=== PATIENT | male | born 1955 | race Caucasian/White ===

== ENCOUNTER → 2025-01-28 | Outpatient (REF) | payer MEDICARE, MEDICAID, SELFPAY ==
--- OUTSIDE RECORDS SUMMARY | 2025-01-28 04:17 | XMS RPT_ITS | CCD ---
Author Organization [place] [email or web address] [facility] Care Team Providers Care Rn Clinical Name Role Phone FAYE JORDAN DO Primary Care Physician Sean Rounding Nurse, Jonathan Unavailable Yarely ROBERTS MD, ANS Attending Unavailable ATIYA MACK MD Admitting Unavailable HAYDEN LARSON DO Consulting Unavailable FAYE JORDAN DO Primary Care Unavailable FAYE JORDAN DO Consulting Unavailable Daniella Meeks Attending Unavailable NICKOLAS EWING Primary Care Unavailable NAYANA BETANCOURT Admitting Unavailable NAYANA BETANCOURT Attending Unavailable OSCAR MALONEY Consulting Unavailable Allergies Allergy Classification Reported Allergen(s) Allergy Type Date of Onset Reaction(s) Facility (1 source) Fish - dietary Drug allergy RESP DIFF; THROAT [facility] (1 source) FISH CONTAINING PRODUCTS; Translations: [FISH CONTAINING PRODUCTS] Propensity to adverse reactions to drug (disorder) [address] [place] [address] Repository Medications Current Medications Medication Drug Class(es) Dates Sig (Normalized) Sig (Original) aspirin 81 mg oral tablet (1 source) Platelet Aggregation Inhibitor, Nonsteroidal Anti-inflammatory Drug Start: 09-16-2009 take 1 dose by mouth once daily aspirin Dose : 81 mg =, PO, Daily, 0 Refill(s), current med (Hx) Start Date: 09/16/09 Status: Ordered Medication Dispense Status: Completed Total Allowed Fills: 1 Fills Dispensed: 0 atorvastatin 40 mg oral tablet (1 source) HMG-CoA Reductase Inhibitor Start: 01-05-2025 atorvastatin 40 mg oral tablet Dose : 40 mg = 1 tab(s), Oral, qHS, 0 Refill(s) Start Date: 01/05/25 Status: Ordered Medication Dispense Status: Completed Total Allowed Fills: 1 Fills Dispensed: 0 docusate sodium 50 mg / sennosides, correction 8.6 mg oral tablet (1 source) Start: 01-05-2025 take 1 tablet by mouth once daily at bedtime docusate-senna 50 mg-8.6 mg oral tablet Dose = 2 tab(s), Oral, qHS, 0 Refill(s) Start Date: 01/05/25 Status: Ordered Medication Dispense Status: Completed Total Allowed Fills: 1 Fills Dispensed: 0 insulin glargine 100 unt/ml injectable solution (1 source) Insulin Analog Start: 01-05-2025 inject 1 dose by subcutaneous injection once daily at bedtime Lantus 100 units/mL10 ml vial solution Dose : 15 unit(s) =, Subcutaneous (INT), qHS, 0 Refill(s) Start Date: 01/05/25 Status: Ordered Medication Dispense Status: Completed Total Allowed Fills: 1 Fills Dispensed: 0 insulin lispro 100 unt/ml injectable solution (1 source) Insulin Analog Start: 01-05-2025 HumaLOG 100 units/mL subcutaneous solution Give 0-10 units/dose, Subcutaneous, TIDAC, 0 Refill(s) Start Date: 01/05/25 Status: Ordered Medication Dispense Status: Completed Total Allowed Fills: 1 Fills Dispensed: 0 lisinopril 10 mg oral tablet (1 source) Angiotensin Converting Enzyme Inhibitor Start: 09-06-2009 take 1 dose by mouth once daily lisinopril Dose : 10 mg =, PO, Daily, 0 Refill(s), current med (Hx) Start Date: 09/06/09 Status: Ordered Medication Dispense Status: Completed Total Allowed Fills: 1 Fills Dispensed: 0 metFORMIN hydrochloride 1000 mg oral tablet (1 source) Biguanide Start: 09-06-2009 take 1 dose by mouth twice daily metformin Dose : 1000 mg =, PO, BID, 0 Refill(s), current med (Hx) Start Date: 09/06/09 Status: Ordered Medication Dispense Status: Completed Total Allowed Fills: 1 Fills Dispensed: 0 Miconazole (1 source) Azole Antifungal Start: 01-05-2025 miconazole 2% topical powder Apply 1 liv, Topical, BID, 0 Refill(s), Powder, 82.5 Start Date: 01/05/25 Status: Ordered Medication Dispense Status: Completed Total Allowed Fills: 1 Fills Dispensed: 0 polyethylene glycol 3350 38680 mg powder for oral solution (1 source) Osmotic Laxative Start: 01-05-2025 Miralax Powder Packet Oral, qDay, 0 Refill(s) Start Date: 01/05/25 Status: Ordered Medication Dispense Status: Completed Total Allowed Fills: 1 Fills Dispensed: 0 polymyxin b 80186 unt/ml / trimethoprim 1 mg/ml ophthalmic solution (1 source) Dihydrofolate Reductase Inhibitor Antibacterial, Polymyxin-class Antibacterial Start: 01-05-2025 polymyxin B-trimethoprim 10,000 units-1 mg/mL ophthalmic solution Dose = 1 drop(s), Eye, right, q3h, 0 Refill(s) Start Date: 01/05/25 Status: Ordered Medication Dispense Status: Completed Total Allowed Fills: 1 Fills Dispensed: 0 Silvadene (1 source) Sulfonamide Antibacterial Start: 01-05-2025 Silvadene Apply 1 liv, Topical, BID, 0 Refill(s), Cream, 82.5 Start Date: 01/05/25 Status: Ordered Medication Dispense Status: Completed Total Allowed Fills: 1 Fills Dispensed: 0 terbinafine 250 mg oral tablet (1 source) Allylamine Antifungal Start: 09-16-2009 terbinafine 250 mg oral tablet Dose : 250 mg = 1 tab(s), PO, Daily, 0 Refill(s), current med (Hx) Start Date: 09/16/09 Status: Ordered Medication Dispense Status: Completed Total Allowed Fills: 1 Fills Dispensed: 0 Problems Problem Classification Problem Date Documented Date Episodic/Chronic Chronic ulcer of skin (2 sources) Pressure ulcer of sacral region; Translations: [Pressure ulcer of sacral region, stage 3] Chronic Diabetes mellitus with complications (1 source) Type 2 diabetes mellitus with other specified complication; Translations: [Type 2 diabetes mellitus with other specified complication, with long-term current use of insulin (HCC)] Onset: 01-05-2025 Chronic Fluid and electrolyte disorders (2 sources) Hyperosmolality with hypernatremia; Translations: [Hyperosmolality and hypernatremia] Episodic Mood disorders (1 source) Mood disorders; Translations: [Depression, unspecified depression type] Onset: 01-05-2025 Other aftercare (1 source) assisted (current) use of insulin; Translations: [Type 2 diabetes mellitus with other specified complication, with long-term current use of insulin (HCC)] Onset: 01-05-2025 Episodic Other circulatory disease (1 source) Low blood pressure; Translations: [Hypotension, unspecified] Episodic Other circulatory disease (1 source) Personal history of transient ischemic attack (TIA), and cerebral infarction without residual deficits; Translations: [History of cardioembolic cerebrovascular accident (CVA)] Onset: 01-05-2025 Episodic Other connective tissue disease (1 source) Rhabdomyolysis; Translations: [Rhabdomyolysis] Episodic Other nervous system disorders (1 source) Disorder of brain; Translations: [Encephalopathy, unspecified] Chronic Other nervous system disorders (1 source) Metabolic encephalopathy; Translations: [Metabolic encephalopathy] Onset: 12-27-2024 Chronic Other nervous system disorders (1 source) Toxic encephalopathy; Translations: [Other toxic encephalopathy] Episodic Residual codes; unclassified (1 source) Restlessness and agitation; Translations: [Agitation] Onset: 01-08-2025 Chronic Respiratory failure; insufficiency; arrest (adult) (1 source) Acute respiratory failure; Translations: [Acute respiratory failure with hypoxia] Episodic Septicemia (except in labor) (2 sources) Sepsis; Translations: [Sepsis, unspecified organism] Onset: 12-27-2024 Episodic Substance-related disorders (1 source) Cocaine abuse; Translations: [Cocaine abuse, uncomplicated] Chronic Urinary tract infections (2 sources) Urinary tract infectious disease; Translations: [Urinary tract infection, site not specified] Onset: 12-27-2024 Episodic Results Test Name Value Interpretation Reference Range Facility L509.8005on 01-22-2025 Reagin Ab RPR Ql (S) Non-Reactive Normal Non Reactive [facility] Comment on above: Order Comment: 415.2 Result Comment: Perf ormed at: - [facility] [address] [id number] Heavy Forging Machine Operator: Je Hernandez PhD, Phone: [phone] Performed By: #### L 509.9860, L100.0500, L500.2500 #### [facility] [place], [address] Basic Metabolic Profile (BMP )on 01-21-2025 BUN/CRE 32.0 RATIO High 10-20 [facility] Comment on above: Order Comment: 415.2 Performed By: #### L 509.8005, L100.0500, L500.2500 #### [facility] [address] [place], [address] Calcium [Mass/Vol] 8.7 mg/dL Normal 7.6-11.0 [facility] Comment on above: Order Comment: 415.2 Performed By: #### L 509.8005, L100.0500, L500.2500 #### [facility] [address] [place], [address] Chloride [Moles/Vol] 106 mmol/L Normal 98-108 [facility] Comment on above: Order Comment: 415.2 Performed By: #### L 509.8005, L100.0500, L500.2500 #### [facility] [address] [place], [address] CO2 [Moles/Vol] 24.4 mmol/L Normal 21.0-32.0 [facility] Comment on above: Order Comment: 415.2 Performed By: #### L 509.8005, L100.0500, L500.2500 #### [facility] [address] [place], [address] Creatinine [Mass/Vol] 0.50 mg/dL Low 0.70-1.20 [facility] Comment on above: Order Comment: 415.2 Performed By: #### L 509.8005, L100.0500, L500.2500 #### [facility] [address] [place], [address] GAP 10 Normal 5-15 [facility] Comment on above: Order Comment: 415.2 Performed By: #### L 509.8005, L100.0500, L500.2500 #### [facility] [address] [place], [address] GFR/1.73 sq M.predicted among non-blacks MDRD (S/P/Bld) [Vol rate/Area] 110 mL/min/{1.73_m2} Normal >60 [facility] Comment on above: Order Comment: 415.2 Result Comment: mL/m in/1.73m2 CKD-EPI Creatinine Equation (2020) Performed By: #### L 509.8005, L100.0500, L500.2500 #### [facility] [address] [place], [address] Glucose [Mass/Vol] 107 mg/dL High 70-99 [facility] Comment on above: Order Comment: 415.2 Performed By: #### L 509.8005, L100.0500, L500.2500 #### [facility] [address] [place], [address] Potassium [Moles/Vol] 4.4 mmol/L Normal 3.3-5.1 [facility] Comment on above: Order Comment: 415.2 Performed By: #### L 509.8005, L100.0500, L500.2500 #### [facility] [address] [place], [address] Sodium [Moles/Vol] 140 mmol/L Normal 133-145 [facility] Comment on above: Order Comment: 415.2 Performed By: #### L 509.8005, L100.0500, L500.2500 #### [facility] [address] [place], [address] Urea nitrogen [Mass/Vol] 16 mg/dL Normal 4-19 [facility] Comment on above: Order Comment: 415.2 Performed By: #### L 509.8005, L100.0500, L500.2500 #### [facility] [address] [place], [address] CBC-Complete Blood Cnt No Di ffon 01-21-2025 Erythrocyte distribution width (RBC) [Ratio] 14.3 % Normal 11.6-14.6 [facility] Comment on above: Order Comment: 415.2 Performed By: #### L 509.8005, L100.0500, L500.2500 #### [facility] [address] [place], [address] Hematocrit (Bld) [Volume fraction] 42.2 % Normal 40-54 [facility] Comment on above: Order Comment: 415.2 Performed By: #### L 509.8005, L100.0500, L500.2500 #### [facility] [address] [place], [address] Hemoglobin (Bld) [Mass/Vol] 13.5 g/dL Normal 13.0-16.5 [facility] Comment on above: Order Comment: 415.2 Performed By: #### L 509.8005, L100.0500, L500.2500 #### [facility] [address] [place], [address] MCH (RBC) [Entitic mass] 29.2 pg Normal 27.0-32.0 [facility] Comment on above: Order Comment: 415.2 Performed By: #### L 509.8005, L100.0500, L500.2500 #### [facility] [address] [place], [address] MCHC (RBC) [Mass/Vol] 32.0 g/dL Normal 32-36 [facility] Comment on above: Order Comment: 415.2 Performed By: #### L 509.8005, L100.0500, L500.2500 #### [facility] [address] [place], [address] MCV (RBC) [Entitic vol] 91.1 fL Normal 80-94 [facility] Comment on above: Order Comment: 415.2 Performed By: #### L 509.8005, L100.0500, L500.2500 #### [facility] [address] [place], [address] Platelet mean volume (Bld) [Entitic vol] 10.6 fL Normal 6.2-12.0 [facility] Comment on above: Order Comment: 415.2 Performed By: #### L 509.8005, L100.0500, L500.2500 #### [facility] [address] [place], [address] Platelets (Bld) [#/Vol] 238 10*3/uL Normal 150-450 [facility] Comment on above: Order Comment: 415.2 Performed By: #### L 509.8005, L100.0500, L500.2500 #### [facility] [address] [place], [address] RBC (Bld) [#/Vol] 4.63 10*6/uL Normal 4.6-6.2 [facility] Comment on above: Order Comment: 415.2 Performed By: #### L 509.8005, L100.0500, L500.2500 #### [facility] [address] [place], [address] RDW SD 47.8 fl High 35.1-43.9 [facility] Comment on above: Order Comment: 415.2 Performed By: #### L 509.8005, L100.0500, L500.2500 #### [facility] [address] [place], [address] WBC (Bld) [#/Vol] 7.1 10*3/uL Normal 4.4-11.0 [facility] Comment on above: Order Comment: 415.2 Performed By: #### L 509.8005, L100.0500, L500.2500 #### [facility] [address] [place], [address] CASE MANAGEMon 01-19-2025 CASE MANAGEM HNO ID: [id number] Author: HEENA GUTIÉRREZ LISW Service: Care Management Author Type: Wealth Management Advisor Type: Care Mgt Progress Note Filed: 01/19/2025 09:18 Note Text: CARE MANAGEMENT DISCHARGE NOTE SERVICE DATE: January 19, 2025 SERVICE TIME: 09:15 Admission Date: 01/05/2025 LOS: 14 days Discharge Arrangement Discharge Arrangement: Home with Self Care Services Arranged Medical Services: Other: See Comment ([facility]) Provider Name: Ladan Soto Caregiver Assessment Caregiver is ready, willing and able to meet the patient's needs as recommended by the inter-professional team: Yes Name of Caregiver: staff at facility Transportation Arrangements Transportation Arrangements: Ambulance Transportation Agency and Phone #:: Hawk Jenkins [phone] Date of Trip: 01/19/25 Time of Trip: 1300 Type of Service: BLS Non-emergency Was transportation financial coverage discussed with family?: Family [employer]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 LOC and Passrr completed. All forms completed Transport arranged for pick up truck driver at 1 pm today Son and facility notified Team updated in epic Rn to Rn provided. Discharge Information Row Name Admission (Current) from 01/05/2025 in [facility] Agency ladan calderae Phone# [phone] SIGNATURE: VELMA Persaud PATIENT NAME: Steven Barlow DATE: January 19, 2025 TIME: 9:16 AM Normal [facility] CNDSon 01-19-2025 CNDS HNO ID: [id number] Author: NAYANA BETANCOURT MD Service: General Internal Medicine Author Type: Physician Type: Discharge Summary Filed: 01/19/2025 10:12 Note Text: DISCHARGE SUMMARY PATIENT NAME: Steven Barlow ADMISSION DATE: 01/05/2025 Date or Evaluation: 01/19/2025 DISCHARGE DATE: 01/19/2025 ATTENDING PHYSICIAN: Nayana Betancourt MD Code Status: Full Code Highest Readmission Risk Score: 10 The 30 day readmissions risk score is derived from an internally validated risk model which evaluates patient level characteristics, utilization history, medication orders and lab results up until the day of discharge. Patients with a score of 39 or above are considered highest risk for readmission. Specific patient level drivers will be listed at the bottom of the summary. CONSULTING TEAMS DURING HOSPITALIZATION: Treatment Team: Attending Provider: Nayana Betancourt MD Attending: MR PALAK EVANS Consulting: Robert Patton, PhD REASON FOR HOSPITALIZATION: fall DIAGNOSIS: Rehab Etiologic Diagnosis: - G93.41 - Metabolic encephalopathy Rehab Comorbid Conditions: - N39.0 - Urinary tract infection, site not specified - E87.0 - Hyperosmolality and hypernatremia - M62.82 - Rhabdomyolysis - I67.9 - Cerebrovascular disease, unspecified - E11.40 - Type 2 diabetes mellitus with diabetic neuropathy, unspecified (HCC) - E86.0 - Dehydration - R09.02 - Hypoxemia - M50.30 - Other cervical disc degeneration, unspecified cervical region - M48.02 - Spinal stenosis, cervical region - F14.10 - Cocaine abuse, uncomplicated (HCC) - L89.152 - Pressure ulcer of sacral region, stage 2 (HCC) - L89.153 - Pressure ulcer of sacral region, stage 3 (HCC) Acute metabolic encephalopathy, improving Acute UTI Concern for undiagnosed dementia, needs outpatient neurology follow-up Chronic CVA Open wounds to penis, both knees, feet (POA) Acute delirium with agitative episodes, improving Chronic depression Constipation, improved Intermittent hypotension episodes, on midodrine, stabilized Diabetes mellitus Hypertension Hyponatremia Malnutrition Diagnosis supported by Registered Dietitian: Moderate Protein-Calorie Malnutrition Based on: Insufficient Energy Intake, Subcutaneous Fat Loss, Muscle Loss Assessment: I have reviewed the result of the malnutrition assessment and plan and agree Plan: Diet, Supplements, Vitamin/Mineral Supplements OPERATIONS DURING HOSPITALIZATION: None HOSPITAL COURSE: 69 yo male presents to [facility] after being found down in his apt for unknow amount of time. Found to be in own urine and feces and right facial droop. Neighbors report seeing pt doing cocaine a few days prior. Head CT shows no acute intracranial abnomality, small lacunar infarct in left adamson radiata. CT face and spine negative for acute findings. Urine tox screen positive for cocaine. Labs show rhabdomyolysis and UTI. Admitted for care and stroke workup. MRI brain and MRA head/neck show evidence of volume loss and small vessel ischemic disease. TTE with preserve LVEF, no shunt. EEG showed no seizure. IV fluids given 1/2 NS for hypernatremia. Continue aspirin for stroke prevention. Can start aspirin and statin once CPK is improved, downtrending. Encourage oral hydration. UTI, IV ceftriaxone started. Cultures showing multiple morphotypes, will complete 1 week course. DM, continue glycemic control and sliding scale insulin. 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 Patient has stage 2 to coccyx and stage 3 to sacral region, appreciate wound team recommendations. Continue dressing changes and wound treatments. Encourage incentive spirometry. Wean O2 as able, no home O2 prior to admission. Continue PT/OT, recommending acute rehab on discharge. Patient having generalized weakness and fatigues easily. Date of Onset: 12/27/24 Date of Admission: 12/27/24 Acute rehab course: Initially admitted to hospital for experiencing acute metabolic encephalopathy, with underlying UTI and suspected substance abuse/cocaine. Patient imaging studies with CT and MRI brain, noted small lacunar infarct, likely remote. Patient provided with medications and later discharged to acute rehab. In our acute rehab, patient underwent extensive physical and occupational therapies, speech therapy, nutrition therapy, neuropsychiatric evaluations daily and provided adjusted psychiatric medications and rest of the home medications. Patient deemed stable to be discharged to SNF today with close follow-up suggested to PCP in 1 to 2 weeks. PATIENT CONDITION AT DISCHARGE: Stable DISCHARGE DISPOSITION: Senior Living Facility Physical Exam: General awake and alert oriented x 4 HEENT atraumatic normocephalic Lungs clear to auscultation bilateral no wheeze or rhonchi Cardiovascular normal S1-S2 regular rate rhythm next abdomen soft nontender nondistended positive bowel sounds Extremities n (more content not included)... Normal [facility] CONSULT PROGon 01-19-2025 CONSULT PROG HNO ID: [id number] Author: ROBERT PATTON, PhD Service: Psychology Author Type: Psychologist Type: Consult Progress Note Filed: 01/19/2025 09:09 Note Text: NEUROPSYCHOLOGY SERVICE CONSULT PROGRESS NOTE SERVICE DATE: 01/19/2025 SERVICE TIME: 9:04 AM Subjective INTERVAL HPI: Mr. Barlow reports improved right sided functioning. Scheduled for discharge to [facility] facility later today he states. I have not confirmed with charge nurse. No new complaints. No new questions. Current Facility-Administere d Medications Medication Dose Route Frequency terbinafine HCl 250 mg tab(s) (LamISIL) 250 mg ORAL DAILY aspirin 81 mg chewable tab(s) 81 mg ORAL DAILY atorvastatin 40 mg tab(s) (LIPITOR) 40 mg ORAL AT BEDTIME dextrose 40 % 15 g 15 g ORAL PRN Or glucagon 1 mg injection 1 mg INTRAMUSCULAR PRN Or dextrose 10% iv bolus 12.5 g INTRAVENOUS PRN insulin lispro injection (rapid acting) (ADMElog) SUBCUTANEOUS w MEALS insulin lispro injection (rapid acting) (ADMElog) SUBCUTANEOUS AT BEDTIME insulin glargine 15 Units pen (long acting) 15 Units SUBCUTANEOUS AT BEDTIME metFORMIN ER 1,000 mg tab(s) (GLUCOPHAGE XR) 1,000 mg ORAL BID w MEALS polyethylene glycol 3350 17 g packet 17 g ORAL DAILY miconazole 2 % 1 application topical powder 1 application TOPICAL BID polymyxin B-trimethoprim 1 drop ophthalmic drops (POLYTRIM) 1 drop BOTH EYES 3 times per day aquaphor - stomahesive topical ointment (E.T. MIXTURE) TOPICAL PRN mirtazapine 15 mg (REMERON) 15 mg ORAL AT BEDTIME lidocaine 4 % 1 patch (SALONPAS) 1 patch TRANSDERMAL DAILY And lidocaine patch - REMOVE OTHER AT BEDTIME And lidocaine - VERIFY PATCH OTHER q 8 H OLANZapine 2.5 mg tab(s) (ZYPREXA) 2.5 mg ORAL AT BEDTIME nicotine 21 mg/24 hr 1 patch (NICODERM) 1 patch TRANSDERMAL DAILY And nicotine -- REMOVE patch OTHER DAILY And nicotine - verify patch OTHER q 8 H acetaminophen 650 mg tab(s) (TYLENOL) 650 mg ORAL q 6 H PRN multivitamin-ferrous fumarate-folic acid 1 tablet (CENTRUM) 1 tablet ORAL DAILY midodrine 5 mg tab(s) (PROAMITINE) 5 mg ORAL q 8 H lactulose 20 g oral liquid 20 g ORAL BID senna-docusate 8.6-50 mg 2 tablet (SENNA-S) 2 tablet ORAL BID diclofenac 1 % 2 g topical gel (VOLTAREN) 2 g TOPICAL DAILY PRN Objective COGNITIVE TESTING: Repeated testing on prior areas of concern identified last week. Attention Verbal complex attention measured by digits reversed improved to the normal range on the lower limit, 4 numbers reverse consistently. Upper limit still moderately impaired 4 numbers reversed with mistakes on some tries instead of 6. Visual attention improved to the mild deficit range, 3 visual units recalled in order consistently and 5 with mistakes on some tries. Language Object naming improved. Perfect score on the naming screen today 10 out of 10 correct Vision and Motor Skills Line angle perception improved from the moderate to the normal range 8 out of 10 correct. Memory Verbal memory storage for a list of 5 words remains normal, 3 tries to learn the list. 15 minutes later still unable to recall any severe score. Executive Functions Verbal everyday reasoning based on the judgment test remains moderately impaired 4 out of 8 points. Cognitive estimates improved from the severe to the moderate deficit range 3 out of 5 items correct, another verbal reasoning measure. He remains severely impaired on Matrix Reasoning of visual reasoning measure, failing the easy practice items x 3. DATA: Diagnostic tests reviewed for today's visit: Significant findings were none found CONCLUSIONS/RECOMMEN DATIONS: Repeat cognitive testing shows improvement in several areas including verbal and visual attention, naming, line angle perception. He still has moderate to severe deficits in verbal and visual reasoning, verbal memory recall. Milder deficits still seen on verbal and visual attention. Recommend continued cognitive therapy. Power of deputy county attorney should be enforced still due to his significant residual cognitive deficits. Use visual cues is much as possible because of preserved visual memory. 35 minutes SIGNATURE: Robert Patton, PhD PATIENT NAME: Steven Barlow DATE: January 19, 2025 TIME: 9:04 AM PAGER: Normal [facility] Basic metabolic 2000 panelon 2025 Anion gap [Moles/Vol] 10 mmol/L Normal 5-16 [facility] Comment on above: Order Comment: Speci men Type: BLOOD SPECIMENOrdering Facility: [facility] Address: [address] [place] [address] Performed By: #### 2 4321-2 ####[facility] LABORATORYCLIA [id number] [place] [address] [place] Calcium [Mass/Vol] 8.9 mg/dL Normal 8.5-10.5 [facility] Comment on above: Order Comment: Speci men Type: BLOOD SPECIMENOrdering Facility: [facility] Address: [address] [place] [address] Performed By: #### 2 4321-2 ####[facility] LABORATORYCLIA [id number] [place] [address] [place] Chloride [Moles/Vol] 104 mmol/L Normal 98-107 [facility] Comment on above: Order Comment: Speci men Type: BLOOD SPECIMENOrdering Facility: [facility] Address: [address] [place] [address] Performed By: #### 2 4321-2 ####[facility] LABORATORYCLIA [id number] [place] [address] [place] CO2 [Moles/Vol] 27 mmol/L Normal 21-32 [facility] Comment on above: Order Comment: Speci men Type: BLOOD SPECIMENOrdering Facility: [facility] Address: [address] [place] [address] Performed By: #### 2 4321-2 ####[facility] LABORATORYCLIA [id number] [place] [address] [place] [facility] Creatinine [Mass/Vol] 0.64 mg/dL Normal 0.50-1.40 [facility] Comment on above: Order Comment: Speci men Type: BLOOD SPECIMENOrdering Facility: [facility] Address: [address] [place] [address] Result Comment: Chuyita ents receiving either N-Acetylcysteine (NAC) or Metamizole prior to venipuncture, may have falsely depressed results. Performed By: #### 2 4321-2 ####[facility] LABORATORYCLIA [id number] [place] [address] [place] eGFRcr SerPlBld CKD-EPI 2020 102 mL/min/1.73m??? Normal >=60 [facility] Comment on above: Order Comment: Speci men Type: BLOOD SPECIMENOrdering Facility: [facility] Address: [address] [place] [address] Result Comment: Mariana mated Glomerular Filtration Rate (eGFR) is calculated using the 2020 CKD-EPI creatinine equation. This equation utilizes serum creatinine, sex, and age as parameters. The creatinine assay has traceable calibration to isotope dilution-mass spectrometry. Refer to KDIGO guidelines for clinical interpretation. In patients with unstable renal function, e.g. those with acute kidney injury, the eGFR may not accurately reflect actual GFR. Performed By: #### 2 4321-2 ####[facility] LABORATORYCLIA [id number] [place] [id number] [place] Glucose [Mass/Vol] 69 mg/dL Low 70-100 [facility] Comment on above: Order Comment: Maren newman Type: BLOOD SPECIMENOrdering Facility: [facility] Address: [address] [place] [address] Result Comment: The [place] Diabetes Association (ADA) provides guidance for cutoff values for fasting glucose and random glucose. The ADA defines fasting as no caloric intake for at least 8 hours. Fasting plasma glucose results between 100 to 125 mg/dL indicate increased risk for diabetes (prediabetes). Fasting plasma glucose results greater than or equal to 126 mg/dL meet the criteria for diagnosis of diabetes. In the absence of unequivocal hyperglycemia, results should be confirmed by repeat testing. In a patient with classic symptoms of hyperglycemia or hyperglycemic crisis, random plasma glucose results greater than or equal to 200 mg/dL meet the criteria for diagnosis of diabetes. Reference: Standards of Medical Care in Diabetes 2016, [place] [employer] Association. Diabetes Care. 2016.39(Suppl 1). Results may be falsely elevated after the administration of Sulfapyridine. Results may be falsely depressed after the administration of Sulfasalazine. Performed By: #### 2 4321-2 ####[facility] LABORATORYCLIA [id number] [place] [address] [place] Potassium [Moles/Vol] 3.7 mmol/L Normal 3.5-5.1 [facility] Comment on above: Order Comment: Maren newman Type: BLOOD SPECIMENOrdering Facility: [facility] Address: [address] [place] [id number] Performed By: #### 2 4321-2 ####[facility] LABORATORYCLIA [id number] [place] [id number] [place] Sodium [Moles/Vol] 141 mmol/L Normal 136-145 [facility] Comment on above: Order Comment: Speci men Type: BLOOD SPECIMENOrdering Facility: [facility] Address: [address] [place] [address] Performed By: #### 2 4321-2 ####[facility] LABORATORYCLIA [id number] [place] [id number] [place] Urea nitrogen [Mass/Vol] 17 mg/dL Normal 7-26 [facility] Comment on above: Order Comment: Speci men Type: BLOOD SPECIMENOrdering Facility: [facility] Address: [address] [place] [id number] Performed By: #### 2 4321-2 ####[facility] LABORATORYCLIA [id number] [place] [id number] [facility] CASE MANAGEMon 2025 CASE MANAGEM HNO ID: [id number] Author: HEENA GUTIÉRREZ LISW Service: Care Management Author Type: Wealth Management Advisor Type: Care Mgt Progress Note Filed: 2025 09:25 Note Text: CARE MANAGEMENT PROGRESS NOTE SERVICE DATE: 2025 SERVICE TIME: LOS: 13 days Progress note Patient admitted to [facility] from [facility] metabolic encephalopathy- found on ground by neighbors-who report recent cocaine use. Patient will have 3 hours of therapy 5 days a week with gaol to progress patient to home Patient lives alone in apartment he was independnent with self care He has insurance and can afford RX. He has a PCP has not been in while and can not recall name He may need to be set up with new PCP. He was [employer] does not receive services from them He has one Son Damien Barlow- [phone] He admits to He denies alcohol and drug use. He did test positive at [facility] for Cocaine. Son indicated he did that a long time ago and may have gotten from neighbor as been confused Patient is able to afford medications can struggle with obtaining food and paying bills Commity resources and food assistance provided to patient Plan is [facility] Memory care unit Javi Delorister does not need to be removed. Insurance approved admission. LOC and Pas[place] and updated in care port. 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 Discharge packet on chart and DNR form completed-singed on chart Seen patient provided support and updated on plan and in agreement. Remains confused. Sw following for transitional care needs SIGNATURE: VELMA Persaud PATIENT NAME: Steven Barlow DATE: 2025 TIME: 9:20 AM Normal [facility] CBC W Auto Differential pane l (Bld)on 2025 Basophils (Bld) [#/Vol] 0.07 10*3/uL Normal <0.11 [facility] Comment on above: Order Comment: Speci men Type: BLOOD SPECIMENOrdering Facility: [facility] Address: [address] [place] [address] Performed By: #### 5 7021-8 ####[facility] LABORATORYCLIA [id number] [place] [address] [place] Basophils/100 WBC (Bld) 1.0 % Normal [facility] Comment on above: Order Comment: Speci men Type: BLOOD SPECIMENOrdering Facility: [facility] Address: [address] [place] [address] Performed By: #### 5 7021-8 ####[facility] LABORATORYCLIA [id number] [place] [address] [place] Differential cell count method Nom (Bld) Auto Normal [facility] Comment on above: Order Comment: Speci men Type: BLOOD SPECIMENOrdering Facility: [facility] Address: [address] [place] [address] Performed By: #### 5 7021-8 ####[facility] LABORATORYCLIA [id number] [place] [address] [place] Eosinophils (Bld) [#/Vol] 0.15 10*3/uL Normal <0.46 [facility] Comment on above: Order Comment: Speci men Type: BLOOD SPECIMENOrdering Facility: [facility] Address: [address] [place] [address] Performed By: #### 5 7021-8 ####[facility] LABORATORYCLIA [id number] [place] [address] [place] Eosinophils/100 WBC (Bld) 2.1 % Normal [facility] Comment on above: Order Comment: Speci men Type: BLOOD SPECIMENOrdering Facility: [facility] Address: [address] [place] [address] Performed By: #### 5 7021-8 ####[facility] LABORATORYCLIA [id number] [place] [address] [place] Erythrocyte distribution width (RBC) [Ratio] 14.4 % Normal 11.5-15.0 [facility] Comment on above: Order Comment: Speci men Type: BLOOD SPECIMENOrdering Facility: [facility] Address: [address] [place] [address] Performed By: #### 5 7021-8 ####[facility] LABORATORYCLIA [id number] [place] [address] [place] Hematocrit (Bld) [Volume fraction] 41.4 % Normal 39.0-51.0 [facility] Comment on above: Order Comment: Speci men Type: BLOOD SPECIMENOrdering Facility: [facility] Address: [address] [place] [address] Performed By: #### 5 7021-8 ####[facility] LABORATORYCLIA [id number] [place] [address] [place] Hemoglobin (Bld) [Mass/Vol] 13.2 g/dL Normal 13.0-17.0 [facility] Comment on above: Order Comment: Speci men Type: BLOOD SPECIMENOrdering Facility: [facility] Address: [address] [place] [address] Performed By: #### 5 7021-8 ####[facility] LABORATORYCLIA [id number] [place] [id number] [place] Immature granulocytes (Bld) [#/Vol] 0.06 10*3/uL Normal <0.10 [facility] Comment on above: Order Comment: Speci men Type: BLOOD SPECIMENOrdering Facility: [facility] Address: [address] [place] [address] Performed By: #### 5 7021-8 ####[facility] LABORATORYCLIA [id number] [address] [place] [facility] Immature granulocytes/100 WBC (Bld) 0.8 % Normal [facility] Comment on above: Order Comment: Speci men Type: BLOOD SPECIMENOrdering Facility: [facility] Address: [address] [place] [address] Performed By: #### 5 7021-8 ####[facility] LABORATORYCLIA [id number] [place] [address] [place] Lymphocytes (Bld) [#/Vol] 2.31 10*3/uL Normal 1.00-4.00 [facility] Comment on above: Order Comment: Speci men Type: BLOOD SPECIMENOrdering Facility: [facility] Address: [address] [place] [address] Performed By: #### 5 7021-8 ####[facility] LABORATORYCLIA [id number] [address] [place] Lymphocytes/100 WBC (Bld) 31.6 % Normal [facility] Comment on above: Order Comment: Speci men Type: BLOOD SPECIMENOrdering Facility: [facility] Address: [address] [place] [address] Performed By: #### 5 7021-8 ####[facility] LABORATORYCLIA [id number] [place] [address] [place] MCH (RBC) [Entitic mass] 28.8 pg Normal 26.0-34.0 [facility] Comment on above: Order Comment: Speci men Type: BLOOD SPECIMENOrdering Facility: [facility] Address: [address] [place] [address] Performed By: #### 5 7021-8 ####[facility] LABORATORYCLIA [id number] [place] [address] [place] MCHC (RBC) [Mass/Vol] 31.9 g/dL Normal 30.5-36.0 [facility] Comment on above: Order Comment: Speci men Type: BLOOD SPECIMENOrdering Facility: [facility] Address: [address] [place] [address] Performed By: #### 5 7021-8 ####[facility] LABORATORYCLIA [id number] [place] [address] [place] MCV (RBC) [Entitic vol] 90.4 fL Normal 80.0-100.0 [facility] Comment on above: Order Comment: Speci men Type: BLOOD SPECIMENOrdering Facility: [facility] Address: [address] [place] [address] Performed By: #### 5 7021-8 ####[facility] LABORATORYCLIA [id number] [place] [address] [place] Monocytes (Bld) [#/Vol] 0.83 10*3/uL Normal <0.87 [facility] Comment on above: Order Comment: Speci men Type: BLOOD SPECIMENOrdering Facility: [facility] Address: [address] [place] [address] Performed By: #### 5 7021-8 ####[facility] LABORATORYCLIA [id number] [place] [address] [place] Monocytes/100 WBC (Bld) 11.4 % Normal [facility] Comment on above: Order Comment: Speci men Type: BLOOD SPECIMENOrdering Facility: [facility] Address: [address] [place] [address] Performed By: #### 5 7021-8 ####[facility] LABORATORYCLIA [id number] [place] [address] [place] Neutrophils (Bld) [#/Vol] 3.89 10*3/uL Normal 1.45-7.50 [facility] Comment on above: Order Comment: Speci men Type: BLOOD SPECIMENOrdering Facility: [facility] Address: [address] [place] [address] Performed By: #### 5 7021-8 ####[facility] LABORATORYCLIA [id number] [place] [address] [place] Neutrophils/100 WBC (Bld) 53.1 % Normal [facility] Comment on above: Order Comment: Speci men Type: BLOOD SPECIMENOrdering Facility: [facility] Address: [address] [place] [address] Performed By: #### 5 7021-8 ####[facility] LABORATORYCLIA [id number] [place] [address] [place] Nucleated RBC (Bld) [#/Vol] 10*3/uL Normal <0.01 [facility] Comment on above: Order Comment: Speci men Type: BLOOD SPECIMENOrdering Facility: [facility] Address: [address] [place] [address] Performed By: #### 5 7021-8 ####[facility] LABORATORYCLIA [id number] [place] [address] [place] Nucleated RBC/100 WBC (Bld) [Ratio] 0.0 /100 WBC Normal [facility] Comment on above: Order Comment: Speci men Type: BLOOD SPECIMENOrdering Facility: [facility] Address: [address] [place] [address] Performed By: #### 5 7021-8 ####[facility] LABORATORYCLIA [id number] [place] [address] [place] Platelet mean volume (Bld) [Entitic vol] 10.6 fL Normal 9.0-12.7 [facility] Comment on above: Order Comment: Speci men Type: BLOOD SPECIMENOrdering Facility: [facility] Address: [address] [place] [address] Performed By: #### 5 7021-8 ####[facility] LABORATORYCLIA [id number] [place] [address] [place] Platelets (Bld) [#/Vol] 234 10*3/uL Normal 150-400 [facility] Comment on above: Order Comment: Speci men Type: BLOOD SPECIMENOrdering Facility: [facility] Address: [address] [place], [place] [address] Performed By: #### 5 7021-8 ####[facility] LABORATORYCLIA [id number] [place] [id number] [facility] [place] RBC (Bld) [#/Vol] 4.58 10*6/uL Normal 4.20-6.00 [facility] Comment on above: Order Comment: Speci men Type: BLOOD SPECIMENOrdering Facility: [facility] Address: [address] [place] [address] Performed By: #### 5 7021-8 ####[facility] LABORATORYCLIA [id number] [place] [id number] [facility] WBC (Bld) [#/Vol] 7.31 10*3/uL Normal 3.70-11.00 [facility] Comment on above: Order Comment: Speci men Type: BLOOD SPECIMENOrdering Facility: [facility] Address: [address] [place] [address] Performed By: #### 5 7021-8 ####[facility] LABORATORYCLIA [id number] [place] [id number] [facility] THERAPY NTon 2025 THERAPY NT HNO ID: [id number] Author: FLORINA LA, PT Service: Physical Therapy Author Type: Physical Therapist Type: Therapy (PT/OT/Speech/Resp) Filed: 2025 12:50 Note Text: PHYSICAL THERAPY DISCHARGE NOTE INPATIENT REHABILITATION FACILITY SERVICE DATE: 2025 ROOM: [place] [address] Anticipated Discharge Needs: Undetermined (Pt d/c'd to SNF) Physical Assist at Home for: Finances, Laundry, Cleaning, Meals, Medication Management, Safety, Stairs, Self Care, Shopping, Transportation Supervision at Home due to: Decreased safety awareness, Impaired cognition Recommended Discharge Disposition: Subacute/SNF Recommended Discharge Equipment: No equipment needs anticipated Plan of Care Developed with: Patient Discharge Therapy Services Discharged (date): 01/18/25 Discharged To: Subacute / Senior Living Facility Home Exercise Program Status: Assist Care Scores Functional Area Admission Assessment Care Score Current Status Care Score Discharge Goal Chair/Zme-la-Ynmxs Transfer 3 3 Independent [6] Toilet Transfer 3 4 Supervision or touching assistance [4] Walk 10 Feet 3 3 Independent [6] Walk 50 Feet with Two Turns 3 3 Independent [6] Walk 150 Feet 88 3 Independent [6] 1 Step (Curb) 3 3 Independent [6] 4 Steps 3 3 Independent [6] 12 Steps 3 3 Independent [6] Wheel 50 Feet with Two Turns 9 9 Not applicable [9] Wheel 150 Feet 9 9 Not applicable [9] Care Score Definitions: 1 - Dependent; 2 - Substantial/maximal assistance; 3 - Partial/moderate assistance; 4 - Supervision or touching assistance; 5 - Set-up/clean-up; 6 - Independent;7 - Patient refused; 9 - Not applicable; 10 - Not attempted due to environmental limitations; 88 - Not attempted due to medical/safety concerns Goals for Plan of Care: Transfer Supine to/from Sit with: Modified Independent Transfer Supine to/from Sit Goal Discharge Status: Goal Met Transfer Sit to/from Stand with: Modified Independent Transfer Sit to/from Stand Goal Discharge Status: Goal Not Met Ambulate with: Modified Independent Distance: 80' Device: Wheeled Walker Ambulate Goal Discharge Status: Goal Not Met Ambulate Up and Down Steps with: Modified Independent Number of Steps: 10 Device: Rail Ambulate Up and Down Steps Goal Discharge Status: Goal Not Met SIGNATURE: Florina La PT PATIENT NAME: Steven Barlow DATE: 2025 TIME: 12:50 PM [facility] THERAPY NT HNO ID: [id number] Author: FLORINA LA PT Service: Physical Therapy Author Type: Physical Therapist Type: Therapy (PT/OT/Speech/Resp) Filed: 2025 12:50 Note Text: Physical Therapy Treatment SERVICE DATE: 2025 SERVICE TIME: 1045 ROOM: [place] [address] Recommended Discharge Disposition: Subacute/SNF Anticipated Discharge Needs: Undetermined (Pt d/c'd to SNF) Physical Assist at Home for: Finances, Laundry, Cleaning, Meals, Medication Management, Safety, Stairs, Self Care, Shopping, Transportation Supervision at Home due to: Decreased safety awareness, Impaired cognition Recommended Discharge Equipment: No equipment needs anticipated Precautions/Activity Restrictions: Bed/Chair Alarm, Fall Risk, Sitter Precaution/Activity Restriction Comments: on room air for session, WNL, monitor O2, pt was on room air most of session, needed when laying down, goes by "Evgeny", decreased R side awareness, monitor BP Current Hospital Course: Pt admitted to [facility] rehab for OT/PT/ST services. 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 Found cocaine in urine screen Relevant Past Medical History: DM2 Response to Therapy Interventions: Cognitive Deficits, Good Participation in Activities Assessment Comments: Pt with good tolerance to PT session. Pt requires min A for transfers, gait and steps. Pt will require hands on assistance at d/c. Home Assessment Accessibility Issues: Home entry steps Physical Therapy Problem List: Functional Mobility Impairment, Balance Impaired Planned Interventions: Therapeutic Exercise, Therapeutic Activity, Gait Training Home Environment Patient Lives With: Self/Alone Assistance Available: PRN Comments: son lives close Entry To Home: Stairs, With Rail Number Of Stairs Into Home: 10 Number Of Stairs To Bed/Bath: 0 Tub/Shower Type: tub/shower combo with grabbars and shower chair Laundry: first floor setup, pt was doing Equipment Owned: Walker- Wheeled, Shower Chair, Grab Bars- Shower, Grab Bars- Toilet, Cognitive/Memory Tool, Elevated Toilet Seat Prior Functional Level: Within Functional Limits Prior Functional Level Comments: Per pt I with ADLS/IADLS, used a FWW in community, driving prior. per pt this is the only fall in the last 6 months Subjective: "Are we done yet?" Cognitive Screen: Responsiveness: Alert Orientation Deficits: Confused Follows Commands: 2-step Commands Pulmonary/Cardiac Status: Skin Integrity: Edema: Sensation: Tone/Spasticity: Gross Motor Coordination: Posture: Posture: Forward head, Rounded shoulders CURRENT FUNCTIONAL STATUS: Most recent performance Current Functional Mobility Assist Level Additional Information Rolling Independent Supine to Sit Modified Independent Sit to Supine Modified Independent Scooting Modified Independent . Sit to Stand Contact Guard Assistance Stand to Sit Contact Guard Assistance Cues for hand placement each time. Bed to Chair Minimal Assistance Bed To Chair Transfer Type: Stepping Bed To Chair Transfer Equipment: Wheeled Walker Toilet/Commode Minimal Assistance Gait Minimal Assistance Gait Device: Wheeled Walker Gait Distance (feet): up to 150' Pt ambulates with bilateral knee flexion. Very impulsive.Cues for walker management. Stairs Minimal Assistance Stairs Device: Rail Number of Stairs: 15 Pt with decreased eccentric control when descending steps. Curb Step Minimal Assistance Device: Wheeled Walker Cues for decreased speed. Car Transfer Minimal Assistance Blank doherty indicate activity not attempted General Deviations/Observati ons: Ellen decreased, Difficulty changing direction/turning, Flexed trunk posture, Narrow Base of Support, Shuffling Gait, Step length decreased Ramp: up/down ramp with FWW and min A Balance: Static Sitting, Dynamic Sitting, Static Standing, Dynamic Standing Static Sitting Balance: Good Patient able to maintain balance without handhold support, limited postural sway Dynamic Sitting Balance: Good Patient accepts moderate challenge, able to maintain balance while picking up object off floor Static Standing Balance: Fair Patient able to maintain balance with handhold support, may require occasional minimal assistance Dynamic Standing Balance: Fair Patient accepts minimal challenge, able to maintain balance while turning head/trunk Activity Tolerance: Sitting Activity, Standing Activity Sitting Activity: Pt completed 6 minutes on SCIFIT level 3 for LE strengthening and endurance. Standing Activity: Pt completed dual task forward/backward walking while bouncing/catching ball with min-mod A for LOB. Pt ambulated over grass surface with FWW and min A. Pt completed lateral stepping and walking marches in parallel bars (more content not included)... [facility] THERAPY NT HNO ID: [id number] Author: MANUEL MARTINEZ CCC-SLP Service: ? Author Type: Speech Language Pathologist Type: Therapy (PT/OT/Speech/Resp) Filed: 2025 12:37 Note Text: SPEECH THERAPY DISCHARGE NOTE INPATIENT REHABILITATION FACILITY SERVICE DATE: 2025 ROOM: [id number] Recommended Discharge Disposition: Subacute/SNF Recommended Discharge Disposition Comments: Discharge 01/18 from [facility] Plan of Care Developed with: Patient SIGNATURE: TYRON GonzalezLITHOGRAPHER APPRENTICE PATIENT NAME: Steven Barlow DATE: 2025 TIME: 12:37 PM [facility] THERAPY NT HNO ID: [id number] Author: BONG TAYLOR OT/L Service: Occupational Therapy Author Type: Occupational Therapist Type: Therapy (PT/OT/Speech/Resp) Filed: 2025 12:06 Note Text: OCCUPATIONAL THERAPY DISCHARGE NOTE INPATIENT REHABILITATION FACILITY SERVICE DATE: 2025 ROOM: [place] [address] Anticipated Discharge Needs: Undetermined (D/c to SNF) Physical Assist at Home for: Finances, Laundry, Cleaning, Meals, Medication Management, Safety, Stairs, Self Care, Shopping, Transportation Supervision at Home due to: Decreased safety awareness, Impaired cognition Recommended Discharge Disposition: Subacute/SNF Recommended Discharge Disposition Comments: Pt would benefit from SNF to continue to address deficits, and maximize safety and independence with ADLs and functional mobility. Pt met some goals however due to continued level of assist has not met most of his goals, specifically LB ADLs. Recommended Discharge Equipment: To Be Determined Plan of Care Developed with: Patient Discharge Therapy Services Discharged (date): 01/18/25 Discharged To: Subacute / Senior Living Facility Home Exercise Program Status: Assist Care Scores Functional Area Admission Assessment Care Score Current Status Care Score Discharge Goal Eating 6 6 Oral Hygiene 5 4 Supervision or touching assistance [4] Toileting Hygiene 3 4 Supervision or touching assistance [4] Shower/Bathe Self 2 3 Supervision or touching assistance [4] Upper Body Dressing 2 3 Supervision or touching assistance [4] Lower Body Dressing 1 3 Supervision or touching assistance [4] Putting On/Taking Off Footwear 1 2 Set-up/clean-up [5] Care Score Definitions: 1 - Dependent; 2 - Substantial/maximal assistance; 3 - Partial/moderate assistance; 4 - Supervision or touching assistance; 5 - Set-up/clean-up; 6 - Independent; 7 - Patient refused; 9 - Not applicable; 10 - Not attempted due to environmental limitations; 88 - Not attempted due to medical/safety concerns Goals for Plan of Care: Able to perform HEP with: Supervision HEP Goal Discharge Status: Goal Not Met (continues to require cues and assist, will continue to address at next level of care) Grooming with: Supervision Grooming Goal Discharge Status: Goal Not Met (assist for balance in standing) Upper Body Bathing with: Supervision Upper Body Bathing Goal Discharge Status: Goal Met Upper Body Dressing with: Supervision Upper Body Dressing Goal Discharge Status: Goal Not Met (assist for managing shirt down back) Lower Body Bathing with: Minimal Assistance Lower Body Bathing Goal Discharge Status: Goal Not Met (assist for distal BLE) Lower Body Dressing with: Minimal Assistance Lower Body Dressing Goal Discharge Status: Goal Not Met (mod A for threading BLE) Toilet Hygiene with: Minimal Assistance Toilet Hygiene Goal Discharge Status: Goal Met Toilet Transfer with: Supervision Toilet Transfer Goal Discharge Status: Goal Not Met (CGA for balance) Tub Transfer with: Supervision Tub Transfer Goal Discharge Status: Goal Not Met (CGA-min A for balance) Tolerate (minutes of functional activity): 75 Functional Activity with: Supervision Functional Activity Tolerence Goal Discharge Status: Goal Not Met (intermittent min A, ocntinue to address at next level of care) Home Management Skills with: Supervision Home Management Skills Goal Discharge Status: Goal Not Met (continue to address at next level of care, min A for balance with mod-max cues) Kitchen Mobility Tasks with: Supervision Kitchen Mobility Tasks Goal Discharge Status: Goal Not Met (pt demo poor safety, continue to address at next level of care) Demonstrate Positive Coping Strategies with: Supervision Demonstrate Positive Coping Strategies Goal Discharge Status: Goal Met Additional Goal 1: Pt to particpiate in MVPT To assess predriving skills and goals to follow as needed. Additional Goal 1 Discharge Status: Goal Not Met (not appropriate for predriving skills, continue to address at next level of care) Additional Goal 2: Pt to attend to R side by 50-75% of the time during ADLS/transfers. Additional Goal 2 Discharge Status: Goal Met Additional Goal 3: Pt to be able to button shirt etc with use of R hand with no difficulty. Additional Goal 3 Discharge Status: Goal Met SIGNATURE: ALEAH Lilly PATIENT NAME: Steven Barlow DATE: 2025 TIME: 12:06 PM [facility] THERAPY NT HNO ID: [id number] Author: BONG TAYLOR OT/L Service: Occupational Therapy Author Type: Occupational Therapist Type: Therapy (PT/OT/Speech/Resp) Filed: 2025 12:06 Note Text: Occupational Therapy Treatment SERVICE DATE: 2025 SERVICE TIME: 7606-514 ROOM: [place] [address] Recommended Discharge Disposition: Subacute/SNF Recommended Discharge Disposition Comments: Pt would benefit from SNF to continue to address deficits, and maximize safety and independence with ADLs and functional mobility. Pt met some goals however due to continued level of assist has not met most of his goals, specifically LB ADLs. Anticipated Discharge Needs: Undetermined (D/c to SNF) Physical Assist at Home for: Finances, Laundry, Cleaning, Meals, Medication Management, Safety, Stairs, Self Care, Shopping, Transportation Supervision at Home due to: Decreased safety awareness, Impaired cognition Recommended Discharge Equipment: To Be Determined Precautions/Activity Restrictions: Bed/Chair Alarm, Fall Risk, Sitter Precaution/Activity Restriction Comments: on room air for session, WNL, monitor O2, pt was on room air most of session, needed when laying down, goes by "Evgeny", decreased R side awareness, monitor BP Current Hospital Course: [facility]. 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 Found cocaine in urine screen Relevant Past Medical History: DM2 Response to Therapy Interventions: Cognitive Deficits, Limited Participation, Low Activity Tolerance, Multiple Ongoing Medical Issues, Needs Frequent Redirection or Reinstruction, Requires Additional Time to Complete Activities, Requires Encouragement to Complete Activities Assessment Comments: OT d/c completed this date. Pt continues to be limited by safety awareness, poor activity tolerance, weakness, balance deficits, and decreased ability to complete self care tasks. Occupational Therapy Problem List: Cognitive Deficit, Impaired Self Care Cognition/Communicat ion Deficits Responsiveness: Alert, Awake Follows Commands: 2-step Commands, Cueing Needed Cueing to Follow Commands: Minimum Attention Deficits: Distractible, Redirected with Cues Memory Deficits: Short Term Executive Function Deficits: Sequencing, Judgement, Insight to Deficits, Problem Solving, Motor Planning, Safety Awareness Sequencing Deficit: Minimal impairment Judgement Deficit: Moderate impairment Insight to Deficits: Mild Awareness Problem Solving Deficit: Moderate Impairment Motor Planning Deficit: Minimal impairment Safety Awareness Deficit: Moderate impairment Home Environment Patient Lives With: Self/Alone Occupational Factors Life Roles: Parent, Family Member, Friend Identified Strengths for Life Roles: Access to Healthcare Identified Barriers for Life Roles: Difficulty Coping, Limited Social Support, Difficulty with ADLs/IADLs, Judgment/Awareness, Motivation Subjective: Pt agreeable to shower CURRENT FUNCTIONAL STATUS: Most recent performance Current Activities of Daily Living Assist Level Additional Information Feeding Independent Grooming Contact Guard Assistance, Additional Information pt required verbal cues for initiation of washing face and problem solving for opening toothpaste. Pt completed combing hair in sitting with set up assist. Pt completed face washing in shower with SUP. Pt completing oral hygiene in standing with CGA and verbal cues for safety and problem solving Bathing Upper Body Supervision, Additional Information verbal cues for sequencing Bathing Lower Body Moderate Assistance, Additional Information assist for washing/drying distal BLE in sitting and CGA for balance in standing with verbal cues for safety with washing erlinda area Dressing Upper Body Minimal Assistance, Additional Information Assist for managing down trunk Dressing Lower Body Moderate Assistance, Additional Information assist for threading BLE into underwear and pants, and for donning socks. Pt able to complete clothing mgmt up to hips in standing with CGA for balance Toileting Contact Guard Assistance, Additional Information CGA for balance in standing to void Instrumental Activities of Daily Living Assist Level Additional Information Meal/Beverage Prep Cleaning Laundry Medication Management with Strategies Functional Mobility Assist Level Additional Information Rolling Supine to Sit Minimal Assistance, Additional Information assist for trunk elevation Sit to Supine Supervision Scooting Supervision Sit to Stand Contact Guard Assistance, Additional Information multiple trials completed from wheelchair and EOB. intermittent verbal cues for safe hand placement. Stand to Sit Contact Guard Assistan (more content not included)... [facility] THERAPY NT HNO ID: [id number] Author: MANUEL MARTINEZ, CCC-LITHOGRAPHER APPRENTICE Service: ? Author Type: Speech Language Pathologist Type: Therapy (PT/OT/Speech/Resp) Filed: 2025 12:37 Note Text: Speech Therapy Treatment SERVICE DATE: 2025 SERVICE TIME: 1015 ROOM: [id number] IMPRESSION: Communication deficits identified: Cognitive-Linguistic deficits Nursing Recommendations: Reinforce use of cognitive strategies Recommended Discharge Disposition: Subacute/SNF Recommended Discharge Disposition Comments: Discharge 01/18 from . 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 Found cocaine in urine screen Rehabilitation Precautions: Cognitive Linguistics Deficits Reason for Speech Therapy Consult: Oeejxs-[id number]-Eyai ition evaluation. Relevant Past Medical History: DM2 Response to Therapy Interventions: Good participation in activities Assessment Comments: Services focused on cognitive skills. Speech Therapy Problem List: Cognition Subjective: Patient was pleasant and cooperative. Pt leaning back in bed. Current Status Oral Hygiene: Clear, moist oral cavity Dentition: Retains Natural Dentition Current Feeding Method: Oral Current Diet Textures: Regular Consistency, Thin Liquids IDDSI Level 0 Current Level Of Communication: Verbal Current Management Of Secretions: Able to self-manage Oral Motor Exam: Within Functional Limits Except (generalized weakness) Cognition Cognitive Status: Within Functional Limits For Current Session Except Cognitive Deficits: Memory Deficits, Orientation Deficits Orientation Deficits: Orientation Deficit Comments Orientation Deficit Comments: Pt oriented to place, time, and situuation. Pt unable to stae full address with 100% accuracy. Responsiveness: Alert Memory Deficits: Immediate Immediate Memory Comments: 50% accuracy on word list retention task with repetitions and verbal cues. 80% accuracy on folowing directions task with repetitions and verbal cues. Speech/Voice/Languag e Speech Production: Within Functional Limits Voice Assessment: No Patient /Caregiver Goals: Go Home Goals for Plan of Care: Goals: COGNITION: Patient will demonstrate knowledge of taught compensatory strategies for functional cognitive-linguistic skills, SPEECH / LANGUAGE: Patient will demonstrate knowledge of taught compensatory strategies for functional communication Progress Toward Goals: Progressing as expected Speech Rehab Potential: Good Patient will be discontinued from speech therapy when no further skilled needs are identified in this setting. PLAN: Planned Interventions: Individual Speech Therapy, Cognitive Training Plan of Care Developed with: Patient TREATMENT INTERVENTIONS: Interventions Provided: Cognitive Training Training and Education Provided in: Cognitive Linguistic Strategies The following therapeutic skills were used:: Verbal cuing, Visual cuing, Education on role of discipline / importance of activity Home Environment Patient Lives With: Self/Alone Prior Swallowing Function/Diet Textures: Regular Consistency, Thin Liquids IDDSI Level 0 Please see discipline specific clinical documentation flowsheet for complete details for this therapy evaluation/treatment . SIGNATURE: LYLA Gonzalez PATIENT NAME: Steven Barlow DATE: 2025 TIME: 10:46 AM [facility] THERAPY NTon 01-16-2025 THERAPY NT HNO ID: [id number] Author: MANUEL MARTINEZ CCC-SLP Service: ? 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 Found cocaine in urine screen Rehabilitation Precautions: Cognitive Linguistics Deficits Reason for Speech Therapy Consult: Pczcuk-Tnpabhge-Ojat ition evaluation. Relevant Past Medical History: DM2 Response to Therapy Interventions: Good participation in activities Assessment Comments: Services focused on orientation skills and memory skills. Speech Therapy Problem List: Cognition Subjective: Patient was pleasant and cooperative. Pt leaning back in bed. Current Status Oral Hygiene: Clear, moist oral cavity Dentition: Retains Natural Dentition Current Feeding Method: Oral Current Diet Textures: Regular Consistency, Thin Liquids IDDSI Level 0 Current Level Of Communication: Verbal Current Management Of Secretions: Able to self-manage Oral Motor Exam: Within Functional Limits Except (generalized weakness) Cognition Cognitive Status: Within Functional Limits For Current Session Except Cognitive Deficits: Orientation Deficits, Memory Deficits Orientation Deficits: Place, Time, Situation Orientation Deficit Comments: Pt able to state he was in a hospital but not which hospital until given choice. Pt able to state correct date, month, year, and day of week. Pt correctly stated part of address and stated he fell at home as his reasoning for being in hospital. Responsiveness: Alert Memory Deficits: Immediate Immediate Memory Comments: 27% accuracy with max cues Patient /Caregiver Goals: Go Home Goals for Plan of Care: Goals: COGNITION: Patient will demonstrate knowledge of taught compensatory strategies for functional cognitive-linguistic skills, SPEECH / LANGUAGE: Patient will demonstrate knowledge of taught compensatory strategies for functional communication Progress Toward Goals: Progressing as expected Speech Rehab Potential: Good Patient will be discontinued from speech therapy when no further skilled needs are identified in this setting. PLAN: Planned Interventions: Individual Speech Therapy Plan of Care Developed with: Patient TREATMENT INTERVENTIONS: Interventions Provided: Individual Speech Therapy Training and Education Provided in: Cognitive Linguistic Strategies The following therapeutic skills were used:: Verbal cuing, Visual cuing, Education on role of discipline / importance of activity Home Environment Patient Lives With: Self/Alone Prior Swallowing Function/Diet Textures: Regular Consistency, Thin Liquids IDDSI Level 0 Please see discipline specific clinical documentation flowsheet for complete details for this therapy evaluation/treatment . 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 PATIENT NAME: Steven Barlow DATE: January 16, 2025 TIME: 2:26 PM [facility] THERAPY NT HNO ID: [id number] Author: FLORINA SEXTON PT Service: Physical Therapy Author Type: Physical Therapist Type: Therapy (PT/OT/Speech/Resp) Filed: 01/16/2025 12:38 Note Text: Physical Therapy Treatment SERVICE DATE: 01/16/2025 SERVICE TIME: 1131 to 1201 ROOM: [place] [address] Recommended Discharge Disposition: Subacute/SNF Anticipated Discharge Needs: Undetermined (D/c to SNF) Physical Assist at Home for: Finances, Laundry, Cleaning, Meals, Medication Management, Safety, Stairs, Self Care, Shopping, Transportation Supervision at Home due to: Decreased safety awareness, Impaired cognition Recommended Discharge Equipment: To Be Determined Precautions/Activity Restrictions: Bed/Chair Alarm, Fall Risk, Sitter Precaution/Activity Restriction Comments: on room air for session, WNL, monitor O2, pt was on room air most of session, needed when laying down, goes by "Evgeny", decreased R side awareness, monitor BP Current Hospital Course: Pt admitted to [facility] rehab for OT/PT/ST services. 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 Found cocaine in urine screen Relevant Past Medical History: DM2 Response to Therapy Interventions: Cognitive Deficits, Labile Vital Signs, Low Activity Tolerance Assessment Comments: Pt tolerated session fair. He has low blood pressure and became symptomatic with short distance ambulation using FWW. He has improved core stabilization and dynamic balance with decreased physical assistance required for bed mobility/transfers. He continues to require minAx1 for ambulation and stair navigation due to impulsivity and cognitive deficits. Pt would continue to benefit from skilled therapy services to promote functional independence. Home Assessment Accessibility Issues: Home entry steps Physical Therapy Problem List: Functional Mobility Impairment, Balance Impaired Planned Interventions: Therapeutic Exercise, Therapeutic Activity, Gait Training Home Environment Patient Lives With: Self/Alone Assistance Available: PRN Comments: son lives close Entry To Home: Stairs, With Rail Number Of Stairs Into Home: 10 Number Of Stairs To Bed/Bath: 0 Tub/Shower Type: tub/shower combo with grabbars and shower chair Laundry: first floor setup, pt was doing Equipment Owned: Walker- Wheeled, Shower Chair, Grab Bars- Shower, Grab Bars- Toilet, Cognitive/Memory Tool, Elevated Toilet Seat Prior Functional Level: Within Functional Limits Prior Functional Level Comments: Per pt I with ADLS/IADLS, used a FWW in community, driving prior. per pt this is the only fall in the last 6 months Subjective: Pt is agreeable to PT this date. Cognitive Screen: Responsiveness: Awake Orientation Deficits: Confused Follows Commands: 2-step Commands Pulmonary/Cardiac Status: Skin Integrity: Edema: Sensation: Tone/Spasticity: Gross Motor Coordination: Posture: Posture: Forward head, Rounded shoulders CURRENT FUNCTIONAL STATUS: Most recent performance Current Functional Mobility Assist Level Additional Information Rolling Independent Supine to Sit Modified Independent use of bedrail Sit to Supine Modified Independent impulsivity Scooting Supervision cues for hand placement Sit to Stand Contact Guard Assistance impulsivity Stand to Sit Contact Guard Assistance cues for hand placement Bed to Chair Minimal Assistance Bed To Chair Transfer Type: Stepping Bed To Chair Transfer Equipment: Wheeled Walker Toilet/Commode Minimal Assistance Gait Minimal Assistance Gait Device: Wheeled Walker Gait Distance (feet): up to 25ft this date due to BP dizziness during ambulation Stairs Minimal Assistance Stairs Device: Rail Number of Stairs: 10 Curb Step Minimal Assistance Device: Wheeled Walker Car Transfer Minimal Assistance Blank doherty indicate activity not attempted General Deviations/Observati ons: Ellen decreased, Difficulty changing direction/turning, Flexed trunk posture, Narrow Base of Support, Shuffling Gait, Step length decreased Ramp: up/down ramp with minAx1 and cueing for FWW management. Balance: Static Sitting, Dynamic Sitting, Static Standing, Dynamic Standing Static Sitting Balance: Good Patient able to maintain balance without handhold support, limited postural sway Dynamic Sitting Balance: Good Patient accepts moderate challenge, able to maintain balance while picking up object off floor Static Standing Balance: Fair Patient able to maintain balance with handhold support, may require occasional minimal assistance Dynamic Standing Balance: Fair Patient accepts minimal challenge, able to maintain balance while turning head/trunk Activity Tolerance: Sitting Activity, Standing Activity Sitting Activity: seated B LE exercises Standing Activity: P (more content not included)... [facility] THERAPY NT HNO ID: [id number] Author: KATARINA KERR OTR/L Service: Occupational Therapy Author Type: Occupational Therapist Type: Therapy (PT/OT/Speech/Resp) Filed: 01/16/2025 12:32 Note Text: Occupational Therapy Treatment SERVICE DATE: 01/16/2025 SERVICE TIME: 1000 to 1100 ROOM: [id number] Recommended Discharge Disposition: Subacute/SNF Recommended Discharge Disposition Comments: Pt still needs mod assist with toileting, LB ADLS, mobility. Pt needs to be mod I to return home, pt does not have any assistance. Recommending SNF for further therapies. Anticipated Discharge Needs: Undetermined (D/c to SNF) Physical Assist at Home for: Finances, Laundry, Cleaning, Meals, Medication Management, Safety, Stairs, Self Care, Shopping, Transportation Supervision at Home due to: Decreased safety awareness, Impaired cognition Recommended Discharge Equipment: To Be Determined Precautions/Activity Restrictions: Bed/Chair Alarm, Fall Risk, Sitter Precaution/Activity Restriction Comments: 2 L NC O2 (on room air for session, WNL), monitor O2, pt was on room air most of session, needed when laying down, goes by "Evgeny", decreased R side awareness,monitor BP Current Hospital Course: Pt admitted to [facility] rehab for OT/PT/ST services. 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 Found cocaine in urine screen Relevant Past Medical History: DM2 Response to Therapy Interventions: Cognitive Deficits, Limited Participation, Low Activity Tolerance, Multiple Ongoing Medical Issues, Needs Frequent Redirection or Reinstruction, Requires Additional Time to Complete Activities, Requires Encouragement to Complete Activities Assessment Comments: Pt started out with WFL BP before shower, after shower decreased to 88/50, RN [place] aware, pt given meds to increase BP, pt was asymptomic. Pt is making slow progress towards OT goals. Pt has had brighter affect and engaging in conversation. Pt still needs mod assist for toileting, mobiltiy and LB ADLS. Pt needs to be mod I to return home. Pt has lack of insight into deficits, poor safety awareness and low activity tolerance. Next session to address ADLS for D/c note. Occupational Therapy Problem List: Impaired Self Care, Cognitive Deficit Cognition/Communicat ion Deficits Communication Deficits: Delayed Response Responsiveness: Awake Follows Commands: 2-step Commands Cueing to Follow Commands: Minimum Attention Deficits: Distractible Memory Deficits: Short Term Executive Function Deficits: Sequencing, Judgement, Insight to Deficits, Problem Solving, Motor Planning, Safety Awareness Sequencing Deficit: Moderate impairment Judgement Deficit: Moderate impairment Insight to Deficits: Mild Awareness Problem Solving Deficit: Moderate Impairment Motor Planning Deficit: Moderate impairment Safety Awareness Deficit: Moderate impairment Occupational Factors Life Roles: Parent, Family Member, Friend Identified Strengths for Life Roles: Access to Healthcare Identified Barriers for Life Roles: Difficulty Coping, Limited Social Support, Difficulty with ADLs/IADLs, Judgment/Awareness, Motivation Subjective: Pt agreeable to shower CURRENT FUNCTIONAL STATUS: Most recent performance Current Activities of Daily Living Assist Level Additional Information Feeding Grooming Supervision, Additional Information cues to wash face and rucker and to comb hair Bathing Upper Body Supervision, Additional Information cues to intiate bathing UB Bathing Lower Body Moderate Assistance, Additional Information for B LE and for standing to wash buttocks Dressing Upper Body Moderate Assistance to bring over head and down back Dressing Lower Body Moderate Assistance, Additional Information for donning socks, threading LLE in pants and steadying assist to pull up pants Toileting Minimal Assistance, Additional Information Instrumental Activities of Daily Living Assist Level Additional Information Meal/Beverage Prep Cleaning Laundry Medication Management with Strategies Functional Mobility Assist Level Additional Information Rolling Supine to Sit Minimal Assistance, Additional Information for trunk Sit to Supine Supervision Scooting Supervision Sit to Stand Minimal Assistance, Additional Information vcs for hand placement Stand to Sit Minimal Assistance, Additional Information for controlled descent Bed to Chair Minimal Assistance Stepping Wheeled Walker, Gait Belt steadying assist Toilet/Commode Minimal Assistance, Additional Information Shower Minimal Assistance, Additional Information stand pivot transfer Functional Mobility Moderate Assistance Wheeled Walker Blank doherty indicate activity not attempted Tub Transfer: Additional Information Balance: Dynamic Sit (more content not included)... [facility] CASE MANAGEMon 01-15-2025 CASE MANAGEM HNO ID: [id number] Author: HEENA GUTIÉRREZ LISW Service: Care Management Author Type: Wealth Management Advisor Type: Care Mgt Progress Note Filed: 01/15/2025 09:58 Note Text: CARE MANAGEMENT PROGRESS NOTE SERVICE DATE: 01/15/2025 SERVICE TIME: 09:55 LOS: 10 days Chart Reviewed Patient admitted to [facility] from [facility] metabolic encephalopathy- found on ground by neighbors-who report recent cocaine use. Patient will have 3 hours of therapy 5 days a week with gaol to progress patient to home Patient lives alone in apartment he was independnent with self care He has insurance and can afford RX. He has a PCP has not been in while and can not recall name He may need to be set up with new PCP. He was [employer] does not receive services from them He has one Son Damien Barlow- [phone] He admits to SI He denies alcohol and drug use. He did test positive at [facility] for Cocaine. Son indicated he did that a long time ago and may have gotten from neighbor as been confused Patient is able to afford medications can struggle with obtaining food and paying bills Comm[employer] resources and food assistance provided to patient Plan [facility] has accepted -memory care unit the Javi sitter does not need removed. Pass completed Submitted for LOC. Discharge packet on chart Left message for son who confirmed plan is Ladan massimo- waiting customer care consultant back to discuss transport Requested pre-cert be started Sw following for d/c planning needs SIGNATURE: VELMA Persaud PATIENT NAME: Steven Barlow DATE: January 15, 2025 TIME: 9:55 AM [facility] THERAPY NTon 01-15-2025 THERAPY NT HNO ID: [id number] Author: RALPH MARTINEZ PTA Service: Physical Therapy Author Type: Public Transit Bus Driver Type: Therapy (PT/OT/Speech/Resp) Filed: 01/15/2025 16:47 Note Text: Attestation signed by Florina Sexton PT at 01/16/2025 7:46 AM I reviewed and agree with the assessment as documented above. SIGNATURE: Florina Sexton PT DATE: January 16, 2025 TIME: 7:46 AM Physical Therapy Treatment SERVICE DATE: 01/15/2025 SERVICE TIME: 0830 to 1000 ROOM: [id number] Recommended Discharge Disposition: Subacute/SNF Anticipated Discharge Needs: Undetermined (being D/c to SNF) Physical Assist at Home for: Finances, Laundry, Cleaning, Meals, Medication Management, Safety, Stairs, Self Care, Shopping, Transportation Supervision at Home due to: Decreased safety awareness, Impaired cognition Recommended Discharge Equipment: To Be Determined Precautions/Activity Restrictions: Bed/Chair Alarm, Fall Risk, Sitter Precaution/Activity Restriction Comments: 2 L NC O2 (on room air for session, WNL), monitor O2, pt was on room air most of session, needed when laying down, goes by "Evgeny", decreased R side awareness,monitor BP Current Hospital Course: Pt admitted to [facility] rehab for OT/PT/ST services. 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 Found cocaine in urine screen Relevant Past Medical History: DM2 Assessment Comments:Patient able to participate with BP today. He amb and stands with slightly flexed knees and has a flexed posture. He continues to be impulsive and requires Min A for safety. Home Assessment Accessibility Issues: Home entry steps Physical Therapy Problem List: Functional Mobility Impairment, Balance Impaired Planned Interventions: Therapeutic Exercise, Therapeutic Activity, Gait Training Home Environment Patient Lives With: Self/Alone Assistance Available: PRN Comments: son lives close Entry To Home: Stairs, With Rail Number Of Stairs Into Home: 10 Number Of Stairs To Bed/Bath: 0 Tub/Shower Type: tub/shower combo with grabbars and shower chair Laundry: first floor setup, pt was doing Equipment Owned: Walker- Wheeled, Shower Chair, Grab Bars- Shower, Grab Bars- Toilet, Cognitive/Memory Tool, Elevated Toilet Seat Prior Functional Level: Within Functional Limits Prior Functional Level Comments: Per pt I with ADLS/IADLS, used a FWW in community, driving prior. per pt this is the only fall in the last 6 months Cognitive Screen: Responsiveness: Awake Orientation Deficits: Confused, Other: See Comment (mild, requires redirection) Follows Commands: 2-step Commands Pulmonary/Cardiac Status: Skin Integrity: Edema: Sensation: Tone/Spasticity: Gross Motor Coordination: Posture: Posture: Forward head, Rounded shoulders CURRENT FUNCTIONAL STATUS: Most recent performance Current Functional Mobility Assist Level Additional Information Rolling Stand By Assistance Supine to Sit Stand By Assistance Sit to Supine Stand By Assistance Scooting Stand By Assistance Sit to Stand Minimal Assistance Stand to Sit Minimal Assistance Bed to Chair Minimal Assistance Bed To Chair Transfer Type: Stepping Bed To Chair Transfer Equipment: Wheeled Walker Toilet/Commode Minimal Assistance Gait Minimal Assistance Gait Device: Wheeled Walker Gait Distance (feet): up to 125' Stairs Minimal Assistance Stairs Device: Rail Number of Stairs: 10 Curb Step Minimal Assistance Device: Wheeled Walker Car Transfer Minimal Assistance Blank doherty indicate activity not attempted General Deviations/Observati ons: Ellen decreased, Difficulty changing direction/turning, Flexed trunk posture, Narrow Base of Support, Shuffling Gait, Step length decreased Ramp: up/down ramp with minAx1 and cueing for FWW management. Balance: Static Sitting, Dynamic Sitting, Static Standing, Dynamic Standing Static Sitting Balance: Good Patient able to maintain balance without handhold support, limited postural sway Dynamic Sitting Balance: Good Patient accepts moderate challenge, able to maintain balance while picking up object off floor Static Standing Balance: Fair Patient able to maintain balance with handhold support, may require occasional minimal assistance Dynamic Standing Balance: Fair Patient accepts minimal challenge, able to maintain balance while turning head/trunk Activity Tolerance: Sitting Activity, Standing Activity Sitting Activity: bed mobility, seated hoa leg exercises using 2# ankle wts Standing Activity: toileting, transfers, amb using a ww, amb forward/backward in bars; side-stepping ove (more content not included)... [facility] THERAPY NT HNO ID: [id number] Author: KATARINA KERR OTR/Kip Service: Occupational Therapy Author Type: Occupational Therapist Type: Therapy (PT/OT/Speech/Resp) Filed: 01/15/2025 15:16 Note Text: Occupational Therapy Treatment SERVICE DATE: 01/15/2025 SERVICE TIME: 1330 to 1432 ROOM: [place] [address] Recommended Discharge Disposition: Subacute/SNF Anticipated Discharge Needs: Undetermined (being D/c to SNF) Physical Assist at Home for: Finances, Laundry, Cleaning, Meals, Medication Management, Safety, Stairs, Self Care, Shopping, Transportation Supervision at Home due to: Decreased safety awareness, Impaired cognition Recommended Discharge Equipment: To Be Determined Precautions/Activity Restrictions: Bed/Chair Alarm, Fall Risk, Sitter Precaution/Activity Restriction Comments: 2 L NC O2 (on room air for session, WNL), monitor O2, pt was on room air most of session, needed when laying down, goes by "Evgeny", decreased R side awareness,monitor BP Current Hospital Course: Pt admitted to [facility] rehab for OT/PT/ST services. 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 Found cocaine in urine screen Relevant Past Medical History: DM2 Response to Therapy Interventions: Cognitive Deficits, Limited Participation, Low Activity Tolerance, Multiple Ongoing Medical Issues, Needs Frequent Redirection or Reinstruction, Requires Additional Time to Complete Activities, Requires Encouragement to Complete Activities Assessment Comments: Pt with low BP, notified RN Chilango, RN gave pt mitrindine to increase, BP only raised to 93/49, return pt to supine. Next session to address ADLS. Occupational Therapy Problem List: Impaired Self Care, Cognitive Deficit Cognition/Communicat ion Deficits Communication Deficits: Delayed Response Responsiveness: Awake Follows Commands: 2-step Commands Cueing to Follow Commands: Minimum Attention Deficits: Distractible Memory Deficits: Short Term Executive Function Deficits: Sequencing, Judgement, Insight to Deficits, Problem Solving, Motor Planning, Safety Awareness Sequencing Deficit: Moderate impairment Judgement Deficit: Moderate impairment Insight to Deficits: Mild Awareness Problem Solving Deficit: Moderate Impairment Motor Planning Deficit: Moderate impairment Safety Awareness Deficit: Moderate impairment Home Environment Patient Lives With: Self/Alone Occupational Factors Life Roles: Parent, Family Member, Friend Identified Strengths for Life Roles: Access to Healthcare Identified Barriers for Life Roles: Difficulty Coping, Limited Social Support, Difficulty with ADLs/IADLs, Judgment/Awareness, Motivation Subjective: Pt agreeable to OT CURRENT FUNCTIONAL STATUS: Most recent performance Current Activities of Daily Living Assist Level Additional Information Feeding Grooming Supervision, Additional Information Bathing Upper Body Supervision, Additional Information Bathing Lower Body Moderate Assistance, Additional Information Dressing Upper Body Moderate Assistance, Additional Information Dressing Lower Body Moderate Assistance, Additional Information Toileting Minimal Assistance, Additional Information steadying assist standing at the toilet to urinate Instrumental Activities of Daily Living Assist Level Additional Information Meal/Beverage Prep Cleaning Laundry Medication Management with Strategies Functional Mobility Assist Level Additional Information Rolling Supine to Sit Minimal Assistance, Additional Information needed assistance with trunk Sit to Supine Supervision Scooting Supervision Sit to Stand Minimal Assistance, Additional Information vcs for safety Stand to Sit Minimal Assistance, Additional Information for controlled descent Bed to Chair Minimal Assistance Stepping Gait Belt, Wheeled Walker steadying assist, poor FWW mgmt Toilet/Commode Minimal Assistance, Additional Information to stand to urinate at the toilet Shower Minimal Assistance, Additional Information use of gaitbelt, stand pivot transfer Functional Mobility Moderate Assistance Wheeled Walker use of gaitbelt, poor FWW safety Blank doherty indicate activity not attempted Tub Transfer: Additional Information Balance: Dynamic Sitting, Dynamic Standing Dynamic Sitting Balance: Fair Patient accepts minimal challenge, able to maintain balance while turning head/trunk Dynamic Standing Balance: Fair Patient accepts minimal challenge, able to maintain balance while turning head/trunk Activity Tolerance: Sitting Activity, Standing Activity Sitting Activity: sat for arm bike, sat for B hand grasp strengthening, sat for vital assessment, Sitting Activity Tolerance (in minutes): 45 Standing Activity: stood for transfers, stood for urinating at the toile (more content not included)... [facility] THERAPY NT HNO ID: [id number] Author: BRENDEN JO CCC-LITHOGRAPHER APPRENTICE Service: Speech/Swallow Author Type: Speech Language Pathologist Type: Therapy (PT/OT/Speech/Resp) Filed: 01/15/2025 13:34 Note Text: Speech Therapy Treatment SERVICE DATE: 01/15/2025 SERVICE TIME: 1300 ROOM: [id number] IMPRESSION: Communication deficits identified: Cognitive-Linguistic deficits Nursing Recommendations: Reinforce use of cognitive strategies Recommended Discharge Disposition: Continued Skilled Speech Therapy Current Hospital Course: metabolic encephalopathy Reason for Hospital Admission: Presented to [facility] , found down in apt, CT of brain: 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 Found cocaine in urine screen Rehabilitation Precautions: Cognitive Linguistics Deficits (Telesitter) Reason for Speech Therapy Consult: Benzfh-Avilizfg-Ualg ition evaluation. Relevant Past Medical History: DM2 Response to Therapy Interventions: Good participation in activities Speech Therapy Problem List: Cognition Subjective: Patient was fatigued and cooperative. Pt sitting up in bed. Current Status Oral Hygiene: Clear, moist oral cavity Dentition: Retains Natural Dentition, Miscellaneous Missing Teeth, Poor Repair (missing many teeth) Current Feeding Method: Oral Current Diet Textures: Regular Consistency, Thin Liquids IDDSI Level 0 Current Level Of Communication: Verbal Current Management Of Secretions: Able to self-manage Oral Motor Exam: Within Functional Limits Except (milldy generalized weakness) Cognition Cognitive Status: Within Functional Limits For Current Session Except Cognitive Deficits: Orientation Deficits, Attention Deficit, Memory Deficits, Executive Function Deficit Orientation Deficits: Time, Situation Memory Deficits: Immediate Immediate Memory Comments: 25% accuracy with max cues Executive Function Deficits: Sequencing Sequencing Comments: 75% accuracy SLUMS Level of Education: High school Orientation (week): 1 Orientation (year): 1 Orientation (state): 1 Calculations: 0 Namin Short-Term Memory: 0 Attention/Sequencing : 2 Visual-Spatial Skills (clock): 0 Visual-Spatial Skills: 2 Attention/Memory: 0 SLUMS Total Score ( /30): 7 Patient /Caregiver Goals: Go Home Goals for Plan of Care: Goals: COGNITION: Patient will demonstrate knowledge of taught compensatory strategies for functional cognitive-linguistic skills, SPEECH / LANGUAGE: Patient will demonstrate knowledge of taught compensatory strategies for functional communication Progress Toward Goals: Progressing as expected Speech Rehab Potential: Good Patient will be discontinued from speech therapy when no further skilled needs are identified in this setting. PLAN: Planned Interventions: Individual Speech Therapy Plan of Care Developed with: Patient TREATMENT INTERVENTIONS: Interventions Provided: Individual Speech Therapy Training and Education Provided in: Cognitive Linguistic Strategies The following therapeutic skills were used:: Verbal cuing, Visual cuing, Education on role of discipline / importance of activity Home Environment Patient Lives With: Self/Alone Prior Swallowing Function/Diet Textures: Regular Consistency, Thin Liquids IDDSI Level 0 Please see discipline specific clinical documentation flowsheet for complete details for this therapy evaluation/treatment . SIGNATURE: Brenden Jo [facility]-LITHOGRAPHER APPRENTICE PATIENT NAME: Steven Barlow DATE: January 15, 2025 TIME: 1:34 PM Normal [facility] Basic metabolic 2000 panelon 01-14-2025 Anion gap [Moles/Vol] 9 mmol/L Normal 5-16 [facility] Comment on above: Order Comment: Speci men Type: BLOOD SPECIMENOrdering Facility: [facility] Address: [address] [place] [address] Performed By: #### 2 4321-2 ####[facility] LABORATORYCLIA [id number] [place] [address] [place] Calcium [Mass/Vol] 8.8 mg/dL Normal 8.5-10.5 [facility] Comment on above: Order Comment: Speci men Type: BLOOD SPECIMENOrdering Facility: [facility] Address: [address] [place] [address] Performed By: #### 2 4321-2 ####[facility] LABORATORYCLIA [id number] [place] [address] [place] Chloride [Moles/Vol] 105 mmol/L Normal 98-107 [facility] Comment on above: Order Comment: Speci men Type: BLOOD SPECIMENOrdering Facility: [facility] Address: [address] [place] [address] Performed By: #### 2 4321-2 ####[facility] LABORATORYCLIA [id number] [place] [id number] [place] CO2 [Moles/Vol] 30 mmol/L Normal 21-32 [facility] Comment on above: Order Comment: Speci men Type: BLOOD SPECIMENOrdering Facility: [facility] Address: [address] [place] [address] Performed By: #### 2 4321-2 ####[facility] LABORATORYCLIA [id number] [place] [address] [place] Creatinine [Mass/Vol] 0.61 mg/dL Normal 0.50-1.40 [facility] Comment on above: Order Comment: Loci trent Type: BLOOD SPECIMENOrdering Facility: [facility] Address: [address] [place] [address] Result Comment: Chuyita ents receiving either N-Acetylcysteine (NAC) or Metamizole prior to venipuncture, may have falsely depressed results. Performed By: #### 2 4321-2 ####[facility] LABORATORYCLIA [id number] [address] [place] eGFRcr SerPlBld CKD-EPI 2020 104 mL/min/1.73m??? Normal >=60 [facility] Comment on above: Order Comment: Speci men Type: BLOOD SPECIMENOrdering Facility: [facility] Address: [address] [place] [address] Result Comment: Mariana mated Glomerular Filtration Rate (eGFR) is calculated using the 2020 CKD-EPI creatinine equation. This equation utilizes serum creatinine, sex, and age as parameters. The creatinine assay has traceable calibration to isotope dilution-mass spectrometry. Refer to KDIGO guidelines for clinical interpretation. In patients with unstable renal function, e.g. those with acute kidney injury, the eGFR may not accurately reflect actual GFR. Performed By: #### 2 4321-2 ####[facility] LABORATORYCLIA [id number] [address] [place] Glucose [Mass/Vol] 94 mg/dL Normal 70-100 [facility] Comment on above: Order Comment: Speci men Type: BLOOD SPECIMENOrdering Facility: [facility] Address: [address] [place] [address] Result Comment: The [place] Diabetes Association (ADA) provides guidance for cutoff values for fasting glucose and random glucose. The ADA defines fasting as no caloric intake for at least 8 hours. Fasting plasma glucose results between 100 to 125 mg/dL indicate increased risk for diabetes (prediabetes). Fasting plasma glucose results greater than or equal to 126 mg/dL meet the criteria for diagnosis of diabetes. In the absence of unequivocal hyperglycemia, results should be confirmed by repeat testing. In a patient with classic symptoms of hyperglycemia or hyperglycemic crisis, random plasma glucose results greater than or equal to 200 mg/dL meet the criteria for diagnosis of diabetes. Reference: Standards of Medical Care in Diabetes 2016, [place] [employer] Association. Diabetes Care. 2016.39(Suppl 1). Results may be falsely elevated after the administration of Sulfapyridine. Results may be falsely depressed after the administration of Sulfasalazine. Performed By: #### 2 4321-2 ####[facility] LABORATORYCLIA [id number] [place] [address] [place] Potassium [Moles/Vol] 4.1 mmol/L Normal 3.5-5.1 [facility] Comment on above: Order Comment: Maren newman Type: BLOOD SPECIMENOrdering Facility: [facility] Address: [address] [place] [address] Performed By: #### 2 4321-2 ####[facility] LABORATORYCLIA [id number] [place] [address] [place] Sodium [Moles/Vol] 144 mmol/L Normal 136-145 [facility] Comment on above: Order Comment: Maren newman Type: BLOOD SPECIMENOrdering Facility: [facility] Address: [address] [place] [address] Performed By: #### 2 4321-2 ####[facility] LABORATORYCLIA [id number] [place] [address] [place] Urea nitrogen [Mass/Vol] 20 mg/dL Normal 7-26 [facility] Comment on above: Order Comment: Maren newman Type: BLOOD SPECIMENOrdering Facility: [facility] Address: [address] [place] [address] Performed By: #### 2 4321-2 ####[facility] LABORATORYCLIA [id number] [place] [address] [place] CBC W Auto Differential pane l (Bld)on 01-14-2025 Basophils (Bld) [#/Vol] 0.06 10*3/uL Normal <0.11 [facility] Comment on above: Order Comment: Speci men Type: BLOOD SPECIMENOrdering Facility: [facility] Address: [address] [place] [address] Performed By: #### 5 7021-8 ####[facility] LABORATORYCLIA [id number] [place] [address] [place] Basophils/100 WBC (Bld) 0.9 % Normal [facility] Comment on above: Order Comment: Speci men Type: BLOOD SPECIMENOrdering Facility: [facility] Address: [address] [place] [address] Performed By: #### 5 7021-8 ####[facility] LABORATORYCLIA [id number] [address] [place] Differential cell count method Nom (Bld) Auto Normal [facility] Comment on above: Order Comment: Speci men Type: BLOOD SPECIMENOrdering Facility: [facility] Address: [address] [place] [address] Performed By: #### 5 7021-8 ####[facility] LABORATORYCLIA [id number] [place], [place] [address] [place] Eosinophils (Bld) [#/Vol] 0.14 10*3/uL Normal <0.46 [facility] Comment on above: Order Comment: Speci men Type: BLOOD SPECIMENOrdering Facility: [facility] Address: [address] [place] [address] Performed By: #### 5 7021-8 ####[facility] LABORATORYCLIA [id number] [place] [address] [place] Eosinophils/100 WBC (Bld) 2.0 % Normal [facility] Comment on above: Order Comment: Speci men Type: BLOOD SPECIMENOrdering Facility: [facility] Address: [address] [place] [address] Performed By: #### 5 7021-8 ####[facility] LABORATORYCLIA [id number] [place] [address] [place] Erythrocyte distribution width (RBC) [Ratio] 14.4 % Normal 11.5-15.0 [facility] Comment on above: Order Comment: Speci men Type: BLOOD SPECIMENOrdering Facility: [facility] Address: [address] [place] [address] Performed By: #### 5 7021-8 ####[facility] LABORATORYCLIA [id number] [place] [address] [place] Hematocrit (Bld) [Volume fraction] 41.3 % Normal 39.0-51.0 [facility] Comment on above: Order Comment: Speci men Type: BLOOD SPECIMENOrdering Facility: [facility] Address: [address] [place] [address] Performed By: #### 5 7021-8 ####[facility] LABORATORYCLIA [id number] [place] [address] [place] Hemoglobin (Bld) [Mass/Vol] 13.0 g/dL Normal 13.0-17.0 [facility] Comment on above: Order Comment: Speci men Type: BLOOD SPECIMENOrdering Facility: [facility] Address: [address] [place] [address] Performed By: #### 5 7021-8 ####[facility] LABORATORYCLIA [id number] [place] [address] [place] Immature granulocytes (Bld) [#/Vol] 0.03 10*3/uL Normal <0.10 [facility] Comment on above: Order Comment: Speci men Type: BLOOD SPECIMENOrdering Facility: [facility] Address: [address] [place] [address] Performed By: #### 5 7021-8 ####[facility] LABORATORYCLIA [id number] [place] [address] [place] Immature granulocytes/100 WBC (Bld) 0.4 % Normal [facility] Comment on above: Order Comment: Speci men Type: BLOOD SPECIMENOrdering Facility: [facility] Address: [address] [place] [address] Performed By: #### 5 7021-8 ####[facility] LABORATORYCLIA [id number] [place] [address] [place] Lymphocytes (Bld) [#/Vol] 1.89 10*3/uL Normal 1.00-4.00 [facility] Comment on above: Order Comment: Speci men Type: BLOOD SPECIMENOrdering Facility: [facility] Address: [address] [place] [address] Performed By: #### 5 7021-8 ####[facility] LABORATORYCLIA [id number] [place] [address] [place] Lymphocytes/100 WBC (Bld) 27.7 % Normal [facility] Comment on above: Order Comment: Speci men Type: BLOOD SPECIMENOrdering Facility: [facility] Address: [address] [place] [address] Performed By: #### 5 7021-8 ####[facility] LABORATORYCLIA [id number] [address] [place] MCH (RBC) [Entitic mass] 28.8 pg Normal 26.0-34.0 [facility] Comment on above: Order Comment: Speci men Type: BLOOD SPECIMENOrdering Facility: [facility] Address: [address] [place] [address] Performed By: #### 5 7021-8 ####[facility] LABORATORYCLIA [id number] [place] [address] [place] MCHC (RBC) [Mass/Vol] 31.5 g/dL Normal 30.5-36.0 [facility] Comment on above: Order Comment: Speci men Type: BLOOD SPECIMENOrdering Facility: [facility] Address: [address] [place] [address] Performed By: #### 5 7021-8 ####[facility] LABORATORYCLIA [id number] [place] [id number] [place] MCV (RBC) [Entitic vol] 91.4 fL Normal 80.0-100.0 [facility] Comment on above: Order Comment: Speci men Type: BLOOD SPECIMENOrdering Facility: [facility] Address: [address] [place] [address] Performed By: #### 5 7021-8 ####[facility] LABORATORYCLIA [id number] [place] [id number] [place] Monocytes (Bld) [#/Vol] 0.71 10*3/uL Normal <0.87 [facility] Comment on above: Order Comment: Speci men Type: BLOOD SPECIMENOrdering Facility: [facility] Address: [address] [place] [address] Performed By: #### 5 7021-8 ####[facility] LABORATORYCLIA [id number] [place] [address] [place] Monocytes/100 WBC (Bld) 10.4 % Normal [facility] Comment on above: Order Comment: Speci men Type: BLOOD SPECIMENOrdering Facility: [facility] Address: [address] [place] [address] Performed By: #### 5 7021-8 ####[facility] LABORATORYCLIA [id number] [place] [address] [place] Neutrophils (Bld) [#/Vol] 4.00 10*3/uL Normal 1.45-7.50 [facility] Comment on above: Order Comment: Speci men Type: BLOOD SPECIMENOrdering Facility: [facility] Address: [address] [place] [address] Performed By: #### 5 7021-8 ####[facility] LABORATORYCLIA [id number] [place] [address] [place] Neutrophils/100 WBC (Bld) 58.6 % Normal [facility] Comment on above: Order Comment: Speci men Type: BLOOD SPECIMENOrdering Facility: [facility] Address: [address] [place] [address] Performed By: #### 5 7021-8 ####[facility] LABORATORYCLIA [id number] [place] [id number] [place] Nucleated RBC (Bld) [#/Vol] 10*3/uL Normal <0.01 [facility] Comment on above: Order Comment: Speci men Type: BLOOD SPECIMENOrdering Facility: [facility] Address: [address] [place] [address] Performed By: #### 5 7021-8 ####[facility] LABORATORYCLIA [id number] [place] [id number] [facility] [place] Nucleated RBC/100 WBC (Bld) [Ratio] 0.0 /100 WBC Normal [facility] Comment on above: Order Comment: Speci men Type: BLOOD SPECIMENOrdering Facility: [facility] Address: [address] [place] [address] Performed By: #### 5 7021-8 ####[facility] LABORATORYCLIA [id number] [place] [address] [place] Platelet mean volume (Bld) [Entitic vol] 10.2 fL Normal 9.0-12.7 [facility] Comment on above: Order Comment: Speci men Type: BLOOD SPECIMENOrdering Facility: [facility] Address: [address] [place] [address] Performed By: #### 5 7021-8 ####[facility] LABORATORYCLIA [id number] [place] [address] [place] Platelets (Bld) [#/Vol] 241 10*3/uL Normal 150-400 [facility] Comment on above: Order Comment: Speci men Type: BLOOD SPECIMENOrdering Facility: [facility] Address: [address] [place] [address] Performed By: #### 5 7021-8 ####[facility] LABORATORYCLIA [id number] [place] [address] [place] RBC (Bld) [#/Vol] 4.52 10*6/uL Normal 4.20-6.00 [facility] Comment on above: Order Comment: Speci men Type: BLOOD SPECIMENOrdering Facility: [facility] Address: [address] [place] [address] Performed By: #### 5 7021-8 ####[facility] LABORATORYCLIA [id number] [place] [id number] [facility] [place] WBC (Bld) [#/Vol] 6.83 10*3/uL Normal 3.70-11.00 [facility] Comment on above: Order Comment: Speci men Type: BLOOD SPECIMENOrdering Facility: [facility] Address: [facility] [place] [place] [address] Performed By: #### 5 7021-8 ####[facility] LABORATORYCLIA [id number] [place] [id number] [facility] CONSULTon 01-14-2025 CONSULT HNO ID: [id number] Author: ROBERT PATTON, PhD Service: Psychology Author Type: Psychologist Type: Consults Filed: 01/26/2025 08:02 Note Text: NEUROPSYCHOLOGY CONSULT REPORT SERVICE DATE: 01/14/2025 SERVICE TIME: 9:22 AM REASON FOR CONSULT: NEUROPSYCHOLOGY EXAM REQUESTING PHYSICIAN: Joselyn Betancourt MD PRIMARY CARE PHYSICIAN: No primary care provider on file. Subjective Mr. Barlow is a 69 year old right-handed white male admitted to the inpatient rehabilitation service January 05 after being found in his own urine and feces with right facial droop. Uncertain length of time down. Had recently been using cocaine. Brain imaging both CT and MRI were negative for acute changes, a lacunar infarct left adamson radiata, mild to moderate small vessel disease and atrophic cortical changes. Cardiac workup is benign. He was dehydrated and hyponatremic given fluids. He was outside window for TNK. Taking aspirin, statin. Urine culture was positive placed on IV ceftriaxone. He has skin wounds stage II on the coccyx and stage III and sacrum. Mr. Barlow reports a few concussions playing sports in high school full recovery. No other TOBACCO SHAKER injuries or illnesses Mr. Barlow denies any mental health history. He acknowledges using cocaine and other drugs in the past but denies any recent use. I will follow-up to discuss this in more detail after cognition improves. No past medical history on file. No past surgical history on file. No family history on file. SOCIAL HISTORY[1] Prescriptions Prior to Admission[2] Current Facility-Administere d Medications Medication Dose Route Frequency terbinafine HCl 250 mg tab(s) (LamISIL) 250 mg ORAL DAILY aspirin 81 mg chewable tab(s) 81 mg ORAL DAILY atorvastatin 40 mg tab(s) (LIPITOR) 40 mg ORAL AT BEDTIME lisinopril 10 mg tab(s) (ZESTRIL) 10 mg ORAL DAILY dextrose 40 % 15 g 15 g ORAL PRN Or glucagon 1 mg injection 1 mg INTRAMUSCULAR PRN Or dextrose 10% iv bolus 12.5 g INTRAVENOUS PRN insulin lispro injection (rapid acting) (ADMElog) SUBCUTANEOUS w MEALS insulin lispro injection (rapid acting) (ADMElog) SUBCUTANEOUS AT BEDTIME insulin glargine 15 Units pen (long acting) 15 Units SUBCUTANEOUS AT BEDTIME metFORMIN ER 1,000 mg tab(s) (GLUCOPHAGE XR) 1,000 mg ORAL BID w MEALS polyethylene glycol 3350 17 g packet 17 g ORAL DAILY senna-docusate 8.6-50 mg 2 tablet (SENNA-S) 2 tablet ORAL DAILY miconazole 2 % 1 application topical powder 1 application TOPICAL BID polymyxin B-trimethoprim 1 drop ophthalmic drops (POLYTRIM) 1 drop BOTH EYES 3 times per day aquaphor - stomahesive topical ointment (E.T. MIXTURE) TOPICAL PRN mirtazapine 15 mg (REMERON) 15 mg ORAL AT BEDTIME lidocaine 4 % 1 patch (SALONPAS) 1 patch TRANSDERMAL DAILY And lidocaine patch - REMOVE OTHER AT BEDTIME And lidocaine - VERIFY PATCH OTHER q 8 H OLANZapine 2.5 mg tab(s) (ZYPREXA) 2.5 mg ORAL AT BEDTIME lactulose 20 g oral liquid 20 g ORAL DAILY PRN nicotine 21 mg/24 hr 1 patch (NICODERM) 1 patch TRANSDERMAL DAILY And nicotine -- REMOVE patch OTHER DAILY And nicotine - verify patch OTHER q 8 H acetaminophen 650 mg tab(s) (TYLENOL) 650 mg ORAL q 6 H PRN Allergies As of Date: 01/01/2025 (Not on File) INTERVIEW RESULTS: Physically Mr. Barlow reports that the right sided facial droop is resolved but he notes at least mild weakness in his right arm and leg observed on brief screening motor testing. He denies headache, dizziness or vertigo, speech or swallow dysfunction. He reports severe loss of strength and stamina likely because of the urine infection as well as extended time down. Cognitively Mr. Barlow states that he has not noticed any thinking troubles, a major concern given the severity of the deficits seen on testing today. He reports normal mentation premorbidly Motion Mr. Barlow is reporting moderately severe depression and anxiety as a result of these medical events. He denies severe symptoms such as hallucinations, panic, nightmares, suicidal thoughts etc. affect is pleasant and polite. Quiet. Sleepy. States he is sleeping poorly despite olanzapine and mirtazapine as reviewed above. He reports normal appetite Mr. Barlow lives in [place]. . 1 son. 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 He is a high school diploma. Objective COGNITIVE TEST RESULTS: I used a test from the [employer] [facility] form C and Mayra IV test noted below. Right-handed. No glasses. Adequate effort. ATTENTION: He is alert and oriented to person year and city. Cannot recall name of facility nor month. Verbal complex attention is moderately impaired limited to 2 numbers reverse consistently and fourth mistakes on some tries. Visual attention span is mild to moderately impaired limited to 3 visual units recalled in order consistently and fourth mistakes on some tries. LANGUAGE: Auditory comprehension is normal for three-step commands. He repeats complex phrases normally. Mild (more content not included)... Normal [facility] CONSULT PROGon 01-14-2025 CONSULT PROG HNO ID: [id number] Author: RUBIA POOLE APRN.CNP Service: Wound Care Team Author Type: Nurse Practitioner Type: Consult Progress Note Filed: 01/14/2025 16:03 Note Text: Summary: wound care WOUND CARE SERVICE PROGRESS NOTE SERVICE DATE: 01/14/2025 SERVICE TIME: 1115 REASON FOR CONSULT: Wound Consult (From admission, onward) Start Ordered 01/06/25 1115 Wound Care Consult ONCE Electronically Signed By: Brisa Smalls MD [ ] 01/06/25 1114 Follow up My final recommendations will be communicated back to the requesting physician by way of shared Medical record. Subjective HISTORY OF PRESENT ILLNESS: Mr. Barlow is a 69 year old male who is seen today with Opal Salcido Wound/sample weaver. Patient came into inpatient rehab from [facility] on 01/05/2025. He was admitted to [facility] on 12/27/2024 after being found down in his apartment for unknown amount of time. He was found with a right facial droop and neighbors report that he was seen using cocaine a few days prior. Labs showed UTI and rhabdomyolysis. Patient admits to being Type 2 DM. He does not know how he obtained his wounds. Wound care is re-evaluating his wound today. REVIEW OF SYSTEMS GENERAL: Denies fever and chills. PAIN ASSESSMENT: Denies pain SKIN: Multiple wounds scattered over body. RESPIRATORY: Denies Shortness of Breath GI/: Denies n/v No past medical history on file. No past surgical history on file. SOCIAL HISTORY[1] No family history on file. MEDICATIONS: Current Facility-Administere d Medications Medication Dose Route Frequency terbinafine HCl 250 mg tab(s) (LamISIL) 250 mg ORAL DAILY aspirin 81 mg chewable tab(s) 81 mg ORAL DAILY atorvastatin 40 mg tab(s) (LIPITOR) 40 mg ORAL AT BEDTIME dextrose 40 % 15 g 15 g ORAL PRN Or glucagon 1 mg injection 1 mg INTRAMUSCULAR PRN Or dextrose 10% iv bolus 12.5 g INTRAVENOUS PRN insulin lispro injection (rapid acting) (ADMElog) SUBCUTANEOUS w MEALS insulin lispro injection (rapid acting) (ADMElog) SUBCUTANEOUS AT BEDTIME insulin glargine 15 Units pen (long acting) 15 Units SUBCUTANEOUS AT BEDTIME metFORMIN ER 1,000 mg tab(s) (GLUCOPHAGE XR) 1,000 mg ORAL BID w MEALS polyethylene glycol 3350 17 g packet 17 g ORAL DAILY senna-docusate 8.6-50 mg 2 tablet (SENNA-S) 2 tablet ORAL DAILY miconazole 2 % 1 application topical powder 1 application TOPICAL BID polymyxin B-trimethoprim 1 drop ophthalmic drops (POLYTRIM) 1 drop BOTH EYES 3 times per day aquaphor - stomahesive topical ointment (E.T. MIXTURE) TOPICAL PRN mirtazapine 15 mg (REMERON) 15 mg ORAL AT BEDTIME lidocaine 4 % 1 patch (SALONPAS) 1 patch TRANSDERMAL DAILY And lidocaine patch - REMOVE OTHER AT BEDTIME And lidocaine - VERIFY PATCH OTHER q 8 H OLANZapine 2.5 mg tab(s) (ZYPREXA) 2.5 mg ORAL AT BEDTIME lactulose 20 g oral liquid 20 g ORAL DAILY PRN nicotine 21 mg/24 hr 1 patch (NICODERM) 1 patch TRANSDERMAL DAILY And nicotine -- REMOVE patch OTHER DAILY And nicotine - verify patch OTHER q 8 H acetaminophen 650 mg tab(s) (TYLENOL) 650 mg ORAL q 6 H PRN midodrine 2.5 mg tab(s) (PROAMITINE) 2.5 mg ORAL TID PRN ALLERGIES Allergen Reactions Fish Containing Pro* Swelling, Shortness of Breath Objective PHYSICAL EXAM: BP 105/63 Pulse 61 Temp 36.9 ?C (98.4 ?F) Resp 18 Ht 180.3 cm (5' 11") Wt 78.6 kg (173 lb 4.5 oz) SpO2 92% BMI 24.17 kg/m? General appearance: Awake, alert, will answer questions. Respiratory: Unlabored. Cardiovascular: Bilateral pedal pulses +2. Extremities: Bilateral heels intact. Integumentary: Dry scabbing on his bilateral toes. Penis ulcer continues to have some leone slough, but overall appears to be improving. DATA Wound photo Most recent labs Presenting wound information: Left toes right toes penis Impression/Recommend ations Wound care to penis continue placing ET mix to penile ulcer. Try to position ulcer so there is not pressure on the area where the ulcer is located. To his scabbed areas on his toes, knees, etc, place clear moisture barrier ointment to these areas. ET mix to coccyx. Pressure injury prevention/treatment : Turn and reposition patient every 2 hours, offload heels with boots or pillows, Allevyn foam to coccyx and any other bony prominence. Orders Placed This Encounter DRESSING CARE (SPECIFY) ([place]), 8 Wounds Associated Order Comments: To scattered areas on toes, knees, chest place clear moisture barrier ointment daily. To penis, place ET mix at least once per day and as needed for soiling. Try to position penis up to prevent pressure on ulcer. Freq: Daily Specify:: wound care Barriers to Healing: Body habitus, Comorbid conditions, Compliance with care regimen, Mobility, and Moisture Pressure Injury Prev (more content not included)... [facility] NUTRITIONon 01-14-2025 NUTRITION HNO ID: [id number] Author: TEOFILO CHAVIRA RD Service: ? Author Type: Registered Dietitian Type: Nutrition Filed: 01/14/2025 15:15 Note Text: NUTRITION THERAPY INPATIENT REHAB FACILITY REASSESSMENT NOTE SERVICE DATE: 01/14/2025 SERVICE TIME: Start Time: 1138 Nutrition Assessment: Recommended Malnutrition Diagnosis: Moderate Protein-Calorie Malnutrition (01/14/25 1449 : Teofilo Chavira RD) In the context of: Chronic Illness or Injury Based on: Insufficient Energy Intake, Subcutaneous Fat Loss, Muscle Loss Patient Goals: To meet > 75% ENN Progress Towards Goals: Consistently consuming >50% of eals provided as well as ONS BID Nutrition Diagnosis: Problem: Increased nutrient needs Related to: Wound healing As evidenced by: Wound(s) Care Plan: Change diet to Carb controlled Supplements: Boost Glucose Control, Mighty Shake No Sugar Added Vitamins and Minerals: Multivitamin with minerals Orders written and provider collaborated with: Dr Betancourt Monitor and Evaluation: Meet greater than 75% of estimated needs, Monitor fluid/electrolyte balance, Monitor labs, I/Os, vital signs, weight, Monitor bowel function Discharge Recommendations: Diet, Oral Supplements Diet: Carb controlled, heart healthy. 3-6 high kcals, high protein meals daily w adequate hydration to support wound healing Oral Supplements: Continue high protein ONS 1-2x/d Interval History: 69 yo m seen as 8d acute rehab LOS. Admitted d/t metabolic encephalopathy 2/2 Chron CVA, drug abuse, UTI, rhabdo. - Stage I coccyx PI per wound care and nsg skin flow sheet doc. - multiple trauma wounds noted. - Was on miralax, senna, now Lactulose since yesterday. Intake History: Nutrition Intake Prior to Admission: Less than 75% estimated energy needs greater than or equal to 1 month Current Nutrition Intake: Less than 75% estimated energy needs Current Intake Over time: Greater than or equal to 7 days (x8d LOS. Per I/Os, pt consistently consuming <50% of meals provided. Per pts RN, days intakes recorded at 75-100%, pt has ordered snack sized meals. Good acceptance of ONS, consuming most of it, prefers chocolate.) Dosing Weight: 78.6 kg (173 lb 4.5 oz) Dosing Weight Type: Current weight Estimated kilocalorie needs: 1379-1978 Calorie Calculation Method: Sturdivant-St. Jeor (with activity factor) Estimated protein needs (grams): 95-120 Grams protein determined by: 1.2 - 1.5 g/kg Diet Orders (From admission, onward) Start Ordered 01/12/25 1445 DIET SUPPLEMENTS START NOW Question Answer Comment Supplement 1 MIGHTY SHAKE REDUCED SUGAR STRAWBERRY BANANA Supplement 1 Frequency BREAKFAST Supplement 2 MIGHTY SHAKE REDUCED SUGAR CHOCOLATE Supplement 2 Frequency DINNER Supplement 2 Frequency LUNCH 01/12/25 1437 01/05/252144 DIET HEART HEALTHY START NOW Question Answer Comment Heart Healthy 4 GM SODIUM (LOW SAT FAT) Carbohydrate Control CONSISTENT CARBOHYDRATE 01/05/252137 Anthropometrics: Height: 180.3 cm (5' 11") Weight: 78.6 kg (173 lb 4.5 oz) Usual Weight: 80.5 kg (177 lb 7.5 oz) 01/06/25 Usual Weight Obtained From: Chart Review Body mass index is 24.17 kg/m?. Weight change percentage over time: 2.4% loss x 1 wk Weight Change: Potentially clinically significant but does not meet criteria to support malnutrition diagnosis Physical Exam: Subcutaneous fat loss: Subcutaneous Fat Loss Assessed Orbital: Sightly dark circles, somewhat hollow look (Mild) Upper Arm (Triceps): Some depth to pinch, not ample fat (Mild) Muscle loss: Muscle Loss Assessed Temporalis: Slight depression (Mild) Clavicle: More prominent bone, less prominent muscle (Mild) Acromion: Well defind muscle, rounded curve (No loss) Interosseous (Hand): Muscle bulges, flat/mild bulge between dorsal bones (No Loss) Quadricep: Mild depression on inner thigh, kneecap more prominent (Mild) Gastrocnemius: Not well-developed muscle (Mild) Potential micronutrient deficiency: Skin, Teeth (stage 1 coccyx PI. Teeth missing.) Potential micronutrient deficiency: Skin, Teeth (stage 1 coccyx PI. Teeth missing.) Edema/Ascites: No edema GI Symptoms: Anorexia Stool Amount: Decreased (no bm since adm) Potential Signs of Inflammation: Hypoalbuminemia, Chronic condition CVA, T2DM Lines, Drains, and Airways None MNT Billing: $ Routine Care : 1 unit Time Spent (mins): 7 SIGNATURE: Teofilo Chavira RD PATIENT NAME: Steven Barlow DATE: January 14, 2025 TIME: 2:17 PM [facility] THERAPY NTon 01-14-2025 THERAPY NT HNO ID: [id number] Author: RALPH MARTINEZ PTA Service: Physical Therapy Author Type: Public Transit Bus Driver Type: Therapy (PT/OT/Speech/Resp) Filed: 01/14/2025 16:39 Note Text: Attestation signed by Florina Sexton PT at 01/15/2025 7:46 AM I reviewed and agree with the assessment as documented above. SIGNATURE: Florina Sexton PT DATE: January 15, 2025 TIME: 7:46 AM Physical Therapy Treatment SERVICE DATE: 01/14/2025 SERVICE TIME: 1000 to 1034 ROOM: [id number] Recommended Discharge Disposition: Subacute/SNF Anticipated Discharge Needs: Undetermined Physical Assist at Home for: Finances, Laundry, Cleaning, Meals, Medication Management, Safety, Stairs, Self Care, Shopping, Transportation Supervision at Home due to: Decreased safety awareness, Impaired cognition Recommended Discharge Equipment: To Be Determined Precautions/Activity Restrictions: Bed/Chair Alarm, Fall Risk, Sitter Precaution/Activity Restriction Comments: 2 L NC O2 (on room air for session, WNL), monitor O2, pt was on room air most of session, needed when laying down, goes by "Evgeny", decreased R side awareness Current Hospital Course: Pt admitted to [facility] rehab for OT/PT/ST services. 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 Found cocaine in urine screen Relevant Past Medical History: DM2 Assessment Comments:Pt was short on his session d/t BP being 83/58. Nurse reques pt get placed back into bed and a bolus of IV fluids was ordered. Pt continued to be low in pm and was given oral medication and was unable to tolerate EOB sitting per JAY. Home Assessment Accessibility Issues: Home entry steps Physical Therapy Problem List: Functional Mobility Impairment, Balance Impaired Planned Interventions: Therapeutic Activity Home Environment Patient Lives With: Self/Alone Assistance Available: PRN Comments: son lives close Entry To Home: Stairs, With Rail Number Of Stairs Into Home: 10 Number Of Stairs To Bed/Bath: 0 Tub/Shower Type: tub/shower combo with grabbars and shower chair Laundry: first floor setup, pt was doing Equipment Owned: Walker- Wheeled, Shower Chair, Grab Bars- Shower, Grab Bars- Toilet, Cognitive/Memory Tool, Elevated Toilet Seat Prior Functional Level: Within Functional Limits Prior Functional Level Comments: Per pt I with ADLS/IADLS, used a FWW in community, driving prior. per pt this is the only fall in the last 6 months Cognitive Screen: Responsiveness: Awake Orientation Deficits: Confused, Other: See Comment (mild, requires redirection) Follows Commands: 2-step Commands Pulmonary/Cardiac Status: Skin Integrity: Edema: Sensation: Tone/Spasticity: Gross Motor Coordination: Posture: Posture: Forward head, Rounded shoulders CURRENT FUNCTIONAL STATUS: Most recent performance Current Functional Mobility Assist Level Additional Information Rolling Stand By Assistance Supine to Sit Stand By Assistance Sit to Supine Stand By Assistance Scooting Minimal Assistance Sit to Stand Minimal Assistance Stand to Sit Minimal Assistance Bed to Chair Minimal Assistance Bed To Chair Transfer Type: Stepping Bed To Chair Transfer Equipment: Wheeled Walker Toilet/Commode Moderate Assistance, Additional Information Gait Minimal Assistance Gait Device: Wheeled Walker Gait Distance (feet): 15' and 10' Stairs Minimal Assistance Stairs Device: Rail Number of Stairs: 10 Curb Step Moderate Assistance, Additional Information Device: Wheeled Walker Car Transfer Minimal Assistance Blank doherty indicate activity not attempted General Deviations/Observati ons: Ellen decreased, Difficulty changing direction/turning, Flexed trunk posture, Narrow Base of Support, Shuffling Gait, Step length decreased Ramp: up/down ramp with minAx1 and cueing for FWW management. Balance: Static Sitting, Dynamic Sitting, Static Standing, Dynamic Standing Static Sitting Balance: Good Patient able to maintain balance without handhold support, limited postural sway Dynamic Sitting Balance: Good Patient accepts moderate challenge, able to maintain balance while picking up object off floor Static Standing Balance: Fair Patient able to maintain balance with handhold support, may require occasional minimal assistance Dynamic Standing Balance: Fair Patient accepts minimal challenge, able to maintain balance while turning head/trunk Activity Tolerance: Sitting Activity, Standing Activity Sitting Activity: bed mobility; ADLs-dressing and hygiene performed seated Standing Activity: transfers, amb, and toileting Functiona (more content not included)... [facility] THERAPY NT HNO ID: [id number] Author: DUY MALDONADO COTA/L Service: Occupational Therapy Author Type: Temperer Type: Therapy (PT/OT/Speech/Resp) Filed: 01/14/2025 14:53 Note Text: Attestation signed by Liz Castro OTR/L at 01/14/2025 3:07 PM I reviewed and agree with the documentation corresponding to this therapy visit. SIGNATURE: BART Medina DATE: January 14, 2025 TIME: 3:07 PM Occupational Therapy Treatment SERVICE DATE: 01/14/2025 SERVICE TIME: 1183-3663 ROOM: [place] [address] Recommended Discharge Disposition: Subacute/SNF Anticipated Discharge Needs: Undetermined Physical Assist at Home for: Finances, Laundry, Cleaning, Meals, Medication Management, Safety, Stairs, Self Care, Shopping, Transportation Supervision at Home due to: Decreased safety awareness, Impaired cognition Recommended Discharge Equipment: To Be Determined Precautions/Activity Restrictions: Bed/Chair Alarm, Fall Risk, Sitter Precaution/Activity Restriction Comments: 2 L NC O2 (on room air for session, WNL), monitor O2, pt was on room air most of session, needed when laying down, goes by "Evgeny", decreased R side awareness Current Hospital Course: [facility]ST [facility]. 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 Found cocaine in urine screen Relevant Past Medical History: DM2 Response to Therapy Interventions: Cognitive Deficits, Limited Participation, Low Activity Tolerance, Multiple Ongoing Medical Issues, Needs Frequent Redirection or Reinstruction, Requires Additional Time to Complete Activities, Requires Encouragement to Complete Activities Assessment Comments: Patient w/ continued low BP and dizziness. Reports increased fatigue. Demonstrates overall low activity tolerance and R sided deficits. To address ADLs and RUE strengthening next session. Occupational Therapy Problem List: Cognitive Deficit, Impaired Self Care Cognition/Communicat ion Deficits Responsiveness: Awake Follows Commands: 2-step Commands, Cueing Needed Cueing to Follow Commands: Minimum Home Environment Patient Lives With: Self/Alone Occupational Factors Life Roles: Parent, Family Member, Friend Identified Strengths for Life Roles: Access to Healthcare Identified Barriers for Life Roles: Difficulty Coping, Limited Social Support, Difficulty with ADLs/IADLs, Judgment/Awareness, Motivation Subjective: Agreeable to tx. Reports fatigue and continued dizziness. Attempted EOB for ADLs, increased dizziness and orthostatic BP. Long-sitting activity in bed. CURRENT FUNCTIONAL STATUS: Most recent performance Current Activities of Daily Living Assist Level Additional Information Feeding Grooming Supervision, Additional Information Washed face and applied anti persperant EOB. Bathing Upper Body Supervision, Additional Information Bathing Lower Body Moderate Assistance, Additional Information Dressing Upper Body Moderate Assistance, Additional Information Dressing Lower Body Moderate Assistance, Additional Information Sock change EOB. Patient declined further ADL completion d/t increased dizziness. Patient w/ orthostatic BP. Toileting Moderate Assistance, Additional Information Instrumental Activities of Daily Living Assist Level Additional Information Meal/Beverage Prep Cleaning Laundry Medication Management with Strategies Functional Mobility Assist Level Additional Information Rolling Supine to Sit Minimal Assistance, Additional Information Trunk elevation Sit to Supine Supervision Scooting Supervision Sit to Stand Minimal Assistance Stand to Sit Minimal Assistance Bed to Chair Minimal Assistance Stepping Wheeled Walker, Gait Belt Toilet/Commode Moderate Assistance Shower Minimal Assistance, Additional Information use of gaitbelt, stand pivot transfer Functional Mobility Moderate Assistance Wheeled Walker Blank doherty indicate activity not attempted Exercise: 2x10 UE resistance exercise w/ blue theraband; 2x10 BUE exercise w/ wooden bar and 3# weight. Completed chest press and bicep curls. Tub Transfer: Additional Information Balance: Dynamic Sitting, Dynamic Standing Dynamic Sitting Balance: Fair Patient accepts minimal challenge, able to maintain balance while turning head/trunk Dynamic Standing Balance: Fair Patient accepts minimal challenge, able to maintain balance while turning head/trunk Activity Tolerance: Sitting Activity Sitting Activity: EOB sitting for BP and brief ADL management. Patient w/ increased dizziness and orthostatic BP. Completed remaining activity l (more content not included)... [facility] THERAPY NT HNO ID: [id number] Author: BRENDEN JO CCC-LITHOGRAPHER APPRENTICE Service: Speech/Swallow Author Type: Speech Language Pathologist Type: Therapy (PT/OT/Speech/Resp) Filed: 01/14/2025 12:11 Note Text: Speech Therapy Treatment SERVICE DATE: 01/14/2025 SERVICE TIME: 1135 ROOM: [id number] IMPRESSION: Communication deficits identified: Cognitive-Linguistic deficits Nursing Recommendations: Reinforce use of cognitive strategies Recommended Discharge Disposition: Continued Skilled Speech Therapy Current Hospital Course: metabolic encephalopathy Reason for Hospital Admission: Presented to [facility] , found down in apt, CT of brain: 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 Found cocaine in urine screen Rehabilitation Precautions: Cognitive Linguistics Deficits (Telesitter) Reason for Speech Therapy Consult: Ugfmui-Vjlcjqmc-Lcbi ition evaluation. Relevant Past Medical History: DM2 Response to Therapy Interventions: Good participation in activities Assessment Comments: pt unsure where his glasses are, unable to locate in his room. Speech Therapy Problem List: Cognition Subjective: Patient was asleep when LITHOGRAPHER APPRENTICE entered room. Pt awoke and was able to maintain alertness level with cues and encouragement. Current Status Oral Hygiene: Clear, moist oral cavity Dentition: Miscellaneous Missing Teeth, Poor Repair (missing many teeth) Current Feeding Method: Oral Current Diet Textures: Regular Consistency, Thin Liquids IDDSI Level 0 Current Level Of Communication: Verbal Current Management Of Secretions: Able to self-manage Oral Motor Exam: Within Functional Limits Except (milldy generalized weakness) Cognition Cognitive Status: Within Functional Limits For Current Session Except Cognitive Deficits: Orientation Deficits, Responsiveness, Attention Deficit, Memory Deficits, Executive Function Deficit Orientation Deficits: Place, Time, Situation, Confused Responsiveness: Drowsy Attention Deficit: Sustained, Distractable Memory Deficits: Immediate Immediate Memory Comments: 0% accuracy. Pt stated "I don't know" each time. Executive Function Deficits: Sequencing Sequencing Comments: Patient repeated 2-3 number sequences in reverse order with 100% accuracy. Pt repeated 4 numbers with 0% accuracy. Pt was able to re-order numbers smallest to largest with 0% accuracy. Patient /Caregiver Goals: Go Home Goals for Plan of Care: Goals: COGNITION: Patient will demonstrate knowledge of taught compensatory strategies for functional cognitive-linguistic skills, SPEECH / LANGUAGE: Patient will demonstrate knowledge of taught compensatory strategies for functional communication Progress Toward Goals: Progressing slower than expected Speech Rehab Potential: Good Patient will be discontinued from speech therapy when no further skilled needs are identified in this setting. PLAN: Planned Interventions: Individual Speech Therapy Plan of Care Developed with: Patient TREATMENT INTERVENTIONS: Interventions Provided: Individual Speech Therapy Training and Education Provided in: Cognitive Linguistic Strategies The following therapeutic skills were used:: Verbal cuing, Visual cuing, Education on role of discipline / importance of activity Home Environment Patient Lives With: Self/Alone Prior Swallowing Function/Diet Textures: Regular Consistency, Thin Liquids IDDSI Level 0 Please see discipline specific clinical documentation flowsheet for complete details for this therapy evaluation/treatment . SIGNATURE: Brenden Jo CCC-LITHOGRAPHER APPRENTICE PATIENT NAME: Steven Barlow DATE: January 14, 2025 TIME: 12:11 PM Normal [facility] CASE MANAGEMon 01-13-2025 CASE MANAGEM HNO ID: [id number] Author: HEENA GUTIÉRREZ LISW Service: Care Management Author Type: Wealth Management Advisor Type: Care Mgt Progress Note Filed: 01/13/2025 15:49 Note Text: CARE MANAGEMENT PROGRESS NOTE SERVICE DATE: 01/13/2025 SERVICE TIME: 3:36 LOS: 8 days Chart reviewed Patient admitted to [facility] from [facility] metabolic encephalopathy- found on ground by neighbors-who report recent cocaine use. Patient will have 3 hours of therapy 5 days a week with gaol to progress patient to home Patient lives alone in apartment he was independnent with self care He has insurance and can afford RX. He has a PCP has not been in while and can not recall name He may need to be set up with new PCP. He was [employer] does not receive services from them He has one Son Damien Barlow- [phone] He admits to SI He denies alcohol and drug use. He did test positive at [facility] for Cocaine. Son indicated he did that a long time ago and may have gotten from neighbor as been confused Patient is able to afford medications can struggle with obtaining food and paying bills Commity resources and food assistance provided to patient Barrier- poor recall, lives alone limited support system- Patient want to get to his truck this weekend now on 1-1 sitter Needs facility with wander guard. Patient's 1-1 removed remains on Javi sitter-continues to be a barrier to placement Discussed with son and have accepting facilities-[facility]. Patient prefers not in [place] so first choice is [facility]- If [facility] changes mind and can accept would be first choice. [facility] not accept Offered [facility]- have memory care-they can accept and would need to do screen for [facility]- they accept [employer] Updated son he is interested in this facility Requested they call call him to completed screen Plan skilled vs LTC waiting on final acceptance and choice will need all forms and pasrr and LOC We need all forms and transportation arranged. Sw following for transitional care needs SIGNATURE: VELMA Persaud PATIENT NAME: Steven Barlow DATE: January 13, 2025 TIME: 3:36 PM [facility] NURSING PROGon 01-13-2025 NURSING PROG HNO ID: [id number] Author: NICOLE CABALLERO, SHARON Service: Nursing Author Type: Registered Nurse Type: Nursing Progress Note Filed: 01/13/2025 07:24 Note Text: Summary: virtual patient clerical transcriber Other: Patient escalated to red with virtual patient clerical transcriber at 9 pm last night. Patient is continuing to be monitored by virtual patient clerical transcriber and it is reported he is now yellow. They are going to continue to monitor virtually and will let us know if he reescalates to red. [facility] THERAPY NTon 01-13-2025 THERAPY NT HNO ID: [id number] Author: SUKHWINDER CONWAY COTA/L Service: Occupational Therapy Author Type: Temperer Type: Therapy (PT/OT/Speech/Resp) Filed: 01/13/2025 15:10 Note Text: Attestation signed by Katarina Kerr OTR/L at 01/13/2025 4:05 PM I reviewed and agree with the documentation corresponding to this therapy visit. SIGNATURE: Katarina Kerr OTR/L DATE: January 13, 2025 TIME: 4:05 PM Occupational Therapy Treatment SERVICE DATE: 01/13/2025 SERVICE TIME: [id number], [id number] ROOM: [place] [address] Recommended Discharge Disposition: Subacute/SNF Anticipated Discharge Needs: Undetermined (Recommending SNF) Recommended Discharge Equipment: To Be Determined Precautions/Activity Restrictions: Bed/Chair Alarm, Fall Risk, Sitter Precaution/Activity Restriction Comments: 2 L NC O2 (on room air for session, WNL), monitor O2, pt was on room air most of session, needed when laying down, goes by "Evgeny", decreased R side awareness Current Hospital Course: [facility]/PT/ST services. 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 Found cocaine in urine screen Relevant Past Medical History: DM2 Response to Therapy Interventions: Cognitive Deficits, Coping Deficits, Low Activity Tolerance, Needs Frequent Redirection or Reinstruction, Requires Additional Time to Complete Activities Assessment Comments: Pt limited d/t fatigue and low BP(during second session). Next session address standing tolerance and functional transfers. Vital Signs BP: (!) 71/39 BP Device / Method: Automatic Orthostatic Vital Signs (Comprehensive) BP Device / Method: Automatic --During second session, Pt reported dizziness after supine to sit, KAELA monitored BP, Low BP reading (see above), notified RN, RN at bedside at end of session Occupational Therapy Problem List: Cognitive Deficit, Impaired Self Care Cognition/Communicat ion Deficits Communication Deficits: Delayed Response Responsiveness: Awake Follows Commands: 2-step Commands Cueing to Follow Commands: Minimum Attention Deficits: Distractible Memory Deficits: Short Term Executive Function Deficits: Sequencing, Judgement, Insight to Deficits, Problem Solving, Safety Awareness, Motor Planning Sequencing Deficit: Moderate impairment Judgement Deficit: Moderate impairment Insight to Deficits: Mild Awareness Problem Solving Deficit: Moderate Impairment Motor Planning Deficit: Moderate impairment Safety Awareness Deficit: Moderate impairment Subjective: Pt agreeable to OT session with min encouragement CURRENT FUNCTIONAL STATUS: Most recent performance Current Activities of Daily Living Assist Level Additional Information Feeding Grooming Supervision, Additional Information Bathing Upper Body Supervision, Additional Information Bathing Lower Body Moderate Assistance, Additional Information Dressing Upper Body Moderate Assistance, Additional Information Dressing Lower Body Moderate Assistance, Additional Information Toileting Moderate Assistance, Additional Information Instrumental Activities of Daily Living Assist Level Additional Information Meal/Beverage Prep Cleaning Laundry Medication Management with Strategies Functional Mobility Assist Level Additional Information Rolling Supine to Sit Minimal Assistance, Additional Information with trunk Sit to Supine Supervision Scooting Supervision Sit to Stand Minimal Assistance verbal cues for safe hand placement and steady assist Stand to Sit Minimal Assistance for controlled descent Bed to Chair Minimal Assistance Stepping Wheeled Walker, Gait Belt steadying assist Toilet/Commode Moderate Assistance Shower Minimal Assistance, Additional Information use of gaitbelt, stand pivot transfer Functional Mobility Moderate Assistance Wheeled Walker Blank doherty indicate activity not attempted Tub Transfer: Additional Information Balance: Dynamic Sitting, Dynamic Standing Dynamic Sitting Balance: Fair Patient accepts minimal challenge, able to maintain balance while turning head/trunk Dynamic Standing Balance: Fair Patient accepts minimal challenge, able to maintain balance while turning head/trunk Activity Tolerance: Sitting Activity, Standing Activity Sitting Activity: bed mobility, sitting at EOB for sitting balance and for monitoring BP Sitting Activity Tolerance (in minutes): 39 Standing Activity: bed to chair transfer Standing Activity Tolerance (in minutes): 5 Learning/Educational Needs: Discharge Plan, Disease Process, Equipment, Family Education/Training, Fun (more content not included)... [facility] THERAPY NT HNO ID: [id number] Author: SOFIYA HAWK CCC-LITHOGRAPHER APPRENTICE Service: Speech/Swallow Author Type: Speech Language Pathologist Type: Therapy (PT/OT/Speech/Resp) Filed: 01/13/2025 13:14 Note Text: Speech Therapy Treatment SERVICE DATE: 01/13/2025 SERVICE TIME: 1103 ROOM: [place] [address] IMPRESSION: Communication deficits identified: Cognitive-Linguistic deficits Nursing Recommendations: Reinforce use of cognitive strategies Recommended Discharge Disposition: Continued Skilled Speech Therapy Current Hospital Course: metabolic encephalopathy Reason for Hospital Admission: Presented to [facility] , found down in apt, CT of brain: 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 Found cocaine in urine screen Rehabilitation Precautions: Cognitive Linguistics Deficits Reason for Speech Therapy Consult: Wzazll-Rawbbenp-Kdvl ition evaluation. Relevant Past Medical History: DM2 Response to Therapy Interventions: Good participation in activities Assessment Comments: Pt seen for cognitive-linguistic tasks. Speech Therapy Problem List: Cognition Subjective: Pt sleeping upon my arrival. Pt able to wake and participate. Current Status Oral Hygiene: Clear, moist oral cavity Dentition: Miscellaneous Missing Teeth, Poor Repair (missing many teeth) Current Feeding Method: Oral Current Diet Textures: Regular Consistency, Thin Liquids IDDSI Level 0 Current Level Of Communication: Verbal Current Management Of Secretions: Able to self-manage Oral Motor Exam: Within Functional Limits Except (milldy generalized weakness) Cognition Orientation Deficit Comments: Pt was able to state he was in the hospital. Pt able to state current month and year. Pt was able to choose hospital when given choices of names. Pt was unable to state personal address and phone number. Pt was off by 1 for day of the week and date. Attention Deficit Comments: Pt was able to complete attention/scanning tasks (2 target numbers) with 83% acc. and false positive noted. Speech/Voice/Languag e Verbal Expression Deficits: Verbal Expression Deficit Comments Verbal Expression Deficit Comments: Pt was able to provide category member when given initial target letter with 73% acc. Pt required extra time during tasks. Patient /Caregiver Goals: Go Home Goals for Plan of Care: Goals: COGNITION: Patient will demonstrate knowledge of taught compensatory strategies for functional cognitive-linguistic skills, SPEECH / LANGUAGE: Patient will demonstrate knowledge of taught compensatory strategies for functional communication Progress Toward Goals: Progressing as expected Speech Rehab Potential: Good Patient will be discontinued from speech therapy when no further skilled needs are identified in this setting. PLAN: Planned Interventions: Individual Speech Therapy, Cognitive Training Plan of Care Developed with: Patient TREATMENT INTERVENTIONS: Interventions Provided: Individual Speech Therapy Training and Education Provided in: Cognitive Linguistic Strategies The following therapeutic skills were used:: Verbal cuing, Visual cuing, Education on role of discipline / importance of activity Home Environment Patient Lives With: Self/Alone Prior Swallowing Function/Diet Textures: Regular Consistency, Thin Liquids IDDSI Level 0 Please see discipline specific clinical documentation flowsheet for complete details for this therapy evaluation/treatment . SIGNATURE: Sofiya Hawk CCC-LITHOGRAPHER APPRENTICE PATIENT NAME: Steven Barlow DATE: January 13, 2025 TIME: 1:14 PM [facility] THERAPY NT HNO ID: [id number] Author: АНДРЕЙ BARR PTA Service: Physical Therapy Author Type: Public Transit Bus Driver Type: Therapy (PT/OT/Speech/Resp) Filed: 01/13/2025 12:42 Note Text: Attestation signed by Florina Sexton PT at 01/13/2025 12:56 PM I reviewed and agree with the assessment as documented above. SIGNATURE: Florina Sexton PT DATE: January 13, 2025 TIME: 12:56 PM Physical Therapy Treatment SERVICE DATE: 01/13/2025 SERVICE TIME: ROOM: [place] [address] Recommended Discharge Disposition: Subacute/SNF Anticipated Discharge Needs: Undetermined (Recommending SNF) Physical Assist at Home for: Finances, Laundry, Cleaning, Meals, Medication Management, Safety, Stairs, Self Care, Shopping, Transportation Supervision at Home due to: Decreased safety awareness, Impaired cognition Recommended Discharge Equipment: To Be Determined Precautions/Activity Restrictions: Bed/Chair Alarm, Fall Risk, Sitter Precaution/Activity Restriction Comments: 2 L NC O2 (on room air for session, WNL), monitor O2, pt was on room air most of session, needed when laying down, goes by "Evgeny", decreased R side awareness Current Hospital Course: Pt admitted to [facility] rehab for OT/PT/ST services. 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 Found cocaine in urine screen Relevant Past Medical History: DM2 Home Assessment Accessibility Issues: Home entry steps Physical Therapy Problem List: Functional Mobility Impairment, Balance Impaired Planned Interventions: Therapeutic Exercise, Therapeutic Activity, Gait Training, Neuromuscular Re-education, Manual Therapy Home Environment Patient Lives With: Self/Alone Assistance Available: PRN Comments: son lives close Entry To Home: Stairs, With Rail Number Of Stairs Into Home: 10 Number Of Stairs To Bed/Bath: 0 Tub/Shower Type: tub/shower combo with grabbars and shower chair Laundry: first floor setup, pt was doing Equipment Owned: Walker- Wheeled, Shower Chair, Grab Bars- Shower, Grab Bars- Toilet, Cognitive/Memory Tool, Elevated Toilet Seat Prior Functional Level: Within Functional Limits Prior Functional Level Comments: Per pt I with ADLS/IADLS, used a FWW in community, driving prior. per pt this is the only fall in the last 6 months Cognitive Screen: Responsiveness: Alert Orientation Deficits: Confused, Other: See Comment (mild, requires redirection) Follows Commands: 2-step Commands Pulmonary/Cardiac Status: Skin Integrity: Edema: Sensation: Tone/Spasticity: Gross Motor Coordination: Posture: Posture: Forward head, Rounded shoulders CURRENT FUNCTIONAL STATUS: Most recent performance Current Functional Mobility Assist Level Additional Information Rolling Contact Guard Assistance Supine to Sit Minimal Assistance Sit to Supine Stand By Assistance Scooting Supervision Sit to Stand Minimal Assistance Stand to Sit Minimal Assistance Bed to Chair Minimal Assistance Bed To Chair Transfer Type: Stepping Bed To Chair Transfer Equipment: Wheeled Walker Toilet/Commode Moderate Assistance, Additional Information Gait Minimal Assistance Gait Device: Wheeled Walker Gait Distance (feet): up to 125' Stairs Minimal Assistance Stairs Device: Rail Number of Stairs: 10 Curb Step Moderate Assistance, Additional Information Device: Wheeled Walker Car Transfer Minimal Assistance Blank doherty indicate activity not attempted General Deviations/Observati ons: Ellen decreased, Difficulty changing direction/turning, Flexed trunk posture, Narrow Base of Support, Shuffling Gait, Step length decreased, Improper distancing from assistive device, Path Deviation Ramp: up/down ramp with minAx1 and cueing for FWW management. Balance: Static Sitting, Dynamic Sitting, Static Standing, Dynamic Standing Static Sitting Balance: Good Patient able to maintain balance without handhold support, limited postural sway Dynamic Sitting Balance: Good Patient accepts moderate challenge, able to maintain balance while picking up object off floor Static Standing Balance: Fair Patient able to maintain balance with handhold support, may require occasional minimal assistance Dynamic Standing Balance: Fair Patient accepts minimal challenge, able to maintain balance while turning head/trunk Activity Tolerance: Sitting Activity, Standing Activity Sitting Activity: seated 2x10 2.5# BTB laq, marches, hip abd/add, hs curls Standing Activity: gait training w/ fww cone seach reaching high low, gait training, functional transfer training, stair training Functional Performance Test Func (more content not included)... [facility] [id number] 01-12-2025 [id number] HNO ID: [id number] Author: BRENDEN JO CCC-LITHOGRAPHER APPRENTICE Service: ? Author Type: Speech Language Pathologist Type: [id number] Filed: 01/12/2025 13:15 Note Text: LITHOGRAPHER APPRENTICE FUNCTIONAL UPDATE Problem List: Cognition Goals: Team Goal: Patient will improve cognition by discharge to increase safety. Barriers to Discharge: Yes Interventions: Cognitive Training, Individual Speech Therapy Cognitive Assessment: Cognitive Status: Within Functional Limits For Current Session Except Cognitive Deficits: Orientation Deficits, Attention Deficit Orientation Deficits: Orientation Deficit Comments Responsiveness: Alert Attention Deficit: Attention Deficit Comments Memory Deficits: Immediate Executive Function Deficits: Time/Money Management [facility] [id number] HNO ID: [id number] Author: BRISA SMALLS MD Service: ? Author Type: Physician Type: [id number] Filed: 01/12/2025 13:15 Note Text: Rehab Physician Assessment Drug Regimen Review: Did Steven Barlow experience a potential or actual medication issue? No I was present during the initial Inpatient Rehab Team Conference today and discussed with staff the patient's rehabilitation program addressing functional goals including current condition, impairments, functional status, treatments, barriers to achievement of goals, and estimated discharge date/disposition. The patient requires acute inpatient rehabilitation services including close medical supervision, rehabilitation nursing requirements, multiple therapy discliplines (PT, OT, LITHOGRAPHER APPRENTICE), rehab psychology, spiritual care, nutrition assessment, and case management due to current diagnoses. The anticipated intensity of interventions for this Plan of Care is expected to involve multiple therapy disciplines 3 hours daily, at least 5 days per week. The anticipated discharge location is home and estimated date of discharge is 01/22/2025. Acute inpatient rehabilitation is required in order to maximize the patient's functional independence in ADLS, mobility, transfers, bladder/bowel program care, medical management, and patient/family education. The patient continues to progress toward their goals. [facility] [id number] HNO ID: [id number] Author: HEENA GUTIÉRREZ LISW Service: ? Author Type: Wealth Management Advisor Type: [id number] Filed: 01/12/2025 13:15 Note Text: Social Work Problem: Psychosocial Team Goal: patient will transition to next level of care Status Update: patient does participates motivation is low Previously Identified Interventions: Supportive counseling Barriers Prior to Discharge: Other: See Comment (improve cogntive skills and self care and mobility) Caregiver at Discharge: Discharge Destination: Discharge Arrangement: Home with Self Care Expected Discharge Date: see team discussion [facility] [id number] HNO ID: [id number] Author: KATARINA KERR OTR/Kip Service: ? Author Type: Occupational Therapist Type: [id number] Filed: 01/12/2025 13:15 Note Text: OT FUNCTIONAL UPDATE Current Functional Status Activities of Daily Living Feeding: Grooming: Supervision, Additional Information Grooming Comments: seated to brush teeth Bathing Upper Body: Supervision, Additional Information Bathing Upper Body Comments: seated mod vcs for throughness Bathing Upper Body: Moderate Assistance, Additional Information Bathing Lower Body Comments: for B LE and standing to wash buttocks Dressing Upper Body: Moderate Assistance, Additional Information Dressing Upper Body Comments: to bring shirt over head and down back Dressing Lower Body: Moderate Assistance, Additional Information Dressing Lower Body Comments: for donning/doffing socks, needed assistance to begin threading feet into pants Toileting: Moderate Assistance, Additional Information Toileting Comments: standing at toilet for urination, steadying assist throughout Instrumental Activities of Daily Living Meal/Beverage Prep: Cleaning: Laundry: Medication Management with Strategies: Functional Mobility Rolling: Supine to Sit: Minimal Assistance, Additional Information Supine To Sit Comments: for trunk to sit EOB Sit to Supine: Contact Guard Assistance Scooting: Minimal Assistance Sit to Stand: Minimal Assistance, Additional Information Sit To Stand Comments: vcs for hand placement and steadying assist Stand to Sit: Minimal Assistance, Additional Information Stand To Sit Comments: for controlled descent Bed to Chair: Minimal Assistance Bed To Chair Transfer Type: Stepping Bed To Chair Transfer Equipment: Wheeled WalkerBed To Chair Comments: steadying assist Toilet/Commode: Moderate Assistance, Additional Information Toilet/Commode Comments: stand pivot transfer Shower: Minimal Assistance, Additional Information Shower Transfer Comments: use of gaitbelt, stand pivot transfer Functional Mobility: Minimal Assistance, Additional Information Functional Mobility Device: Wheeled Walker, Other: See Comment Functional Mobility Comments: room to therapy gym and within room mbility from bathroom>EOB Problem List: Impaired Self Care, Cognitive Deficit Goals: Team Goal: Pt to be supervision with grooming, UB/LB dressing, bathing, toileting, toilet transfers, and tub/shower transfers. Able to perform HEP with: Supervision Grooming with: Supervision Upper Body Bathing with: Supervision Upper Body Dressing with: Supervision Lower Body Bathing with: Minimal Assistance Lower Body Dressing with: Minimal Assistance Toilet Hygiene with: Minimal Assistance Toilet Transfer with: Supervision Tub Transfer with: Supervision Tolerate (minutes of functional activity): 75 Functional Activity with: Supervision Home Management Skills with: Supervision Kitchen Mobility Tasks with: Supervision Demonstrate Positive Coping Strategies with: Supervision Additional Goal 1: Pt to particpiate in MVPT To assess predriving skills and goals to follow as needed. Additional Goal 2: Pt to attend to R side by 50-75% of the time during ADLS/transfers. Additional Goal 3: Pt to be able to button shirt etc with use of R hand with no difficulty. Barriers to Discharge: Yes Interventions: Therapeutic Exercise, Therapeutic Activity, Neuromuscular Re-education, Self Senior Living Management, Cognitive Training, Community Reintegration, Compensatory Strategies Care Scores Functional Area Admission Assessment Care Score Current Status Care Score Discharge Goal Eating 6 6 Oral Hygiene 5 4 Supervision or touching assistance [4] Toileting Hygiene 3 3 Supervision or touching assistance [4] Shower/Bathe Self 2 3 Supervision or touching assistance [4] Upper Body Dressing 2 3 Set-up/clean-up [5] Lower Body Dressing 1 3 Supervision or touching assistance [4] Putting On/Taking Off Footwear 1 2 Set-up/clean-up [5] Care Score Definitions: 1 - Dependent; 2 - Substantial/maximal assistance; 3 - Partial/moderate assistance; 4 - Supervision or touching assistance; 5 - Set-up/clean-up; 6 - Independent; 7 - Patient refused; 9 - Not applicable; 10 - Not attempted due to environmental limitations; 88 - Not attempted due to medical/safety concerns [facility] [id number] HNO ID: [id number] Author: NICOLE CABALLERO RN Service: ? Author Type: Registered Nurse Type: [id number] Filed: 01/12/2025 13:15 Note Text: Vital Signs: Temp: 36.4 ?C (97.5 ?F) Pulse: 75 Resp: 18 BP: 112/68 SpO2: 92 % O2 Therapy: Room Air Pain: Pain Assessment: Assessment Patient Status: Awake Tool: Verbal (Numeric Rating or Visual Analog Scale) Pain Level: 7 Pain Location: Back Description: Aching Duration: Intermittent Intervention/Comfort measure: Reposition Nursing Plan of Care: Discharge Planning Flowsheet Row Most Recent Value Discharge Planning Related to Discharge Disposition Discharge Planning Intervention(s) Plan Coordinate Discharge Planning Discharge Planning Goals/Outcomes Patient Will be Discharged to an Appropriate Safe Level of Care Discharge Planning Goal Target Achievement Date 01/19/25 Discharge Planning - Evaluation of Progress PHARMACIST TECHNICIAN following, weekly team Discharge Planning Resolution Reviewed Goals/Outcomes in Progress Elimination Bladder/Bowel Flowsheet Row Most Recent Value Elimination Bladder/Bowel Related to Infection Elimination Bladder/Bowel Intervention(s) Plan Monitor Fluids and Electrolytes Elimination Bladder/Bowel Goals/Outcomes Maintain Skin Integrity, Patient/Family Knowledgeable in Managing Elimination Elimination Bladder/Bowel Goal Target Achievement Date 01/19/25 Elimination Bladder/Bowel - Evaluation of Progress improving continenve of bladder, no known BM at this time Elimination Bladder/Bowel Resolution Reviewed Goals/Outcomes in Progress Problem Falls Risk Plan Flowsheet Row Most Recent Value [place] Falls Precautions Intervention In Use Today's Safety Plan Today's Safety Plan Reviewed Fall Prevention Plan Bed Alarm in Use Falls Goals/Outcomes Maintain Interventions to reduce the possibility of a fall Fall Goal Target Achievement Date 01/19/25 Falls - Evaluation of Progress bed/chair alarm, non-skid footwear, call light within reach Falls - Resolution Reviewed Goals/Outcomes in Progress Fluid/Electrolyte Flowsheet Row Most Recent Value Fluid/Electrolyte Related to Disease Process Fluid/Electrolyte Intervention(s) Plan Assess for Signs/Symptom of Dehydration and Fluid Overload, Daily Weights, Monitor Lab Values, Monitor Line Readings / Hemodynamics, Monitor Patient Vital Signs and Intake and Output, Report Changes in Patient's Condition, Notify LIP for Changes to Baseline Status Fluid/Electrolyte Goals/Outcomes Appropriate Fluid and Electrolyte Balance Achieved and Maintained Fluid/Electrolyte Goal Target Achievement Date 01/19/25 Fluid/Electrolyte - Evaluation of Progress ACANDHS BG Fluid/Electrolyte Resolution Reviewed Goals/Outcomes in Progress Risk for Infection Flowsheet Row Most Recent Value Risk for Infection Related to Disease Process Risk for Infection Intervention(s) Plan Assess and Administer Medications, Assess Vital Signs, Assess Signs/Symptom of Infection, Dressing Changes per Protocol, Maintain Hand Hygiene, Monitor Labs and Cultures Risk for Infection Goals/Outcomes Absence of bleeding, redness, or unusual swelling, Patient Without Signs/Symptoms of Infections Risk For Infection Goal Target Achievement Date 01/19/25 Risk for Infection - Evaluation of Progress wound care, abx as ordered Risk for Infection Resolution Reviewed Goals/Outcomes in Progress Psychosocial Alteration Flowsheet Row Most Recent Value Psychosocial Alteration Related to Alcohol/Substance Dependency, Disease Process, Coping of Patient Psychosocial Alteration Intervention(s) Plan Evaluate Need for Patient Molecular Biologist, Patient Molecular Biologist as Needed, Provide Pain Control as Needed, Provide Quiet and Restful Environment, Notify LIP for Changes to Baseline Status Psychosocial Alteration Goals/Outcomes Patient Safety Maintained While Hospitalized Psychosocial Goal Target Achievement Date 01/19/25 Psychosocial Alteration - Evaluation of Progress telesitter, chair alarm, ongoing confusion Psychosocial Alteration Resolution Reviewed Goals/Outcomes in Progress Wound 01/05/252199 Traumatic Skin Tear Knee Anterior;Left (Active) Date First Assessed/Time First Assessed: 01/05/252199 Present on Original Admission: Yes Primary Wound Type: Traumatic Secondary Wound Type - Traumatic: Skin Tear Location: Knee Wound Location Orientation: Anterior;Left Assessments 01/06/2025 1:23 AM 01/11/2025 9:30 PM Wound Image Site Assessment Black;Brown;Purple -- Erlinda-Wound Assessment Clean;Dry;[place] -- Closure Adhesive bandage -- Drainage Amount None -- Odor None -- Treatments Cleansed -- Dressing Foam- Adhesive -- Dressing Changed New -- Dressing Status Clean;Dry;Intact Clean;Dry;Intact Active Orders Date Order Priority Status Authorizing Provider 01/06/25 1353 DRESSING CARE (SPECIFY) ([place]), 7 Wounds Associated Routine Active Rubia Poole APRN.CNP - Specify:: wound care Wound 01/05/25 2200 Traum (more content not included)... [facility] [id number] HNO ID: [id number] Author: HEENA GUTIÉRREZ LISW Service: ? Author Type: Wealth Management Advisor Type: [id number] Filed: 01/12/2025 13:15 Note Text: Rehab Team Discussion Weekly Team Goals: to transition to next level of care-min lower bed self care supervision trnsfers and gait Family Education/Participat ion:n/a Patient and Family Goals:to transition to LTC Strengths and Barriers to Achieving Rehab Goals: Insight into problems, Support of extended family/friends Family Issues/Concerns: Other Issues: lives alone limited support Medical Barriers: delirium -agitation started Zyprexa-no recent BM- incontinent Discharge Plannin01/19- Skiled level of care In the last 12 months, was there a time when you were not able to pay the mortgage or rent on time?: No In the past 12 months, has lack of transportation kept you from medical appointments or from getting medications?: No In the past 12 months, has lack of transportation kept you from meetings, work, or from getting things needed for daily living?: No Recommended DME: [employer] [facility] [id number] HNO ID: [id number] Author: KATIUSKA TURNER RD Service: ? Author Type: Registered Dietitian Type: [id number] Filed: 01/12/2025 13:15 Note Text: Dietitian Assessment Diet / Nourishment Orders: Diet Orders (From admission, onward) Start Ordered 01/07/25 1530 DIET SUPPLEMENTS START NOW Question Answer Comment Supplement 1 ENSURE PLUS HIGH PROTEIN CHOCOLATE Supplement 1 Frequency THREE TIMES/DAY WITH MEALS 01/07/25 1515 01/05/255 DIET HEART HEALTHY START NOW Question Answer Comment Heart Healthy 4 GM SODIUM (LOW SAT FAT) Carbohydrate Control CONSISTENT CARBOHYDRATE 01/05/252137 Lab Results Component Value Date/Time TPROT 6.2 01/11/2025 04:18 PM Teams: Moderate PCM. Intake remains inadequate - various wounds. Started ONS. Intake History Nutrition Intake Prior to Admission: 0-25% estimated energy needs (x3 days) Current Nutrition Intake: Less than 50% estimated energy needs Current Intake Over time: (x2 days) Weight: 80.5 kg (177 lb 7.5 oz) Weight Change: Unable to determine Body mass index is 24.75 kg/m?. Nutrition Diagnosis Problem: Increased nutrient needs Related to: Wound healing As evidenced by: Wound(s) Nutrition Goals Patient Goals: Consume >75% of ENN Progress Towards Goals: Start ONS Nutrition Interventions Continue current diet Supplements: Ensure Plus High Protein Monitor and Evaluation: Meet greater than 75% of estimated needs, Monitor fluid/electrolyte balance, Monitor labs, I/Os, vital signs, weight, Monitor bowel function Normal [facility] [id number] HNO ID: [id number] Author: FLORINA LA PT Service: ? Author Type: Physical Therapist Type: [id number] Filed: 01/12/2025 13:15 Note Text: PT FUNCTIONAL UPDATE Current Functional Mobility Bed Mobility Rolling: Contact Guard Assistance Supine to Sit: Supervision Supine To Sit Comments: assist for trunk Sit to Supine: Stand By Assistance Sit To Supine Comments : impulsive, cues for safety. Scooting: Supervision Scooting Comments : Cues for safety Transfers Sit to Stand: Minimal Assistance Sit To Stand Comments: max vc for hand placement Stand to Sit: Minimal Assistance Stand To Sit Comments: cues for hand placement and backing up to chair. Bed to Chair: Minimal Assistance Bed To Chair Transfer Equipment: Wheeled Walker Bed To Chair Transfer Type: Stepping Toilet/Commode: Moderate Assistance, Additional Information Toilet/Commode Comments: highly impulsive Shower Transfer: Car Transfer: Moderate Assistance Gait Minimal Assistance, Additional Information Gait Distance (feet): up to 100' Gait Comments: Pt ambulates w/ slightly crouched/flexed posture, LEs generally unsteady. Poor safety at times, tending to leave FWW behind during transitions to chair or through bathroom door Gait Device: Wheeled Walker Stairs Moderate Assistance, Additional Information Number of Stairs: 6 Stairs comments: Mod-Min A x1 for 6 steps w/ mix of L ascending and bilateral rail use, step to pattern, unsteady/uncontroled w/ descent. Stairs Device: Rail, Other: See Comment Problem List: Functional Mobility Impairment, Balance Impaired Goals: Transfer Supine to/from Sit with: Modified Independent Transfer Sit to/from Stand with: Modified Independent Ambulate with: Modified Independent Distance: 80ft Device: Wheeled Walker Ambulate Up and Down Steps with: Modified Independent Number of Steps: 10 Device: Rail Barriers to Discharge: Yes Interventions: Therapeutic Exercise, Therapeutic Activity, Gait Training, Neuromuscular Re-education, Manual Therapy Care Scores Functional Area Admission Assessment Care Score Current Status Care Score Discharge Goal Chair/Pal-tq-Kqqhz Transfer 3 3 Independent [6] Toilet Transfer 3 3 Supervision or touching assistance [4] Walk 10 Feet 3 3 Independent [6] Walk 50 Feet with Two Turns 3 3 Independent [6] Walk 150 Feet 88 3 Independent [6] 1 Step (Curb) 3 3 Independent [6] 4 Steps 3 3 Independent [6] 12 Steps 3 3 Independent [6] Wheel 50 Feet with Two Turns 9 9 Not applicable [9] Wheel 150 Feet 9 9 Not applicable [9] Care Score Definitions: 1 - Dependent; 2 - Substantial/maximal assistance; 3 - Partial/moderate assistance; 4 - Supervision or touching assistance; 5 - Set-up/clean-up; 6 - Independent; 7 - Patient refused; 9 - Not applicable; 10 - Not attempted due to environmental limitations; 88 - Not attempted due to medical/safety concerns [facility] CASE MANAGEMon 01-12-2025 CASE MANAGEM HNO ID: [id number] Author: HEENA GUTIÉRREZ LISW Service: Care Management Author Type: Wealth Management Advisor Type: Care Mgt Progress Note Filed: 01/12/2025 16:25 Note Text: REHAB SOCIAL WORK PROGRESS NOTE SERVICE DATE: January 12, 2025 SERVICE TIME: 4:19 Team recommendations discussed with patient/family: Team recommending skilled level of care- Barrier is cocaine use and recent sister now on Javi sitter. Referral made- [facility] accept pending medicaid- Not in net work with [employer]-Son requested that SW send to [facility] and waiting on response. Son supportive Filed for Medicaid. Sanya did on site today patient pleasant confused remains on javi sitter. Discussed with son maybe hard to find place that will accept both his insurance and pending medicaid He is accepting of information Waiting to see response of last tow referrals. Discharge is planned for next week Education on goals of rehab team: transition to skilled level of care Response to education: In agreement with plan Barriers: Lives alone- needs 08/10 care Plan skilled vs LTC waitng on acceptance and final choice from son will need all forms and transport will need discussed. following for d/c planning needs SIGNATURE: VELMA Persaud PATIENT NAME: Steven Barlow DATE: January 12, 2025 TIME: 4:19 PM CONTACT #: [facility] NUTRITIONon 01-12-2025 NUTRITION HNO ID: [id number] Author: KATIUSKA TURNER RD Service: ? Author Type: Registered Dietitian Type: Nutrition Filed: 01/12/2025 14:38 Note Text: NUTRITION THERAPY INPATIENT REHAB FACILITY PROGRESS NOTE SERVICE DATE: 01/12/2025 SERVICE TIME: Start Time: 1434 Nutrition Assessment: Recommended Malnutrition Diagnosis: Moderate Protein-Calorie Malnutrition (01/07/25 1407 : Katiuska Turner RD) Care Plan: Continue current diet Supplements: Mighty Shake No Sugar Added Monitor and Evaluation: Meet greater than 75% of estimated needs, Monitor fluid/electrolyte balance, Monitor labs, I/Os, vital signs, weight, Monitor bowel function Interval History: Eating poor. Updating ONS. Intake History: Current Nutrition Intake: Less than 50% estimated energy needs Current Intake Over time: Greater than or equal to 7 days Dosing Weight: 80.3 kg (177 lb) Dosing Weight Type: Current weight Estimated kilocalorie needs: [id number] kcals Calorie Calculation Method: Sturdivant-. Anastacio (with activity factor) (1.2-1.3) Estimated protein needs (grams): 100-140 g Grams protein determined by: 1.3 - 1.7 g/kg Diet Orders (From admission, onward) Start Ordered 01/12/25 1445 DIET SUPPLEMENTS START NOW Question Answer Comment Supplement 1 MIGHTY SHAKE REDUCED SUGAR STRAWBERRY BANANA Supplement 1 Frequency BREAKFAST Supplement 2 MIGHTY SHAKE REDUCED SUGAR CHOCOLATE Supplement 2 Frequency DINNER Supplement 2 Frequency LUNCH 01/12/25 1437 01/05/252144 DIET HEART HEALTHY START NOW Question Answer Comment Heart Healthy 4 GM SODIUM (LOW SAT FAT) Carbohydrate Control CONSISTENT CARBOHYDRATE 01/05/252137 MNT Billing: $ Routine Care : 1 unit Time Spent (mins): 1 SIGNATURE: Katiuska Turner RD PATIENT NAME: Steven Barlow DATE: January 12, 2025 TIME: 2:37 PM [facility] THERAPY NTon 01-12-2025 THERAPY NT HNO ID: [id number] Author: KATARINA KERR, OTR/L Service: Occupational Therapy Author Type: Occupational Therapist Type: Therapy (PT/OT/Speech/Resp) Filed: 01/12/2025 13:49 Note Text: Occupational Therapy Treatment SERVICE DATE: 01/12/2025 SERVICE TIME: 1320 to 1335 ROOM: [place] [address] Recommended Discharge Disposition: Subacute/SNF Recommended Discharge Disposition Comments: Changed to SNF due pt does not hav 24 hr care at home Anticipated Discharge Needs: Undetermined (Recommending SNF) Recommended Discharge Equipment: To Be Determined Precautions/Activity Restrictions: Bed/Chair Alarm, Fall Risk, Sitter Precaution/Activity Restriction Comments: 2 L NC O2 (on room air for session, WNL), monitor O2, pt was on room air most of session, needed when laying down, goes by "Evgeny", decreased R side awareness Current Hospital Course: Pt admitted to [facility] rehab for OT/PT/ST services. 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 Found cocaine in urine screen Relevant Past Medical History: DM2 Response to Therapy Interventions: Cognitive Deficits, Coping Deficits, Low Activity Tolerance, Needs Frequent Redirection or Reinstruction, Requires Additional Time to Complete Activities Assessment Comments: Pt is limited due to decreased safety awareness, decreased independence with ADLS/transfers. Next session to address standing tolerance and safety Occupational Therapy Problem List: Cognitive Deficit, Impaired Self Care Cognition/Communicat ion Deficits Communication Deficits: Delayed Response Responsiveness: Awake Follows Commands: 2-step Commands Cueing to Follow Commands: Minimum Attention Deficits: Distractible Memory Deficits: Short Term Executive Function Deficits: Sequencing, Judgement, Insight to Deficits, Problem Solving, Safety Awareness, Motor Planning Sequencing Deficit: Moderate impairment Judgement Deficit: Moderate impairment Insight to Deficits: Mild Awareness Problem Solving Deficit: Moderate Impairment Motor Planning Deficit: Moderate impairment Safety Awareness Deficit: Moderate impairment Occupational Factors Life Roles: Parent, Family Member, Friend Identified Strengths for Life Roles: Access to Healthcare Identified Barriers for Life Roles: Difficulty Coping, Limited Social Support, Difficulty with ADLs/IADLs, Judgment/Awareness, Motivation Subjective: Pt agreeable to OT with min encouragement CURRENT FUNCTIONAL STATUS: Most recent performance Current Activities of Daily Living Assist Level Additional Information Feeding Grooming Supervision, Additional Information Bathing Upper Body Supervision, Additional Information Bathing Lower Body Moderate Assistance, Additional Information Dressing Upper Body Moderate Assistance, Additional Information Dressing Lower Body Moderate Assistance, Additional Information Toileting Moderate Assistance, Additional Information steadying assist to stand for clothing mgmt Instrumental Activities of Daily Living Assist Level Additional Information Meal/Beverage Prep Cleaning Laundry Medication Management with Strategies Functional Mobility Assist Level Additional Information Rolling Supine to Sit Minimal Assistance, Additional Information with trunk Sit to Supine Supervision Scooting Supervision Sit to Stand Minimal Assistance vcs for hand placement and steadying assist Stand to Sit Minimal Assistance for controlled descent Bed to Chair Minimal Assistance Stepping Wheeled Walker, Gait Belt steadying assist Toilet/Commode Moderate Assistance to stand to urinate Shower Minimal Assistance, Additional Information use of gaitbelt, stand pivot transfer Functional Mobility Moderate Assistance Wheeled Walker to and from the FWW, needed mod vcs to keep hold of FWW and for FWW mgmt Blank doherty indicate activity not attempted Tub Transfer: Additional Information Balance: Dynamic Sitting, Dynamic Standing Dynamic Sitting Balance: Fair Patient accepts minimal challenge, able to maintain balance while turning head/trunk Dynamic Standing Balance: Fair Patient accepts minimal challenge, able to maintain balance while turning head/trunk Activity Tolerance: Sitting Activity, Standing Activity Sitting Activity: sat EOB for fine motor tasks using larger hand 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 [facility] THERAPY NT HNO ID: [id number] Author: FLORINA LA PT Service: Physical Therapy Author Type: Public Transit Bus Driver Type: Therapy (PT/OT/Speech/Resp) Filed: 01/12/2025 16:27 Note Text: Attestation signed by Florina La PT at 01/12/2025 4:27 PM I reviewed and agree with the documentation corresponding to this therapy visit. SIGNATURE: Florina La PT DATE: January 12, 2025 TIME: 4:27 PM Physical Therapy Treatment SERVICE DATE: 01/12/2025 SERVICE TIME: ROOM: [place] [address] Recommended Discharge Disposition: Subacute/SNF Anticipated Discharge Needs: Undetermined (D/c to SNF) Physical Assist at Home for: Finances, Laundry, Cleaning, Meals, Medication Management, Safety, Stairs, Self Care, Shopping, Transportation Supervision at Home due to: Decreased safety awareness, Impaired cognition Recommended Discharge Equipment: To Be Determined Precautions/Activity Restrictions: Fall Risk, Sitter Precaution/Activity Restriction Comments: 2 L NC O2 (on room air for session, WNL), monitor O2, pt was on room air most of session, needed when laying down, goes by "Evgeny", decreased R side awareness (telesitter) Current Hospital Course: Pt admitted to [facility] rehab for OT/PT/ST services. 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 Found cocaine in urine screen Relevant Past Medical History: DM2 Home Assessment Accessibility Issues: Home entry steps Physical Therapy Problem List: Functional Mobility Impairment, Balance Impaired Planned Interventions: Therapeutic Exercise, Therapeutic Activity, Gait Training, Neuromuscular Re-education, Manual Therapy Home Environment Patient Lives With: Self/Alone Assistance Available: PRN Comments: son lives close Entry To Home: Stairs, With Rail Number Of Stairs Into Home: 10 Number Of Stairs To Bed/Bath: 0 Tub/Shower Type: tub/shower combo with grabbars and shower chair Laundry: first floor setup, pt was doing Equipment Owned: Walker- Wheeled, Shower Chair, Grab Bars- Shower, Grab Bars- Toilet, Cognitive/Memory Tool, Elevated Toilet Seat Prior Functional Level: Within Functional Limits Prior Functional Level Comments: Per pt I with ADLS/IADLS, used a FWW in community, driving prior. per pt this is the only fall in the last 6 months Cognitive Screen: Responsiveness: Alert Orientation Deficits: Confused, Other: See Comment (mild, requires redirection) Follows Commands: 2-step Commands Pulmonary/Cardiac Status: Skin Integrity: Edema: Sensation: Tone/Spasticity: Gross Motor Coordination: Posture: Posture: Forward head, Rounded shoulders CURRENT FUNCTIONAL STATUS: Most recent performance Current Functional Mobility Assist Level Additional Information Rolling Contact Guard Assistance Supine to Sit Supervision Sit to Supine Stand By Assistance Scooting Supervision Sit to Stand Minimal Assistance Stand to Sit Minimal Assistance Bed to Chair Minimal Assistance Bed To Chair Transfer Type: Stepping Bed To Chair Transfer Equipment: Wheeled Walker Toilet/Commode Moderate Assistance, Additional Information Gait Minimal Assistance, Additional Information, Moderate Assistance Gait Device: Wheeled Walker, Cane Gait Distance (feet): up to 100' w/ fww and 15' w/ SPC Stairs Moderate Assistance, Additional Information Stairs Device: Rail, Other: See Comment Number of Stairs: 6 Curb Step Moderate Assistance, Additional Information Device: Wheeled Walker Car Transfer Minimal Assistance Blank doherty indicate activity not attempted General Deviations/Observati ons: Ellen decreased, Difficulty changing direction/turning, Flexed trunk posture, Narrow Base of Support, Shuffling Gait, Step length decreased, Improper distancing from assistive device, Path Deviation Ramp: up/down ramp with minAx1 and cueing for FWW management. Balance: Static Sitting, Dynamic Sitting, Static Standing, Dynamic Standing Static Sitting Balance: Good Patient able to maintain balance without handhold support, limited postural sway Dynamic Sitting Balance: Good Patient accepts moderate challenge, able to maintain balance while picking up object off floor Static Standing Balance: Fair Patient able to maintain balance with handhold support, may require occasional minimal assistance Dynamic Standing Balance: Fair Patient accepts minimal challenge, able to maintain balance while turning head/trunk Activity Tolerance: Sitting Activity, Standing Activity Sitting Activity: seated 2x10 2.5# BTB laq, marches, hip abd/add, hs curls Standing Activity: 4in laurie step overs cone ta (more content not included)... [facility] THERAPY NT HNO ID: [id number] Author: KATARINA KERR, OTR/L Service: Occupational Therapy Author Type: Occupational Therapist Type: Therapy (PT/OT/Speech/Resp) Filed: 01/12/2025 12:26 Note Text: Occupational Therapy Treatment SERVICE DATE: 01/12/2025 SERVICE TIME: 1000 to 1100 ROOM: [id number] Recommended Discharge Disposition: Subacute/SNF Recommended Discharge Disposition Comments: Changed to SNF due pt does not hav 24 hr care at home Anticipated Discharge Needs: Undetermined (D/c to SNF) Recommended Discharge Equipment: To Be Determined Precautions/Activity Restrictions: Fall Risk, Sitter Precaution/Activity Restriction Comments: 2 L NC O2 (on room air for session, WNL), monitor O2, pt was on room air most of session, needed when laying down, goes by "Evgeny", decreased R side awareness (telesitter) Current Hospital Course: Pt admitted to [facility] rehab for OT/PT/ST services. 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 Found cocaine in urine screen Relevant Past Medical History: DM2 Response to Therapy Interventions: Cognitive Deficits, Coping Deficits, Low Activity Tolerance, Needs Frequent Redirection or Reinstruction, Requires Additional Time to Complete Activities Assessment Comments: Pt more talkative this date, pt with brighter affect. Pt is limited due to decreased safety awareness, decreased balance. Next session to address standing tolerance. Occupational Therapy Problem List: Cognitive Deficit, Impaired Self Care Cognition/Communicat ion Deficits Communication Deficits: Delayed Response Responsiveness: Awake Follows Commands: 2-step Commands Cueing to Follow Commands: Minimum Attention Deficits: Distractible Memory Deficits: Short Term Executive Function Deficits: Sequencing, Judgement, Insight to Deficits, Problem Solving, Motor Planning, Safety Awareness Sequencing Deficit: Moderate impairment Judgement Deficit: Moderate impairment Insight to Deficits: Mild Awareness Problem Solving Deficit: Moderate Impairment Motor Planning Deficit: Moderate impairment Safety Awareness Deficit: Moderate impairment Occupational Factors Life Roles: Parent, Family Member, Friend Identified Strengths for Life Roles: Access to Healthcare Identified Barriers for Life Roles: Difficulty Coping, Limited Social Support, Difficulty with ADLs/IADLs, Judgment/Awareness, Motivation Subjective: Pt agreeable to OT with min encouragement CURRENT FUNCTIONAL STATUS: Most recent performance Current Activities of Daily Living Assist Level Additional Information Feeding Grooming Supervision, Additional Information Bathing Upper Body Supervision, Additional Information Bathing Lower Body Moderate Assistance, Additional Information Dressing Upper Body Moderate Assistance, Additional Information Dressing Lower Body Moderate Assistance, Additional Information Toileting Moderate Assistance, Additional Information Instrumental Activities of Daily Living Assist Level Additional Information Meal/Beverage Prep Cleaning Laundry Medication Management with Strategies Functional Mobility Assist Level Additional Information Rolling Supine to Sit Minimal Assistance, Additional Information Sit to Supine Supervision Scooting Supervision Sit to Stand Minimal Assistance, Additional Information vcs for hand placement and steadying assist Stand to Sit Minimal Assistance for controlled descent Bed to Chair Minimal Assistance Stepping Wheeled Walker steadying assist Toilet/Commode Moderate Assistance, Additional Information Shower Minimal Assistance, Additional Information use of gaitbelt, stand pivot transfer Functional Mobility Minimal Assistance Wheeled Walker several steps Blank doherty indicate activity not attempted Tub Transfer: Additional Information Balance: Dynamic Sitting, Dynamic Standing Dynamic Sitting Balance: Fair Patient accepts minimal challenge, able to maintain balance while turning head/trunk Dynamic Standing Balance: Fair Patient accepts minimal challenge, able to maintain balance while turning head/trunk Activity Tolerance: Standing Activity, Sitting Activity Sitting Activity: sat for fine motor tasks using R hand , needed frequent rest breaks and cues to stay on tasks, completed B UE exercises seated with rest breaks Sitting Activity Tolerance (in minutes): 50 Standing Activity: stood for transfer Standing Activity Tolerance (in minutes): 10 Learning/Educational Needs: Discharge Plan, Disease Process, Equipment, Family Education/Training, Functional Activities/Mobility, OT In-Hospital Exercise Program, Plan of Care, Precautions, Rehabilitation Techniques and Procedures, Safety, Self Care, Stroke Education, Respiratory Function Goals for Valarie (more content not included)... [facility] THERAPY NT HNO ID: [id number] Author: SOFIYA HAWK, CCC-LITHOGRAPHER APPRENTICE Service: Speech/Swallow Author Type: Speech Language Pathologist Type: Therapy (PT/OT/Speech/Resp) Filed: 01/12/2025 12:19 Note Text: Speech Therapy Treatment SERVICE DATE: 01/12/2025 SERVICE TIME: 1100 ROOM: [place] [address] IMPRESSION: Communication deficits identified: Cognitive-Linguistic deficits Nursing Recommendations: Reinforce use of cognitive strategies Recommended Discharge Disposition: Continued Skilled Speech Therapy Current Hospital Course: metabolic encephalopathy Reason for Hospital Admission: Presented to [facility] , found down in apt, CT of brain: 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 Found cocaine in urine screen Rehabilitation Precautions: Cognitive Linguistics Deficits Reason for Speech Therapy Consult: [id number] ition evaluation. Relevant Past Medical History: DM2 Response to Therapy Interventions: Good participation in activities Assessment Comments: Pt completed tasks to improve cognitive-lingusitic skills. Pt did not recognize that he was staying here at the hospital. Speech Therapy Problem List: Cognition Subjective: Pt seen while sitting up in bed in hospital room. Pt stated, "I thought I was done with you." Current Status Oral Hygiene: Clear, moist oral cavity Dentition: Miscellaneous Missing Teeth, Poor Repair (missing many teeth) Current Feeding Method: Oral Current Diet Textures: Regular Consistency, Thin Liquids IDDSI Level 0 Current Level Of Communication: Verbal Current Management Of Secretions: Able to self-manage Oral Motor Exam: Within Functional Limits Except (milldy generalized weakness) Cognition Attention Deficit Comments: Pt was able to complete attention/scanning tasks (1 target letter) with 96% acc. and only a few false positives. Pt was instructed with task to determine if word was in the left column vs right column on a page. Pt was able to complete the first portion accurately, but then strayed from task and re-wrote the words instead of determining left vs right. Pt was 50% acc. Problem Solving Comments: Pt was 86% acc. for letter symbol task with mod-max cues. Pt required reinstruction and cues to locate targets. Patient /Caregiver Goals: Go Home Goals for Plan of Care: Goals: COGNITION: Patient will demonstrate knowledge of taught compensatory strategies for functional cognitive-linguistic skills, SPEECH / LANGUAGE: Patient will demonstrate knowledge of taught compensatory strategies for functional communication Progress Toward Goals: Progressing as expected Speech Rehab Potential: Good Patient will be discontinued from speech therapy when no further skilled needs are identified in this setting. PLAN: Planned Interventions: Individual Speech Therapy, Cognitive Training Plan of Care Developed with: Patient TREATMENT INTERVENTIONS: Interventions Provided: Individual Speech Therapy Training and Education Provided in: Cognitive Linguistic Strategies The following therapeutic skills were used:: Verbal cuing, Visual cuing, Education on role of discipline / importance of activity Home Environment Patient Lives With: Self/Alone Prior Swallowing Function/Diet Textures: Regular Consistency, Thin Liquids IDDSI Level 0 Please see discipline specific clinical documentation flowsheet for complete details for this therapy evaluation/treatment . SIGNATURE: Sofiya Hawk [facility]-LITHOGRAPHER APPRENTICE PATIENT NAME: Steven Barlow DATE: January 12, 2025 TIME: 12:19 PM Normal [facility] Basic metabolic 2000 panelon 01-11-2025 Anion gap [Moles/Vol] 9 mmol/L Normal 5-16 [facility] Comment on above: Order Comment: Speci men Type: BLOOD SPECIMENOrdering Facility: [facility] Address: [address] [place] [address] Performed By: #### 2 4321-2 ####[facility] LABORATORYCLIA [id number] [place] [address] [place] Calcium [Mass/Vol] 8.7 mg/dL Normal 8.5-10.5 [facility] Comment on above: Order Comment: Speci men Type: BLOOD SPECIMENOrdering Facility: [facility] Address: [address] [place] [address] Performed By: #### 2 4321-2 ####[facility] LABORATORYCLIA [id number] [place] [address] [place] Chloride [Moles/Vol] 105 mmol/L Normal 98-107 [facility] Comment on above: Order Comment: Speci men Type: BLOOD SPECIMENOrdering Facility: [facility] Address: [address] [place] [address] Performed By: #### 2 4321-2 ####[facility] LABORATORYCLIA [id number] [place] [address] [place] CO2 [Moles/Vol] 28 mmol/L Normal 21-32 [facility] Comment on above: Order Comment: Maren newman Type: BLOOD SPECIMENOrdering Facility: [facility] Address: [address] [place] [address] Performed By: #### 2 4321-2 ####[facility] LABORATORYCLIA [id number] [place] [address] [place] Creatinine [Mass/Vol] 0.56 mg/dL Normal 0.50-1.40 [facility] Comment on above: Order Comment: Speci men Type: BLOOD SPECIMENOrdering Facility: [facility] Address: [address] [place] [address] Result Comment: Chuyita ents receiving either N-Acetylcysteine (NAC) or Metamizole prior to venipuncture, may have falsely depressed results. Performed By: #### 2 4321-2 ####[facility] LABORATORYCLIA [id number] [address] [place] eGFRcr SerPlBld CKD-EPI 2020 107 mL/min/1.73m??? Normal >=60 [facility] Comment on above: Order Comment: Maren newman Type: BLOOD SPECIMENOrdering Facility: [facility] Address: [address] [place] [address] Result Comment: Mariana mated Glomerular Filtration Rate (eGFR) is calculated using the 2020 CKD-EPI creatinine equation. This equation utilizes serum creatinine, sex, and age as parameters. The creatinine assay has traceable calibration to isotope dilution-mass spectrometry. Refer to KDIGO guidelines for clinical interpretation. In patients with unstable renal function, e.g. those with acute kidney injury, the eGFR may not accurately reflect actual GFR. Performed By: #### 2 4321-2 ####[facility] LABORATORYCLIA [id number] [place] [address] [place] Glucose [Mass/Vol] 107 mg/dL High 70-100 [facility] Comment on above: Order Comment: Maren newman Type: BLOOD SPECIMENOrdering Facility: [facility] Address: [address] [place] [id number] Result Comment: The [place] [employer] Association (ADA) provides guidance for cutoff values for fasting glucose and random glucose. The ADA defines fasting as no caloric intake for at least 8 hours. Fasting plasma glucose results between 100 to 125 mg/dL indicate increased risk for diabetes (prediabetes). Fasting plasma glucose results greater than or equal to 126 mg/dL meet the criteria for diagnosis of diabetes. In the absence of unequivocal hyperglycemia, results should be confirmed by repeat testing. In a patient with classic symptoms of hyperglycemia or hyperglycemic crisis, random plasma glucose results greater than or equal to 200 mg/dL meet the criteria for diagnosis of diabetes. Reference: Standards of Medical Care in Diabetes 2016, [place] [employer] Association. Diabetes Care. 2016.39(Suppl 1). Results may be falsely elevated after the administration of Sulfapyridine. Results may be falsely depressed after the administration of Sulfasalazine. Performed By: #### 2 4321-2 ####[facility] LABORATORYCLIA [id number] [place] [address] [place] Potassium [Moles/Vol] 3.9 mmol/L Normal 3.5-5.1 [facility] Comment on above: Order Comment: Speci men Type: BLOOD SPECIMENOrdering Facility: [facility] Address: [address] [place] [id number] Performed By: #### 2 4321-2 ####[facility] LABORATORYCLIA [id number] [place] [address] [place] Sodium [Moles/Vol] 142 mmol/L Normal 136-145 [facility] Comment on above: Order Comment: Speci men Type: BLOOD SPECIMENOrdering Facility: [facility] Address: [address] [place] [address] Performed By: #### 2 4321-2 ####[facility] LABORATORYCLIA [id number] [place] [address] [place] Urea nitrogen [Mass/Vol] 8 mg/dL Normal 7-26 [facility] Comment on above: Order Comment: Speci men Type: BLOOD SPECIMENOrdering Facility: [facility] Address: [address] [place] [id number] Performed By: #### 2 4321-2 ####[facility] LABORATORYCLIA [id number] [place] [address] [facility] CASE MANAGEMon 01-11-2025 CASE MANAGEM HNO ID: [id number] Author: HEENA GUTIÉRREZ LISW Service: Care Management Author Type: Wealth Management Advisor Type: Care Mgt Progress Note Filed: 01/11/2025 14:15 Note Text: CARE MANAGEMENT PROGRESS NOTE SERVICE DATE: 01/11/2025 SERVICE TIME: 2;04 LOS: 6 days [place] of Choice Given: Yes Level of Care Discussed: Senior Living Facility Financial Disclosure Provided: Yes Provider List: Senior Living Facility Provider list within the patient's requested geographic area shared with the patient/family: Yes within: 15 miles Quality and resource use metrics shared with the patient that are relevant to the patient's goals of care and treatment preferences:: Yes Metrics: Potentially Preventable 30-day Post Discharge Readmission Rates Chart reviewed Patient admitted to [facility] from [facility] metabolic encephalopathy- found on ground by neighbors-who report recent cocaine use. Patient will have 3 hours of therapy 5 days a week with gaol to progress patient to home Patient lives alone in apartment he was independnent with self care He has insurance and can afford RX. He has a PCP has not been in while and can not recall name He may need to be set up with new PCP. He was [employer] does not receive services from them He has one Son Damien Barlow- [phone] He admits to SI He denies alcohol and drug use. He did test positive at [facility] for Cocaine. Son indicated he did that a long time ago and may have gotten from neighbor as been confused Patient is able to afford medications can struggle with obtaining food and paying bills Comm[employer] resources and food assistance provided to patient Barrier- poor recall, lives alone limited support system- Patient want to get to his truck this weekend now on 1-1 sitter Needs facility with wander guard. Discussed discharge planning with patient son Damien He applied for medicaid application number is [id number]. He is being evicted form apartment He does smoke and son asked if can have a nicotine patch which Md was informed and ordered. Due to him on sitter and memory issues and cocaine use may be a difficult placement Son understanding FOC was reviewed and sent blanket referral to [facility] skilled then L[facility] waiting on accepting facility will need pre cert and all forms and pasrr and patient will likely need transportation. Sw following for transitional care needs SIGNATURE: VELMA Persaud PATIENT NAME: Steven Barlow DATE: January 11, 2025 TIME: 2:04 PM Normal [facility] CBC W Auto Differential pane l (Bld)on 01-11-2025 Basophils (Bld) [#/Vol] 0.05 10*3/uL Normal <0.11 [facility] Comment on above: Order Comment: Speci men Type: BLOOD SPECIMENOrdering Facility: [facility] Address: [address] [place] [address] Performed By: #### 5 7021-8 ####[facility] LABORATORYCLIA [id number] [place] [address] [place] Basophils/100 WBC (Bld) 0.7 % Normal [facility] Comment on above: Order Comment: Speci men Type: BLOOD SPECIMENOrdering Facility: [facility] Address: [address] [place] [address] Performed By: #### 5 7021-8 ####[facility] LABORATORYCLIA [id number] [place] [address] [place] Differential cell count method Nom (Bld) Auto Normal [facility] Comment on above: Order Comment: Speci men Type: BLOOD SPECIMENOrdering Facility: [facility] Address: [address] [place] [address] Performed By: #### 5 7021-8 ####[facility] LABORATORYCLIA [id number] [place] [address] [place] Eosinophils (Bld) [#/Vol] 0.17 10*3/uL Normal <0.46 [facility] Comment on above: Order Comment: Speci men Type: BLOOD SPECIMENOrdering Facility: [facility] Address: [address] [place] [address] Performed By: #### 5 7021-8 ####[facility] LABORATORYCLIA [id number] [place] [address] [place] Eosinophils/100 WBC (Bld) 2.5 % Normal [facility] Comment on above: Order Comment: Speci men Type: BLOOD SPECIMENOrdering Facility: [facility] Address: [address] [place] [address] Performed By: #### 5 7021-8 ####[facility] LABORATORYCLIA [id number] [place] [address] [place] Erythrocyte distribution width (RBC) [Ratio] 14.2 % Normal 11.5-15.0 [facility] Comment on above: Order Comment: Speci men Type: BLOOD SPECIMENOrdering Facility: [facility] Address: [address] [place] [address] Performed By: #### 5 7021-8 ####[facility] LABORATORYCLIA [id number] [place] [address] [place] Hematocrit (Bld) [Volume fraction] 41.7 % Normal 39.0-51.0 [facility] Comment on above: Order Comment: Speci men Type: BLOOD SPECIMENOrdering Facility: [facility] Address: [address] [place] [address] Performed By: #### 5 7021-8 ####[facility] LABORATORYCLIA [id number] [place] [address] [place] Hemoglobin (Bld) [Mass/Vol] 13.3 g/dL Normal 13.0-17.0 [facility] Comment on above: Order Comment: Speci men Type: BLOOD SPECIMENOrdering Facility: [facility] Address: [address] [place] [address] Performed By: #### 5 7021-8 ####[facility] LABORATORYCLIA [id number] [place] [address] [place] Immature granulocytes (Bld) [#/Vol] 0.04 10*3/uL Normal <0.10 [facility] Comment on above: Order Comment: Speci men Type: BLOOD SPECIMENOrdering Facility: [facility] Address: [address] [place] [address] Performed By: #### 5 7021-8 ####[facility] LABORATORYCLIA [id number] [place] [id number] [place] Immature granulocytes/100 WBC (Bld) 0.6 % Normal [facility] Comment on above: Order Comment: Speci men Type: BLOOD SPECIMENOrdering Facility: [facility] Address: [address] [place] [address] Performed By: #### 5 7021-8 ####[facility] LABORATORYCLIA [id number] [place] [address] [place] Lymphocytes (Bld) [#/Vol] 1.91 10*3/uL Normal 1.00-4.00 [facility] Comment on above: Order Comment: Speci men Type: BLOOD SPECIMENOrdering Facility: [facility] Address: [address] [place] [address] Performed By: #### 5 7021-8 ####[facility] LABORATORYCLIA [id number] [address] [place] Lymphocytes/100 WBC (Bld) 27.6 % Normal [facility] Comment on above: Order Comment: Speci men Type: BLOOD SPECIMENOrdering Facility: [facility] Address: [address] [place] [address] Performed By: #### 5 7021-8 ####[facility] LABORATORYCLIA [id number] [place] [address] [place] MCH (RBC) [Entitic mass] 29.0 pg Normal 26.0-34.0 [facility] Comment on above: Order Comment: Speci men Type: BLOOD SPECIMENOrdering Facility: [facility] Address: [address] [place] [address] Performed By: #### 5 7021-8 ####[facility] LABORATORYCLIA [id number] [address] [place] MCHC (RBC) [Mass/Vol] 31.9 g/dL Normal 30.5-36.0 [facility] Comment on above: Order Comment: Speci men Type: BLOOD SPECIMENOrdering Facility: [facility] Address: [address] [place] [address] Performed By: #### 5 7021-8 ####[facility] LABORATORYCLIA [id number] [place] [address] [place] MCV (RBC) [Entitic vol] 91.0 fL Normal 80.0-100.0 [facility] Comment on above: Order Comment: Speci men Type: BLOOD SPECIMENOrdering Facility: [facility] Address: [address] [place] [address] Performed By: #### 5 7021-8 ####[facility] LABORATORYCLIA [id number] [place] [address] [place] Monocytes (Bld) [#/Vol] 0.67 10*3/uL Normal <0.87 [facility] Comment on above: Order Comment: Speci men Type: BLOOD SPECIMENOrdering Facility: [facility] Address: [address] [place] [address] Performed By: #### 5 7021-8 ####[facility] LABORATORYCLIA [id number] [place] [address] [place] Monocytes/100 WBC (Bld) 9.7 % Normal [facility] Comment on above: Order Comment: Speci men Type: BLOOD SPECIMENOrdering Facility: [facility] Address: [address] [place] [address] Performed By: #### 5 7021-8 ####[facility] LABORATORYCLIA [id number] [place] [address] [place] Neutrophils (Bld) [#/Vol] 4.09 10*3/uL Normal 1.45-7.50 [facility] Comment on above: Order Comment: Speci men Type: BLOOD SPECIMENOrdering Facility: [facility] Address: [address] [place] [address] Performed By: #### 5 7021-8 ####[facility] LABORATORYCLIA [id number] [place] [address] [place] Neutrophils/100 WBC (Bld) 58.9 % Normal [facility] Comment on above: Order Comment: Speci men Type: BLOOD SPECIMENOrdering Facility: [facility] Address: [address] [place] [address] Performed By: #### 5 7021-8 ####[facility] LABORATORYCLIA [id number] [place] [address] [place] Nucleated RBC (Bld) [#/Vol] 10*3/uL Normal <0.01 [facility] Comment on above: Order Comment: Speci men Type: BLOOD SPECIMENOrdering Facility: [facility] Address: [address] [place] [address] Performed By: #### 5 7021-8 ####[facility] LABORATORYCLIA [id number] [place] [id number] [place] Nucleated RBC/100 WBC (Bld) [Ratio] 0.0 /100 WBC Normal [facility] Comment on above: Order Comment: Speci men Type: BLOOD SPECIMENOrdering Facility: [facility] Address: [address] [place] [address] Performed By: #### 5 7021-8 ####[facility] LABORATORYCLIA [id number] [place] [id number] [place] Platelet mean volume (Bld) [Entitic vol] 9.2 fL Normal 9.0-12.7 [facility] Comment on above: Order Comment: Speci men Type: BLOOD SPECIMENOrdering Facility: [facility] Address: [address] [place] [address] Performed By: #### 5 7021-8 ####[facility] LABORATORYCLIA [id number] [place] [id number] [place] Platelets (Bld) [#/Vol] 252 10*3/uL Normal 150-400 [facility] Comment on above: Order Comment: Speci men Type: BLOOD SPECIMENOrdering Facility: [facility] Address: [address] [place] [address] Performed By: #### 5 7021-8 ####[facility] LABORATORYCLIA [id number] [place] [id number] [place] [facility] RBC (Bld) [#/Vol] 4.58 10*6/uL Normal 4.20-6.00 [facility] Comment on above: Order Comment: Speci men Type: BLOOD SPECIMENOrdering Facility: [facility] Address: [address] [place], [place] [address] Performed By: #### 5 7021-8 ####[facility] LABORATORYCLIA [id number] [address] WBC (Bld) [#/Vol] 6.93 10*3/uL Normal 3.70-11.00 [facility] Comment on above: Order Comment: Speci men Type: BLOOD SPECIMENOrdering Facility: [facility] Address: [address] [place] [address] Performed By: #### 5 7021-8 ####[facility] LABORATORYCLIA [id number] [address] Hepatic function 2000 panelo n 01-11-2025 Albumin [Mass/Vol] 2.8 g/dL Low 3.2-5.0 [facility] Comment on above: Order Comment: Speci men Type: BLOOD SPECIMENOrdering Facility: [facility] Address: [address] [place], [place] [address] Performed By: #### 2 132-9, 75094-5, 3016-3 ####[facility] LABORATORYCLIA [id number] [address] ALP [Catalytic activity/Vol] 94 U/L Normal 45-117 [facility] Comment on above: Order Comment: Speci men Type: BLOOD SPECIMENOrdering Facility: [facility] Address: [address] [place] [address] Performed By: #### 2 132-9, 65117-5, 3016-3 ####[facility] LABORATORYCLIA [id number] [address] OF [facility] ALT [Catalytic activity/Vol] 24 U/L Normal 13-61 [facility] Comment on above: Order Comment: Speci men Type: BLOOD SPECIMENOrdering Facility: [facility] Address: [address] [place] [address] Result Comment: Resu lts may be falsely depressed after the administration of Sulfasalazine and/or Sulfapyridine. Performed By: #### 2 132-9, 77484-8, 3015-3 ####[facility] LABORATORYCLIA [id number] [place] [address] [place] AST [Catalytic activity/Vol] 16 U/L Normal 8-34 [facility] Comment on above: Order Comment: Speci men Type: BLOOD SPECIMENOrdering Facility: [facility] Address: [address] [place] [address] Result Comment: Resu lts may be falsely depressed after the administration of Sulfasalazine and/or Sulfapyridine. Performed By: #### 2 132-9, 21993-9, 3 ####[facility] LABORATORYCLIA [id number] [address] [place] Bilirubin [Mass/Vol] 0.3 mg/dL Normal 0.2-1.0 [facility] Comment on above: Order Comment: Speci men Type: BLOOD SPECIMENOrdering Facility: [facility] Address: [address] [place] [address] Performed By: #### 2 132-9, 71801-6, 3 ####[facility] LABORATORYCLIA [id number] [address] OF [facility] Bilirubin.conjugated [Mass/Vol] 0.1 mg/dL Normal 0.0-0.4 [facility] Comment on above: Order Comment: Speci men Type: BLOOD SPECIMENOrdering Facility: [facility] Address: [address] [place] [address] Performed By: #### 2 132-9, 40441-2, 3015-3 ####[facility] LABORATORYCLIA [id number] [place] [id number] [facility] Protein [Mass/Vol] 6.2 g/dL Normal 6.0-8.5 [facility] Comment on above: Order Comment: Speci men Type: BLOOD SPECIMENOrdering Facility: [facility] Address: [address] [place] [address] Performed By: #### 2 132-9, 81427-4, 3016-3 ####[facility] LABORATORYCLIA [id number] [place] [id number] [facility] THERAPY NTon 01-11-2025 THERAPY NT HNO ID: [id number] Author: ZOFIA LARRY PT Service: Physical Therapy Author Type: Public Transit Bus Driver Type: Therapy (PT/OT/Speech/Resp) Filed: 01/11/2025 15:16 Note Text: Attestation signed by Zofia Larry PT at 01/11/2025 3:16 PM I reviewed and agree with the documentation corresponding to this therapy visit. SIGNATURE: Zofia Larry PT DATE: January 11, 2025 TIME: 3:16 PM Physical Therapy Treatment SERVICE DATE: 01/11/2025 SERVICE TIME: 3420-9808 ROOM: [id number]-929-01 Recommended Discharge Disposition: Home PT Anticipated Discharge Needs: Family Training, Physical Assist at Home, Supervision at Home, Equipment Physical Assist at Home for: Finances, Laundry, Cleaning, Meals, Medication Management, Safety, Stairs, Self Care, Shopping, Transportation Supervision at Home due to: Decreased safety awareness, Impaired cognition Recommended Discharge Equipment: To Be Determined Precautions/Activity Restrictions: Fall Risk, Lines/Tubes/Drains, Sitter Precaution/Activity Restriction Comments: 2 L NC O2 (on room air for session, WNL), monitor O2, pt was on room air most of session, needed when laying down, goes by "Evgeny", decreased R side awareness [facility]. 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 Found cocaine in urine screen Relevant Past Medical History: DM2 Response to Therapy Interventions: Cognitive Deficits, Good Participation in Activities, Needs Frequent Redirection or Reinstruction Assessment Comments: Good, pt very motivated despite fatigue, requires frequent/repeated cues for safety w/ mobility, frequent rest breaks w/ exertion. Will progress as able, anticipate pt will progress to home going level Home Assessment Accessibility Issues: Home entry steps Physical Therapy Problem List: Functional Mobility Impairment, Balance Impaired Planned Interventions: Therapeutic Exercise, Therapeutic Activity, Gait Training, Neuromuscular Re-education, Manual Therapy Home Environment Patient Lives With: Self/Alone Assistance Available: PRN Comments: son lives close Entry To Home: Stairs, With Rail Number Of Stairs Into Home: 10 Number Of Stairs To Bed/Bath: 0 Tub/Shower Type: tub/shower combo with grabbars and shower chair Laundry: first floor setup, pt was doing Equipment Owned: Walker- Wheeled, Shower Chair, Grab Bars- Shower, Grab Bars- Toilet, Cognitive/Memory Tool, Elevated Toilet Seat Prior Functional Level: Within Functional Limits Prior Functional Level Comments: Per pt I with ADLS/IADLS, used a FWW in community, driving prior. per pt this is the only fall in the last 6 months Subjective: Pt agreeable, reports fatigue. Cognitive Screen: Responsiveness: Alert Orientation Deficits: Confused, Other: See Comment (mild, requires redirection) Follows Commands: 2-step Commands Pulmonary/Cardiac Status: Skin Integrity: Edema: Sensation: Tone/Spasticity: Gross Motor Coordination: Posture: Posture: Forward head, Rounded shoulders CURRENT FUNCTIONAL STATUS: Most recent performance Current Functional Mobility Assist Level Additional Information Rolling Contact Guard Assistance Supine to Sit Minimal Assistance assist for trunk Sit to Supine Stand By Assistance impulsive, cues for safety. Scooting Contact Guard Assistance Cues for safety Sit to Stand Minimal Assistance, Additional Information Repeated cues for hand placement/FWW safety w/ multiple transfers from varying surfaces. Poor carryover w/ same. Stand to Sit Minimal Assistance, Additional Information cues for hand placement and backing up to chair. Bed to Chair Minimal Assistance Bed To Chair Transfer Type: Stepping Bed To Chair Transfer Equipment: Gait Belt, Wheeled Walker Toilet/Commode Moderate Assistance, Additional Information Gait Minimal Assistance, Additional Information Gait Device: Wheeled Walker Gait Distance (feet): bouts up to 160 feet Pt ambulates w/ slightly crouched/flexed posture, LEs generally unsteady. Poor safety at times, tending to leave FWW behind during transitions to chair or through bathroom door Stairs Moderate Assistance, Additional Information Stairs Device: Rail, Other: See Comment Number of Stairs: 6 Mod-Min A x1 for 6 steps w/ mix of L ascending and bilateral rail use, step to pattern, unsteady/uncontroled w/ descent. Curb Step Moderate Assistance, Additional Information Device: Wheeled Walker Car Transfer Moderate Assistance Blank doherty indicate activity not attempted General Deviations/Observati o (more content not included)... [facility] THERAPY NT HNO ID: [id number] Author: KATARINA KERR OTR/Kip Service: Occupational Therapy Author Type: Occupational Therapist Type: Therapy (PT/OT/Speech/Resp) Filed: 01/11/2025 12:47 Note Text: Occupational Therapy Treatment SERVICE DATE: 01/11/2025 SERVICE TIME: 1000 to 1115 ROOM: [id number] Recommended Discharge Disposition: Home OT Anticipated Discharge Needs: Family Training, Physical Assist at Home, Supervision at Home, Equipment Physical Assist at Home for: Finances, Laundry, Cleaning, Meals, Medication Management, Safety, Stairs, Self Care, Shopping, Transportation Supervision at Home due to: Decreased safety awareness, Impaired cognition Recommended Discharge Equipment: To Be Determined Precautions/Activity Restrictions: Fall Risk, Lines/Tubes/Drains, Sitter Precaution/Activity Restriction Comments: 2 L NC O2, monitor O2, pt was on room air most of session, needed when laying down, goes by "Evgeny", decreased R side awareness Current Hospital Course: Pt admitted to [facility] rehab for OT/PT/ST services. 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 Found cocaine in urine screen Relevant Past Medical History: DM2 Response to Therapy Interventions: Cognitive Deficits, Coping Deficits, Low Activity Tolerance, Needs Frequent Redirection or Reinstruction, Requires Additional Time to Complete Activities Assessment Comments: Pt is limited due to decreased safety awareness, decreased independence with ADLS/transfers. Next session to address standing tolerance. Occupational Therapy Problem List: Impaired Self Care, Cognitive Deficit Cognition/Communicat ion Deficits Communication Deficits: Delayed Response Responsiveness: Awake Follows Commands: 2-step Commands Cueing to Follow Commands: Minimum Attention Deficits: Distractible Memory Deficits: Short Term Executive Function Deficits: Sequencing, Judgement, Problem Solving, Insight to Deficits, Motor Planning, Safety Awareness Sequencing Deficit: Moderate impairment Judgement Deficit: Moderate impairment Insight to Deficits: Mild Awareness Problem Solving Deficit: Moderate Impairment Motor Planning Deficit: Moderate impairment Safety Awareness Deficit: Moderate impairment Home Environment Patient Lives With: Self/Alone Occupational Factors Life Roles: Parent, Family Member, Friend Identified Strengths for Life Roles: Access to Healthcare Identified Barriers for Life Roles: Difficulty Coping, Limited Social Support, Difficulty with ADLs/IADLs, Judgment/Awareness, Motivation Subjective: "I just want to sleep." CURRENT FUNCTIONAL STATUS: Most recent performance Current Activities of Daily Living Assist Level Additional Information Feeding Grooming Supervision, Additional Information seated to brush teeth Bathing Upper Body Supervision, Additional Information seated mod vcs for throughness Bathing Lower Body Moderate Assistance, Additional Information for B LE and standing to wash buttocks Dressing Upper Body Moderate Assistance, Additional Information to bring shirt over head and down back Dressing Lower Body Moderate Assistance, Additional Information for donning/doffing socks, needed assistance to begin threading feet into pants Toileting Moderate Assistance, Additional Information Instrumental Activities of Daily Living Assist Level Additional Information Meal/Beverage Prep Cleaning Laundry Medication Management with Strategies Functional Mobility Assist Level Additional Information Rolling Supine to Sit Minimal Assistance, Additional Information for trunk to sit EOB Sit to Supine Contact Guard Assistance Scooting Minimal Assistance Sit to Stand Minimal Assistance, Additional Information vcs for hand placement and steadying assist Stand to Sit Minimal Assistance, Additional Information for controlled descent Bed to Chair Minimal Assistance Stepping Wheeled Walker steadying assist Toilet/Commode Moderate Assistance, Additional Information Shower Minimal Assistance, Additional Information use of gaitbelt, stand pivot transfer Functional Mobility Minimal Assistance, Additional Information Wheeled Walker, Other: See Comment Blank doherty indicate activity not attempted Tub Transfer: Additional Information Balance: Dynamic Sitting, Dynamic Standing Dynamic Sitting Balance: Fair Patient accepts minimal challenge, able to maintain balance while turning head/trunk Dynamic Standing Balance: Fair Patient accepts minimal challenge, able to maintain balance while turning head/trunk Activity Tolerance: Sitting Activity, Standing Activity Sitting Activity: sat for most of bathing, dressing, sat for grooming, sat for arm bike, sat for fine motor tasks unscrewing nuts and bolts with min diffic (more content not included)... [facility] THERAPY NT HNO ID: [id number] Author: MANUEL MARTINEZ CCC-LITHOGRAPHER APPRENTICE Service: ? 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 Found cocaine in urine screen Rehabilitation Precautions: Cognitive Linguistics Deficits Reason for Speech Therapy Consult: Sltaca-Btibblxy-Xmco ition evaluation. Relevant Past Medical History: DM2 Response to Therapy Interventions: Good participation in activities Assessment Comments: Session focused on cognitive tasks. Speech Therapy Problem List: Cognition Subjective: Pt was seen sitting upright in wheelchair in the therapy room. Current Status Oral Hygiene: Clear, moist oral cavity Dentition: Miscellaneous Missing Teeth, Poor Repair (missing many teeth) Current Feeding Method: Oral Current Diet Textures: Regular Consistency, Thin Liquids IDDSI Level 0 Current Level Of Communication: Verbal Current Management Of Secretions: Able to self-manage Oral Motor Exam: Within Functional Limits Except (milldy generalized weakness) Cognition Cognitive Status: Within Functional Limits For Current Session Except Cognitive Deficits: Orientation Deficits, Attention Deficit Orientation Deficits: Orientation Deficit Comments Orientation Deficit Comments: Pt was oriented to name, date of , son's name, and sitation. Pt able to state location given choice and able to state month. Pt unable to state personal address, date, and year. Responsiveness: Alert Attention Deficit: Attention Deficit Comments Attention Deficit Comments: Pt able to complete process of elimination exercise with min deficits in attention to task. Pt completed task with 80% accuracy given verbal cues. Patient /Caregiver Goals: Go Home Goals for Plan of Care: Goals: COGNITION: Patient will demonstrate knowledge of taught compensatory strategies for functional cognitive-linguistic skills, SPEECH / LANGUAGE: Patient will demonstrate knowledge of taught compensatory strategies for functional communication Progress Toward Goals: Progressing as expected Speech Rehab Potential: Good Patient will be discontinued from speech therapy when no further skilled needs are identified in this setting. PLAN: Planned Interventions: Cognitive Training, Individual Speech Therapy Plan of Care Developed with: Patient TREATMENT INTERVENTIONS: Interventions Provided: Cognitive Training Training and Education Provided in: Cognitive Linguistic Strategies The following therapeutic skills were used:: Verbal cuing, Visual cuing, Education on role of discipline / importance of activity Home Environment Patient Lives With: Self/Alone Prior Swallowing Function/Diet Textures: Regular Consistency, Thin Liquids IDDSI Level 0 Please see discipline specific clinical documentation flowsheet for complete details for this therapy evaluation/treatment . 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 PATIENT NAME: Steven Barlow DATE: January 11, 2025 TIME: 12:40 PM Normal [facility] TSH SerPl-aCncon 01-11-2025 TSH Qn 0.865 m[IU]/L Normal 0.358-3.740 [facility] Comment on above: Order Comment: Speci men Type: BLOOD SPECIMENOrdering Facility: [facility] Address: [address] [place] [address] Result Comment: 3rd generation ultra sensitive TSH. Performed By: #### 2 132-9, 19352-2, 3016-3 ####[facility] LABORATORYCLIA [id number] [place] [address] [place] Vit B12 SerPl-mCncon 01-11- 025 Cobalamin (Vitamin B12) [Mass/Vol] 421 pg/mL Normal 193-986 [facility] Comment on above: Order Comment: Speci men Type: BLOOD SPECIMENOrdering Facility: [facility] Address: [address] [place] [address] Performed By: #### 2 132-9, 58938-0, 3016-3 ####[facility] LABORATORYCLIA [id number] [place] [id number] [place] CONSULT PROGon 01-10-2025 CONSULT PROG HNO ID: [id number] Author: OSCAR MALONEY DPM Service: Podiatry Author Type: Physician Type: Consult Progress Note Filed: 01/10/2025 10:34 Note Text: PODIATRY CONSULT NOTE ASSESSMENT: 69 year old male with past medical history significant for metabolic encephalopathy who presents with elongated toenails to bilateral foot. PLAN AND RECOMMENDATIONS: Patient examined evaluated today. Reviewed patient chart labs and imaging. Performed nail debridement bilaterally with no nipper without incident. Elevate limb above level heart as best patient can. Weight-bear as tolerated. Will sign off at this time. Notify me immediately patient condition changes or worsens or any new foot or ankle complaint arises. Thank you for the consult opportunity participate patient's care. HPI: 69 year old male with past medical history significant for metabolic encephalopathy who presents with elongated toenails to bilateral foot. Patient denies being diabetic. States nails are painful with rubbing in shoes. Denies any local signs of infection no other complaint. Denies nausea, vomiting, fever, chills, chest pain, shortness of breath, and diarrhea. No past medical history on file. No past surgical history on file. Current Facility-Administere d Medications Medication Dose Route Frequency terbinafine HCl 250 mg tab(s) (LamISIL) 250 mg ORAL DAILY aspirin 81 mg chewable tab(s) 81 mg ORAL DAILY atorvastatin 40 mg tab(s) (LIPITOR) 40 mg ORAL AT BEDTIME lisinopril 10 mg tab(s) (ZESTRIL) 10 mg ORAL DAILY dextrose 40 % 15 g 15 g ORAL PRN Or glucagon 1 mg injection 1 mg INTRAMUSCULAR PRN Or dextrose 10% iv bolus 12.5 g INTRAVENOUS PRN insulin lispro injection (rapid acting) (ADMElog) SUBCUTANEOUS w MEALS insulin lispro injection (rapid acting) (ADMElog) SUBCUTANEOUS AT BEDTIME insulin glargine 15 Units pen (long acting) 15 Units SUBCUTANEOUS AT BEDTIME metFORMIN ER 1,000 mg tab(s) (GLUCOPHAGE XR) 1,000 mg ORAL BID w MEALS polyethylene glycol 3350 17 g packet 17 g ORAL DAILY senna-docusate 8.6-50 mg 2 tablet (SENNA-S) 2 tablet ORAL DAILY miconazole 2 % 1 application topical powder 1 application TOPICAL BID polymyxin B-trimethoprim 1 drop ophthalmic drops (POLYTRIM) 1 drop BOTH EYES 3 times per day aquaphor - stomahesive topical ointment (E.T. MIXTURE) TOPICAL PRN NaCl 0.9% iv infusion 75 mL/hr INTRAVENOUS CONTINUOUS mirtazapine 15 mg (REMERON) 15 mg ORAL AT BEDTIME lidocaine 4 % 1 patch (SALONPAS) 1 patch TRANSDERMAL DAILY And lidocaine patch - REMOVE OTHER AT BEDTIME And lidocaine - VERIFY PATCH OTHER q 8 H OLANZapine 2.5 mg tab(s) (ZYPREXA) 2.5 mg ORAL AT BEDTIME ALLERGIES Allergen Reactions Fish Containing Pro* Swelling, Shortness of Breath No family history on file. SOCIAL HISTORY[1] REVIEW OF SYSTEMS: Conducted 12 point review of systems all negative otherwise noted in the HPI. OBJECTIVE: BP 137/62 Pulse 73 Temp 36.6 ?C (97.8 ?F) (Oral) Resp 16 Ht 180.3 cm (5' 11") Wt 80.5 kg (177 lb 7.5 oz) SpO2 96% BMI 24.75 kg/m? Palpable GENERAL: Alert and oriented to person, place, and time No acute distress VASCULAR: Dorsalis pedis and posterior tibial pulses are palpable bilaterally Skin temperature is warm to cool from the tibial tuberosity to the toes bilaterally Hair growth absent to the toes bilaterally Minimal edema bilaterally NEUROLOGIC: Gross sensation intact to touch at the foot bilaterally Protective sensation via Ashburn-Gómez monofilament testing is intact bilaterally MUSCULOSKELETAL: Structural Deformities: Rectus foot morphology 5/5 muscle strength for dorsiflexion, plantarflexion, abduction, and adduction bilaterally Ankle joint ROM diminished without pain or crepitus bilaterally Positive pain on palpation to nails of the bilateral foot DERM: Diminished texture turgor elasticity of skin bilaterally. Elongated thickened toenails 1 through 5 bilaterally. Webspaces clean dry intact. No hyperkeratotic tissues. Eschars noted dorsal aspect of toes 1 and 2 with no signs of infection. LABS: No results found for: "CRP" No results found for: "WSR" No results found for: "INR" No results found for: "APTT" No results found for: "HBA1C" MICROBIOLOGY: Positive Micro-30 Days No results found for the last 720 hours. IMAGING: Last XR Foot - Impression Only No resulted procedures found. Last XR Ankle - Impression Only No resulted procedures found. Last MRI Foot - Impression Only No resulted procedures found. Last MRI Ankle - Impression Only No resulted procedures found. N/a VASCULAR STUDIES: N/a Oscar Maloney, CHRISTIAN, MS, FACFAS [facility] P: [phone] F: [phone] January 10, 2025 10:30 AM [1] [facility] THERAPY NTon 01-10-2025 THERAPY NT HNO ID: [id number] Author: SOFIYA HAWK, CCC-LITHOGRAPHER APPRENTICE Service: Speech/Swallow Author Type: Speech Language Pathologist Type: Therapy (PT/OT/Speech/Resp) Filed: 01/10/2025 13:46 Note Text: Speech Therapy Treatment SERVICE DATE: 01/10/2025 SERVICE TIME: 1305 ROOM: [place] [address] IMPRESSION: Communication deficits identified: Cognitive-Linguistic deficits Nursing Recommendations: Reinforce use of cognitive strategies Recommended Discharge Disposition: Continued Skilled Speech Therapy Current Hospital Course: metabolic encephalopathy Reason for Hospital Admission: Presented to [facility] , found down in apt, CT of brain: 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 Found cocaine in urine screen Rehabilitation Precautions: Cognitive Linguistics Deficits Reason for Speech Therapy Consult: Hfqjxk-Cyzoxafy-Jlfg ition evaluation. Relevant Past Medical History: DM2 Response to Therapy Interventions: Good participation in activities Assessment Comments: Pt completed tasks to improve cognitive-lingusitic skills. Pt lacks awareness into deficits. Speech Therapy Problem List: Cognition Subjective: Pt seen while sitting up in bed in hospital room. Pt cooperative. Pt asked at the end of the session, "Can I go home now?". Current Status Oral Hygiene: Clear, moist oral cavity Dentition: Miscellaneous Missing Teeth, Poor Repair (missing many teeth) Current Feeding Method: Oral Current Diet Textures: Regular Consistency, Thin Liquids IDDSI Level 0 Current Level Of Communication: Verbal Current Management Of Secretions: Able to self-manage Oral Motor Exam: Within Functional Limits Except (milldy generalized weakness) Cognition Orientation Deficit Comments: Pt was oriented to name and date of as well as son's name. Pt unable to state location, personal address, nor personal phonenumber. Attention Deficit Comments: Pt was able to complete scanning/attention tasks (1 target letter) with 97% acc. Several false positives noted. Pt was able to complete basic trailmaking task (numbers in sequence) with 96% acc. Immediate Memory Comments: Pt was able to immediately answer questions regarding a picture presented for approximatly 1 minute with 10% acc. Speech/Voice/Languag e Expressive and Receptive Language: Within Functional Limits Except Auditory Comprehension Deficits: Simple Yes/No Questions, Complex Yes/No Questions Simple Yes/No Questions - (%): 100 Complex Yes/No Questions - (%): 95 Verbal Expression Deficits: Divergent Naming Divergent Naming - (%): 25 % Patient /Caregiver Goals: Go Home Goals for Plan of Care: Goals: COGNITION: Patient will demonstrate knowledge of taught compensatory strategies for functional cognitive-linguistic skills, SPEECH / LANGUAGE: Patient will demonstrate knowledge of taught compensatory strategies for functional communication Progress Toward Goals: Progressing as expected Speech Rehab Potential: Good Patient will be discontinued from speech therapy when no further skilled needs are identified in this setting. PLAN: Planned Interventions: Dysphagia Therapy, Cognitive Training Plan of Care Developed with: Patient TREATMENT INTERVENTIONS: Interventions Provided: Individual Speech Therapy Training and Education Provided in: Cognitive Linguistic Strategies The following therapeutic skills were used:: Verbal cuing, Visual cuing, Education on role of discipline / importance of activity Home Environment Patient Lives With: Self/Alone Prior Swallowing Function/Diet Textures: Regular Consistency, Thin Liquids IDDSI Level 0 Please see discipline specific clinical documentation flowsheet for complete details for this therapy evaluation/treatment . SIGNATURE: LYLA Saxena PATIENT NAME: Steven Barlow DATE: January 10, 2025 TIME: 1:46 PM [facility] THERAPY NT HNO ID: [id number] Author: BIRD, SOFIYA, CCC-LITHOGRAPHER APPRENTICE Service: Speech/Swallow Author Type: Speech Language Pathologist Type: Therapy (PT/OT/Speech/Resp) Filed: 01/10/2025 11:00 Note Text: SPEECH THERAPY MISSED VISIT SERVICE DATE: 01/10/2025 SERVICE TIME: 1040 ROOM: [place] [address] Patient not seen due to Patient Not Available (Pt just started breakfast.). SIGNATURE: Sofiya Hawk CCC-LITHOGRAPHER APPRENTICE PATIENT NAME: Steven Barlow DATE: January 10, 2025 TIME: 11:00 AM [facility] CONSULTon 01-09-2025 CONSULT HNO ID: [id number] Author: OSCAR MALONEY DPM Service: Podiatry Author Type: Physician Type: Consults Filed: 01/09/2025 10:34 Note Text: Consult/plan of care note Received consult for patient Steven Barlow regarding painful elongated thickened toenails. Attempted to see patient today on rehab floor however patient was out of the room for therapy. Will return tomorrow morning to evaluate patient and perform nail debridement. Oscar Maloney DPM, MS, FACFAS [facility] P: [phone] F: [phone] January 09, 2025 10:33 AM [facility] NURSING PROGon 01-09-2025 NURSING PROG HNO ID: [id number] Author: UTE JOY, SHARON Service: Nursing Author Type: Registered Nurse Type: Nursing Progress Note Filed: 01/09/2025 17:58 Note Text: Patient sitting on bed and getting up to stand and attempting to pull out IV. This nurse talked to patient, IV intact but is stating that he is going to leave. Son notified and is talking to patient by phone at this time. [facility] THERAPY NTon 01-09-2025 THERAPY NT HNO ID: [id number] Author: JANNY FAITH OTR/Kip Service: Occupational Therapy Author Type: Temperer Type: Therapy (PT/OT/Speech/Resp) Filed: 01/09/2025 16:09 Note Text: Attestation signed by Janny Faith OTR/L at 01/09/2025 4:09 PM I reviewed and agree with the documentation corresponding to this therapy visit. SIGNATURE: BART Schneider DATE: January 09, 2025 TIME: 4:09 PM Occupational Therapy Treatment SERVICE DATE: 01/09/2025 SERVICE TIME: 1068-7435 ROOM: [place] [address] Recommended Discharge Disposition: Home OT Anticipated Discharge Needs: Family Training, Physical Assist at Home, Supervision at Home, Equipment Physical Assist at Home for: Finances, Laundry, Cleaning, Meals, Medication Management, Safety, Stairs, Self Care, Shopping, Transportation Supervision at Home due to: Decreased safety awareness, Impaired cognition Recommended Discharge Equipment: To Be Determined Precautions/Activity Restrictions: Fall Risk, Lines/Tubes/Drains Precaution/Activity Restriction Comments: 2 L NC O2, monitor O2, pt was on room air most of session, needed when laying down, goes by "Evgeny", decreased R side awareness Current Hospital Course: Pt admitted to [facility] rehab for OT/PT/ST services. 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 Found cocaine in urine screen Relevant Past Medical History: DM2 Response to Therapy Interventions: Cognitive Deficits, Coping Deficits, Low Activity Tolerance, Needs Frequent Redirection or Reinstruction, Requires Additional Time to Complete Activities Assessment Comments: pt tolerated session fair-poor, pt was limited by fatigue this date, poorfollow through of vcs. Plan for next session to address LHR for LB dressing. session ended early this date d/t fatigue Occupational Therapy Problem List: Impaired Self Care, Cognitive Deficit Cognition/Communicat ion Deficits Responsiveness: Awake Follows Commands: 2-step Commands Cueing to Follow Commands: Minimum Attention Deficits: Distractible Memory Deficits: Short Term Executive Function Deficits: Sequencing, Judgement, Insight to Deficits, Problem Solving, Motor Planning, Safety Awareness Sequencing Deficit: Moderate impairment Judgement Deficit: Moderate impairment Insight to Deficits: Mild Awareness Problem Solving Deficit: Moderate Impairment Motor Planning Deficit: Moderate impairment Safety Awareness Deficit: Moderate impairment Subjective: Pleasant and agreeable to tx. CURRENT FUNCTIONAL STATUS: Most recent performance Current Activities of Daily Living Assist Level Additional Information Feeding Grooming Moderate Assistance, Additional Information standing at sink for hygiene Bathing Upper Body Moderate Assistance, Additional Information Bathing Lower Body Maximal Assistance, Additional Information Dressing Upper Body Minimal Assistance, Additional Information Dressing Lower Body Maximal Assistance, Additional Information don/doff socks, pt able to doff R sock and educatred on use of sock aid to don after trialing w figure 4 method Toileting Moderate Assistance, Additional Information standing at toilet for urination, steadying assist throughout Instrumental Activities of Daily Living Assist Level Additional Information Meal/Beverage Prep Cleaning Laundry Medication Management with Strategies Functional Mobility Assist Level Additional Information Rolling Supine to Sit Minimal Assistance Sit to Supine Minimal Assistance Scooting Minimal Assistance Sit to Stand Minimal Assistance, Additional Information from various surfaces pt required cues each stand for hand placement and upright posture Stand to Sit Moderate Assistance, Additional Information pt impuslive on sitting this date required max vs for positioning and hand placement Bed to Chair Minimal Assistance, Additional Information Stepping Wheeled Walker, Gait Belt Toilet/Commode Moderate Assistance, Additional Information Shower Minimal Assistance, Additional Information Anitra via gait belt for stability throughout approach, and transfer, to grab bar in shower. Functional Mobility Minimal Assistance, Additional Information Wheeled Walker, Other: See Comment room to therapy gym and within room mbility from bathroom>EOB Blank doherty indicate activity not attempted Tub Transfer: Additional Information Exercise: seated for arm bike two reps 3 minutes and 5 minutes, vcs throughout for use of both arms and for task completion Balance: Dynamic Sitting, Dynamic Standing Dynamic Sitting Balance: Fair Patien (more content not included)... [facility] THERAPY NT HNO ID: [id number] Author: BULMARO LEBRON, PT, DPT Service: Physical Therapy Author Type: Public Transit Bus Driver Type: Therapy (PT/OT/Speech/Resp) Filed: 01/09/2025 16:02 Note Text: Attestation signed by Bulmaro Lebron PT, DPT at 01/09/2025 4:02 PM I reviewed and agree with the documentation corresponding to this therapy visit. SIGNATURE: Bulmaro Lebron PT, DPT DATE: January 09, 2025 TIME: 4:02 PM Physical Therapy Treatment SERVICE DATE: 01/09/2025 SERVICE TIME: ROOM: [place] [address] Recommended Discharge Disposition: Home PT Anticipated Discharge Needs: Family Training, Physical Assist at Home, Supervision at Home, Equipment Physical Assist at Home for: Finances, Laundry, Cleaning, Meals, Medication Management, Safety, Stairs, Self Care, Shopping, Transportation Supervision at Home due to: Decreased safety awareness, Impaired cognition Recommended Discharge Equipment: To Be Determined Precautions/Activity Restrictions: Fall Risk, Lines/Tubes/Drains Precaution/Activity Restriction Comments: 2 L NC O2, monitor O2, pt was on room air most of session, needed when laying down, goes by "Evgeny", decreased R side awareness Current Hospital Course: Pt admitted to [facility] rehab for OT/PT/ST services. 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 Found cocaine in urine screen Relevant Past Medical History: DM2 Home Assessment Accessibility Issues: Home entry steps Physical Therapy Problem List: Functional Mobility Impairment, Balance Impaired Planned Interventions: Therapeutic Exercise, Therapeutic Activity, Gait Training, Neuromuscular Re-education, Manual Therapy Home Environment Patient Lives With: Self/Alone Assistance Available: PRN Comments: son lives close Entry To Home: Stairs, With Rail Number Of Stairs Into Home: 10 Number Of Stairs To Bed/Bath: 0 Tub/Shower Type: tub/shower combo with grabbars and shower chair Laundry: first floor setup, pt was doing Equipment Owned: Walker- Wheeled, Shower Chair, Grab Bars- Shower, Grab Bars- Toilet, Cognitive/Memory Tool, Elevated Toilet Seat Prior Functional Level: Within Functional Limits Prior Functional Level Comments: Per pt I with ADLS/IADLS, used a FWW in community, driving prior. per pt this is the only fall in the last 6 months Cognitive Screen: Responsiveness: Alert, Awake Orientation Deficits: Confused, Not oriented to Situation, Not oriented to Place Follows Commands: 2-step Commands Pulmonary/Cardiac Status: Skin Integrity: Edema: Sensation: Tone/Spasticity: Gross Motor Coordination: Posture: Posture: Forward head, Rounded shoulders CURRENT FUNCTIONAL STATUS: Most recent performance Current Functional Mobility Assist Level Additional Information Rolling Contact Guard Assistance Supine to Sit Minimal Assistance, Additional Information Sit to Supine Minimal Assistance, Additional Information Scooting Minimal Assistance, Additional Information Sit to Stand Minimal Assistance Stand to Sit Minimal Assistance Bed to Chair Moderate Assistance Bed To Chair Transfer Type: Stepping Bed To Chair Transfer Equipment: Gait Belt Toilet/Commode Moderate Assistance, Additional Information Gait Minimal Assistance Gait Device: Wheeled Walker Gait Distance (feet): up to 125' w/ fww Stairs Additional Information, Moderate Assistance Stairs Device: Rail Number of Stairs: 10 Curb Step Moderate Assistance, Additional Information Device: Wheeled Walker Car Transfer Moderate Assistance Blank doherty indicate activity not attempted General Deviations/Observati ons: Flexed trunk posture, Step length decreased, Ellen decreased, Difficulty changing direction/turning, Narrow Base of Support Ramp: up/down ramp with minAx1 and cueing for FWW management. Balance: Static Sitting, Dynamic Sitting, Static Standing, Dynamic Standing Static Sitting Balance: Good Patient able to maintain balance without handhold support, limited postural sway Dynamic Sitting Balance: Good Patient accepts moderate challenge, able to maintain balance while picking up object off floor Static Standing Balance: Fair Patient able to maintain balance with handhold support, may require occasional minimal assistance Dynamic Standing Balance: Fair Patient accepts minimal challenge, able to maintain balance while turning head/trunk Activity Tolerance: Sitting Activity, Standing Activity Sitting Activity: seated B LE ther ex 2x10 ea laq, marches, hip abd/add , HS curl 2#/BTB Standing Activity: functional transfer training, gait training, stair training, renu (more content not included)... [facility] THERAPY NTon 01-08-2025 THERAPY NT HNO ID: [id number] Author: SARABJIT MITCHELL, PT Service: ? Author Type: Physical Therapist Type: Therapy (PT/OT/Speech/Resp) Filed: 01/08/2025 15:59 Note Text: Physical Therapy Treatment SERVICE DATE: 01/08/2025 SERVICE TIME: 2667-2771 ROOM: [place] [id number] Recommended Discharge Disposition: Home PT Anticipated Discharge Needs: Family Training, Physical Assist at Home, Supervision at Home, Equipment Physical Assist at Home for: Finances, Laundry, Cleaning, Meals, Medication Management, Safety, Stairs, Self Care, Shopping, Transportation Supervision at Home due to: Decreased safety awareness, Impaired cognition Recommended Discharge Equipment: To Be Determined Precautions/Activity Restrictions: Fall Risk, Lines/Tubes/Drains Precaution/Activity Restriction Comments: 2 L NC O2, monitor O2, pt was on room air most of session, needed when laying down, goes by "Evgeny", decreased R side awareness Current Hospital Course: Pt admitted to [facility] rehab for OT/PT/ST services. 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 Found cocaine in urine screen Relevant Past Medical History: DM2 Response to Therapy Interventions: Cognitive Deficits, Low Activity Tolerance, Requires Additional Time to Complete Activities, Good Participation in Activities Assessment Comments: Pt demonstrated good tolerance to therapy but continues to require frequent rest breaks due to fatigue. He continued to require cuing for posture and stride length. He requires min A for safety due to his posture and his decreased balance due to poor turning and sequence of movement. Home Assessment Accessibility Issues: Home entry steps Physical Therapy Problem List: Functional Mobility Impairment, Balance Impaired Planned Interventions: Therapeutic Exercise, Therapeutic Activity, Gait Training, Neuromuscular Re-education, Manual Therapy Home Environment Patient Lives With: Self/Alone Assistance Available: PRN Comments: son lives close Entry To Home: Stairs, With Rail Number Of Stairs Into Home: 10 Number Of Stairs To Bed/Bath: 0 Tub/Shower Type: tub/shower combo with grabbars and shower chair Laundry: first floor setup, pt was doing Equipment Owned: Walker- Wheeled, Shower Chair, Grab Bars- Shower, Grab Bars- Toilet, Cognitive/Memory Tool, Elevated Toilet Seat Prior Functional Level: Within Functional Limits Prior Functional Level Comments: Per pt I with ADLS/IADLS, used a FWW in community, driving prior. per pt this is the only fall in the last 6 months Subjective: Pt is agreeable to therapy this date. Cognitive Screen: Responsiveness: Alert, Awake Orientation Deficits: Confused, Not oriented to Situation, Not oriented to Place Follows Commands: 2-step Commands Pulmonary/Cardiac Status: Skin Integrity: Edema: Sensation: Tone/Spasticity: Gross Motor Coordination: Posture: Posture: Forward head, Rounded shoulders CURRENT FUNCTIONAL STATUS: Most recent performance Current Functional Mobility Assist Level Additional Information Rolling Contact Guard Assistance Supine to Sit Minimal Assistance, Additional Information assist with trunk control Sit to Supine Minimal Assistance, Additional Information LE and trunk assist Scooting Minimal Assistance, Additional Information Sit to Stand Minimal Assistance, Additional Information cues for hand placement Stand to Sit Minimal Assistance, Additional Information cues for hand and foot placement and eccentric control. Bed to Chair Moderate Assistance Bed To Chair Transfer Type: Stepping Bed To Chair Transfer Equipment: Gait Belt Toilet/Commode Gait Minimal Assistance, Additional Information Gait Device: Wheeled Walker Gait Distance (feet): up to 25' in //bars required consistent cuing for upright posture and increased stride length. Stairs Additional Information, Moderate Assistance Stairs Device: Rail Number of Stairs: 10 Curb Step Moderate Assistance, Additional Information Device: Wheeled Walker Car Transfer Moderate Assistance Blank doherty indicate activity not attempted General Deviations/Observati ons: Flexed trunk posture, Step length decreased, Ellen decreased, Difficulty changing direction/turning, Narrow Base of Support Ramp: up/down ramp with minAx1 and cueing for FWW management. Balance: Static Sitting, Dynamic Sitting, Static Standing, Dynamic Standing Static Sitting Balance: Good Patient able to maintain balance without handhold support, limited postural sway Dynamic Sitting Balance: Good Patient accepts moderate challenge, able to maintain balance while picking up object off floor Static Standing Balance: Fair Patient able to maintain balance with handhold support, may require occasional minimal assistance Dynamic Standi (more content not included)... [facility] THERAPY NT HNO ID: [id number] Author: SOFIYA HAWK, CCC-LITHOGRAPHER APPRENTICE Service: Speech/Swallow Author Type: Speech Language Pathologist Type: Therapy (PT/OT/Speech/Resp) Filed: 01/08/2025 13:06 Note Text: Speech Therapy Treatment SERVICE DATE: 01/08/2025 SERVICE TIME: 1100 ROOM: [id number] IMPRESSION: Communication deficits identified: Cognitive-Linguistic deficits Nursing Recommendations: Reinforce use of cognitive strategies Recommended Discharge Disposition: Continued Skilled Speech Therapy Current Hospital Course: metabolic encephalopathy Reason for Hospital Admission: Presented to [facility] , found down in apt, CT of brain: 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 Found cocaine in urine screen Rehabilitation Precautions: Cognitive Linguistics Deficits Reason for Speech Therapy Consult: Rtvuwi-Yglqcetl-Ulay ition evaluation. Relevant Past Medical History: DM2 Response to Therapy Interventions: Good participation in activities Assessment Comments: Pt completed tasks to improve cognitive-linguistic skills. Speech Therapy Problem List: Cognition Subjective: Pt seen while sitting up in chair in hospital room. Pt cooperative. Current Status Oral Hygiene: Clear, moist oral cavity Dentition: Miscellaneous Missing Teeth, Poor Repair (missing many teeth) Current Feeding Method: Oral Current Diet Textures: Regular Consistency, Thin Liquids IDDSI Level 0 Current Level Of Communication: Verbal Current Management Of Secretions: Able to self-manage Oral Motor Exam: Within Functional Limits Except (milldy generalized weakness) Cognition Orientation Deficits: Orientation Deficit Comments Orientation Deficit Comments: Pt was oriented to date of and age. Pt was not oriented to location, month, year, day of the week, city of residence, nor street name of residence. Attention Deficit: Attention Deficit Comments Attention Deficit Comments: Pt was able to complete attention/scanning tasks (2 target numbers) with 76% acc., but many false positives noted. Immediate Memory Comments: Pt was able to complete word list retention task (4 words) (word placement) with 60% acc. Patient /Caregiver Goals: Go Home Goals for Plan of Care: Goals: COGNITION: Patient will demonstrate knowledge of taught compensatory strategies for functional cognitive-linguistic skills, SPEECH / LANGUAGE: Patient will demonstrate knowledge of taught compensatory strategies for functional communication Progress Toward Goals: Progressing as expected Speech Rehab Potential: Good Patient will be discontinued from speech therapy when no further skilled needs are identified in this setting. PLAN: Planned Interventions: Individual Speech Therapy, Cognitive Training Plan of Care Developed with: Patient TREATMENT INTERVENTIONS: Interventions Provided: Individual Speech Therapy Training and Education Provided in: Cognitive Linguistic Strategies The following therapeutic skills were used:: Verbal cuing, Visual cuing, Education on role of discipline / importance of activity Home Environment Patient Lives With: Self/Alone Prior Swallowing Function/Diet Textures: Regular Consistency, Thin Liquids IDDSI Level 0 Please see discipline specific clinical documentation flowsheet for complete details for this therapy evaluation/treatment . SIGNATURE: Sofiya Hawk CCC-LITHOGRAPHER APPRENTICE PATIENT NAME: Steven Barlow DATE: January 08, 2025 TIME: 1:06 PM [facility] THERAPY NT HNO ID: [id number] Author: DUY MALDONADO COTA/L Service: Occupational Therapy Author Type: Temperer Type: Therapy (PT/OT/Speech/Resp) Filed: 01/08/2025 10:58 Note Text: Attestation signed by Liv Brown OT/L at 01/08/2025 12:07 PM I reviewed and agree with the documentation corresponding to this therapy visit. SIGNATURE: ALEAH Teixeira DATE: January 08, 2025 TIME: 12:06 PM Occupational Therapy Treatment SERVICE DATE: 01/08/2025 SERVICE TIME: ROOM: [id number] Recommended Discharge Disposition: Home OT Anticipated Discharge Needs: Family Training, Physical Assist at Home, Supervision at Home, Equipment Physical Assist at Home for: Finances, Laundry, Cleaning, Meals, Medication Management, Safety, Stairs, Self Care, Shopping, Transportation Supervision at Home due to: Decreased safety awareness, Impaired cognition Recommended Discharge Equipment: To Be Determined Precautions/Activity Restrictions: Fall Risk, Lines/Tubes/Drains Precaution/Activity Restriction Comments: 2 L NC O2, monitor O2, pt was on room air most of session, needed when laying down, goes by "Evgeny", decreased R side awareness Current [facility]. 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 Found cocaine in urine screen Relevant Past Medical History: DM2 Response to Therapy Interventions: Cognitive Deficits, Coping Deficits, Low Activity Tolerance, Needs Frequent Redirection or Reinstruction, Requires Additional Time to Complete Activities Assessment Comments: Fair response to session. Patient exhibits impaired safety awareness and sequencing skills. Patient w/ poor-partial follow through toward cues for hand placement and positioning. Demonstrates generalized weakness, balance deficits, and low tolerance toward activity. Next to address standing tolerance and intro to AE for LB ADL management. Occupational Therapy Problem List: Impaired Self Care, Cognitive Deficit Cognition/Communicat ion Deficits Responsiveness: Awake Follows Commands: 2-step Commands, Cueing Needed Cueing to Follow Commands: Minimum Occupational Factors Life Roles: Parent, Family Member, Friend Identified Strengths for Life Roles: Access to Healthcare Identified Barriers for Life Roles: Difficulty Coping, Limited Social Support, Difficulty with ADLs/IADLs, Judgment/Awareness, Motivation Subjective: Pleasant and agreeable to tx. CURRENT FUNCTIONAL STATUS: Most recent performance Current Activities of Daily Living Assist Level Additional Information Feeding Grooming Moderate Assistance, Additional Information Thorough hygiene completion seated in shower as well as hair combing in chair. Bathing Upper Body Moderate Assistance, Additional Information For thorough hygiene completion. Patient seated in shower w/ running water only. Bathing Lower Body Maximal Assistance, Additional Information BLE bathing and posterior hygiene completion. Patient able to complete erlinda-hygiene when given cues for thorough completion. Dressing Upper Body Minimal Assistance, Additional Information Threading assist to doff/don gown Dressing Lower Body Maximal Assistance, Additional Information Doff/don of socks, brief, and long pants. Initial threading assist past knees and posterior threading on/off hips in standing. Toileting Maximal Assistance, Additional Information Instrumental Activities of Daily Living Assist Level Additional Information Meal/Beverage Prep Cleaning Laundry Medication Management with Strategies Functional Mobility Assist Level Additional Information Rolling Supine to Sit Minimal Assistance Sit to Supine Minimal Assistance Scooting Minimal Assistance Sit to Stand Minimal Assistance, Additional Information x4 attempts at Anitra via gait belt for stability. Continued Anitra in standing position d/t lateral sway from patient. Increased cues for safe hand placement w/ partial follow through. Stand to Sit Minimal Assistance, Additional Information Posterior positioning for controlled descent. Poor follow through toward reach back and positioning cues. Bed to Chair Minimal Assistance, Additional Information Stepping Wheeled Walker, Gait Belt Anitra via gait belt for stability. Impulsive. Poor follow through toward positioning and hand placement cues Toilet/Commode Moderate Assistance, Additional Information Shower Minimal Assistance, Additional Information Anitra via gait belt for stability throughout approach, and transfer, to grab bar in shower. (more content not included)... [facility] [id number] 01-07-2025 [id number] HNO ID: [id number] Author: BRISA SMALLS MD Service: Hospital Medicine Author Type: Physician Type: [id number] Filed: 01/07/2025 07:48 Note Text: PHYSICAL MEDICINE AND REHABILITATION INDIVIDUALIZED OVERALL PLAN OF CARE (IOPOC) SERVICE DATE: 01/07/2025 SERVICE TIME: Rehab Impairment Group: 0002.1 - Brain Dysfunction: Non-Traumatic Estimated IRF Length of Stay: 17 days Rehab Etiologic Diagnosis: - G93.41 - Metabolic encephalopathy Rehab Comorbid Conditions: - N39.0 - Urinary tract infection, site not specified - E87.0 - Hyperosmolality and hypernatremia - M62.82 - Rhabdomyolysis - I67.9 - Cerebrovascular disease, unspecified - E11.40 - Type 2 diabetes mellitus with diabetic neuropathy, unspecified ([facility]) - E86.0 - Dehydration - R09.02 - Hypoxemia - M50.30 - Other cervical disc degeneration, unspecified cervical region - M48.02 - Spinal stenosis, cervical region - F14.10 - Cocaine abuse, uncomplicated ([facility]) - L89.152 - Pressure ulcer of sacral region, stage 2 ([facility]) - L89.153 - Pressure ulcer of sacral region, stage 3 ([facility]) Add/Update Physician Problem List: Metabolic encephalopathy (POA: Yes) Open wound of penis (POA: Yes) Open knee wound, right, initial encounter (POA: Yes) Open knee wound, left, initial encounter (POA: Yes) Open wound of right great toe (POA: Yes) Open wound of second toe of right foot (POA: Yes) Open wound of left great toe (POA: Yes) Open wound of second toe of left foot (POA: Yes) History/Plan: 69 yo male presents to [facility] after being found down in his apt for unknow amount of time. Found to be in own urine and feces and right facial droop. Neighbors report seeing pt doing cocaine a few days prior. Head CT shows no acute intracranial abnomality, small lacunar infarct in left adamson radiata. CT face and spine negative for acute findings. Urine tox screen positive for cocaine. Labs show rhabdomyolysis and UTI. Admitted for care and stroke workup. MRI brain and MRA head/neck show evidence of volume loss and small vessel ischemic disease. TTE with preserve LVEF, no shunt. EEG showed no seizure. IV fluids given 1/2 NS for hypernatremia. Continue aspirin for stroke prevention. Can start aspirin and statin once CPK is improved, downtrending. Encourage oral hydration. UTI, IV ceftriaxone started. Cultures showing multiple morphotypes, will complete 1 week course. DM, continue glycemic control and sliding scale insulin. 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 Patient has stage 2 to coccyx and stage 3 to sacral region, appreciate wound team recommendations. Continue dressing changes and wound treatments. Encourage incentive spirometry. Wean O2 as able, no home O2 prior to admission. Continue PT/OT, recommending acute rehab on discharge. Patient having generalized weakness and fatigues easily. Dietary Consult for dietary assessment, protein/calorie malnutrition, and diabetic management. Wealth Management Advisor Consult for social determinants of health assessment, home care needs, and discharge planning. Medical Prognosis: Good Impairments and Disabilities: Impaired mobility and endurance, requires Physical Therapy program., Impaired self-care, requires Occupational Therapy program., Impaired communication, requires Speech Therapy program., and Impairment requiring Neuropsychology.. Patient/Caregiver Goals: to return home Plan of Care Rehab Goals For Admission: to return home following rehab stay Anticipated Discharge Disposition: Home Likelihood Of Reaching Goals: Very good Therapy Services Needed To Achieve Goals: Physical Therapy; Occupational Therapy; Speech Therapy; 3 hours/day, 5 days/week Barriers To Achieve Goals: Safety Physical Therapy Minutes/Day: 75 Occupational Therapy Minutes/Day: 75 Speech Therapy Minutes/Day: 30 Additional Services Needed To Achieve Goals: Supervisor [employer] Textile; Nursing; Revenue Cycle Administrator Nursing Plan of Care Discharge Planning Flowsheet Row Most Recent Value Discharge Planning Related to Discharge Disposition Discharge Planning Intervention(s) Plan Assess Patient/Family Individual Needs Cultural Spirituality and Values, Assess Home Environment, Social Work Assessment Discharge Planning Goals/Outcomes Exhibits Increased Interest and Assume Responsibility for Patient's Own/Family Learning by Beginning to Look for Information and Ask Questions, Patient Will be Discharged to an Appropriate Safe Level of Care, Patient/Family Aware of Appropriate Arrangements as Evidenced by Verbalizing Services Arranged Discharge Planning Goal Target Achievement Date 01/19/25 Discharge Planning - Evaluation of Progress PHARMACIST TECHNICIAN following, weekly team Discharge Planning Resolution Reviewed Goals/Outcomes in Progress Elimination Bladder/Bowel Flowsheet Row Most Recent Value Elimination Bladder/Bowel Related to Incontinent: Bladder Elimination Bladder/Bowel Intervention(s) Plan Monitor Fluids and Elec (more content not included)... [facility] [id number] 01-07-2025 [id number] HNO ID: [id number] Author: KATARINA KERR OTR/Kip Service: ? Author Type: Occupational Therapist Type: [id number] Filed: 01/07/2025 12:32 Note Text: OT FUNCTIONAL UPDATE Current Functional Status Activities of Daily Living Feeding: Grooming: Additional Information Grooming Comments: pt declined to wash face, use mouthrinse or comb hair this date. Bathing Upper Body: Additional Information Bathing Upper Body Comments: declined to bath due to nrsg. gave pt a shower last night Bathing Upper Body: Additional Information Bathing Lower Body Comments: declined to bath due to nrsg. gave pt a shower last night Dressing Upper Body: Maximal Assistance, Additional Information Dressing Upper Body Comments: to coordinate to put B UE through sleeves and over head, pt was able to pull down back Dressing Lower Body: Total Assistance, Additional Information Dressing Lower Body Comments: for threading B LE and for clothing mgmt Toileting: Total Assistance, Additional Information Toileting Comments: after BM, pt unable to wipe self, attempted, needed assistance with clothing mmgt and hygiene Instrumental Activities of Daily Living Meal/Beverage Prep: Cleaning: Laundry: Medication Management with Strategies: Functional Mobility Rolling: Supine to Sit: Contact Guard Assistance Sit to Supine: Contact Guard Assistance Scooting: Contact Guard Assistance Sit to Stand: Minimal Assistance, Additional Information Sit To Stand Comments: vcs for technique, tends to lean forward Stand to Sit: Minimal Assistance, Additional Information Stand To Sit Comments: for controlled descnet Bed to Chair: Moderate Assistance, Additional Information Bed To Chair Transfer Type: Stepping Bed To Chair Transfer Equipment: Gait BeltBed To Chair Comments: tends to lean forward Toilet/Commode: Moderate Assistance, Additional Information Toilet/Commode Comments: stand pivot transfer Shower: Functional Mobility: Problem List: Impaired Self Care, Cognitive Deficit Goals: Team Goal: Pt to be supervision with grooming, UB/LB dressing, bathing, toileting, toilet transfers, and tub/shower transfers. Able to perform HEP with: Supervision Grooming with: Supervision Upper Body Bathing with: Supervision Upper Body Dressing with: Supervision Lower Body Bathing with: Minimal Assistance Lower Body Dressing with: Minimal Assistance Toilet Hygiene with: Minimal Assistance Toilet Transfer with: Supervision Tub Transfer with: Supervision Tolerate (minutes of functional activity): 75 Functional Activity with: Supervision Home Management Skills with: Supervision Kitchen Mobility Tasks with: Supervision Demonstrate Positive Coping Strategies with: Supervision Additional Goal 1: Pt to particpiate in MVPT To assess predriving skills and goals to follow as needed. Additional Goal 2: Pt to attend to R side by 50-75% of the time during ADLS/transfers. Additional Goal 3: Pt to be able to button shirt etc with use of R hand with no difficulty. Barriers to Discharge: Yes Interventions: Therapeutic Exercise, Therapeutic Activity, Neuromuscular Re-education, Self Senior Living Management, Cognitive Training, Community Reintegration, Compensatory Strategies Care Scores Functional Area Admission Assessment Care Score Current Status Care Score Discharge Goal Eating 6 6 Oral Hygiene 5 3 Supervision or touching assistance [4] Toileting Hygiene 3 1 Supervision or touching assistance [4] Shower/Bathe Self 2 2 Supervision or touching assistance [4] Upper Body Dressing 2 2 Supervision or touching assistance [4] Lower Body Dressing 1 1 Supervision or touching assistance [4] Putting On/Taking Off Footwear 1 1 Set-up/clean-up [5] Care Score Definitions: 1 - Dependent; 2 - Substantial/maximal assistance; 3 - Partial/moderate assistance; 4 - Supervision or touching assistance; 5 - Set-up/clean-up; 6 - Independent; 7 - Patient refused; 9 - Not applicable; 10 - Not attempted due to environmental limitations; 88 - Not attempted due to medical/safety concerns [facility] [id number] HNO ID: [id number] Author: HEENA GUTIÉRREZ LISW Service: ? Author Type: Wealth Management Advisor Type: [id number] Filed: 01/07/2025 12:32 Note Text: Rehab Team Discussion Weekly Team Goals: improve attention and safety mod assist -min assist transport Family Education/Participat ion:will arrange closer to d/c Patient and Family Goals:transition to Al/snf/nf Strengths and Barriers to Achieving Rehab Goals: good support no 08/10 care Insight into problems, Support of extended family/friends Family Issues/Concerns: Other Issues: lives alone limited support Medical Barriers: wound-stage 2 and 3 on coccyx and sacral region-cognitive impairment-monitor labs-BS- On 02 2 Liters Discharge Plannin01/19/2025- skilled level of care In the last 12 months, was there a time when you were not able to pay the mortgage or rent on time?: No In the past 12 months, has lack of transportation kept you from medical appointments or from getting medications?: No In the past 12 months, has lack of transportation kept you from meetings, work, or from getting things needed for daily living?: No Recommended DME: tbd [facility] [id number] HNO ID: [id number] Author: NICOLE CABALLERO RN Service: ? Author Type: Registered Nurse Type: [id number] Filed: 01/07/2025 12:32 Note Text: Vital Signs: Temp: 36.4 ?C (97.5 ?F) Pulse: 95 Resp: 20 BP: 113/65 SpO2: 94 % O2 Therapy: Room Air Pain: Pain Assessment: Assessment Patient Status: Awake Tool: Verbal (Numeric Rating or Visual Analog Scale) Pain Level: 0 Pain Location: Foot-Right Description: Aching Duration: Continuous Intervention/Comfort measure: Reposition Nursing Plan of Care: Discharge Planning Flowsheet Row Most Recent Value Discharge Planning Related to Discharge Disposition Discharge Planning Intervention(s) Plan Assess Patient/Family Individual Needs Cultural Spirituality and Values, Assess Home Environment, Social Work Assessment Discharge Planning Goals/Outcomes Exhibits Increased Interest and Assume Responsibility for Patient's Own/Family Learning by Beginning to Look for Information and Ask Questions, Patient Will be Discharged to an Appropriate Safe Level of Care, Patient/Family Aware of Appropriate Arrangements as Evidenced by Verbalizing Services Arranged Discharge Planning Goal Target Achievement Date 01/19/25 Discharge Planning - Evaluation of Progress PHARMACIST TECHNICIAN following, weekly team Discharge Planning Resolution Reviewed Goals/Outcomes in Progress Elimination Bladder/Bowel Flowsheet Row Most Recent Value Elimination Bladder/Bowel Related to Incontinent: Bladder Elimination Bladder/Bowel Intervention(s) Plan Monitor Fluids and Electrolytes, Provide Incontinence Care, Wound Care as Indicated Elimination Bladder/Bowel Goals/Outcomes Exhibits Increased Interest and Assume Responsibility for Patient's Own/Family Learning by Beginning to Look for Information and Ask Questions, Maintain Skin Integrity, Patient/Family Knowledgeable in Managing Elimination Elimination Bladder/Bowel Goal Target Achievement Date 01/19/25 Elimination Bladder/Bowel - Evaluation of Progress incontinent of bladder, no bowel movement since admission Elimination Bladder/Bowel Resolution Reviewed Goals/Outcomes in Progress Problem Falls Risk Plan Flowsheet Row Most Recent Value [place] Falls Precautions Intervention Initiated Today's Safety Plan Today's Safety Plan Initiated Fall Prevention Plan Yellow Fall Risk Wristband Applied, Non-skid footwear / yellow non-skid socks, Bed Alarm in Use, Chair/Personal Alarm Use, Provide Toileting Assistive Devices, Provide Assistive Ambulatory Devices, Supervise Transfers And Ambulation, Ensure a Well-Lighted Path To The Bathroom, Keep Floor Clean and Dry Falls Goals/Outcomes Exhibits Increased Interest and Assume Responsibility for the falls interventions Fall Goal Target Achievement Date 01/19/25 Falls - Evaluation of Progress non-skid footwear, bed/chair alarm, call light within reach Falls - Resolution Reviewed Goals/Outcomes in Progress Fluid/Electrolyte Flowsheet Row Most Recent Value Fluid/Electrolyte Related to Disease Process Fluid/Electrolyte Intervention(s) Plan Monitor Lab Values Fluid/Electrolyte Goals/Outcomes Appropriate Fluid and Electrolyte Balance Achieved and Maintained, Exhibits Increased Interest and Assume Responsibility for Patient's Own/Family Learning by Beginning to Look for Information and Ask Questions Fluid/Electrolyte Goal Target Achievement Date 01/19/25 Fluid/Electrolyte - Evaluation of Progress Patients blood sugars have been elevated. Patient is using sliding scale correctional insulin, lantus, and metformin. Fluid/Electrolyte Resolution Reviewed Goals/Outcomes in Progress Risk for Infection Flowsheet Row Most Recent Value Risk for Infection Related to Disease Process Risk for Infection Intervention(s) Plan Assess and Administer Medications, Assess Vital Signs, Assess Signs/Symptom of Infection, Maintain Hand Hygiene, Monitor Labs and Cultures Risk for Infection Goals/Outcomes Absence of bleeding, redness, or unusual swelling, Exhibits Increased Interest and Assume Responsibility for Patient's Own/Family Learning by Beginning to Look for Information and Ask Questions, Patient Without Signs/Symptoms of Infections Risk For Infection Goal Target Achievement Date 01/19/25 Risk for Infection - Evaluation of Progress wound care, hand hygiene Risk for Infection Resolution Reviewed Goals/Outcomes in Progress Wound 01/05/252199 Traumatic Skin Tear Knee Anterior;Left (Active) Date First Assessed/Time First Assessed: 01/05/252199 Present on Original Admission: Yes Primary Wound Type: Traumatic Secondary Wound Type - Traumatic: Skin Tear Location: Knee Wound Location Orientation: Anterior;Left Assessments 01/06/2025 1:23 AM 01/06/2025 9:53 PM Wound Image Site Assessment Black;Brown;Purple -- Erlinda-Wound Assessment Clean;Dry;[place] -- Closure Adhesive bandage -- Drainage Amount None -- Odor None -- Treatments Cleansed -- Dressing Foam- Adhesive -- Dressing (more content not included)... [facility] [id number] O ID: [id number] Author: BRISA SMALLS MD Service: ? Author Type: Physician Type: [id number] Filed: 01/07/2025 12:32 Note Text: Rehab Physician Assessment Drug Regimen Review: Did Steven Barlow experience a potential or actual medication issue? No I was present during the initial Inpatient Rehab Team Conference today and discussed with staff the patient's rehabilitation program addressing functional goals including current condition, impairments, functional status, treatments, barriers to achievement of goals, and estimated discharge date/disposition. The patient requires acute inpatient rehabilitation services including close medical supervision, rehabilitation nursing requirements, multiple therapy discliplines (PT, OT, LITHOGRAPHER APPRENTICE), rehab psychology, spiritual care, nutrition assessment, and case management due to current diagnoses. The anticipated intensity of interventions for this Plan of Care is expected to involve multiple therapy disciplines 3 hours daily, at least 5 days per week. The anticipated discharge location is home and estimated date of discharge is 01/22/2025. Acute inpatient rehabilitation is required in order to maximize the patient's functional independence in ADLS, mobility, transfers, bladder/bowel program care, medical management, and patient/family education. The patient continues to progress toward their goals. [facility] [id number] HNO ID: [id number] Author: HEENA GUTIÉRREZ LISW Service: ? Author Type: Wealth Management Advisor Type: [id number] Filed: 01/07/2025 12:32 Note Text: Social Work Problem: Psychosocial Team Goal: patient will participate in therapy and progress to home Status Update: patient is easily fatigue but is motivated Previously Identified Interventions: Supportive counseling Barriers Prior to Discharge: Other: See Comment (improve cogntive skills and self care and mobility) Caregiver at Discharge: Caregiver is ready, willing and able to meet the patient's needs as recommended by the inter-professional team: No Caregiver needed Discharge Destination: Discharge Arrangement: Home with Self Care Expected Discharge Date: see team discussion [facility] [id number] HNO ID: [id number] Author: FLORINA SEXTON PT Service: ? Author Type: Physical Therapist Type: [id number] Filed: 01/07/2025 12:32 Note Text: PT FUNCTIONAL UPDATE Current Functional Mobility Bed Mobility Rolling: Contact Guard Assistance Supine to Sit: Minimal Assistance, Additional Information Supine To Sit Comments: assist with trunk control Sit to Supine: Scooting: Minimal Assistance, Additional Information Scooting Comments : pt requires cueing for scooting fwd and back in w/c Transfers Sit to Stand: Additional Information, Maximal Assistance Sit To Stand Comments: ModAx2 to stand with cues for hand placement for push off. Stand to Sit: Moderate Assistance, Additional Information Stand To Sit Comments: cues for controlled descent and reach for chair arms Bed to Chair: Moderate Assistance Bed To Chair Transfer Equipment: Gait Belt Bed To Chair Transfer Type: Stepping Toilet/Commode: Shower Transfer: Car Transfer: Moderate Assistance Gait Minimal Assistance, Additional Information Gait Distance (feet): 1x50ft and 2x25 ft Gait Comments: Pt required assist for FWW management and turns. Gait Device: Wheeled Walker Stairs Additional Information, Moderate Assistance Number of Stairs: 10 Stairs comments: minAx2. Pt performed reciprocal step pattern Stairs Device: Rail Problem List: Functional Mobility Impairment, Balance Impaired Goals: Transfer Supine to/from Sit with: Modified Independent Transfer Sit to/from Stand with: Modified Independent Ambulate with: Modified Independent Distance: 80ft Device: Wheeled Walker Ambulate Up and Down Steps with: Modified Independent Number of Steps: 10 Device: Rail Barriers to Discharge: Yes Interventions: Evaluation, Therapeutic Exercise, Therapeutic Activity, Gait Training, Neuromuscular Re-education, Manual Therapy Care Scores Functional Area Admission Assessment Care Score Current Status Care Score Discharge Goal Chair/Jze-ak-Ewnsx Transfer 3 3 Independent [6] Toilet Transfer Walk 10 Feet 3 3 Independent [6] Walk 50 Feet with Two Turns 3 3 Independent [6] Walk 150 Feet 88 88 Independent [6] 1 Step (Curb) 3 3 Independent [6] 4 Steps 3 3 Independent [6] 12 Steps 3 3 Independent [6] Wheel 50 Feet with Two Turns 9 9 Not applicable [9] Wheel 150 Feet 9 9 Not applicable [9] Care Score Definitions: 1 - Dependent; 2 - Substantial/maximal assistance; 3 - Partial/moderate assistance; 4 - Supervision or touching assistance; 5 - Set-up/clean-up; 6 - Independent; 7 - Patient refused; 9 - Not applicable; 10 - Not attempted due to environmental limitations; 88 - Not attempted due to medical/safety concerns [facility] CASE MANAGEMon 01-07-2025 CASE MANAGEM HNO ID: [id number] Author: HEENA GUTIÉRREZ LISW Service: Care Management Author Type: Wealth Management Advisor Type: Care Mgt Progress Note Filed: 01/11/2025 06:50 Note Text: REHAB SOCIAL WORK PROGRESS NOTE SERVICE DATE: January 07, 2025 SERVICE TIME: 11:47 Team recommendations discussed with patient/family: Team recommending skilled level vs LTC depending on progress. Patient mood is depressed motivation low. MD to address. Cognitively impaired and is barrier to home alone. Made referral to [facility] but do not take insurance. Discussed with crescencio Quezada barriers and progress and goals. Explained [facility] does not take insurance- FOC for other facilities for skilled and left in room for son Encouraged him to apply for medicaid he has application plans to turn in on Saturday. Plan would be skilled first if insurance allows then LTC He is in agreement with plan preference is [facility] for L[facility] and reached out to see if can accepting pending Medicaid waiting on response. Updated patient provided support Education on goals of rehab team: Goal to transition to skilled level vs LTC Response to education: In agreement with plan Discussed freedom of choice - Provider List Given: Senior Living Facility Barriers: Mood -cognitive impairment no 08/10 care Plan discharge on 01/19 skilled vs LTC Sw following for transitional care needs SIGNATURE: VELMA Persaud PATIENT NAME: Steven Barlow DATE: January 07, 2025 TIME: 11:47 AM CONTACT #: [facility] NUTRITIONon 01-07-2025 NUTRITION HNO ID: [id number] Author: KATIUSKA TURNER RD Service: ? Author Type: Registered Dietitian Type: Nutrition Filed: 01/07/2025 15:14 Note Text: NUTRITION THERAPY INPATIENT REHAB FACILITY INITIAL ASSESSMENT SERVICE DATE: 01/07/2025 SERVICE TIME: Start Time: 1510 Nutrition Assessment: Recommended Malnutrition Diagnosis: Moderate Protein-Calorie Malnutrition In the context of: Chronic Illness or Injury Based on: Subcutaneous Fat Loss, Muscle Loss Patient Goals: Consume >75% of ENN Progress Towards Goals: Start ONS Nutrition Diagnosis: Problem: Increased nutrient needs Related to: Wound healing As evidenced by: Wound(s) Care Plan: Continue current diet Supplements: Ensure Plus High Protein Monitor and Evaluation: Meet greater than 75% of estimated needs, Monitor fluid/electrolyte balance, Monitor labs, I/Os, vital signs, weight, Monitor bowel function Discharge Recommendations: Diet, Oral Supplements Diet: Controlled CHO diet Oral Supplements: ONS per preference daily HPI: 69 yo male admitted to the hospital for rhabdomyolysis due to being antonia on the ground for unknown period of time. Urine tox positive for cocaine. MRI indicated small vessel ischemic disease. Pt w/ stage II pressure injury to sacrum. PH: DM, CVD. - Start ONS Intake History: Nutrition Intake Prior to Admission: 0-25% estimated energy needs (x3 days) Current Nutrition Intake: Less than 50% estimated energy needs Current Intake Over time: (x2 days) Dosing Weight: 80.3 kg (177 lb) Dosing Weight Type: Current weight Estimated kilocalorie needs: [id number] kcals Calorie Calculation Method: [place] (with activity factor) (1.2-1.3) Estimated protein needs (grams): 100-140 g Grams protein determined by: 1.3 - 1.7 g/kg Diet Orders (From admission, onward) Start Ordered 01/05/252144 DIET HEART HEALTHY START NOW Question Answer Comment Heart Healthy 4 GM SODIUM (LOW SAT FAT) Carbohydrate Control CONSISTENT CARBOHYDRATE 01/05/252137 Anthropometrics: Height: 180.3 cm (5' 11") Weight: 80.5 kg (177 lb 7.5 oz) Usual Weight: (Pt is unsure) No hx in EMR Usual Weight Obtained From: Patient Body mass index is 24.75 kg/m?. Weight Change: Unable to determine Physical Exam: Subcutaneous fat loss: Subcutaneous Fat Loss Assessed Orbital: Sightly dark circles, somewhat hollow look (Mild) Upper Arm (Triceps): Some depth to pinch, not ample fat (Mod) Muscle loss: Muscle Loss Assessed Temporalis: Slight depression (Mild) Clavicle: More prominent bone, less prominent muscle (Mod) Acromion: Acromion process slightly protrudes (Mod) Interosseous (Hand): Muscle bulges, flat/mild bulge between dorsal bones (No Loss) Potential micronutrient deficiency: Skin (Trauma and PI to sacrum.) Edema/Ascites: No edema, No ascites GI Symptoms: Anorexia Stool Amount: Unchanged Functional Status: Unable to assess Potential Signs of Inflammation: Hyperglycemia, Chronic condition CVD, DM Lines, Drains, and Airways None MNT Billing: $ Routine Care : 1 unit Time Spent (mins): 2 SIGNATURE: Katiuska Turner RD PATIENT NAME: Steven Barlow DATE: January 07, 2025 TIME: 2:11 PM [facility] THERAPY NTon 01-07-2025 THERAPY NT HNO ID: [id number] Author: KATARINA KERR OTR/L Service: Occupational Therapy Author Type: Occupational Therapist Type: Therapy (PT/OT/Speech/Resp) Filed: 01/07/2025 15:51 Note Text: Occupational Therapy Treatment SERVICE DATE: 01/07/2025 SERVICE TIME: 1350 to 1505 ROOM: [id number] Recommended Discharge Disposition: Home OT Recommended Discharge Disposition Comments: [employer]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 Anticipated Discharge Needs: Family Training, Physical Assist at Home, Supervision at Home, Equipment Physical Assist at Home for: Finances, Laundry, Cleaning, Meals, Medication Management, Safety, Stairs, Self Care, Shopping, Transportation Supervision at Home due to: Decreased safety awareness, Impaired cognition Recommended Discharge Equipment: To Be Determined Precautions/Activity Restrictions: Fall Risk, Lines/Tubes/Drains Precaution/Activity Restriction Comments: 2 L NC O2, monitor O2, pt was on room air most of session, needed when laying down, goes by "Evgeny", decreased R side awareness Current Hospital Course: Pt admitted to [facility] rehab for OT/PT/ST services. 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 Found cocaine in urine screen Relevant Past Medical History: DM2 Response to Therapy Interventions: Cognitive Deficits, Coping Deficits, Good Participation in Activities, Low Activity Tolerance, Multiple Ongoing Medical Issues, Needs Frequent Redirection or Reinstruction, Requires Additional Time to Complete Activities Assessment Comments: Pt had increased alertness this afternoon and brighter affect. Pt still has decreased safety awareness and decreased independence with ADLS/transfers. Next session to address standing tolerance. Occupational Therapy Problem List: Impaired Self Care, Cognitive Deficit Cognition/Communicat ion Deficits Communication Deficits: Delayed Response Responsiveness: Awake Follows Commands: 2-step Commands Attention Deficits: Distractible Memory Deficits: Short Term Executive Function Deficits: Sequencing, Judgement, Insight to Deficits, Problem Solving, Motor Planning, Safety Awareness Sequencing Deficit: Moderate impairment Judgement Deficit: Moderate impairment Insight to Deficits: Mild Awareness Problem Solving Deficit: Moderate Impairment Motor Planning Deficit: Moderate impairment Safety Awareness Deficit: Moderate impairment Home Environment Patient Lives With: Self/Alone Occupational Factors Life Roles: Parent, Family Member, Friend Identified Strengths for Life Roles: Access to Healthcare Identified Barriers for Life Roles: Difficulty Coping, Limited Social Support, Difficulty with ADLs/IADLs, Judgment/Awareness, Motivation Subjective: Pt agreeable to OT CURRENT FUNCTIONAL STATUS: Most recent performance Current Activities of Daily Living Assist Level Additional Information Feeding Grooming Additional Information Bathing Upper Body Additional Information Bathing Lower Body Additional Information Dressing Upper Body Maximal Assistance, Additional Information Dressing Lower Body Total Assistance, Additional Information Toileting Maximal Assistance, Additional Information for threading B LE through pants and steadying assist while pt pulled up pants Instrumental Activities of Daily Living Assist Level Additional Information Meal/Beverage Prep Cleaning Laundry Medication Management with Strategies Functional Mobility Assist Level Additional Information Rolling Supine to Sit Minimal Assistance Sit to Supine Minimal Assistance Scooting Minimal Assistance Sit to Stand Minimal Assistance, Additional Information vcs for technique, tends to lean forward Stand to Sit Minimal Assistance for controlled descnet Bed to Chair Minimal Assistance Stepping Gait Belt stand pivot from bed to chair Toilet/Commode Moderate Assistance, Additional Information Shower Functional Mobility Blank doherty indicate activity not attempted Tub Transfer: Additional Information Balance: Dynamic Sitting, Dynamic Standing Dynamic Sitting Balance: Fair Patient accepts minimal challenge, able to maintain balance while turning head/trunk Dynamic Standing Balance: Fair Patient accepts minimal challenge, able to maintain balance while turning head/trunk Activity Tolerance: Sitting Activity, Standing Activity Sitting Activity: sat for matching card tasks needed increased time, sat for LB dressing, sat for fine motor tasks with snapping links, pt needed mod cues to continue through with tasks Sitting Activity Tolerance (in minutes): 60 Standing Activity: stood for transfers, mobility Standing Activity Tolerance (in minutes): 15 Learning/Educational Needs: Discharge Plan, Disease Process, Equipment, Family Education/Training, Fu (more content not included)... [facility] THERAPY NT HNO ID: [id number] Author: FLORINA SEXTON PT Service: Physical Therapy Author Type: Physical Therapist Type: Therapy (PT/OT/Speech/Resp) Filed: 01/07/2025 12:53 Note Text: Physical Therapy Treatment SERVICE DATE: 01/07/2025 SERVICE TIME: 0830 to 0945 ROOM: [place] [id number] Recommended Discharge Disposition: Home PT Anticipated Discharge Needs: Family Training, Physical Assist at Home, Supervision at Home, Equipment Physical Assist at Home for: Finances, Laundry, Cleaning, Meals, Medication Management, Safety, Stairs, Self Care, Shopping, Transportation Supervision at Home due to: Decreased safety awareness, Impaired cognition Recommended Discharge Equipment: To Be Determined Precautions/Activity Restrictions: Fall Risk, Lines/Tubes/Drains Precaution/Activity Restriction Comments: 2 L NC O2, monitor O2, pt was on room air most of session, needed when laying down, goes by "Evgeny", decreased R side awareness Current Hospital Course: Pt admitted to [facility] rehab for OT/PT/ST services. 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 Found cocaine in urine screen Relevant Past Medical History: DM2 Home Assessment Accessibility Issues: Home entry steps Physical Therapy Problem List: Functional Mobility Impairment, Balance Impaired Planned Interventions: Evaluation, Therapeutic Exercise, Therapeutic Activity, Gait Training, Neuromuscular Re-education, Manual Therapy Home Environment Patient Lives With: Self/Alone Assistance Available: PRN Comments: son lives close Entry To Home: Stairs, With Rail Number Of Stairs Into Home: 10 Number Of Stairs To Bed/Bath: 0 Tub/Shower Type: tub/shower combo with grabbars and shower chair Laundry: first floor setup, pt was doing Equipment Owned: Walker- Wheeled, Shower Chair, Grab Bars- Shower, Grab Bars- Toilet, Cognitive/Memory Tool, Elevated Toilet Seat Prior Functional Level: Within Functional Limits Prior Functional Level Comments: Per pt I with ADLS/IADLS, used a FWW in community, driving prior. per pt this is the only fall in the last 6 months Cognitive Screen: Responsiveness: Alert, Awake Follows Commands: 3-step Commands Pulmonary/Cardiac Status: Skin Integrity: Edema: Sensation: Tone/Spasticity: Gross Motor Coordination: Posture: Posture: Forward head, Rounded shoulders CURRENT FUNCTIONAL STATUS: Most recent performance Current Functional Mobility Assist Level Additional Information Rolling Contact Guard Assistance Supine to Sit Contact Guard Assistance Sit to Supine Scooting Minimal Assistance, Additional Information Sit to Stand Minimal Assistance, Additional Information Stand to Sit Minimal Assistance Bed to Chair Moderate Assistance Bed To Chair Transfer Type: Stepping Bed To Chair Transfer Equipment: Gait Belt Toilet/Commode Gait Minimal Assistance Gait Device: Wheeled Walker Gait Distance (feet): 20ftx2; 15ftx1 Stairs Additional Information, Moderate Assistance Stairs Device: Rail Number of Stairs: 10 Curb Step Moderate Assistance, Additional Information Device: Wheeled Walker Car Transfer Moderate Assistance Blank doherty indicate activity not attempted General Deviations/Observati ons: Flexed trunk posture, Step length decreased, Ellen decreased, Difficulty changing direction/turning, Narrow Base of Support Ramp: up/down ramp with minAx1 and cueing for FWW management. Balance: Static Sitting, Dynamic Sitting, Static Standing, Dynamic Standing Static Sitting Balance: Good Patient able to maintain balance without handhold support, limited postural sway Dynamic Sitting Balance: Good Patient accepts moderate challenge, able to maintain balance while picking up object off floor Static Standing Balance: Fair Patient able to maintain balance with handhold support, may require occasional minimal assistance Dynamic Standing Balance: Fair Patient accepts minimal challenge, able to maintain balance while turning head/trunk Activity Tolerance: Sitting Activity, Standing Activity Sitting Activity: Pt performed 2x10 hip marches w/ 2# weights, LAQ w/ 2# weights, ankle pumps, hip ABD w/ green band, and hip ADD w/ ball squeeze. Standing Activity: Pt performed ambulation using FWW, car transfer, up/down ramp using FWW, standing ball toss/catch, and stepping over hurdles in // bars. Functional Performance Test Functional Performance Test: Timed Get Up And Go Timed Get Up And Go (seconds): 38.23 Timed Get Up And Go Gait Device: Wheeled walker Learning/Educational Needs: Discharge Plan, Plan of Care, Changes in Plan of Care, Precautions, Functional Activities/Mobility Goals for Plan of Care: Patient/Caregiver Goals: Go Home Goals: Patient will demonstrate progress to optimize functional mo (more content not included)... [facility] THERAPY NT HNO ID: [id number] Author: BRENDEN JO CCC-LITHOGRAPHER APPRENTICE Service: Speech/Swallow Author Type: Speech Language Pathologist Type: Therapy (PT/OT/Speech/Resp) Filed: 01/07/2025 11:50 Note Text: Speech Therapy Treatment SERVICE DATE: 01/07/2025 SERVICE TIME: 1100 ROOM: [place] [address] IMPRESSION: Communication deficits identified: Cognitive-Linguistic deficits Nursing Recommendations: Reinforce use of cognitive strategies Recommended Discharge Disposition: Continued Skilled Speech Therapy Current Hospital Course: metabolic encephalopathy Reason for Hospital Admission: Presented to [facility] , found down in apt, CT of brain: 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 Found cocaine in urine screen Rehabilitation Precautions: Cognitive Linguistics Deficits Reason for Speech Therapy Consult: Azpaxj-Naypsmjl-Qceu ition evaluation. Relevant Past Medical History: DM2 Response to Therapy Interventions: Fatigue, Limited participation Assessment Comments: Session targeted cognitive-linguistic skills. Speech Therapy Problem List: Cognition Subjective: Patient was fatigued. Pt sitting up in bed for session. Pt required multiple cues for participation and to maintain alertness level during session. Current Status Oral Hygiene: Clear, moist oral cavity Dentition: Miscellaneous Missing Teeth, Poor Repair (missing many teeth) Current Feeding Method: Oral Current Diet Textures: Regular Consistency, Thin Liquids IDDSI Level 0 Current Level Of Communication: Verbal Current Management Of Secretions: Able to self-manage Oral Motor Exam: Within Functional Limits Except (milldy generalized weakness) Cognition Cognitive Status: Within Functional Limits For Current Session Except Cognitive Deficits: Orientation Deficits, Attention Deficit, Responsiveness, Memory Deficits Orientation Deficits: Place, Time, Situation, Confused Responsiveness: Lethargic Attention Deficit: Sustained Memory Deficits: Immediate Immediate Memory Comments: 0% accuracy Executive Function Deficits: Time/Money Management Time/Money Management Comments : 0% (for medication management questions) Patient /Caregiver Goals: Go Home Goals for Plan of Care: Goals: COGNITION: Patient will demonstrate knowledge of taught compensatory strategies for functional cognitive-linguistic skills, SPEECH / LANGUAGE: Patient will demonstrate knowledge of taught compensatory strategies for functional communication Progress Toward Goals: Progressing slower than expected Speech Rehab Potential: Fair Patient will be discontinued from speech therapy when no further skilled needs are identified in this setting. PLAN: Planned Interventions: Individual Speech Therapy, Cognitive Training Plan of Care Developed with: Patient TREATMENT INTERVENTIONS: Interventions Provided: Individual Speech Therapy Training and Education Provided in: Cognitive Linguistic Strategies The following therapeutic skills were used:: Verbal cuing, Visual cuing, Education on role of discipline / importance of activity Home Environment Patient Lives With: Self/Alone Prior Swallowing Function/Diet Textures: Regular Consistency, Thin Liquids IDDSI Level 0 Please see discipline specific clinical documentation flowsheet for complete details for this therapy evaluation/treatment . SIGNATURE: Brenden Jo CCC-LITHOGRAPHER APPRENTICE PATIENT NAME: Steven Barlow DATE: January 07, 2025 TIME: 11:50 AM [facility] ALLIED HEALTHon 01-06-2025 ALLIED HEALTH HNO ID: [id number] Author: PIPPA ATKINS Chaplain Service: Spiritual Care Author Type: Type: Allied Health Filed: 01/06/2025 17:22 Note Text: SPIRITUAL CARE ASSESSMENT SERVICE DATE: 01/06/2025 SERVICE TIME: 02:32 Visit with: Patient Length of visit (minutes): 10 Gnosticism / Spirituality: None Reason: Initial visit ASSESSMENT Emotional Disposition: Hopeful and Sadness Relational Concerns: None Spiritual Concerns: None INTERVENTIONS Empowerment: Encouraged adherence to treatment plan Exploration: Explored emotional needs and resources, Explored hope, Explored spiritual needs and resources, and Facilitated story telling Relationship Building: Compassionate listening Ritual: [place] OUTCOMES Patient expressed gratitude PLAN Will follow as circumstances allow COMMENTS: SIGNATURE: Chaplain Geovanna PATIENT NAME: Steven Barlow DATE: January 06, 2025 TIME: 5:19 PM PAGER/CONTACT #: [phone] Normal [facility] Basic metabolic 2000 panelon 01-06-2025 Anion gap [Moles/Vol] 9 mmol/L Normal 5-16 [facility] Comment on above: Order Comment: Speci men Type: BLOOD SPECIMEN Ordering Facility: [facility] Address: [address] [place] [address] Performed By: #### 2 4321-2 #### [facility] CLIA [id number] [address] [place] [address] [place] Calcium [Mass/Vol] 9.2 mg/dL Normal 8.5-10.5 [facility] Comment on above: Order Comment: Speci men Type: BLOOD SPECIMEN Ordering Facility: [facility] Address: [address] [place] [address] Performed By: #### 2 4321-2 #### [facility] CLIA [id number] [address] [place] [address] [place] Chloride [Moles/Vol] 100 mmol/L Normal 98-107 [facility] Comment on above: Order Comment: Speci men Type: BLOOD SPECIMEN Ordering Facility: [facility] Address: [address] [place] [address] Performed By: #### 2 4321-2 #### [facility] CLIA [id number] [address] [place] [address] [place] CO2 [Moles/Vol] 31 mmol/L Normal 21-32 [facility] Comment on above: Order Comment: Speci trent Type: BLOOD SPECIMEN Ordering Facility: [facility] Address: [address] [place] [address] Performed By: #### 2 4321-2 #### [facility] CLIA [id number] [address] [place] [address] [place] Creatinine [Mass/Vol] 0.67 mg/dL Normal 0.50-1.40 [facility] Comment on above: Order Comment: Speci men Type: BLOOD SPECIMEN Ordering Facility: [facility] Address: [address] [place] [address] Result Comment: Chuyita ents receiving either N-Acetylcysteine (NAC) or Metamizole prior to venipuncture, may have falsely depressed results. Performed By: #### 2 4321-2 #### [facility] CLIA [id number] [address] [place] [address] [place] eGFRcr SerPlBld CKD-EPI 2020 101 mL/min/1.73m??? Normal >=60 [facility] Comment on above: Order Comment: Loci trent Type: BLOOD SPECIMEN Ordering Facility: [facility] Address: [address] [place] [address] Result Comment: Mariana mated Glomerular Filtration Rate (eGFR) is calculated using the 2020 CKD-EPI creatinine equation. This equation utilizes serum creatinine, sex, and age as parameters. The creatinine assay has traceable calibration to isotope dilution-mass spectrometry. Refer to KDIGO guidelines for clinical interpretation. In patients with unstable renal function, e.g. those with acute kidney injury, the eGFR may not accurately reflect actual GFR. Performed By: #### 2 4321-2 #### [facility] CLIA [id number] [address] [place], [place] [id number] [place] Glucose [Mass/Vol] 150 mg/dL High 70-100 [facility] Comment on above: Order Comment: Maren newman Type: BLOOD SPECIMEN Ordering Facility: [facility] Address: [address] [place] [address] Result Comment: The [place] Diabetes Association (ADA) provides guidance for cutoff values for fasting glucose and random glucose. The ADA defines fasting as no caloric intake for at least 8 hours. Fasting plasma glucose results between 100 to 125 mg/dL indicate increased risk for diabetes (prediabetes). Fasting plasma glucose results greater than or equal to 126 mg/dL meet the criteria for diagnosis of diabetes. In the absence of unequivocal hyperglycemia, results should be confirmed by repeat testing. In a patient with classic symptoms of hyperglycemia or hyperglycemic crisis, random plasma glucose results greater than or equal to 200 mg/dL meet the criteria for diagnosis of diabetes. Reference: Standards of Medical Care in Diabetes 2016, [place] Diabetes Association. Diabetes Care. 2016.39(Suppl 1). Results may be falsely elevated after the administration of Sulfapyridine. Results may be falsely depressed after the administration of Sulfasalazine. Performed By: #### 2 4321-2 #### [facility] CLIA [id number] [address] [place] [address] [place] Potassium [Moles/Vol] 4.4 mmol/L Normal 3.5-5.1 [facility] Comment on above: Order Comment: Speci men Type: BLOOD SPECIMEN Ordering Facility: [facility] Address: [address] [place] [address] Performed By: #### 2 4321-2 #### [facility] CLIA [id number] [address] [place] [address] [place] Sodium [Moles/Vol] 140 mmol/L Normal 136-145 [facility] Comment on above: Order Comment: Speci men Type: BLOOD SPECIMEN Ordering Facility: [facility] Address: [address] [place] [address] Performed By: #### 2 4321-2 #### [facility] CLIA [id number] [address] [place] [address] [place] Urea nitrogen [Mass/Vol] 16 mg/dL Normal 7-26 [facility] Comment on above: Order Comment: Speci men Type: BLOOD SPECIMEN Ordering Facility: [facility] Address: [address] [place] [address] Performed By: #### 2 4321-2 #### [facility] CLIA [id number] [address] [place] [address] [place] CASE MGT INIT Luc 2024 CASE MGT INIT ELBA HNO ID: [id number] Author: HEENA GUTIÉRREZ LISW Service: Care Management Author Type: Wealth Management Advisor Type: Care Mgt Initial Assessment Filed: 01/06/2025 14:22 Note Text: REHAB SOCIAL WORK ASSESSMENT AND DISCHARGE PLAN SERVICE DATE: January 06, 2025 SERVICE TIME: 10:05 PRIMARY CARE PHYSICIAN: No primary care provider on file. Phone: None Admission Status: Inpatient Rehab Reason for Admission: Metabolic encephalopathy [G93.41] Metabolic encephalopathy [G93.41] Primary Contact: No emergency contact information on file. NEEDS PRIOR TO DISCHARGE Needs Prior to Discharge: Other: See Comment (improve cogntive skills and self care and mobility) ADVANCE DIRECTIVES Current Advance Directive: None Garbage Truck Helper Attempted to Assist with AD Completion: No Unable to Assist Due To:: Other: See Comment (oreinatated to person) POTENTIAL TRANSITION PLANS Other: See Comment (per team) CAREGIVER ASSESSMENT Caregiver is ready, willing and able to meet the patient's needs as recommended by the inter-professional team: No Caregiver needed Marital Status: Single Children (Including Quality of Relationship): One Son Support System: Limited Status (Including History of Combat Experience): Retired-[employer] Gnosticism/Spiritualit y: Unknown PSYCHIATRIC: Do you have history of depression, mental illness or anxiety? No Do you take any medications for this disorder? No Do you see a psychiatrist or mental health specialist? No Substance Use History: Patient/Representati ve Denies Patient Strengths/Protective Factors: Able to Communicate Needs Current Services/Equipment Current Post-Acute Service(s): DME Current DME Type: Cane FREEDOM OF CHOICE EXPLAINED: Are you interested in bedside delivery of your medications? No Information Obtained From: Patient Chart Intimate Partner Violence We have begun to talk to patients about safe and healthy relationships because it can have a large impact on your health. Do you feel safe around your partner or ex-partner?: Yes Food Insecurity Within the past 12 months, you worried that your food would run out before you got the money to buy more.: Sometimes true Within the past 12 months, the food you bought just didn't last and you didn't have money to get more.: Sometimes true Transportation Needs In the past 12 months, has lack of transportation kept you from medical appointments or from getting medications?: No In the past 12 months, has lack of transportation kept you from meetings, work, or from getting things needed for daily living?: No Housing Stability In the last 12 months, was there a time when you were not able to pay the mortgage or rent on time?: No At any time in the past 12 months, were you homeless or living in a long-term (including now)?: No Utilities In the past 12 months has the [employer], gas, oil, or water [employer] threatened to shut off services in your home?: No Social Information Financial Resources: Retired ASSESSMENT AND PLAN: Chart Reviewed Patient admitted to [facility] metabolic encephalopathy- found on ground by neighbors-who report recent cocaine use. Patient will have 3 hours of therapy 5 days a week with gaol to progress patient to home Meet with the patient introduced self explained Sw role and d/c planning Patient lives alone in apartment he was independnent with self care He has insurance and can afford RX. He has a PCP has not been in while and can not recall name He may need to be set up with new PCP. He was [facility] does not receive services from them He has one Son Damien Barlow- does not have his number. He admits to SI He denies alcohol and drug use. Patient is able to afford medications can struggle with obtaining food and paying bills Commity resources and food assistance provided to patient Barrier- poor recall, lives alone limited support system Team on to determine LOS and d/c planning Sw following for transitional care needs 14:20- Son called Damien at [phone] Damien is only son. P He thought father was doing okay but last yeard seems cognive decline and found him on floor apartment deplorable with bed bugs. He is looking in long tem placement He has spoken to Mariel tamez Sw provided information on coverage for LTC VS [place] Explained limits of Medicare and explained medicaid Encouraged him to apply for medicad and explained progress Referral made to Kaiden tamez Asked questions about HCPOA- Damien is only son so LNOK for decision making He would like to do HCPOA but at this time patient too cognitively impaired to completed Son very supportive will update after team Waitng on response from Kaiden tamez SIGNATURE: VELMA Persadu PATIENT NAME: Steven Barlow DATE: January 06, 2025 TIME: 10:07 AM Normal [facility] CBC panel Auto (Bld)on 01-06 Erythrocyte distribution width (RBC) [Ratio] 14.4 % Normal 11.5-15.0 [facility] Comment on above: Order Comment: Speci men Type: BLOOD SPECIMEN Ordering Facility: [facility] Address: [address] [place] [address] Performed By: #### 5 8410-2 #### [facility] CLIA [id number] [address] [place] [address] [place] Hematocrit (Bld) [Volume fraction] 41.7 % Normal 39.0-51.0 [facility] Comment on above: Order Comment: Maren newman Type: BLOOD SPECIMEN Ordering Facility: [facility] Address: [address] [place] [address] Performed By: #### 5 8410-2 #### [facility] CLIA [id number] [address] [place] [address] [place] Hemoglobin (Bld) [Mass/Vol] 13.6 g/dL Normal 13.0-17.0 [facility] Comment on above: Order Comment: Speci men Type: BLOOD SPECIMEN Ordering Facility: [facility] Address: [address] [place] [address] Performed By: #### 5 8410-2 #### [facility] CLIA [id number] [address] [place] [address] [place] MCH (RBC) [Entitic mass] 29.4 pg Normal 26.0-34.0 [facility] Comment on above: Order Comment: Speci men Type: BLOOD SPECIMEN Ordering Facility: [facility] Address: [address] [place] [address] Performed By: #### 5 8410-2 #### [facility] CLIA [id number] [address] [place] [address] [facility] MCHC (RBC) [Mass/Vol] 32.6 g/dL Normal 30.5-36.0 [facility] Comment on above: Order Comment: Speci men Type: BLOOD SPECIMEN Ordering Facility: [facility] Address: [address] [place] [address] Performed By: #### 5 8410-2 #### [facility] CLIA [id number] [address] [place] [address] [place] MCV (RBC) [Entitic vol] 90.1 fL Normal 80.0-100.0 [facility] Comment on above: Order Comment: Speci men Type: BLOOD SPECIMEN Ordering Facility: [facility] Address: [address] [place] [address] Performed By: #### 5 8410-2 #### [facility] CLIA [id number] [address] [place] [address] [place] Nucleated RBC (Bld) [#/Vol] 10*3/uL Normal <0.01 [facility] Comment on above: Order Comment: Speci men Type: BLOOD SPECIMEN Ordering Facility: [facility] Address: [address] [place] [address] Performed By: #### 5 8410-2 #### [facility] CLIA [id number] [address] [place] [address] [place] Platelet mean volume (Bld) [Entitic vol] 9.4 fL Normal 9.0-12.7 [facility] Comment on above: Order Comment: Speci men Type: BLOOD SPECIMEN Ordering Facility: [facility] Address: [address] [place] [address] Performed By: #### 5 8410-2 #### [facility] CLIA [id number] [address] [place] [address] [place] Platelets (Bld) [#/Vol] 250 10*3/uL Normal 150-400 [facility] Comment on above: Order Comment: Maren newman Type: BLOOD SPECIMEN Ordering Facility: [facility] Address: [address] [place] [address] Performed By: #### 5 8410-2 #### [facility] CLIA [id number] [address] [place] [address] [place] RBC (Bld) [#/Vol] 4.63 10*6/uL Normal 4.20-6.00 [facility] Comment on above: Order Comment: Maren newman Type: BLOOD SPECIMEN Ordering Facility: [facility] Address: [address] [place] [address] Performed By: #### 5 8410-2 #### [facility] CLIA [id number] [address] [place] [address] [place] WBC (Bld) [#/Vol] 9.76 10*3/uL Normal 3.70-11.00 [facility] Comment on above: Order Comment: Maren newman Type: BLOOD SPECIMEN Ordering Facility: [facility] Address: [address] [place] [address] Performed By: #### 5 8410-2 #### [facility] CLIA [id number] [address] [place] [address] [facility] CONSULT PROGon 01-06-2025 CONSULT PROG HNO ID: [id number] Author: RUBIA POOLE APRN.ORTHOTICS TECHNICIAN Service: Wound Care Team Author Type: Nurse Practitioner Type: Consult Progress Note Filed: 01/06/2025 14:22 Note Text: Summary: wound care WOUND CARE SERVICE CONSULT NOTE SERVICE DATE: 01/06/2025 SERVICE TIME: 1125 REASON FOR CONSULT: Wound Consult (From admission, onward) Start Ordered 01/06/25 1115 Wound Care Consult ONCE Electronically Signed By: Brisa Smalls MD [ ] 01/06/25 1114 Multiple wounds scattered over body My final recommendations will be communicated back to the requesting physician by way of shared Medical record. Subjective HISTORY OF PRESENT ILLNESS: Mr. Barlow is a 69 year old male who is seen today with Janene Burkett Wound/sample weaver. Patient came into inpatient rehab from [facility] on 01/05/2025. He was admitted to [facility] on 12/27/2024 after being found down in his apartment for unknown amount of time. He was found with a right facial droop and neighbors report that he was seen using cocaine a few days prior. Labs showed UTI and rhabdomyolysis. Patient admits to being Type 2 DM. He does not know how he obtained his wounds. Wound care consulted to evaluate his multiple wounds. REVIEW OF SYSTEMS GENERAL: Denies fever and chills. PAIN ASSESSMENT: Denies pain at this time. SKIN: Multiple wounds scattered over body. RESPIRATORY: Denies shortness of breath. GI/: Denies n/v No past medical history on file. No past surgical history on file. SOCIAL HISTORY[1] No family history on file. MEDICATIONS: Current Facility-Administere d Medications Medication Dose Route Frequency terbinafine HCl 250 mg tab(s) (LamISIL) 250 mg ORAL DAILY aspirin 81 mg chewable tab(s) 81 mg ORAL DAILY atorvastatin 40 mg tab(s) (LIPITOR) 40 mg ORAL AT BEDTIME lisinopril 10 mg tab(s) (ZESTRIL) 10 mg ORAL DAILY dextrose 40 % 15 g 15 g ORAL PRN Or glucagon 1 mg injection 1 mg INTRAMUSCULAR PRN Or dextrose 10% iv bolus 12.5 g INTRAVENOUS PRN insulin lispro injection (rapid acting) (ADMElog) SUBCUTANEOUS w MEALS insulin lispro injection (rapid acting) (ADMElog) SUBCUTANEOUS AT BEDTIME insulin glargine 15 Units pen (long acting) 15 Units SUBCUTANEOUS AT BEDTIME metFORMIN ER 1,000 mg tab(s) (GLUCOPHAGE XR) 1,000 mg ORAL BID w MEALS polyethylene glycol 3350 17 g packet 17 g ORAL DAILY senna-docusate 8.6-50 mg 2 tablet (SENNA-S) 2 tablet ORAL DAILY silver sulfADIAZINE-triamci nolone acetonide-lidocaine 0.5-0.015-1.75% 1 each topical paste (JUANA PASTE) 1 each TOPICAL BID miconazole 2 % 1 application topical powder 1 application TOPICAL BID polymyxin B-trimethoprim 1 drop ophthalmic drops (POLYTRIM) 1 drop BOTH EYES 3 times per day aquaphor - stomahesive topical ointment (E.T. MIXTURE) TOPICAL PRN ALLERGIES Allergen Reactions Fish Containing Pro* Swelling, Shortness of Breath Objective PHYSICAL EXAM: BP 133/68 Pulse 81 Temp 36.7 ?C (98.1 ?F) (Oral) Resp 18 Ht 180.3 cm (5' 11") Wt 80.5 kg (177 lb 7.5 oz) SpO2 93% BMI 24.75 kg/m? General appearance: Patient is awake, alert. Sitting in chair. Respiratory: Unlabored. Cardiovascular: Bilateral pedal pulses palpable +2. Extremities: Bilateral heels intact. Integumentary: Dry brown scab on right chest with a mild amount of erythema surrounding it. Cluster of scabs on anterior left knee and left medial knee that are dark brown and dry. Cluster of dried black scabbing on right lateral and anterior knee. Dry black scab on left anterior medial great toe and on dorsal second toe. Scabbing on right dorsal great toe and second toe that is dry. Coccyx with a couple dry scabby areas. No open area noted. Glans of penis with leone, moist, slough on ventral surface under the urethra opening. No drainage at this time. DATA Wound photo Presenting wound information: Wound 01/05/250 Traumatic Skin Tear Knee Anterior;Left (Active) Properties Placement Date 01/05/25 Placement Time 2199 Location Knee Present on Original Admission Yes Primary Wound Type Traumatic Secondary Wound Type - Traumatic Skin Tear Wound Location Orientation Anterior;Left Assessments 01/06/2025 9:26 AM Wound Image Site Assessment Black;Purple;Eschar Erlinda-Wound Assessment Dry;Clean;Intact Closure -- Drainage Amount None Odor None Treatments -- Dressing Foam- Adhesive Dressing Changed Reinforced Dressing Status Clean;Dry;Intact Wound 01/05/252199 Traumatic Skin Tear Knee Anterior;Right (Active) Properties Placement Date 01/05/25 Placement Time 2200 Location Knee Present on Original Admission Yes Primary Wound Type Traumatic Secondary Wound Type - Traumatic Skin Tear Wound Location Orientation Anterior;Right Assessments 01/06/2025 1:26 PM Wound Image (more content not included)... Normal [facility] HISTORY PHYSICALon HISTORY PHYSICAL HNO ID: [id number] Author: BRISA SMALLS MD Service: Hospital Medicine Author Type: Physician Type: H&P Filed: 01/11/2025 15:51 Note Text: INPATIENT REHABILITATION FACILITY HISTORY AND PHYSICAL EXAMINATION SERVICE DATE: 01/06/2025 SERVICE TIME: Subjective Rehab Impairment Group: 0002.1 - Brain Dysfunction: Non-Traumatic Estimated IRF Length of Stay: 17 days Rehab Etiologic Diagnosis: - G93.41 - Metabolic encephalopathy Rehab Comorbid Conditions: - N39.0 - Urinary tract infection, site not specified - E87.0 - Hyperosmolality and hypernatremia - M62.82 - Rhabdomyolysis - I67.9 - Cerebrovascular disease, unspecified - E11.40 - Type 2 diabetes mellitus with diabetic neuropathy, unspecified ([facility]) - E86.0 - Dehydration - R09.02 - Hypoxemia - M50.30 - Other cervical disc degeneration, unspecified cervical region - M48.02 - Spinal stenosis, cervical region - F14.10 - Cocaine abuse, uncomplicated ([facility]) - L89.152 - Pressure ulcer of sacral region, stage 2 (HCC) - L89.153 - Pressure ulcer of sacral region, stage 3 ([facility]) HPI: 69 yo male presents to [facility] after being found down in his apt for unknow amount of time. Found to be in own urine and feces and right facial droop. Neighbors report seeing pt doing cocaine a few days prior. Head CT shows no acute intracranial abnomality, small lacunar infarct in left adamson radiata. CT face and spine negative for acute findings. Urine tox screen positive for cocaine. Labs show rhabdomyolysis and UTI. Admitted for care and stroke workup. MRI brain and MRA head/neck show evidence of volume loss and small vessel ischemic disease. TTE with preserve LVEF, no shunt. EEG showed no seizure. IV fluids given 1/2 NS for hypernatremia. Continue aspirin for stroke prevention. Can start aspirin and statin once CPK is improved, downtrending. Encourage oral hydration. UTI, IV ceftriaxone started. Cultures showing multiple morphotypes, will complete 1 week course. DM, continue glycemic control and sliding scale insulin. 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 Patient has stage 2 to coccyx and stage 3 to sacral region, appreciate wound team recommendations. Continue dressing changes and wound treatments. Encourage incentive spirometry. Wean O2 as able, no home O2 prior to admission. Continue PT/OT, recommending acute rehab on discharge. Patient having generalized weakness and fatigues easily. Date of Onset: 12/27/24 Date of Admission: 12/27/24 No past medical history on file. No past surgical history on file. No family history on file. SOCIAL HISTORY[1] Prescriptions Prior to Admission[2] ALLERGIES Allergen Reactions Fish Containing Pro* Swelling, Shortness of Breath Patient Caregiver Goals: Patient to return home Marital Status- Single [1] Social History: Children: Resides: Employment Status Unknown [9] Prehospital Living Environment: Lives alone in apt. son lives local and can assist PRN PRE-REHAB ADMISSION FUNCTIONAL STATUS: Eating: min assist Grooming: max assist Toileting: total assist Bathing: total assist Upper Body Dressing: max assist Lower Body Dressing: total assist Bed Mobility: max assist Transfers: max assist Bladder And Bowel: continent Cognition: alert and oriented to person and place Swallow: WNL Advance Directives: Code Status: DNR-CCA, DNI Current Facility-Administere d Medications Medication Dose Route Frequency Provider Last Rate Last Admin terbinafine HCl 250 mg tab(s) (LamISIL) 250 mg ORAL DAILY Onofre Buckley DO 250 mg at 01/06/25 0802 aspirin 81 mg chewable tab(s) 81 mg ORAL DAILY Onofre Buckley DO 81 mg at 01/06/25 0802 atorvastatin 40 mg tab(s) (LIPITOR) 40 mg ORAL AT BEDTIME Onofre Buckley DO 40 mg at 01/06/25 0018 lisinopril 10 mg tab(s) (ZESTRIL) 10 mg ORAL DAILY Onofre Buckley, 10 mg at 01/06/25 0802 dextrose 40 % 15 g 15 g ORAL PRN Onofre Buckley DO Or glucagon 1 mg injection 1 mg INTRAMUSCULAR PRN Onofre Buckley, Or dextrose 10% iv bolus 12.5 g INTRAVENOUS PRN Onofre Buckley, insulin lispro injection (rapid acting) (ADMElog) SUBCUTANEOUS w MEALS Onofre Buckley, 5 Units at 01/06/25 1138 insulin lispro injection (rapid acting) (ADMElog) SUBCUTANEOUS AT BEDTIME Onofre Buckley, 2 Units at 01/06/25 0019 insulin glargine 15 Units pen (long acting) 15 Units SUBCUTANEOUS AT BEDTIME Onofre Buckley, 15 Units at 01/06/25 0019 metFORMIN ER 1,000 mg tab(s) (GLUCOPHAGE XR) 1,000 mg ORAL BID w MEALS Onofre Buckley, 1,000 mg at 01/06/25 0802 polyethylene glycol 3350 17 g packet 17 g ORAL DAILY Onofre Buckley DO senna-docusate 8.6-50 mg 2 tablet (SENNA-S) 2 tablet ORAL DAILY Onofre Buckley DO silver sulfADIAZINE-triamci nolone acetonide-lidocaine 0.5-0.015-1.75% 1 each topical paste (JUANA PASTE) 1 each TOPICAL BID Onofre Buckley, 1 each at 01/06/25 0804 miconazole 2 % 1 application topical powd (more content not included)... [facility] THERAPY NTon 01-06-2025 THERAPY NT HNO ID: [id number] Author: FLORINA SEXTON, RAMY Service: Physical Therapy Author Type: Physical Therapist Type: Therapy (PT/OT/Speech/Resp) Filed: 01/06/2025 15:41 Note Text: Physical Therapy Evaluation SERVICE DATE: 01/06/2025 SERVICE TIME: 829 to 944 ROOM: [place] [address] Recommended Discharge Disposition: Home PT Anticipated Discharge Needs: Family Training, Physical Assist at Home, Supervision at Home, Equipment Physical Assist at Home for: Finances, Laundry, Cleaning, Meals, Medication Management, Safety, Stairs, Self Care, Shopping, Transportation Supervision at Home due to: Decreased safety awareness, Impaired cognition Recommended Discharge Equipment: To Be Determined Precautions/Activity Restrictions: Fall Risk, Lines/Tubes/Drains Precaution/Activity Restriction Comments: 2 L NC O2, monitor O2, pt was on room air most of session, needed when laying down, goes by "Evgeny", decreased R side awareness Current Hospital Course: Pt admitted to [facility] rehab for OT/PT/ST services. 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 Found cocaine in urine screen Relevant Past Medical History: DM2 Assessment: Pt tolerated evaluation good. Pt BLE grossly 4-/5. Pt required CGA-modAx2 for functional mobility. Pt demonstrates impairments in balance, decreased functional mobility, decreased strength, and decreased independence. Pt will benefit from continued therapy in order to improve deficits to return home. Recommend HHPT. Home Assessment Accessibility Issues: Home entry steps Physical Therapy Problem List: Functional Mobility Impairment, Balance Impaired Planned Interventions: Evaluation, Therapeutic Exercise, Therapeutic Activity, Gait Training, Neuromuscular Re-education, Manual Therapy Home Environment Patient Lives With: Self/Alone Assistance Available: PRN Comments: son lives close Entry To Home: Stairs, With Rail Number Of Stairs Into Home: 10 Number Of Stairs To Bed/Bath: 0 Tub/Shower Type: tub/shower combo with grabbars and shower chair Laundry: first floor setup, pt was doing Equipment Owned: Walker- Wheeled, Shower Chair, Grab Bars- Shower, Grab Bars- Toilet, Cognitive/Memory Tool, Elevated Toilet Seat Prior Functional Level: Within Functional Limits Prior Functional Level Comments: Per pt I with ADLS/IADLS, used a FWW in community, driving prior. per pt this is the only fall in the last 6 months Cognitive Screen: Responsiveness: Alert, Awake Follows Commands: 3-step Commands Pulmonary/Cardiac Status: Skin Integrity: Edema: Sensation: Tone/Spasticity: Gross Motor Coordination: Posture: Posture: Forward head, Rounded shoulders CURRENT FUNCTIONAL STATUS: Most recent performance Current Functional Mobility Assist Level Additional Information Rolling Contact Guard Assistance Supine to Sit Minimal Assistance, Additional Information Sit to Supine Scooting Minimal Assistance, Additional Information Sit to Stand Additional Information, Maximal Assistance Stand to Sit Moderate Assistance, Additional Information Bed to Chair Moderate Assistance Bed To Chair Transfer Type: Stepping Bed To Chair Transfer Equipment: Gait Belt Toilet/Commode Gait Minimal Assistance, Additional Information Gait Device: Wheeled Walker Gait Distance (feet): 1x50ft and 2x25 ft Stairs Additional Information, Moderate Assistance Stairs Device: Rail Number of Stairs: 10 Curb Step Moderate Assistance, Additional Information Device: Wheeled Walker Car Transfer Moderate Assistance Blank doherty indicate activity not attempted General Deviations/Observati ons: Flexed trunk posture, Step length decreased, Ellen decreased, Difficulty changing direction/turning, Narrow Base of Support Ramp: up/down ramp with minAx1 and cueing for FWW management. Balance: Static Sitting, Dynamic Sitting, Static Standing, Dynamic Standing Static Sitting Balance: Good Patient able to maintain balance without handhold support, limited postural sway Dynamic Sitting Balance: Fair Patient accepts minimal challenge, able to maintain balance while turning head/trunk Static Standing Balance: Fair Patient able to maintain balance with handhold support, may require occasional minimal assistance Dynamic Standing Balance: Fair Patient accepts minimal challenge, able to maintain balance while turning head/trunk Activity Tolerance: Sitting Activity, Standing Activity Sitting Activity: Pt performed 2x10 hip marches w/ 2# weights, LAQ w/ 2# weights, ankle pumps, hip ABD w/ green band, and hip ADD w/ ball squeeze. Standing Activity: Pt performed car transfer, TUG, 10 stairs, curb step, ramp navigation, ambulation on uneven surfaces, ambulation x 50ft. Functional Performance Test Functional P (more content not included)... 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, pt will most likely need supervision for IADLS Anticipated Discharge Needs: Family Training, Physical Assist at Home, Supervision at Home, Equipment Physical Assist at Home for: Finances, Laundry, Cleaning, Meals, Medication Management, Safety, Stairs, Self Care, Shopping, Transportation Supervision at Home due to: Decreased safety awareness, Impaired cognition Recommended Discharge Equipment: To Be Determined Precautions/Activity Restrictions: Fall Risk, Lines/Tubes/Drains Precaution/Activity Restriction Comments: 2 L NC O2, monitor O2, pt was on room air most of session, needed when laying down, goes by "Evgeny", decreased R side awareness Current Hospital Course: Pt admitted to [facility] rehab for OT/PT/ST services. 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 Found cocaine in urine screen Relevant Past Medical History: DM2 Response to Therapy Interventions: Cognitive Deficits, Coping Deficits, Good Participation in Activities, Low Activity Tolerance, Multiple Ongoing Medical Issues, Needs Frequent Redirection or Reinstruction, Requires Additional Time to Complete Activities Assessment Comments: OT eval completed. Pt is limited due to decreased activity tolerance, decreased safety awareness, flat affect, decreased motivation. Notified RN Ch[place] of pt would benefit from pysch consult due to flat affect. Next session to address R side awareness and activity tolerance. Occupational Therapy Problem List: Impaired Self Care, Cognitive Deficit Cognition/Communicat ion Deficits Communication Deficits: Delayed Response Responsiveness: Awake Follows Commands: 2-step Commands Attention Deficits: Distractible Memory Deficits: Short Term Executive Function Deficits: Safety Awareness, Problem Solving, Motor Planning, Insight to Deficits, Sequencing, Judgement Sequencing Deficit: Moderate impairment Judgement Deficit: Moderate impairment Insight to Deficits: Mild Awareness Problem Solving Deficit: Moderate Impairment Motor Planning Deficit: Moderate impairment Safety Awareness Deficit: Moderate impairment Hand Dominance: Right Range of Motion: ROM Limitation Comments ROM Limitation Comments: limited AROM for B shld though pt inconsistent with command following Strength: Strength Limitation Comments Strength Limitation Comments: noted decreased strength in R UE though was still WFL 3/5 Coordination Deficits: In hand manipulation Vision Deficits: Wears Corrective Lenses Home Environment Patient Lives With: Self/Alone Assistance Available: PRN Comments: son lives close Entry To Home: Stairs, With Rail Number Of Stairs Into Home: 10 Number Of Stairs To Bed/Bath: 0 Tub/Shower Type: tub/shower combo with grabbars and shower chair Laundry: first floor setup, pt was doing Equipment Owned: Walker- Wheeled, Shower Chair, Grab Bars- Shower, Grab Bars- Toilet, Cognitive/Memory Tool, Elevated Toilet Seat Prior Functional Level: Within Functional Limits Prior Functional Level Comments: Per pt I with ADLS/IADLS, used a FWW in community, driving prior. per pt this is the only fall in the last 6 months Occupational Factors Life Roles: Parent, Family Member, Friend Identified Strengths for Life Roles: Access to Healthcare Identified Barriers for Life Roles: Difficulty Coping, Limited Social Support, Difficulty with ADLs/IADLs, Judgment/Awareness, Motivation Subjective: Pt agreeable to OT with min encouragement. CURRENT FUNCTIONAL STATUS: Most recent performance Current Activities of Daily Living Assist Level Additional Information Feeding Grooming Additional Information pt declined to wash face, use mouthrinse or comb hair this date. Bathing Upper Body Additional Information declined to bath due to nrsg. gave pt a shower last night Bathing Lower Body Additional Information declined to bath due to nrsg. gave pt a shower last night Dressing Upper Body Maximal Assistance, Additional Information to coordinate to put B UE through sleeves and over head, pt was able to pull down back Dressing Lower Body Total Assistance, Additional Information for threading B LE and for clothing mgmt Toileting Total Assistance, Additional Information after BM, pt unable to wipe self, attempted, needed assistance with clothing mmgt and hygiene Instrumental Activities of Daily Living Assist Lev (more content not included)... [facility] THERAPY NT HNO ID: [id number] Author: MANUEL MARTINEZ CCC-LITHOGRAPHER APPRENTICE Service: ? Author Type: Speech Language Pathologist Type: Therapy (PT/OT/Speech/Resp) Filed: 01/06/2025 11:13 Note Text: Speech Therapy Speech Evaluation SERVICE DATE: 01/06/2025 SERVICE TIME: 822 ROOM: [id number] IMPRESSION: Communication deficits identified: Cognitive-Linguistic deficits Nursing Recommendations: Reinforce use of cognitive strategies Recommended Discharge Disposition: Continued Skilled Speech Therapy Current Hospital Course: metabolic encephalopathy Reason for Hospital Admission: pt admitted to from [facility] on 01/05/2025. Reason for Speech Therapy Consult: Xmfpge-[id number]-Xjli ition evaluation. Relevant Past Medical History: unknown at this time. Response to Therapy Interventions: Limited participation Speech Therapy Problem List: Cognition Subjective: Pt seen sitting uprigh tin his hospital bed. Pleasant and cooperative at beginning of eval with LITHOGRAPHER APPRENTICE. Cognition Cognitive Status: Within Functional Limits For Current Session Except Cognitive Deficits: Orientation Deficits, Attention Deficit, Memory Deficits, Executive Function Deficit Orientation Deficits: Place, Time, Situation Attention Deficit: Attention Deficit Comments (Pt unable to attend to evaluation without multiple redirections throughout.) Memory Deficits: Short Term, Immediate Executive Function Deficits: Problem Solving, Math Calculations, Time/Money Management, Divergent Naming, Convergent Naming, Reasoning/Inferences Problem Solving Comments: 0% accuracy - even given multiple verbal cues and choices Reasoning/Inferences Comments: 33% Convergent Naming Comments : 60% Divergent Naming Comments : unable to complete task Time/Money Management Comments : 0% Cognitive Clinical Tests and Screens: SLUMS SLUMS Level of Education: High school Orientation (week): 0 Orientation (year): 0 Orientation (state): 1 Calculations: 0 Namin Short-Term Memory: 1 Attention/Sequencing : 0 Visual-Spatial Skills (clock): 0 Visual-Spatial Skills: 1 Attention/Memory: 0 SLUMS Total Score ( /30): 3 Speech/Voice/Languag e Speech Production: Within Functional Limits Voice Assessment: No Expressive and Receptive Language: Within Functional Limits Except Auditory Comprehension Deficits: 3-Step Commands, Complex Yes/No Questions, Paragraph Level Comprehension, Auditory Comprehension Deficit Comments (60% accuracy in Y/n questions, 60% accuracy with 3 step commands, 83% accuracy in paragraph level and auditory comprehension) Patient /Caregiver Goals: Go Home Goals for Plan of Care: Goals: COGNITION: Patient will demonstrate knowledge of taught compensatory strategies for functional cognitive-linguistic skills, SPEECH / LANGUAGE: Patient will demonstrate knowledge of taught compensatory strategies for functional communication Speech Rehab Potential: Fair Patient will be discontinued from speech therapy when no further skilled needs are identified in this setting. PLAN: Planned Interventions: Individual Speech Therapy, Cognitive Training Plan of Care Developed with: Patient TREATMENT INTERVENTIONS: Interventions Provided: Speech Language Eval Training and Education Provided in: Cognitive Linguistic Strategies The following therapeutic skills were used:: Verbal cuing, Visual cuing, Education on role of discipline / importance of activity Home Environment Prior Swallowing Function/Diet Textures: Regular Consistency, Thin Liquids IDDSI Level 0 Please see discipline specific clinical documentation flowsheet for complete details for this therapy evaluation/treatment . 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 PATIENT NAME: Steven Barlow DATE: January 06, 2025 TIME: 11:12 AM [facility] LABORATORYOrdered By: Shravan Dobbs on 01-05-2025 Glucose [Mass/Vol] 260 mg/dL High 82 - 115 mg/dL [facility] LABORATORYOrdered By: Benny Paniagua on 01-05-2025 Blood Glucose Testing Reason Routine (01/05/25 11:17 AM) [facility] Glucose [Mass/Vol] 266 mg/dL High 82 - 115 mg/dL [facility] Blood Glucose Testing Reason Routine (01/05/25 7:37 AM) [facility] Glucose [Mass/Vol] 223 mg/dL High 82 - 115 mg/dL [facility] .GFRon 01-04-2025 Estimated Glomerular Filtration Rate 116 ml/min/1.73sqm Normal [facility] Comment on above: Result Comment: Stages of Chronic Kidney Disease (CKD) Stage Description eGFR(ml/min/1.73 sq.m.) CKD 1 Normal kidney function or >=90 normal kindney function with possible kidney damage (ex. Proteinuria) CKD 2 Kidney damage with mild loss 60-89 of kidney function CKD 3a Mild to moderate loss of kidney 45-59 function CKD 3b Moderate to severe loss of 30-44 of kindey function CKD 4 Severe loss of kidney function 15-29 CKD 5 Kidney failure <15 Note: (go live 2024) the eGFR calculation was updated to the 2020 CKD-EPI creatinine equation without a race factor to calculate the eGFR results. Performed By: #### G FR, MG, CMP #### [facility] [address] [place] [id number] CMPon 01-04-2025 Albumin Level 2.7 G/dL Low 3.2-4.8 [facility] Comment on above: Performed By: #### G FR, MG, CMP #### [place] [address] Albumin/Globulin [Mass ratio] 0.8 {ratio} Low 0.9-1.6 [facility] Comment on above: Performed By: #### G FR MG, CMP #### [place] [id number] ALP [Catalytic activity/Vol] 98 U/L Normal 38-126 [facility] Comment on above: Performed By: #### G FR MG, CMP #### [place] [id number] ALT [Catalytic activity/Vol] 50 U/L Normal 12-55 [facility] Comment on above: Performed By: #### Eva FR MG, CMP #### [place] [id number] AST [Catalytic activity/Vol] 31 U/L Normal 8-34 [facility] Comment on above: Performed By: #### G FR MG, CMP #### [place] [id number] Bili Total 0.50 mg/dL Normal 0.20-1.20 [facility] Comment on above: Result Comment: Use of this assay is not recommended for patients undergoing treatment with eltrombopag due to the potential for falsely elevated results. Performed By: #### Eva FR MG, CMP #### [place] [id number] BUN/Creatinine Ratio 23.3 ratio High 10.0-22.0 [facility] Comment on above: Performed By: #### G FR, MG, CMP #### [place] [id number] Calcium [Mass/Vol] 9.0 mg/dL Normal 8.7-10.4 [facility] Comment on above: Performed By: #### G FR, MG, CMP #### [place] [id number] Chloride [Moles/Vol] 99 mmol/L Normal 98-110 [facility] Comment on above: Performed By: #### G FR, MG, CMP #### [place] [id number] CO2 [Moles/Vol] 31 mmol/L Normal 22-32 [facility] Comment on above: Performed By: #### G FR MG, CMP #### [place] [id number] Creatinine [Mass/Vol] 0.43 mg/dL Low 0.60-1.40 [facility] Comment on above: Result Comment: Test ing performed on Good Thing analyzer using enzymatic creatinine methodology. Performed By: #### G FR, MG, CMP #### [place] [id number] Electrolyte Balance 8.0 mEq/L Normal 4.0-15.0 [facility] Comment on above: Performed By: #### G FR MG, CMP #### [place] [id number] Globulin 3.6 G/dL Normal 2.5-4.2 [facility] Comment on above: Performed By: #### G FR, MG, CMP #### [place] [id number] Glucose [Mass/Vol] 228 mg/dL High 82-115 [facility] Comment on above: Performed By: #### G FR MG, CMP #### [place] [id number] Potassium [Moles/Vol] 3.8 mmol/L Normal 3.5-5.0 [facility] Comment on above: Performed By: #### G FR, MG, CMP #### [place] [id number] Sodium [Moles/Vol] 138 mmol/L Normal 136-145 [facility] Comment on above: Performed By: #### G FR, MG, CMP #### [place] [id number] Total Protein 6.3 G/dL Normal 5.7-8.2 [facility] Comment on above: Performed By: #### G FR, MG, CMP #### [place] [id number] Urea nitrogen [Mass/Vol] 10.0 mg/dL Normal 8.0-22.0 [facility] Comment on above: Performed By: #### G FR, MG, CMP #### [facility] [address] [place] [address] LABORATORYOrdered By: Jorge Weir on 01-04-2025 Blood Glucose Testing Reason Routine (01/04/25 9:26 PM) [facility] LABORATORYOrdered By: SYSTEM SYSTEM on 01-04-2025 Albumin BCP dye [Mass/Vol] 2.7 G/dL Low 3.2 - 4.8 G/dL [facility] AD[facility] Albumin/Globulin [Mass ratio] 0.8 {ratio} Low 0.9 - 1.6 ratio AH ADM SS ALP [Catalytic activity/Vol] 98 U/L Normal 38 - 126 U/L [facility] AD[facility] ALT No additional P-5'-P [Catalytic activity/Vol] 50 U/L Normal 12 - 55 U/L [facility] AST [Catalytic activity/Vol] 31 U/L Normal 8 - 34 U/L [facility] Bilirubin [Mass/Vol] 0.50 mg/dL Normal 0.20 - 1.20 mg/dL [facility] Comment on above: Interpretive Data: U se of this assay is not recommended for patients undergoing treatment with eltrombopag due to the potential for falsely elevated results. Calcium [Mass/Vol] 9.0 mg/dL Normal 8.7 - 10. 4 mg/dL [facility] Chloride [Moles/Vol] 99 mmol/L Normal 98 - 11 0 mEq/L [facility] CO2 [Moles/Vol] 31 mmol/L Normal 22 - 32 mEq/L [facility] Creatinine [Mass/Vol] 0.43 mg/dL Low 0.60 - 1.40 mg/dL [facility] AD[facility] SS Comment on above: Interpretive Data: T esting performed on [employer] Thing analyzer using enzymatic creatinine methodology. Electrolyte Balance 8.0 mEq/L Normal 4.0 - 15 .0 mEq/L [facility] AD[facility] SS Globulin 3.6 G/dL Normal 2.5 - 4.2 G/dL [facility] ADM SS GLOMERULAR FILTRATION RATE/1.73 SQ M.PREDICTED:ARVRAT:PT :SER/PLAS/BLD:QN:CREA TININE-BASED FORMULA (CKD-EPI 2020) 116 ml/min/1.73sqm Invalid Interpretation Code Chemistry S Comment on above: Interpretive Data: Stages of Chronic Kidney Disease (CKD) Stage Description eGFR(ml/min/1.73 sq.m.) CKD 1 Normal kidney function or >=90 normal kindney function with possible kidney damage (ex. Proteinuria) CKD 2 Kidney damage with mild loss 60-89 of kidney function CKD 3a Mild to moderate loss of kidney 45-59 function CKD 3b Moderate to severe loss of 30-44 of kindey function CKD 4 Severe loss of kidney function 15-29 CKD 5 Kidney failure <15 Note: (go live 2024) the eGFR calculation was updated to the 2020 CKD-EPI creatinine equation without a race factor to calculate the eGFR results. Glucose [Mass/Vol] 228 mg/dL High 82 - 115 mg/dL ADM SS Magnesium [Mass/Vol] 1.9 mg/dL Normal 1.6 - 2 .4 mg/dL ADM SS Potassium [Moles/Vol] 3.8 mmol/L Normal 3.5 - 5.0 mEq/L ADM SS Protein [Mass/Vol] 6.3 G/dL Normal 5.7 - 8.2 G/dL ADM SS Sodium [Moles/Vol] 138 mmol/L Normal 136 - 145 mEq/L ADM SS Urea nitrogen [Mass/Vol] 10.0 mg/dL Normal 8.0 - 22.0 mg/dL ADM SS Urea nitrogen/Creatinine [Mass ratio] 23.3 ratio High 10.0 - 22.0 ratio ADM SS MGon 01-04-2025 Magnesium [Mass/Vol] 1.9 mg/dL Normal 1.6-2.4 [facility] Comment on above: Performed By: #### G FR, MG, CMP #### [place] [address] .GFRon 01-03-2025 Estimated Glomerular Filtration Rate 117 ml/min/1.73sqm Normal [facility] Comment on above: Result Comment: Stages of Chronic Kidney Disease (CKD) Stage Description eGFR(ml/min/1.73 sq.m.) CKD 1 Normal kidney function or >=90 normal kindney function with possible kidney damage (ex. Proteinuria) CKD 2 Kidney damage with mild loss 60-89 of kidney function CKD 3a Mild to moderate loss of kidney 45-59 function CKD 3b Moderate to severe loss of 30-44 of kindey function CKD 4 Severe loss of kidney function 15-29 CKD 5 Kidney failure <15 Note: (go live 2024) the eGFR calculation was updated to the 2020 CKD-EPI creatinine equation without a race factor to calculate the eGFR results. Performed By: #### A MADDIE, CMP, CBC, ADIFF, GFR, MG, CK #### [place] [id number] CMPon 01-03-2025 Albumin Level 2.5 G/dL Low 3.2-4.8 [facility] Comment on above: Performed By: #### A MADDIE, CMP, CBC, ADIFF, GFR, MG, CK #### [place] [id number] Albumin/Globulin [Mass ratio] 0.8 {ratio} Low 0.9-1.6 [facility] Comment on above: Performed By: #### A MADDIE, CMP, CBC, ADIFF, GFR, MG, CK #### [place] [id number] ALP [Catalytic activity/Vol] 91 U/L Normal 38-126 [facility] Comment on above: Performed By: #### A MADDIE, CMP, CBC, ADIFF, GFR, MG, CK #### [place] [id number] ALT [Catalytic activity/Vol] 46 U/L Normal 12-55 [facility] Comment on above: Performed By: #### A MADDIE, CMP, CBC, ADIFF, GFR, MG, CK #### [place] [id number] AST [Catalytic activity/Vol] 37 U/L High 8-34 [facility] Comment on above: Performed By: #### A MADDIE, CMP, CBC, ADIFF, GFR, MG, CK #### [place] [id number] Bili Total 0.40 mg/dL Normal 0.20-1.20 [facility] Comment on above: Result Comment: Use of this assay is not recommended for patients undergoing treatment with eltrombopag due to the potential for falsely elevated results. Performed By: #### A MADDIE, CMP, CBC, ADIFF, GFR, MG, CK #### [place] [id number] BUN/Creatinine Ratio 24.4 ratio High 10.0-22.0 [facility] Comment on above: Performed By: #### A MADDIE, CMP, CBC, ADIFF, GFR, MG, CK #### [place] [id number] Calcium [Mass/Vol] 8.8 mg/dL Normal 8.7-10.4 [facility] Comment on above: Performed By: #### A MADDIE, CMP, CBC, ADIFF, GFR, MG, CK #### [place] [id number] Chloride [Moles/Vol] 101 mmol/L Normal 98-110 [facility] Comment on above: Performed By: #### A MADDIE, CMP, CBC, ADIFF, GFR, MG, CK #### [place] [id number] CO2 [Moles/Vol] 31 mmol/L Normal 22-32 [facility] Comment on above: Performed By: #### A MADDIE, CMP, CBC, ADIFF, GFR, MG, CK #### [place] [id number] Creatinine [Mass/Vol] 0.41 mg/dL Low 0.60-1.40 [facility] Comment on above: Result Comment: Test ing performed on [employer] analyzer using enzymatic creatinine methodology. Performed By: #### A MADDIE, CMP, CBC, ADIFF, GFR, MG, CK #### [place] [id number] Electrolyte Balance 7.0 mEq/L Normal 4.0-15.0 [facility] Comment on above: Performed By: #### A MADDIE, CMP, CBC, ADIFF, GFR, MG, CK #### [place] [id number] Globulin 3.3 G/dL Normal 2.5-4.2 [facility] Comment on above: Performed By: #### A MADDIE, CMP, CBC, ADIFF, GFR, MG, CK #### [address] [address] Glucose [Mass/Vol] 228 mg/dL High 82-115 [facility] Comment on above: Performed By: #### A MADDIE, CMP, CBC, ADIFF, GFR, MG, CK #### [address] [address] Potassium [Moles/Vol] 3.7 mmol/L Normal 3.5-5.0 [facility] Comment on above: Performed By: #### A MADDIE, CMP, CBC, ADIFF, GFR, MG, CK #### [address] [address] Sodium [Moles/Vol] 139 mmol/L Normal 136-145 [facility] Comment on above: Performed By: #### A MADDIE, CMP, CBC, ADIFF, GFR, MG, CK #### [place] [address] Total Protein 5.8 G/dL Normal 5.7-8.2 [facility] Comment on above: Performed By: #### A MADDIE, CMP, CBC, ADIFF, GFR, MG, CK #### [place] [address] Urea nitrogen [Mass/Vol] 10.0 mg/dL Normal 8.0-22.0 [facility] Comment on above: Performed By: #### A MADDIE, CMP, CBC, ADIFF, GFR, MG, CK #### [address] [address] LABORATORYOrdered By: SYSTEM SYSTEM on 01-03-2025 Albumin BCP dye [Mass/Vol] 2.5 G/dL Low 3.2 - 4.8 G/dL ADM SS Albumin/Globulin [Mass ratio] 0.8 {ratio} Low 0.9 - 1.6 ratio AH ADM SS ALP [Catalytic activity/Vol] 91 U/L Normal 38 - 126 U/L ADM SS ALT No additional P-5'-P [Catalytic activity/Vol] 46 U/L Normal 12 - 55 U/L ADM SS AST [Catalytic activity/Vol] 37 U/L High 8 - 34 U/L AH ADM SS Bilirubin [Mass/Vol] 0.40 mg/dL Normal 0.20 - 1.20 mg/dL AH ADM SS Comment on above: Interpretive Data: U se of this assay is not recommended for patients undergoing treatment with eltrombopag due to the potential for falsely elevated results. Calcium [Mass/Vol] 8.8 mg/dL Normal 8.7 - 10. 4 mg/dL AH ADM SS Chloride [Moles/Vol] 101 mmol/L Normal 98 - 11 0 mEq/L AH ADM SS CO2 [Moles/Vol] 31 mmol/L Normal 22 - 32 mEq/L AH ADM SS Creatinine [Mass/Vol] 0.41 mg/dL Low 0.60 - 1.40 mg/dL AH ADM SS Comment on above: Interpretive Data: T esting performed on [employer] analyzer using enzymatic creatinine methodology. Electrolyte Balance 7.0 mEq/L Normal 4.0 - 15 .0 mEq/L ADM SS Globulin 3.3 G/dL Normal 2.5 - 4.2 G/dL ADM SS GLOMERULAR FILTRATION RATE/1.73 SQ M.PREDICTED:ARVRAT:PT :SER/PLAS/BLD:QN:CREA TININE-BASED FORMULA (CKD-EPI 2020) 117 ml/min/1.73sqm Invalid Interpretation Code Chemistry S Comment on above: Interpretive Data: Stages of Chronic Kidney Disease (CKD) Stage Description eGFR(ml/min/1.73 sq.m.) CKD 1 Normal kidney function or >=90 normal kindney function with possible kidney damage (ex. Proteinuria) CKD 2 Kidney damage with mild loss 60-89 of kidney function CKD 3a Mild to moderate loss of kidney 45-59 function CKD 3b Moderate to severe loss of 30-44 of kindey function CKD 4 Severe loss of kidney function 15-29 CKD 5 Kidney failure <15 Note: (go live 2024) the eGFR calculation was updated to the 2020 CKD-EPI creatinine equation without a race factor to calculate the eGFR results. Glucose [Mass/Vol] 228 mg/dL High 82 - 115 mg/dL AH ADM SS Magnesium [Mass/Vol] 1.9 mg/dL Normal 1.6 - 2 .4 mg/dL AH ADM SS Potassium [Moles/Vol] 3.7 mmol/L Normal 3.5 - 5.0 mEq/L ADM SS Protein [Mass/Vol] 5.8 G/dL Normal 5.7 - 8.2 G/dL ADM SS Sodium [Moles/Vol] 139 mmol/L Normal 136 - 145 mEq/L ADM SS Urea nitrogen [Mass/Vol] 10.0 mg/dL Normal 8.0 - 22.0 mg/dL ADM SS Urea nitrogen/Creatinine [Mass ratio] 24.4 ratio High 10.0 - 22.0 ratio AH ADM SS MGon 01-03-2025 Magnesium [Mass/Vol] 1.9 mg/dL Normal 1.6-2.4 [facility] Comment on above: Performed By: #### A AMDDIE, CMP, CBC, ADIFF, GFR, MG, CK #### [address] [address] .Auto Diffon 01-02-2025 Basophil, Absolute 0.0 10 3/mcL Normal 0.0-0.3 [facility] Comment on above: Performed By: #### G FR, MG, CMP #### [address] [address] Basophils/100 WBC (Bld) 0.5 % Normal 0.0-2.5 [facility] Comment on above: Performed By: #### G FR, MG, CMP #### [address] [address] Eosinophil, Absolute 0.3 10 3/mcL Normal 0.0-0.7 [facility] Comment on above: Performed By: #### G FR, MG, CMP #### [address] [address] Eosinophils/100 WBC (Bld) 3.9 % Normal 0.0-6.0 [facility] Comment on above: Performed By: #### G FR, MG, CMP #### [address] [address] Lymphocyte, Absolute 1.0 10 3/mcL Normal 0.9-4.3 [facility] Comment on above: Performed By: #### G FR, MG, CMP #### [address] [address] Lymphocytes/100 WBC (Bld) 14.4 % Low 20.0-40.0 [facility] Comment on above: Performed By: #### G FR, MG, CMP #### [facility] [address] [place] [address] Monocyte, Absolute 0.9 10 3/mcL Normal 0.1-1.4 [facility] Comment on above: Performed By: #### G FR, MG, CMP #### [facility] [address] [place] [address] Monocytes/100 WBC (Bld) 12.7 % Normal 2.0-13.0 [facility] Comment on above: Performed By: #### G FR, MG, CMP #### [address] [address] Neutrophils/100 WBC (Bld) 68.5 % Normal 50.0-75.0 [facility] Comment on above: Performed By: #### G FR, MG, CMP #### [address] [address] .GFRon 01-02-2025 Estimated Glomerular Filtration Rate 120 ml/min/1.73sqm Normal [facility] Comment on above: Result Comment: Stages of Chronic Kidney Disease (CKD) Stage Description eGFR(ml/min/1.73 sq.m.) CKD 1 Normal kidney function or >=90 normal kindney function with possible kidney damage (ex. Proteinuria) CKD 2 Kidney damage with mild loss 60-89 of kidney function CKD 3a Mild to moderate loss of kidney 45-59 function CKD 3b Moderate to severe loss of 30-44 of kindey function CKD 4 Severe loss of kidney function 15-29 CKD 5 Kidney failure <15 Note: (go live 2024) the eGFR calculation was updated to the 2020 CKD-EPI creatinine equation without a race factor to calculate the eGFR results. Performed By: #### G FR, MG, CMP #### [facility] [address] [place] [address] .NEUABSon 01-02-2025 Neutrophil, Absolute 4.8 10 3/mcL Normal 2.3-8.1 [facility] Comment on above: Performed By: #### G FR, MG, CMP #### [address] [address] CBCon 01-02-2025 Erythrocyte distribution width (RBC) [Ratio] 15.0 % Normal 11.5-15.5 [facility] Comment on above: Performed By: #### Eva KIRBY MG, CMP #### [place] [address] Hematocrit (Bld) [Volume fraction] 43.5 % Normal 40.0-52.0 [facility] Comment on above: Performed By: #### Eva KIRBY MG, CMP #### [place] [address] Hgb 14.3 G/dL Normal 13.0-17.5 [facility] Comment on above: Performed By: #### Eva KIRBY MG, CMP #### [place] [address] MCH (RBC) [Entitic mass] 29.1 pg Normal 27.0-33.0 [facility] Comment on above: Performed By: #### Eva KIRBY MG, CMP #### [place] [address] MCHC 32.8 G/dL Normal 32.0-36.0 [facility] Comment on above: Performed By: #### Eva KIRBY MG, CMP #### [place] [address] MCV (RBC) [Entitic vol] 88.8 fL Normal 81.0-100.0 [facility] Comment on above: Performed By: #### Eva FR MG, CMP #### [place] [address] Platelet 212 10 3/mcL Normal 150-450 [facility] Comment on above: Performed By: #### Eva FR MG, CMP #### [place] [id number] Platelet mean volume (Bld) [Entitic vol] 8.3 fL Normal 6.4-10.5 [facility] Comment on above: Performed By: #### Eva FR MG, CMP #### [place] [address] RBC 4.90 10 6/mcL Normal 4.50-6.00 [facility] Comment on above: Performed By: #### G FR, MG, CMP #### [place] [address] WBC 7.0 10 3/mcL Normal 4.5-10.8 [facility] Comment on above: Performed By: #### G FR, MG, CMP #### [place] [address] CMPon 01-02-2025 Albumin Level 2.5 G/dL Low 3.2-4.8 [facility] Comment on above: Performed By: #### G FR, MG, CMP #### [place] [address] Albumin/Globulin [Mass ratio] 0.7 {ratio} Low 0.9-1.6 [facility] Comment on above: Performed By: #### Eva FR, MG, CMP #### [place] [address] ALP [Catalytic activity/Vol] 97 U/L Normal 38-126 [facility] Comment on above: Performed By: #### G FR, MG, CMP #### [place] [address] ALT [Catalytic activity/Vol] 36 U/L Normal 12-55 [facility] Comment on above: Performed By: #### G FR, MG, CMP #### [place] [address] AST [Catalytic activity/Vol] 19 U/L Normal 8-34 [facility] Comment on above: Performed By: #### G FR, MG, CMP #### [place] [address] Bili Total 0.40 mg/dL Normal 0.20-1.20 [facility] Comment on above: Result Comment: Use of this assay is not recommended for patients undergoing treatment with eltrombopag due to the potential for falsely elevated results. Performed By: #### G FR, MG, CMP #### [place] [address] BUN/Creatinine Ratio 31.6 ratio High 10.0-22.0 [facility] Comment on above: Performed By: #### G FR, MG, CMP #### [place] [address] Calcium [Mass/Vol] 8.6 mg/dL Low 8.7-10.4 [facility] Comment on above: Performed By: #### G FR, MG, CMP #### [place] [id number] Chloride [Moles/Vol] 99 mmol/L Normal 98-110 [facility] Comment on above: Performed By: #### G FR, MG, CMP #### [place] [id number] CO2 [Moles/Vol] 33 mmol/L High 22-32 [facility] Comment on above: Performed By: #### G FR, MG, CMP #### [place] [id number] Creatinine [Mass/Vol] 0.38 mg/dL Low 0.60-1.40 [facility] Comment on above: Result Comment: Test ing performed on [employer] analyzer using enzymatic creatinine methodology. Performed By: #### G FR, MG, CMP #### [place] [address] Electrolyte Balance 9.0 mEq/L Normal 4.0-15.0 [facility] Comment on above: Performed By: #### G FR, MG, CMP #### [address] [address] Globulin 3.4 G/dL Normal 2.5-4.2 [facility] Comment on above: Performed By: #### G FR, MG, CMP #### [place] [id number] Glucose [Mass/Vol] 291 mg/dL High 82-115 [facility] Comment on above: Performed By: #### G FR, MG, CMP #### [place] [address] Potassium [Moles/Vol] 3.3 mmol/L Low 3.5-5.0 [facility] Comment on above: Performed By: #### G FR, MG, CMP #### [facility] [address] [place] [address] Sodium [Moles/Vol] 141 mmol/L Normal 136-145 [facility] Comment on above: Performed By: #### G FR, MG, CMP #### [facility] [address] [place] [address] Total Protein 5.9 G/dL Normal 5.7-8.2 [facility] Comment on above: Performed By: #### G FR, MG, CMP #### [facility] [address] [place] [address] Urea nitrogen [Mass/Vol] 12.0 mg/dL Normal 8.0-22.0 [facility] Comment on above: Performed By: #### G FR, MG, CMP #### [address] [address] LABORATORYOrdered By: SYSTEM SYSTEM on 01-02-2025 Albumin BCP dye [Mass/Vol] 2.5 G/dL Low 3.2 - 4.8 G/dL ADM SS Albumin/Globulin [Mass ratio] 0.7 {ratio} Low 0.9 - 1.6 ratio ADM SS ALP [Catalytic activity/Vol] 97 U/L Normal 38 - 126 U/L ADM SS ALT No additional P-5'-P [Catalytic activity/Vol] 36 U/L Normal 12 - 55 U/L ADM SS AST [Catalytic activity/Vol] 19 U/L Normal 8 - 34 U/L ADM SS Basophils (Bld) [#/Vol] 0.0 103/mcL Normal 0.0 - 0.3 10^3/mcL Workflow SS Basophils/100 WBC (Bld) 0.5 % Normal 0.0 - 2.5 % Workflow SS Bilirubin [Mass/Vol] 0.40 mg/dL Normal 0.20 - 1.20 mg/dL ADM SS Comment on above: Interpretive Data: U se of this assay is not recommended for patients undergoing treatment with eltrombopag due to the potential for falsely elevated results. Calcium [Mass/Vol] 8.6 mg/dL Low 8.7 - 10. 4 mg/dL AH ADM SS Chloride [Moles/Vol] 99 mmol/L Normal 98 - 11 0 mEq/L AH ADM SS CO2 [Moles/Vol] 33 mmol/L High 22 - 32 mEq/L AH ADM SS Creatinine [Mass/Vol] 0.38 mg/dL Low 0.60 - 1.40 mg/dL AH ADM SS Comment on above: Interpretive Data: T esting performed on [employer] analyzer using enzymatic creatinine methodology. Electrolyte Balance 9.0 mEq/L Normal 4.0 - 15 .0 mEq/L ADM SS Eosinophils (Bld) [#/Vol] 0.3 103/mcL Normal 0.0 - 0.7 10^3/mcL Workflow SS Eosinophils/100 WBC (Bld) 3.9 % Normal 0.0 - 6.0 % Workflow SS Erythrocyte distribution width (RBC) [Ratio] 15.0 % Normal 11.5 - 15.5 % Workflow SS Globulin 3.4 G/dL Normal 2.5 - 4.2 G/dL ADM SS GLOMERULAR FILTRATION RATE/1.73 SQ M.PREDICTED:ARVRAT:PT :SER/PLAS/BLD:QN:CREA TININE-BASED FORMULA (CKD-EPI 2020) 120 ml/min/1.73sqm Invalid Interpretation Code Chemistry S Comment on above: Interpretive Data: Stages of Chronic Kidney Disease (CKD) Stage Description eGFR(ml/min/1.73 sq.m.) CKD 1 Normal kidney function or >=90 normal kindney function with possible kidney damage (ex. Proteinuria) CKD 2 Kidney damage with mild loss 60-89 of kidney function CKD 3a Mild to moderate loss of kidney 45-59 function CKD 3b Moderate to severe loss of 30-44 of kindey function CKD 4 Severe loss of kidney function 15-29 CKD 5 Kidney failure <15 Note: (go live 2024) the eGFR calculation was updated to the 2020 CKD-EPI creatinine equation without a race factor to calculate the eGFR results. Glucose [Mass/Vol] 291 mg/dL High 82 - 115 mg/dL ADM SS Hematocrit (Bld) [Volume fraction] 43.5 % Normal 40.0 - 52.0 % Workflow SS Hemoglobin (Bld) [Mass/Vol] 14.3 G/dL Normal 13.0 - 17.5 G/dL Workflow SS Lymphocytes (Bld) [#/Vol] 1.0 103/mcL Normal 0.9 - 4.3 10^3/mcL AH Workflow SS Lymphocytes/100 WBC (Bld) 14.4 % Low 20.0 - 40.0 % AH Workflow SS Magnesium [Mass/Vol] 1.9 mg/dL Normal 1.6 - 2 .4 mg/dL AH ADM SS MCH (RBC) [Entitic mass] 29.1 pg Normal 27.0 - 33.0 pg AH Workflow SS MCHC 32.8 G/dL Normal 32.0 - 36.0 G/dL AH Workflow SS MCV (RBC) [Entitic vol] 88.8 fL Normal 81.0 - 100.0 fL AH Workflow SS Monocytes (Bld) [#/Vol] 0.9 103/mcL Normal 0.1 - 1.4 10^3/mcL AH Workflow SS Monocytes/100 WBC (Bld) 12.7 % Normal 2.0 - 13.0 % AH Workflow SS Neutrophils (Bld) [#/Vol] 4.8 103/mcL Normal 2.3 - 8.1 10^3/mcL AH Workflow SS Neutrophils/100 WBC (Bld) 68.5 % Normal 50.0 - 75.0 % AH Workflow SS Platelet mean volume (Bld) [Entitic vol] 8.3 fL Normal 6.4 - 10.5 fL AH Workflow SS Platelets (Bld) [#/Vol] 212 103/mcL Normal 150 - 450 10^3/mcL AH Workflow SS Potassium [Moles/Vol] 3.3 mmol/L Low 3.5 - 5.0 mEq/L AH ADM SS Protein [Mass/Vol] 5.9 G/dL Normal 5.7 - 8.2 G/dL AH ADM SS RBC (Bld) [#/Vol] 4.90 106/mcL Normal 4.50 - 6.0 0 10^6/mcL AH Workflow SS Sodium [Moles/Vol] 141 mmol/L Normal 136 - 145 mEq/L AH ADM SS Urea nitrogen [Mass/Vol] 12.0 mg/dL Normal 8.0 - 22.0 mg/dL AH ADM SS Urea nitrogen/Creatinine [Mass ratio] 31.6 ratio High 10.0 - 22.0 ratio AH ADM SS WBC (Bld) [#/Vol] 7.0 103/mcL Normal 4.5 - 10.8 10^3/mcL AH Workflow SS MGon 01-02-2025 Magnesium [Mass/Vol] 1.9 mg/dL Normal 1.6-2.4 [facility] Comment on above: Performed By: #### G FR, MG, CMP #### [address] [address] .Auto Diffon 01-01-2025 Basophil, Absolute 0.1 10 3/mcL Normal 0.0-0.3 [facility] Comment on above: Performed By: #### A MADDIE, CMP, CBC, ADIFF, GFR, MG, CK #### [address] [address] Basophils/100 WBC (Bld) 0.7 % Normal 0.0-2.5 [facility] Comment on above: Performed By: #### A MADDIE, CMP, CBC, ADIFF, GFR, MG, CK #### [address] [address] Eosinophil, Absolute 0.3 10 3/mcL Normal 0.0-0.7 [facility] Comment on above: Performed By: #### A MADDIE, CMP, CBC, ADIFF, GFR, MG, CK #### [address] [address] Eosinophils/100 WBC (Bld) 3.7 % Normal 0.0-6.0 [facility] Comment on above: Performed By: #### A MADDIE, CMP, CBC, ADIFF, GFR, MG, CK #### [address] [address] Lymphocyte, Absolute 0.8 10 3/mcL Low 0.9-4.3 [facility] Comment on above: Performed By: #### A MADDIE, CMP, CBC, ADIFF, GFR, MG, CK #### [address] [address] Lymphocytes/100 WBC (Bld) 11.6 % Low 20.0-40.0 [facility] Comment on above: Performed By: #### A MADDIE, CMP, CBC, ADIFF, GFR, MG, CK #### [address] [address] Monocyte, Absolute 0.7 10 3/mcL Normal 0.1-1.4 [facility] Comment on above: Performed By: #### A MADDIE, CMP, CBC, ADIFF, GFR, MG, CK #### [place] [id number] [place] [address] Monocytes/100 WBC (Bld) 9.6 % Normal 2.0-13.0 [facility] Comment on above: Performed By: #### A MADDIE, CMP, CBC, ADIFF, GFR, MG, CK #### [address] [address] Neutrophils/100 WBC (Bld) 74.4 % Normal 50.0-75.0 [facility] Comment on above: Performed By: #### A MADDIE, CMP, CBC, ADIFF, GFR, MG, CK #### [address] [address] .GFRon 01-01-2025 Estimated Glomerular Filtration Rate 116 ml/min/1.73sqm Normal [facility] Comment on above: Result Comment: Stages of Chronic Kidney Disease (CKD) Stage Description eGFR(ml/min/1.73 sq.m.) CKD 1 Normal kidney function or >=90 normal kindney function with possible kidney damage (ex. Proteinuria) CKD 2 Kidney damage with mild loss 60-89 of kidney function CKD 3a Mild to moderate loss of kidney 45-59 function CKD 3b Moderate to severe loss of 30-44 of kindey function CKD 4 Severe loss of kidney function 15-29 CKD 5 Kidney failure <15 Note: (go live 2024) the eGFR calculation was updated to the 2020 CKD-EPI creatinine equation without a race factor to calculate the eGFR results. Performed By: #### A MADDIE, CMP, CBC, ADIFF, GFR, MG, CK #### [address] [address] .NEUABSon 01-01-2025 Neutrophil, Absolute 5.4 10 3/mcL Normal 2.3-8.1 [facility] Comment on above: Performed By: #### A MADDIE, CMP, CBC, ADIFF, GFR, MG, CK #### [address] [address] CBCon 01-01-2025 Erythrocyte distribution width (RBC) [Ratio] 14.6 % Normal 11.5-15.5 [facility] Comment on above: Performed By: #### A MADDIE, CMP, CBC, ADIFF, GFR, MG, CK #### [place] [address] Hematocrit (Bld) [Volume fraction] 44.5 % Normal 40.0-52.0 [facility] Comment on above: Performed By: #### A MADDIE, CMP, CBC, ADIFF, GFR, MG, CK #### [place] [address] Hgb 15.0 G/dL Normal 13.0-17.5 [facility] Comment on above: Performed By: #### A MADDIE, CMP, CBC, ADIFF, GFR, MG, CK #### [place] [address] MCH (RBC) [Entitic mass] 29.8 pg Normal 27.0-33.0 [facility] Comment on above: Performed By: #### A MADDIE, CMP, CBC, ADIFF, GFR, MG, CK #### [place] [address] MCHC 33.6 G/dL Normal 32.0-36.0 [facility] Comment on above: Performed By: #### A MADDIE, CMP, CBC, ADIFF, GFR, MG, CK #### [place] [address] MCV (RBC) [Entitic vol] 88.6 fL Normal 81.0-100.0 [facility] Comment on above: Performed By: #### A MADDIE, CMP, CBC, ADIFF, GFR, MG, CK #### [place] [address] Platelet 192 10 3/mcL Normal 150-450 [facility] Comment on above: Performed By: #### A MADDIE, CMP, CBC, ADIFF, GFR, MG, CK #### [place] [address] Platelet mean volume (Bld) [Entitic vol] 7.8 fL Normal 6.4-10.5 [facility] Comment on above: Performed By: #### A MADDIE, CMP, CBC, ADIFF, GFR, MG, CK #### [address] [address] RBC 5.02 10 6/mcL Normal 4.50-6.00 [facility] Comment on above: Performed By: #### A MADDIE, CMP, CBC, ADIFF, GFR, MG, CK #### [place] [id number] WBC 7.3 10 3/mcL Normal 4.5-10.8 [facility] [facility] Comment on above: Performed By: #### A MADDIE, CMP, CBC, ADIFF, GFR, MG, CK #### [place] [address] CKon 01-01-2025 CK [Catalytic activity/Vol] 127 U/L Normal 7-185 [facility] Comment on above: Performed By: #### A MADDIE, CMP, CBC, ADIFF, GFR, MG, CK #### [place] [address] CMPon 01-01-2025 Albumin Level 2.7 G/dL Low 3.2-4.8 [facility] Comment on above: Performed By: #### A MADDIE, CMP, CBC, ADIFF, GFR, MG, CK #### [place] [address] Albumin/Globulin [Mass ratio] 0.8 {ratio} Low 0.9-1.6 [facility] Comment on above: Performed By: #### A MADDIE, CMP, CBC, ADIFF, GFR, MG, CK #### [place] [id number] ALP [Catalytic activity/Vol] 103 U/L Normal 38-126 [facility] Comment on above: Performed By: #### A MADDIE, CMP, CBC, ADIFF, GFR, MG, CK #### [place] [address] ALT [Catalytic activity/Vol] 42 U/L Normal 12-55 [facility] Comment on above: Performed By: #### A MADDIE, CMP, CBC, ADIFF, GFR, MG, CK #### [address] [address] AST [Catalytic activity/Vol] 24 U/L Normal 8-34 [facility] Comment on above: Performed By: #### A MADDIE, CMP, CBC, ADIFF, GFR, MG, CK #### [address] [address] Bili Total 0.30 mg/dL Normal 0.20-1.20 [facility] Comment on above: Result Comment: Use of this assay is not recommended for patients undergoing treatment with eltrombopag due to the potential for falsely elevated results. Performed By: #### A MADDIE, CMP, CBC, ADIFF, GFR, MG, CK #### [place] [id number] BUN/Creatinine Ratio 20.9 ratio Normal 10.0-22.0 [facility] MAIN Comment on above: Performed By: #### A MADDIE, CMP, CBC, ADIFF, GFR, MG, CK #### [address] [address] Calcium [Mass/Vol] 8.8 mg/dL Normal 8.7-10.4 [facility] MAIN Comment on above: Performed By: #### A MADDIE, CMP, CBC, ADIFF, GFR, MG, CK #### [address] [address] Chloride [Moles/Vol] 100 mmol/L Normal 98-110 [facility] Comment on above: Performed By: #### A MADDIE, CMP, CBC, ADIFF, GFR, MG, CK #### [address] [address] CO2 [Moles/Vol] 35 mmol/L High 22-32 [facility] Comment on above: Performed By: #### A MADDIE, CMP, CBC, ADIFF, GFR, MG, CK #### [address] [address] Creatinine [Mass/Vol] 0.43 mg/dL Low 0.60-1.40 [facility] Comment on above: Result Comment: Test ing performed on [employer] CH analyzer using enzymatic creatinine methodology. Performed By: #### A MADDIE, CMP, CBC, ADIFF, GFR, MG, CK #### [address] [address] Electrolyte Balance 7.0 mEq/L Normal 4.0-15.0 [facility] MAIN Comment on above: Performed By: #### A MADDIE, CMP, CBC, ADIFF, GFR, MG, CK #### [address] [address] Globulin 3.5 G/dL Normal 2.5-4.2 [facility] Comment on above: Performed By: #### A MADDIE, CMP, CBC, ADIFF, GFR, MG, CK #### [address] [address] Glucose [Mass/Vol] 217 mg/dL High 82-115 [facility] MA[facility] Comment on above: Performed By: #### A MADDIE, CMP, CBC, ADIFF, GFR, MG, CK #### [address] [address] Potassium [Moles/Vol] 3.4 mmol/L Low 3.5-5.0 [facility] Comment on above: Performed By: #### A MADDIE, CMP, CBC, ADIFF, GFR, MG, CK #### [address] [address] Sodium [Moles/Vol] 142 mmol/L Normal 136-145 [facility] MAIN Comment on above: Performed By: #### A MADDIE, CMP, CBC, ADIFF, GFR, MG, CK #### [address] [address] Total Protein 6.2 G/dL Normal 5.7-8.2 [facility] Comment on above: Performed By: #### A MADDIE, CMP, CBC, ADIFF, GFR, MG, CK #### [address] [address] Urea nitrogen [Mass/Vol] 9.0 mg/dL Normal 8.0-22.0 [facility] Comment on above: Performed By: #### A MADDIE, CMP, CBC, ADIFF, GFR, MG, CK #### [place] [id number] [address] [place] [address] LABORATORYOrdered By: SYSTEM SYSTEM on 01-01-2025 Basophils (Bld) [#/Vol] 0.1 103/mcL Normal 0.0 - 0.3 10^3/mcL AH Workflow SS Basophils/100 WBC (Bld) 0.7 % Normal 0.0 - 2.5 % AH Workflow SS CK [Catalytic activity/Vol] 127 U/L Normal 7 - 185 U/L AH ADM SS Eosinophils (Bld) [#/Vol] 0.3 103/mcL Normal 0.0 - 0.7 10^3/mcL AH Workflow SS Eosinophils/100 WBC (Bld) 3.7 % Normal 0.0 - 6.0 % AH Workflow SS Erythrocyte distribution width (RBC) [Ratio] 14.6 % Normal 11.5 - 15.5 % AH Workflow SS Hematocrit (Bld) [Volume fraction] 44.5 % Normal 40.0 - 52.0 % AH Workflow SS Hemoglobin (Bld) [Mass/Vol] 15.0 G/dL Normal 13.0 - 17.5 G/dL AH Workflow SS Lymphocytes (Bld) [#/Vol] 0.8 103/mcL Low 0.9 - 4.3 10^3/mcL AH Workflow SS Lymphocytes/100 WBC (Bld) 11.6 % Low 20.0 - 40.0 % AH Workflow SS MCH (RBC) [Entitic mass] 29.8 pg Normal 27.0 - 33.0 pg AH Workflow SS MCHC 33.6 G/dL Normal 32.0 - 36.0 G/dL AH Workflow SS MCV (RBC) [Entitic vol] 88.6 fL Normal 81.0 - 100.0 fL AH Workflow SS Monocytes (Bld) [#/Vol] 0.7 103/mcL Normal 0.1 - 1.4 10^3/mcL AH Workflow SS Monocytes/100 WBC (Bld) 9.6 % Normal 2.0 - 13.0 % AH Workflow SS Neutrophils (Bld) [#/Vol] 5.4 103/mcL Normal 2.3 - 8.1 10^3/mcL AH Workflow SS Neutrophils/100 WBC (Bld) 74.4 % Normal 50.0 - 75.0 % AH Workflow SS Platelet mean volume (Bld) [Entitic vol] 7.8 fL Normal 6.4 - 10.5 fL AH Workflow SS Platelets (Bld) [#/Vol] 192 103/mcL Normal 150 - 450 10^3/mcL AH Workflow SS RBC (Bld) [#/Vol] 5.02 106/mcL Normal 4.50 - 6.0 0 10^6/mcL AH Workflow SS WBC (Bld) [#/Vol] 7.3 103/mcL Normal 4.5 - 10.8 10^3/mcL AH Workflow SS MGon 01-01-2025 Magnesium [Mass/Vol] 2.0 mg/dL Normal 1.6-2.4 [facility] MAIN Comment on above: Performed By: #### A MADDIE, CMP, CBC, ADIFF, GFR, MG, CK #### [address] [address] XR CHEST 1 VIEWon 01-01-2025 XR CHEST 1 VIEW ORIGINAL HISTORY: Hypoxia COMPARISON: 28 December 2024 FINDINGS: The lungs are clear. The pulmonary vasculature is unremarkable in appearance. IMPRESSION: Clear lungs. Interpreted by: Zofia Lawrence MD Preliminary Report By: Zofia Lawrence MD Electronically signed By Zofia Lawrence MD Dictated Date: 01/01/2025 9:36:36 AM Prelim Date: 01/01/2025 9:37:04 AM Sign Date: 01/01/2025 9:37:04 AM Ordering Provider: ZEENAT ROBERTS Normal [facility] .Auto Diffon 12-31-2024 Basophil, Absolute 0.0 10 3/mcL Normal 0.0-0.3 [facility] MAIN Comment on above: Performed By: #### A MADDIE, CMP, CBC, ADIFF, GFR, MG, CK #### [address] [address] Basophils/100 WBC (Bld) 0.5 % Normal 0.0-2.5 [facility] Comment on above: Performed By: #### A MADDIE, CMP, CBC, ADIFF, GFR, MG, CK #### [place] [id number] [place] [address] Eosinophil, Absolute 0.2 10 3/mcL Normal 0.0-0.7 [facility] MAIN Comment on above: Performed By: #### A MADDIE, CMP, CBC, ADIFF, GFR, MG, CK #### [address] [address] Eosinophils/100 WBC (Bld) 2.8 % Normal 0.0-6.0 [facility] Comment on above: Performed By: #### A MADDIE, CMP, CBC, ADIFF, GFR, MG, CK #### [address] [address] Lymphocyte, Absolute 1.1 10 3/mcL Normal 0.9-4.3 [facility] Comment on above: Performed By: #### A MADDIE, CMP, CBC, ADIFF, GFR, MG, CK #### [address] [address] Lymphocytes/100 WBC (Bld) 13.3 % Low 20.0-40.0 [facility] Comment on above: Performed By: #### A MADDIE, CMP, CBC, ADIFF, GFR, MG, CK #### [address] [address] Monocyte, Absolute 0.9 10 3/mcL Normal 0.1-1.4 [facility] MAIN Comment on above: Performed By: #### A MADDIE, CMP, CBC, ADIFF, GFR, MG, CK #### [address] [address] Monocytes/100 WBC (Bld) 10.6 % Normal 2.0-13.0 [facility] Comment on above: Performed By: #### A MADDIE, CMP, CBC, ADIFF, GFR, MG, CK #### [address] [address] Neutrophils/100 WBC (Bld) 72.8 % Normal 50.0-75.0 [facility] Comment on above: Performed By: #### A MADDIE, CMP, CBC, ADIFF, GFR, MG, CK #### [address] [address] .GFRon 12-31-2024 Estimated Glomerular Filtration Rate 120 ml/min/1.73sqm Normal [facility] MA[facility] Comment on above: Result Comment: Stages of Chronic Kidney Disease (CKD) Stage Description eGFR(ml/min/1.73 sq.m.) CKD 1 Normal kidney function or >=90 normal kindney function with possible kidney damage (ex. Proteinuria) CKD 2 Kidney damage with mild loss 60-89 of kidney function CKD 3a Mild to moderate loss of kidney 45-59 function CKD 3b Moderate to severe loss of 30-44 of kindey function CKD 4 Severe loss of kidney function 15-29 CKD 5 Kidney failure <15 Note: (go live 2024) the eGFR calculation was updated to the 2020 CKD-EPI creatinine equation without a race factor to calculate the eGFR results. Performed By: #### A MADDIE, CMP, CBC, ADIFF, GFR, MG, CK #### [place] [address] .NEUABSon 12-31-2024 Neutrophil, Absolute 5.8 10 3/mcL Normal 2.3-8.1 [facility] Comment on above: Performed By: #### A MADDIE, CMP, CBC, ADIFF, GFR, MG, CK #### [place] [address] CBCon 12-31-2024 Erythrocyte distribution width (RBC) [Ratio] 14.7 % Normal 11.5-15.5 [facility] Comment on above: Performed By: #### A MADDIE, CMP, CBC, ADIFF, GFR, MG, CK #### [place] [address] Hematocrit (Bld) [Volume fraction] 41.8 % Normal 40.0-52.0 [facility] Comment on above: Performed By: #### A MADDIE, CMP, CBC, ADIFF, GFR, MG, CK #### [place] [address] Hgb 14.2 G/dL Normal 13.0-17.5 [facility] Comment on above: Performed By: #### A MADDIE, CMP, CBC, ADIFF, GFR, MG, CK #### [place] [address] MCH (RBC) [Entitic mass] 30.2 pg Normal 27.0-33.0 [facility] Comment on above: Performed By: #### A MADDIE, CMP, CBC, ADIFF, GFR, MG, CK #### [place] [address] MCHC 33.9 G/dL Normal 32.0-36.0 [facility] Comment on above: Performed By: #### A MADDIE, CMP, CBC, ADIFF, GFR, MG, CK #### [place] [address] MCV (RBC) [Entitic vol] 89.2 fL Normal 81.0-100.0 [facility] Comment on above: Performed By: #### A MADDIE, CMP, CBC, ADIFF, GFR, MG, CK #### [place] [address] Platelet 160 10 3/mcL Normal 150-450 [facility] Comment on above: Performed By: #### A MADDIE, CMP, CBC, ADIFF, GFR, MG, CK #### [place] [address] Platelet mean volume (Bld) [Entitic vol] 8.6 fL Normal 6.4-10.5 [facility] Comment on above: Performed By: #### A MADDIE, CMP, CBC, ADIFF, GFR, MG, CK #### [place] [address] RBC 4.69 10 6/mcL Normal 4.50-6.00 [facility] Comment on above: Performed By: #### A MADDIE, CMP, CBC, ADIFF, GFR, MG, CK #### [place] [address] WBC 8.0 10 3/mcL Normal 4.5-10.8 [facility] Comment on above: Performed By: #### A MADDIE, CMP, CBC, ADIFF, GFR, MG, CK #### [place] [address] CKon 12-31-2024 CK [Catalytic activity/Vol] 430 U/L High 7-185 [facility] Comment on above: Performed By: #### A MADDIE, CMP, CBC, ADIFF, GFR, MG, CK #### [address] [address] CMPon 12-31-2024 AST [Catalytic activity/Vol] 47 U/L High 8-34 [facility] Comment on above: Performed By: #### A MADDIE, CMP, CBC, ADIFF, GFR, MG, CK #### [address] [address] BUN/Creatinine Ratio Unable to Calculate Normal 10.0-2 2.0 [facility] Comment on above: Result Comment: Unab le to calculate this test result accurately. Results used to calculate this test are outside the reportable range. Performed By: #### A MADDIE, CMP, CBC, ADIFF, GFR, MG, CK #### [address] [address] Urea nitrogen [Mass/Vol] mg/dL Low 8.0-22.0 [facility] Comment on above: Performed By: #### A MADDIE, CMP, CBC, ADIFF, GFR, MG, CK #### [place] [id number] Albumin Level 2.8 G/dL Low 3.2-4.8 [facility] Comment on above: Performed By: #### A MADDIE, CMP, CBC, ADIFF, GFR, MG, CK #### [place] [id number] Albumin/Globulin [Mass ratio] 0.9 {ratio} Normal 0.9-1.6 [facility] Comment on above: Performed By: #### A MADDIE, CMP, CBC, ADIFF, GFR, MG, CK #### [address] [address] ALP [Catalytic activity/Vol] 102 U/L Normal 38-126 [facility] Comment on above: Performed By: #### A MADDIE, CMP, CBC, ADIFF, GFR, MG, CK #### [address] [address] ALT [Catalytic activity/Vol] 51 U/L Normal 12-55 [facility] Comment on above: Performed By: #### A MADDIE, CMP, CBC, ADIFF, GFR, MG, CK #### [place] [id number] Bili Total 0.70 mg/dL Normal 0.20-1.20 [facility] Comment on above: Result Comment: Use of this assay is not recommended for patients undergoing treatment with eltrombopag due to the potential for falsely elevated results. Performed By: #### A MADDIE, CMP, CBC, ADIFF, GFR, MG, CK #### [place] [id number] Calcium [Mass/Vol] 8.3 mg/dL Low 8.7-10.4 [facility] MAIN Comment on above: Performed By: #### A MADDIE, CMP, CBC, ADIFF, GFR, MG, CK #### [place] [address] Chloride [Moles/Vol] 101 mmol/L Normal 98-110 [facility] Comment on above: Performed By: #### A MADDIE, CMP, CBC, ADIFF, GFR, MG, CK #### [place] [id number] CO2 [Moles/Vol] 28 mmol/L Normal 22-32 [facility] Comment on above: Performed By: #### A MADDIE, CMP, CBC, ADIFF, GFR, MG, CK #### [place] [address] Creatinine [Mass/Vol] 0.38 mg/dL Low 0.60-1.40 [facility] Comment on above: Result Comment: Test ing performed on [employer] analyzer using enzymatic creatinine methodology. Performed By: #### A MADDIE, CMP, CBC, ADIFF, GFR, MG, CK #### [place] [id number] Electrolyte Balance 10.0 mEq/L Normal 4.0-15.0 [facility] Comment on above: Performed By: #### A MADDIE, CMP, CBC, ADIFF, GFR, MG, CK #### [place] [id number] Globulin 3.2 G/dL Normal 2.5-4.2 [facility] Comment on above: Performed By: #### A MADDIE, CMP, CBC, ADIFF, GFR, MG, CK #### [address] [address] Glucose [Mass/Vol] 242 mg/dL High 82-115 [facility] MAIN Comment on above: Performed By: #### A MADDIE, CMP, CBC, ADIFF, GFR, MG, CK #### [address] [address] Potassium [Moles/Vol] 3.5 mmol/L Normal 3.5-5.0 [facility] Comment on above: Performed By: #### A MADDIE, CMP, CBC, ADIFF, GFR, MG, CK #### [address] [address] Sodium [Moles/Vol] 139 mmol/L Normal 136-145 [facility] Comment on above: Performed By: #### A MADDIE, CMP, CBC, ADIFF, GFR, MG, CK #### [address] [address] Total Protein 6.0 G/dL Normal 5.7-8.2 [facility] Comment on above: Performed By: #### A MADDIE, CMP, CBC, ADIFF, GFR, MG, CK #### [address] [address] LABORATORYOrdered By: SYSTEM SYSTEM on 12-31-2024 Basophils (Bld) [#/Vol] 0.0 103/mcL Normal 0.0 - 0.3 10^3/mcL AH Workflow SS Basophils/100 WBC (Bld) 0.5 % Normal 0.0 - 2.5 % Workflow SS CK [Catalytic activity/Vol] 430 U/L High 7 - 185 U/L AH ADM SS Eosinophils (Bld) [#/Vol] 0.2 103/mcL Normal 0.0 - 0.7 10^3/mcL AH Workflow SS Eosinophils/100 WBC (Bld) 2.8 % Normal 0.0 - 6.0 % AH Workflow SS Erythrocyte distribution width (RBC) [Ratio] 14.7 % Normal 11.5 - 15.5 % AH Workflow SS Hematocrit (Bld) [Volume fraction] 41.8 % Normal 40.0 - 52.0 % AH Workflow SS Hemoglobin (Bld) [Mass/Vol] 14.2 G/dL Normal 13.0 - 17.5 G/dL AH Workflow SS Lymphocytes (Bld) [#/Vol] 1.1 103/mcL Normal 0.9 - 4.3 10^3/mcL AH Workflow SS Lymphocytes/100 WBC (Bld) 13.3 % Low 20.0 - 40.0 % AH Workflow SS MCH (RBC) [Entitic mass] 30.2 pg Normal 27.0 - 33.0 pg AH Workflow SS MCHC 33.9 G/dL Normal 32.0 - 36.0 G/dL AH Workflow SS MCV (RBC) [Entitic vol] 89.2 fL Normal 81.0 - 100.0 fL AH Workflow SS Monocytes (Bld) [#/Vol] 0.9 103/mcL Normal 0.1 - 1.4 10^3/mcL AH Workflow SS Monocytes/100 WBC (Bld) 10.6 % Normal 2.0 - 13.0 % AH Workflow SS Neutrophils (Bld) [#/Vol] 5.8 103/mcL Normal 2.3 - 8.1 10^3/mcL AH Workflow SS Neutrophils/100 WBC (Bld) 72.8 % Normal 50.0 - 75.0 % AH Workflow SS Platelet mean volume (Bld) [Entitic vol] 8.6 fL Normal 6.4 - 10.5 fL AH Workflow SS Platelets (Bld) [#/Vol] 160 103/mcL Normal 150 - 450 10^3/mcL Workflow SS RBC (Bld) [#/Vol] 4.69 106/mcL Normal 4.50 - 6.0 0 10^6/mcL Workflow SS WBC (Bld) [#/Vol] 8.0 103/mcL Normal 4.5 - 10.8 10^3/mcL Workflow SS MGon 12-31-2024 Magnesium [Mass/Vol] 1.8 mg/dL Normal 1.6-2.4 [facility] Comment on above: Performed By: #### A MADDIE, CMP, CBC, ADIFF, GFR, MG, CK #### [place] [address] .Auto Diffon 12-30-2024 Basophil, Absolute 0.0 10 3/mcL Normal 0.0-0.3 [facility] Comment on above: Performed By: #### A MADDIE, CMP, CBC, ADIFF, GFR, MG, CK #### [address] [address] Basophils/100 WBC (Bld) 0.3 % Normal 0.0-2.5 [facility] Comment on above: Performed By: #### A MADDIE, CMP, CBC, ADIFF, GFR, MG, CK #### [address] [address] Eosinophil, Absolute 0.4 10 3/mcL Normal 0.0-0.7 [facility] Comment on above: Performed By: #### A MADDIE, CMP, CBC, ADIFF, GFR, MG, CK #### [address] [address] Eosinophils/100 WBC (Bld) 4.8 % Normal 0.0-6.0 [facility] Comment on above: Performed By: #### A MADDIE, CMP, CBC, ADIFF, GFR, MG, CK #### [address] [address] Lymphocyte, Absolute 0.9 10 3/mcL Normal 0.9-4.3 [facility] Comment on above: Performed By: #### A MADDIE, CMP, CBC, ADIFF, GFR, MG, CK #### [address] [address] Lymphocytes/100 WBC (Bld) 10.3 % Low 20.0-40.0 [facility] Comment on above: Performed By: #### A MADDIE, CMP, CBC, ADIFF, GFR, MG, CK #### [address] [address] Monocyte, Absolute 0.8 10 3/mcL Normal 0.1-1.4 [facility] Comment on above: Performed By: #### A MADDIE, CMP, CBC, ADIFF, GFR, MG, CK #### [address] [address] Monocytes/100 WBC (Bld) 9.8 % Normal 2.0-13.0 [facility] Comment on above: Performed By: #### A MADDIE, CMP, CBC, ADIFF, GFR, MG, CK #### [address] [address] Neutrophils/100 WBC (Bld) 74.8 % Normal 50.0-75.0 [facility] Comment on above: Performed By: #### A MADDIE, CMP, CBC, ADIFF, GFR, MG, CK #### [address] [address] .GFRon 12-30-2024 Estimated Glomerular Filtration Rate 119 ml/min/1.73sqm Normal [facility] Comment on above: Result Comment: Stages of Chronic Kidney Disease (CKD) Stage Description eGFR(ml/min/1.73 sq.m.) CKD 1 Normal kidney function or >=90 normal kindney function with possible kidney damage (ex. Proteinuria) CKD 2 Kidney damage with mild loss 60-89 of kidney function CKD 3a Mild to moderate loss of kidney 45-59 function CKD 3b Moderate to severe loss of 30-44 of kindey function CKD 4 Severe loss of kidney function 15-29 CKD 5 Kidney failure <15 Note: (go live 2024) the eGFR calculation was updated to the 2020 CKD-EPI creatinine equation without a race factor to calculate the eGFR results. Performed By: #### A MADDIE, CMP, CBC, ADIFF, GFR, MG, CK #### [address] [address] .NEUABSon 12-30-2024 Neutrophil, Absolute 6.2 10 3/mcL Normal 2.3-8.1 [facility] Comment on above: Performed By: #### A MADDIE, CMP, CBC, ADIFF, GFR, MG, CK #### [address] [address] CBCon 12-30-2024 Erythrocyte distribution width (RBC) [Ratio] 15.2 % Normal 11.5-15.5 [facility] Comment on above: Performed By: #### A MADDIE, CMP, CBC, ADIFF, GFR, MG, CK #### [address] [address] Hematocrit (Bld) [Volume fraction] 40.6 % Normal 40.0-52.0 [facility] Comment on above: Performed By: #### A MADDIE, CMP, CBC, ADIFF, GFR, MG, CK #### [place] [address] Hgb 13.4 G/dL Normal 13.0-17.5 [facility] Comment on above: Performed By: #### A MADDIE, CMP, CBC, ADIFF, GFR, MG, CK #### [place] [address] MCH (RBC) [Entitic mass] 29.4 pg Normal 27.0-33.0 [facility] Comment on above: Performed By: #### A MADDIE, CMP, CBC, ADIFF, GFR, MG, CK #### [place] [address] MCHC 32.9 G/dL Normal 32.0-36.0 [facility] Comment on above: Performed By: #### A MADDIE, CMP, CBC, ADIFF, GFR, MG, CK #### [place] [address] MCV (RBC) [Entitic vol] 89.2 fL Normal 81.0-100.0 [facility] Comment on above: Performed By: #### A MADDIE, CMP, CBC, ADIFF, GFR, MG, CK #### [place] [address] Platelet 186 10 3/mcL Normal 150-450 [facility] Comment on above: Performed By: #### A MADDIE, CMP, CBC, ADIFF, GFR, MG, CK #### [place] [address] Platelet mean volume (Bld) [Entitic vol] 7.9 fL Normal 6.4-10.5 [facility] Comment on above: Performed By: #### A MADDIE, CMP, CBC, ADIFF, GFR, MG, CK #### [place] [address] RBC 4.56 10 6/mcL Normal 4.50-6.00 [facility] Comment on above: Performed By: #### A MADDIE, CMP, CBC, ADIFF, GFR, MG, CK #### [place] [id number] WBC 8.3 10 3/mcL Normal 4.5-10.8 [facility] Comment on above: Performed By: #### A MADDIE, CMP, CBC, ADIFF, GFR, MG, CK #### [address] [address] CMPon 12-30-2024 Albumin Level 2.4 G/dL Low 3.2-4.8 [facility] Comment on above: Performed By: #### A MADDIE, CMP, CBC, ADIFF, GFR, MG, CK #### [place] [id number] Albumin/Globulin [Mass ratio] 0.7 {ratio} Low 0.9-1.6 [facility] Comment on above: Performed By: #### A MADDIE, CMP, CBC, ADIFF, GFR, MG, CK #### [place] [address] ALP [Catalytic activity/Vol] 95 U/L Normal 38-126 [facility] Comment on above: Performed By: #### A MADDIE, CMP, CBC, ADIFF, GFR, MG, CK #### [place] [id number] ALT [Catalytic activity/Vol] 45 U/L Normal 12-55 [facility] Comment on above: Performed By: #### A MADDIE, CMP, CBC, ADIFF, GFR, MG, CK #### [place] [id number] AST [Catalytic activity/Vol] 54 U/L High 8-34 [facility] Comment on above: Performed By: #### A MADDIE, CMP, CBC, ADIFF, GFR, MG, CK #### [place] [id number] Bili Total 0.50 mg/dL Normal 0.20-1.20 [facility] Comment on above: Result Comment: Use of this assay is not recommended for patients undergoing treatment with eltrombopag due to the potential for falsely elevated results. Performed By: #### A MADDIE, CMP, CBC, ADIFF, GFR, MG, CK #### [place] [id number] BUN/Creatinine Ratio 28.2 ratio High 10.0-22.0 [facility] Comment on above: Performed By: #### A MADDIE, CMP, CBC, ADIFF, GFR, MG, CK #### [address] [address] Calcium [Mass/Vol] 8.3 mg/dL Low 8.7-10.4 [facility] Comment on above: Performed By: #### A MADDIE, CMP, CBC, ADIFF, GFR, MG, CK #### [place] [id number] Chloride [Moles/Vol] 108 mmol/L Normal 98-110 [facility] Comment on above: Performed By: #### A MADDIE, CMP, CBC, ADIFF, GFR, MG, CK #### [place] [id number] CO2 [Moles/Vol] 29 mmol/L Normal 22-32 [facility] Comment on above: Performed By: #### A MADDIE, CMP, CBC, ADIFF, GFR, MG, CK #### [place] [id number] Creatinine [Mass/Vol] 0.39 mg/dL Low 0.60-1.40 [facility] Comment on above: Result Comment: Test ing performed on [employer] analyzer using enzymatic creatinine methodology. Performed By: #### A MADDIE, CMP, CBC, ADIFF, GFR, MG, CK #### [place] [id number] Electrolyte Balance 7.0 mEq/L Normal 4.0-15.0 [facility] Comment on above: Performed By: #### A MADDIE, CMP, CBC, ADIFF, GFR, MG, CK #### [place] [id number] Globulin 3.3 G/dL Normal 2.5-4.2 [facility] Comment on above: Performed By: #### A MADDIE, CMP, CBC, ADIFF, GFR, MG, CK #### [place] [id number] Glucose [Mass/Vol] 195 mg/dL High 82-115 [facility] Comment on above: Performed By: #### A MADDIE, CMP, CBC, ADIFF, GFR, MG, CK #### [address] [address] Potassium [Moles/Vol] 3.6 mmol/L Normal 3.5-5.0 [facility] Comment on above: Performed By: #### A MADDIE, CMP, CBC, ADIFF, GFR, MG, CK #### [place] [id number] Sodium [Moles/Vol] 144 mmol/L Normal 136-145 [facility] Comment on above: Performed By: #### A MADDIE, CMP, CBC, ADIFF, GFR, MG, CK #### [place] [id number] Total Protein 5.7 G/dL Normal 5.7-8.2 [facility] [facility] Comment on above: Performed By: #### A MADDIE, CMP, CBC, ADIFF, GFR, MG, CK #### [place] [id number] Urea nitrogen [Mass/Vol] 11.0 mg/dL Normal 8.0-22.0 [facility] Comment on above: Performed By: #### A MADDIE, CMP, CBC, ADIFF, GFR, MG, CK #### [address] [address] MGon 12-30-2024 Magnesium [Mass/Vol] 1.9 mg/dL Normal 1.6-2.4 [facility] Comment on above: Performed By: #### A MADDIE, CMP, CBC, ADIFF, GFR, MG, CK #### [address] [address] .Auto Diffon 12-29-2024 Basophil, Absolute 0.0 10 3/mcL Normal 0.0-0.3 [facility] Comment on above: Performed By: #### A MADDIE, CMP, CBC, ADIFF, GFR, MG, CK #### [address] [address] Basophils/100 WBC (Bld) 0.2 % Normal 0.0-2.5 [facility] Comment on above: Performed By: #### A MADDIE, CMP, CBC, ADIFF, GFR, MG, CK #### [address] [address] Eosinophil, Absolute 0.2 10 3/mcL Normal 0.0-0.7 [facility] Comment on above: Performed By: #### A MADDIE, CMP, CBC, ADIFF, GFR, MG, CK #### [address] [address] Eosinophils/100 WBC (Bld) 1.6 % Normal 0.0-6.0 [facility] Comment on above: Performed By: #### A MADDIE, CMP, CBC, ADIFF, GFR, MG, CK #### [address] [address] Lymphocyte, Absolute 0.6 10 3/mcL Low 0.9-4.3 [facility] Comment on above: Performed By: #### A MADDIE, CMP, CBC, ADIFF, GFR, MG, CK #### [address] [address] Lymphocytes/100 WBC (Bld) 5.9 % Low 20.0-40.0 [facility] Comment on above: Performed By: #### A MADDIE, CMP, CBC, ADIFF, GFR, MG, CK #### [address] [address] Monocyte, Absolute 1.1 10 3/mcL Normal 0.1-1.4 [facility] Comment on above: Performed By: #### A MADDIE, CMP, CBC, ADIFF, GFR, MG, CK #### [address] [address] Monocytes/100 WBC (Bld) 10.0 % Normal 2.0-13.0 [facility] Comment on above: Performed By: #### A MADDIE, CMP, CBC, ADIFF, GFR, MG, CK #### [address] [address] Neutrophils/100 WBC (Bld) 82.3 % High 50.0-75.0 [facility] Comment on above: Performed By: #### A MADDIE, CMP, CBC, ADIFF, GFR, MG, CK #### [address] [address] .GFRon 12-29-2024 Estimated Glomerular Filtration Rate 110 ml/min/1.73sqm Normal [facility] Comment on above: Result Comment: Stages of Chronic Kidney Disease (CKD) Stage Description eGFR(ml/min/1.73 sq.m.) CKD 1 Normal kidney function or >=90 normal kindney function with possible kidney damage (ex. Proteinuria) CKD 2 Kidney damage with mild loss 60-89 of kidney function CKD 3a Mild to moderate loss of kidney 45-59 function CKD 3b Moderate to severe loss of 30-44 of kindey function CKD 4 Severe loss of kidney function 15-29 CKD 5 Kidney failure <15 Note: (go live 2024) the eGFR calculation was updated to the 2020 CKD-EPI creatinine equation without a race factor to calculate the eGFR results. Performed By: #### A MADDIE, CMP, CBC, ADIFF, GFR, MG, CK #### [place] [address] .NEUABSon 12-29-2024 Neutrophil, Absolute 8.8 10 3/mcL High 2.3-8.1 [facility] Comment on above: Performed By: #### A MADDIE, CMP, CBC, ADIFF, GFR, MG, CK #### [place] [address] A1Con 12-29-2024 Glucose [Mass/Vol] 148 mg/dL Normal [facility] Comment on above: Result Comment: Mariana mated Average Glucose calculated by equation ((28.7xA1C)-46.7) Estimated average glucose (eAG) is a calculated value from Hemoglobin A1C and is it sales representative of the average blood glucose level in the last 2-3 month period. Normal range: less than 114 mg/dL Performed By: #### A MADDIE, CMP, CBC, ADIFF, GFR, MG, CK #### [place] [address] HbA1c (Bld) [Mass fraction] 6.8 % High 4.0-6.0 [facility] Comment on above: Performed By: #### A MADDIE, CMP, CBC, ADIFF, GFR, MG, CK #### [place] [id number] CBCon 12-29-2024 Erythrocyte distribution width (RBC) [Ratio] 15.7 % High 11.5-15.5 [facility] Comment on above: Performed By: #### A MADDIE, CMP, CBC, ADIFF, GFR, MG, CK #### [place] [address] Hematocrit (Bld) [Volume fraction] 41.5 % Normal 40.0-52.0 [facility] Comment on above: Performed By: #### A MADDIE, CMP, CBC, ADIFF, GFR, MG, CK #### [place] [address] Hgb 13.6 G/dL Normal 13.0-17.5 [facility] Comment on above: Performed By: #### A MADDIE, CMP, CBC, ADIFF, GFR, MG, CK #### [place] [id number] MCH (RBC) [Entitic mass] 29.9 pg Normal 27.0-33.0 [facility] Comment on above: Performed By: #### A MADDIE, CMP, CBC, ADIFF, GFR, MG, CK #### [place] [id number] MCHC 32.8 G/dL Normal 32.0-36.0 [facility] Comment on above: Performed By: #### A MADDIE, CMP, CBC, ADIFF, GFR, MG, CK #### [place] [address] MCV (RBC) [Entitic vol] 91.1 fL Normal 81.0-100.0 [facility] Comment on above: Performed By: #### A MADDIE, CMP, CBC, ADIFF, GFR, MG, CK #### [place] [id number] Platelet 188 10 3/mcL Normal 150-450 [facility] Comment on above: Performed By: #### A MADDIE, CMP, CBC, ADIFF, GFR, MG, CK #### [place] [address] Platelet mean volume (Bld) [Entitic vol] 8.2 fL Normal 6.4-10.5 [facility] Comment on above: Performed By: #### A MADDIE, CMP, CBC, ADIFF, GFR, MG, CK #### [place] [id number] RBC 4.55 10 6/mcL Normal 4.50-6.00 [facility] Comment on above: Performed By: #### A MADDIE, CMP, CBC, ADIFF, GFR, MG, CK #### [place] [id number] WBC 10.7 10 3/mcL Normal 4.5-10.8 [facility] Comment on above: Performed By: #### A MADDIE, CMP, CBC, ADIFF, GFR, MG, CK #### [place] [address] CKon 12-29-2024 CK [Catalytic activity/Vol] 1174 U/L High 7-185 [facility] Comment on above: Performed By: #### A MADDIE, CMP, CBC, ADIFF, GFR, MG, CK #### [place] [address] CMPon 12-29-2024 Albumin Level 2.6 G/dL Low 3.2-4.8 [facility] Comment on above: Performed By: #### A MADDIE, CMP, CBC, ADIFF, GFR, MG, CK #### [place] [address] Albumin/Globulin [Mass ratio] 0.8 {ratio} Low 0.9-1.6 [facility] Comment on above: Performed By: #### A MADDIE, CMP, CBC, ADIFF, GFR, MG, CK #### [place] [address] ALP [Catalytic activity/Vol] 90 U/L Normal 38-126 [facility] Comment on above: Performed By: #### A MADDIE, CMP, CBC, ADIFF, GFR, MG, CK #### [address] [address] ALT [Catalytic activity/Vol] 43 U/L Normal 12-55 [facility] Comment on above: Performed By: #### A MADDIE, CMP, CBC, ADIFF, GFR, MG, CK #### [address] [address] AST [Catalytic activity/Vol] 64 U/L High 8-34 [facility] Comment on above: Performed By: #### A MADDIE, CMP, CBC, ADIFF, GFR, MG, CK #### [address] [address] Bili Total 0.40 mg/dL Normal 0.20-1.20 [facility] Comment on above: Result Comment: Use of this assay is not recommended for patients undergoing treatment with eltrombopag due to the potential for falsely elevated results. Performed By: #### A MADDIE, CMP, CBC, ADIFF, GFR, MG, CK #### [place] [id number] BUN/Creatinine Ratio 52.0 ratio High 10.0-22.0 [facility] Comment on above: Performed By: #### A MADDIE, CMP, CBC, ADIFF, GFR, MG, CK #### [address] [address] Calcium [Mass/Vol] 8.8 mg/dL Normal 8.7-10.4 [facility] Comment on above: Performed By: #### A MADDIE, CMP, CBC, ADIFF, GFR, MG, CK #### [address] [address] Chloride [Moles/Vol] 112 mmol/L High 98-110 [facility] Comment on above: Performed By: #### A MADDIE, CMP, CBC, ADIFF, GFR, MG, CK #### [address] [address] CO2 [Moles/Vol] 25 mmol/L Normal 22-32 [facility] Comment on above: Performed By: #### A MADDIE, CMP, CBC, ADIFF, GFR, MG, CK #### [place] [address] Creatinine [Mass/Vol] 0.50 mg/dL Low 0.60-1.40 [facility] Comment on above: Result Comment: Test ing performed on [employer] analyzer using enzymatic creatinine methodology. Performed By: #### A MADDIE, CMP, CBC, ADIFF, GFR, MG, CK #### [place] [address] Electrolyte Balance 11.0 mEq/L Normal 4.0-15.0 [facility] Comment on above: Performed By: #### A MADDIE, CMP, CBC, ADIFF, GFR, MG, CK #### [place] [address] Globulin 3.2 G/dL Normal 2.5-4.2 [facility] Comment on above: Performed By: #### A MADDIE, CMP, CBC, ADIFF, GFR, MG, CK #### [place] [address] Glucose [Mass/Vol] 215 mg/dL High 82-115 [facility] Comment on above: Performed By: #### A MADDIE, CMP, CBC, ADIFF, GFR, MG, CK #### [place] [address] Potassium [Moles/Vol] 4.0 mmol/L Normal 3.5-5.0 [facility] Comment on above: Performed By: #### A MADDIE, CMP, CBC, ADIFF, GFR, MG, CK #### [place] [id number] Sodium [Moles/Vol] 148 mmol/L High 136-145 [facility] Comment on above: Performed By: #### A MADDIE, CMP, CBC, ADIFF, GFR, MG, CK #### [place] [address] Total Protein 5.8 G/dL Normal 5.7-8.2 [facility] Comment on above: Performed By: #### A MADDIE, CMP, CBC, ADIFF, GFR, MG, CK #### [address] [address] Urea nitrogen [Mass/Vol] 26.0 mg/dL High 8.0-22.0 [facility] Comment on above: Performed By: #### A MADDIE, CMP, CBC, ADIFF, GFR, MG, CK #### [address] [address] LABORATORYOrdered By: SYSTEM SYSTEM on 12-29-2024 CK [Catalytic activity/Vol] 1174 U/L High 7 - 185 U/L ADM SS Glucose [Mass/Vol] 148 mg/dL Invalid Interpretation Code AH Auto Chem SS Comment on above: Interpretive Data: E stimated average glucose (eAG) is a calculated value from Hemoglobin A1C and is it sales representative of the average blood glucose level in the last 2-3 month period. Normal range: less than 114 mg/dL HbA1c (Bld) [Mass fraction] 6.8 % High 4.0 - 6.0 % AH Auto Chem SS MGon 12-29-2024 Magnesium [Mass/Vol] 2.3 mg/dL Normal 1.6-2.4 [facility] Comment on above: Performed By: #### A MADDIE, CMP, CBC, ADIFF, GFR, MG, CK #### [address] [address] MRA HEAD W/O CONTRASTon 12-16 MRA HEAD W/O CONTRAST ORIGINAL EXAMINATION: MRA OF THE HEAD WITHOUT CONTRAST; MRA OF THE NECK WITHOUT CONTRAST 12/29/2024 3:25 pm; 12/29/2024 3:27 pm: TECHNIQUE: MRA of the head was performed utilizing pygi-ci-[id number] imaging with MIP images. No intravenous contrast was administered.; Multiplanar multisequence MRA of the neck was performed without the administration of intravenous contrast. Stenosis of the internal carotid arteries measured using NASCET criteria. COMPARISON: Concurrent MRI brain without contrast. HISTORY: ORDERING SYSTEM PROVIDED HISTORY: Reason for Exam: AMS FINDINGS: MRA NECK: AORTIC ARCH/ARCH VESSELS: No dissection or arterial injury. No significant stenosis of the brachiocephalic or subclavian arteries. CAROTID ARTERIES: No dissection, arterial injury, or hemodynamically significant stenosis by NASCET criteria. VERTEBRAL ARTERIES: Left dominant. No dissection, arterial injury, or significant stenosis. MRA HEAD: ANTERIOR CIRCULATION: No significant stenosis of the intracranial internal carotid, anterior cerebral, or middle cerebral arteries. POSTERIOR CIRCULATION: No significant stenosis of the vertebral, basilar, or posterior cerebral arteries. IMPRESSION: No large vessel occlusion or hemodynamically significant stenosis within the head or neck. Interpreted by: Batsheva Manning Preliminary Report By: Batsheva Manning Electronically signed By Batsheva Manning Dictated Date: 12/29/2024 3:40:04 PM Prelim Date: 12/29/2024 3:49:46 PM Sign Date: 12/29/2024 3:49:46 PM Ordering Provider: BLANCA HOGUE RP [facility] MRA NECK W/O CONTRASTon 12-16 MRA NECK W/O CONTRAST ORIGINAL EXAMINATION: MRA OF THE HEAD WITHOUT CONTRAST; MRA OF THE NECK WITHOUT CONTRAST 12/29/2024 3:25 pm; 12/29/2024 3:27 pm: TECHNIQUE: MRA of the head was performed utilizing sats-kj-apymmu imaging with MIP images. No intravenous contrast was administered.; Multiplanar multisequence MRA of the neck was performed without the administration of intravenous contrast. Stenosis of the internal carotid arteries measured using NASCET criteria. COMPARISON: Concurrent MRI brain without contrast. HISTORY: ORDERING SYSTEM PROVIDED HISTORY: Reason for Exam: AMS FINDINGS: MRA NECK: AORTIC ARCH/ARCH VESSELS: No dissection or arterial injury. No significant stenosis of the brachiocephalic or subclavian arteries. CAROTID ARTERIES: No dissection, arterial injury, or hemodynamically significant stenosis by NASCET criteria. VERTEBRAL ARTERIES: Left dominant. No dissection, arterial injury, or significant stenosis. MRA HEAD: ANTERIOR CIRCULATION: No significant stenosis of the intracranial internal carotid, anterior cerebral, or middle cerebral arteries. POSTERIOR CIRCULATION: No significant stenosis of the vertebral, basilar, or posterior cerebral arteries. IMPRESSION: No large vessel occlusion or hemodynamically significant stenosis within the head or neck. Interpreted by: Batsheva Manning Preliminary Report By: Batsheva Manning Electronically signed By Batsheva Manning Dictated Date: 12/29/2024 3:40:04 PM Prelim Date: 12/29/2024 3:49:46 PM Sign Date: 12/29/2024 3:49:46 PM Ordering Provider: BLANCA HOGUE RP [facility] MRI BRAIN W/O CONTRASTon MRI BRAIN W/O CONTRAST ORIGINAL HISTORY: Altered mental status COMPARISON: Head CT previous day TECHNIQUE: 1. Sagittal T1-weighted images. 2. Axial T2-weighted and T2*-weighted images. 3. Axial FLAIR images. 4. Axial diffusion-weighted images with ADC map. FINDINGS: The ventricles and sulci are mildly enlarged. There is moderate punctate and nodular T2 hyperintensity in the cerebral white matter, becoming more confluent in the periventricular regions. Loving-white matter differentiation is maintained. There is no abnormal restriction of diffusion. The orbital contents are normal in appearance. The paranasal sinuses are clear. IMPRESSION: Volume loss and small vessel ischemic disease. Small vessel ischemic disease is more advanced than expected in a patient of this age. Interpreted by: Zofia Lawrence MD Preliminary Report By: Zofia Lawrence MD Electronically signed By Zofia Lawrence MD Dictated Date: 12/29/2024 2:55:46 PM Prelim Date: 12/29/2024 2:58:13 PM Sign Date: 12/29/2024 2:58:13 PM Ordering Provider: BLANCA HOGUE Normal [facility] .Auto Diffon 12-28-2024 Basophil, Absolute 0.0 10 3/mcL Normal 0.0-0.3 [facility] Comment on above: Performed By: #### A MADDIE, CMP, CBC, ADIFF, GFR, MG, CK #### [address] [address] Basophils/100 WBC (Bld) 0.1 % Normal 0.0-2.5 [facility] Comment on above: Performed By: #### A MADDIE, CMP, CBC, ADIFF, GFR, MG, CK #### [address] [address] Eosinophil, Absolute 0.0 10 3/mcL Normal 0.0-0.7 [facility] Comment on above: Performed By: #### A MADDIE, CMP, CBC, ADIFF, GFR, MG, CK #### [address] [address] Eosinophils/100 WBC (Bld) 0.1 % Normal 0.0-6.0 [facility] Comment on above: Performed By: #### A MADDIE, CMP, CBC, ADIFF, GFR, MG, CK #### [address] [address] Lymphocyte, Absolute 0.8 10 3/mcL Low 0.9-4.3 [facility] Comment on above: Performed By: #### A MADDIE, CMP, CBC, ADIFF, GFR, MG, CK #### [address] [address] Lymphocytes/100 WBC (Bld) 5.3 % Low 20.0-40.0 [facility] Comment on above: Performed By: #### A MADDIE, CMP, CBC, ADIFF, GFR, MG, CK #### [address] [address] Monocyte, Absolute 1.4 10 3/mcL Normal 0.1-1.4 [facility] Comment on above: Performed By: #### A MADDIE, CMP, CBC, ADIFF, GFR, MG, CK #### [address] [address] Monocytes/100 WBC (Bld) 9.0 % Normal 2.0-13.0 [facility] Comment on above: Performed By: #### A MADDIE, CMP, CBC, ADIFF, GFR, MG, CK #### [address] [address] Neutrophils/100 WBC (Bld) 85.5 % High 50.0-75.0 [facility] Comment on above: Performed By: #### A MADDIE, CMP, CBC, ADIFF, GFR, MG, CK #### [address] [address] .GFRon 12-28-2024 Estimated Glomerular Filtration Rate 94 ml/min/1.73sqm Normal [facility] Comment on above: Result Comment: Stages of Chronic Kidney Disease (CKD) Stage Description eGFR(ml/min/1.73 sq.m.) CKD 1 Normal kidney function or >=90 normal kindney function with possible kidney damage (ex. Proteinuria) CKD 2 Kidney damage with mild loss 60-89 of kidney function CKD 3a Mild to moderate loss of kidney 45-59 function CKD 3b Moderate to severe loss of 30-44 of kindey function CKD 4 Severe loss of kidney function 15-29 CKD 5 Kidney failure <15 Note: ( live 04/21/2024) the eGFR calculation was updated to the 2020 CKD-EPI creatinine equation without a race factor to calculate the eGFR results. Performed By: #### A MADDIE, CMP, CBC, ADIFF, GFR, MG, CK #### [place] [address] Estimated Glomerular Filtration Rate 91 ml/min/1.73sqm Normal [facility] Comment on above: Result Comment: Stages of Chronic Kidney Disease (CKD) Stage Description eGFR(ml/min/1.73 sq.m.) CKD 1 Normal kidney function or >=90 normal kindney function with possible kidney damage (ex. Proteinuria) CKD 2 Kidney damage with mild loss 60-89 of kidney function CKD 3a Mild to moderate loss of kidney 45-59 function CKD 3b Moderate to severe loss of 30-44 of kindey function CKD 4 Severe loss of kidney function 15-29 CKD 5 Kidney failure <15 Note: ( live 04/21/2024) the eGFR calculation was updated to the 2020 CKD-EPI creatinine equation without a race factor to calculate the eGFR results. Performed By: #### A MADDIE, CMP, CBC, ADIFF, GFR, MG, CK #### [place] [address] .NEUABSon 12-28-2024 Neutrophil, Absolute 12.8 10 3/mcL High 2.3-8.1 [facility] Comment on above: Performed By: #### A MADDIE, CMP, CBC, ADIFF, GFR, MG, CK #### [address] [address] Kiko 12-28-2024 Ammonia 19 mcmol/l Normal 11-32 [facility] Comment on above: Performed By: #### G FR, MG, CMP #### [place] [id number] BMPon 12-28-2024 BUN/Creatinine Ratio 54.1 ratio High 10.0-22.0 [facility] Comment on above: Performed By: #### A MADDIE, CMP, CBC, ADIFF, GFR, MG, CK #### [address] [address] Calcium [Mass/Vol] 9.0 mg/dL Normal 8.7-10.4 [facility] Comment on above: Performed By: #### A MADDIE, CMP, CBC, ADIFF, GFR, MG, CK #### [address] [address] Chloride [Moles/Vol] 110 mmol/L Normal 98-110 [facility] Comment on above: Performed By: #### A MADDIE, CMP, CBC, ADIFF, GFR, MG, CK #### [place] [id number] CO2 [Moles/Vol] 23 mmol/L Normal 22-32 [facility] Comment on above: Performed By: #### A MADDIE, CMP, CBC, ADIFF, GFR, MG, CK #### [place] [id number] Creatinine [Mass/Vol] 0.85 mg/dL Normal 0.60-1.40 [facility] Comment on above: Result Comment: Test ing performed on [employer] analyzer using enzymatic creatinine methodology. Performed By: #### A MADDIE, CMP, CBC, ADIFF, GFR, MG, CK #### [place] [address] Electrolyte Balance 13.0 mEq/L Normal 4.0-15.0 [facility] Comment on above: Performed By: #### A MADDIE, CMP, CBC, ADIFF, GFR, MG, CK #### [place] [id number] Glucose [Mass/Vol] 133 mg/dL High 82-115 [facility] Comment on above: Performed By: #### A MADDIE, CMP, CBC, ADIFF, GFR, MG, CK #### [place] [id number] Potassium [Moles/Vol] 3.9 mmol/L Normal 3.5-5.0 [facility] Comment on above: Performed By: #### A MADDIE, CMP, CBC, ADIFF, GFR, MG, CK #### [place] [id number] Sodium [Moles/Vol] 146 mmol/L High 136-145 [facility] Comment on above: Performed By: #### A MADDIE, CMP, CBC, ADIFF, GFR, MG, CK #### [place] [address] Urea nitrogen [Mass/Vol] 46.0 mg/dL High 8.0-22.0 [facility] Comment on above: Performed By: #### A MADDIE, CMP, CBC, ADIFF, GFR, MG, CK #### [place] [address] CBCon 12-28-2024 Erythrocyte distribution width (RBC) [Ratio] 15.4 % Normal 11.5-15.5 [facility] Comment on above: Performed By: #### A MADDIE, CMP, CBC, ADIFF, GFR, MG, CK #### [place] [address] Hematocrit (Bld) [Volume fraction] 45.9 % Normal 40.0-52.0 [facility] Comment on above: Performed By: #### A MADDIE, CMP, CBC, ADIFF, GFR, MG, CK #### [place] [address] Hgb 14.8 G/dL Normal 13.0-17.5 [facility] Comment on above: Performed By: #### A MADDIE, CMP, CBC, ADIFF, GFR, MG, CK #### [place] [address] MCH (RBC) [Entitic mass] 28.9 pg Normal 27.0-33.0 [facility] Comment on above: Performed By: #### A MADDIE, CMP, CBC, ADIFF, GFR, MG, CK #### [place] [address] MCHC 32.2 G/dL Normal 32.0-36.0 [facility] Comment on above: Performed By: #### A MADDIE, CMP, CBC, ADIFF, GFR, MG, CK #### [place] [address] MCV (RBC) [Entitic vol] 89.6 fL Normal 81.0-100.0 [facility] Comment on above: Performed By: #### A MADDIE, CMP, CBC, ADIFF, GFR, MG, CK #### [place] [id number] Platelet 206 10 3/mcL Normal 150-450 [facility] Comment on above: Performed By: #### A MADDIE, CMP, CBC, ADIFF, GFR, MG, CK #### [place] [address] Platelet mean volume (Bld) [Entitic vol] 8.9 fL Normal 6.4-10.5 [facility] Comment on above: Performed By: #### A MADDIE, CMP, CBC, ADIFF, GFR, MG, CK #### [place] [address] RBC 5.13 10 6/mcL Normal 4.50-6.00 [facility] Comment on above: Performed By: #### A MADDIE, CMP, CBC, ADIFF, GFR, MG, CK #### [place] [id number] WBC 15.0 10 3/mcL High 4.5-10.8 [facility] Comment on above: Performed By: #### A MADDIE, CMP, CBC, ADIFF, GFR, MG, CK #### [place] [id number] CKon 12-28-2024 CK [Catalytic activity/Vol] 2122 U/L High 7-185 [facility] Comment on above: Result Comment: Spec imen slightly hemolyzed. Performed By: #### A MADDIE, CMP, CBC, ADIFF, GFR, MG, CK #### [place] [id number] CMPon 12-28-2024 Albumin Level 3.5 G/dL Normal 3.2-4.8 [facility] Comment on above: Performed By: #### A MADDIE, CMP, CBC, ADIFF, GFR, MG, CK #### [place] [id number] Albumin/Globulin [Mass ratio] 0.9 {ratio} Normal 0.9-1.6 [facility] Comment on above: Performed By: #### A MADDIE, CMP, CBC, ADIFF, GFR, MG, CK #### [place] [address] ALP [Catalytic activity/Vol] 123 U/L Normal 38-126 [facility] Comment on above: Performed By: #### A MADDIE, CMP, CBC, ADIFF, GFR, MG, CK #### [place] [address] ALT [Catalytic activity/Vol] 46 U/L Normal 12-55 [facility] Comment on above: Performed By: #### A MADDIE, CMP, CBC, ADIFF, GFR, MG, CK #### [place] [id number] AST [Catalytic activity/Vol] 112 U/L High 8-34 [facility] Comment on above: Performed By: #### A MADDIE, CMP, CBC, ADIFF, GFR, MG, CK #### [place] [address] Bili Total 0.70 mg/dL Normal 0.20-1.20 [facility] Comment on above: Result Comment: Use of this assay is not recommended for patients undergoing treatment with eltrombopag due to the potential for falsely elevated results. Performed By: #### A MADDIE, CMP, CBC, ADIFF, GFR, MG, CK #### [place] [address] BUN/Creatinine Ratio 51.6 ratio High 10.0-22.0 [facility] Comment on above: Performed By: #### A MADDIE, CMP, CBC, ADIFF, GFR, MG, CK #### [place] [id number] Calcium [Mass/Vol] 10.0 mg/dL Normal 8.7-10.4 [facility] Comment on above: Performed By: #### A MADDIE, CMP, CBC, ADIFF, GFR, MG, CK #### [place] [address] Chloride [Moles/Vol] 104 mmol/L Normal 98-110 [facility] Comment on above: Performed By: #### A MADDIE, CMP, CBC, ADIFF, GFR, MG, CK #### [place] [id number] CO2 [Moles/Vol] 22 mmol/L Normal 22-32 [facility] Comment on above: Performed By: #### A MADDIE, CMP, CBC, ADIFF, GFR, MG, CK #### [place] [id number] Creatinine [Mass/Vol] 0.91 mg/dL Normal 0.60-1.40 [facility] MAIN Comment on above: Result Comment: Test ing performed on [employer] analyzer using enzymatic creatinine methodology. Performed By: #### A MADDIE, CMP, CBC, ADIFF, GFR, MG, CK #### [place] [address] Electrolyte Balance 16.0 mEq/L High 4.0-15.0 [facility] MAIN Comment on above: Performed By: #### A MADDIE, CMP, CBC, ADIFF, GFR, MG, CK #### [place] [id number] Globulin 3.8 G/dL Normal 2.5-4.2 [facility] MAIN Comment on above: Performed By: #### A MADDIE, CMP, CBC, ADIFF, GFR, MG, CK #### [place] [id number] Glucose [Mass/Vol] 114 mg/dL Normal 82-115 [facility] MAIN Comment on above: Performed By: #### A MADDIE, CMP, CBC, ADIFF, GFR, MG, CK #### [place] [id number] Potassium [Moles/Vol] 4.9 mmol/L Normal 3.5-5.0 [facility] MAIN Comment on above: Result Comment: Spec imen slightly hemolyzed. Performed By: #### A MADDIE, CMP, CBC, ADIFF, GFR, MG, CK #### [place] [id number] Sodium [Moles/Vol] 142 mmol/L Normal 136-145 [facility] MAIN Comment on above: Performed By: #### A MADDIE, CMP, CBC, ADIFF, GFR, MG, CK #### [facility] [address] [place] [id number] Total Protein 7.3 G/dL Normal 5.7-8.2 [facility] MAIN Comment on above: Performed By: #### A MADDIE, CMP, CBC, ADIFF, GFR, MG, CK #### [address] [address] Urea nitrogen [Mass/Vol] 47.0 mg/dL High 8.0-22.0 [facility] MAIN Comment on above: Performed By: #### A MADDIE, CMP, CBC, ADIFF, GFR, MG, CK #### [address] [address] [address] HEAD OR BRAIN W/O CONTRAS Ton 12-28-2024 CT HEAD OR BRAIN W/O CONTRAST ORIGINAL EXAMINATION: CT OF THE HEAD WITHOUT CONTRAST; CT OF THE FACE WITHOUT CONTRAST 12/28/2024 1:32 am; 12/28/2024 1:34 am TECHNIQUE: CT of the head was performed without the administration of intravenous contrast. Automated exposure control, iterative reconstruction, and/or weight based adjustment of the mA/kV was utilized to reduce the radiation dose to as low as reasonably achievable.; CT of the face was performed without the administration of intravenous contrast. Multiplanar reformatted images are provided for review. Automated exposure control, iterative reconstruction, and/or weight based adjustment of the mA/kV was utilized to reduce the radiation dose to as low as reasonably achievable. COMPARISON: None. HISTORY: ORDERING SYSTEM PROVIDED HISTORY: Reason for Exam: Pt was found laying prone inside his apartment. Pt was last seen doing coke with neighbors a few days ago. Pt son had not heard from him in about a week. Pt is confused and has R mouth droop Altered mental status; ORDERING SYSTEM PROVIDED HISTORY: Reason for Exam: Pt was found laying prone inside his apartment. Pt was last seen doing coke with neighbors a few days ago. Pt son had not heard from him in about a week. Pt is confused and has R mouth droop on face for 2 days, nose tender FINDINGS: BRAIN/VENTRICLES: There is no acute intracranial hemorrhage, mass effect or midline shift. No abnormal extra-axial fluid collection. The loving-white differentiation is maintained without evidence of an acute infarct. Small lacunar infarct is present in the left adamson radiata. There is no evidence of hydrocephalus. Scattered parenchymal hypodensities in the cerebral white matter are nonspecific but statistically most consistent with moderate chronic microvascular angiopathy. There is proportionate enlargement of the ventricular system and cortical sulci compatible with mild parenchymal volume loss. Facial bones: There is no facial fracture. ORBITS: The visualized portion of the orbits demonstrate no acute abnormality. SINUSES: The visualized paranasal sinuses and mastoid air cells demonstrate no acute abnormality. SOFT TISSUES/SKULL: No acute abnormality of the visualized skull or soft tissues. IMPRESSION: 1. No acute intracranial abnormality. 2. Small lacunar infarct left adamson radiata. 3. Moderate chronic microvascular angiopathy and mild parenchymal volume loss. 4. No facial fracture. Interpreted by: Nikita Clement MD Preliminary Report By: Nikita Clement MD Electronically signed By Nikita Clement MD Dictated Date: 12/28/2024 1:38:42 AM Prelim Date: 12/28/2024 1:43:31 AM Sign Date: 12/28/2024 1:43:31 AM Ordering Provider: GET SMITH RP [facility] MAIN CT MAXILLOFACIAL W/O CONTRAS Ton 12-28-2024 CT MAXILLOFACIAL W/O CONTRAST ORIGINAL EXAMINATION: CT OF THE HEAD WITHOUT CONTRAST; CT OF THE FACE WITHOUT CONTRAST 12/28/2024 1:32 am; 12/28/2024 1:34 am TECHNIQUE: CT of the head was performed without the administration of intravenous contrast. Automated exposure control, iterative reconstruction, and/or weight based adjustment of the mA/kV was utilized to reduce the radiation dose to as low as reasonably achievable.; CT of the face was performed without the administration of intravenous contrast. Multiplanar reformatted images are provided for review. Automated exposure control, iterative reconstruction, and/or weight based adjustment of the mA/kV was utilized to reduce the radiation dose to as low as reasonably achievable. COMPARISON: None. HISTORY: ORDERING SYSTEM PROVIDED HISTORY: Reason for Exam: Pt was found laying prone inside his apartment. Pt was last seen doing coke with neighbors a few days ago. Pt son had not heard from him in about a week. Pt is confused and has R mouth droop Altered mental status; ORDERING SYSTEM PROVIDED HISTORY: Reason for Exam: Pt was found laying prone inside his apartment. Pt was last seen doing coke with neighbors a few days ago. Pt son had not heard from him in about a week. Pt is confused and has R mouth droop on face for 2 days, nose tender FINDINGS: BRAIN/VENTRICLES: There is no acute intracranial hemorrhage, mass effect or midline shift. No abnormal extra-axial fluid collection. The loving-white differentiation is maintained without evidence of an acute infarct. Small lacunar infarct is present in the left adamson radiata. There is no evidence of hydrocephalus. Scattered parenchymal hypodensities in the cerebral white matter are nonspecific but statistically most consistent with moderate chronic microvascular angiopathy. There is proportionate enlargement of the ventricular system and cortical sulci compatible with mild parenchymal volume loss. Facial bones: There is no facial fracture. ORBITS: The visualized portion of the orbits demonstrate no acute abnormality. SINUSES: The visualized paranasal sinuses and mastoid air cells demonstrate no acute abnormality. SOFT TISSUES/SKULL: No acute abnormality of the visualized skull or soft tissues. IMPRESSION: 1. No acute intracranial abnormality. 2. Small lacunar infarct left adamson radiata. 3. Moderate chronic microvascular angiopathy and mild parenchymal volume loss. 4. No facial fracture. Interpreted by: Nikita Clement MD Preliminary Report By: Nikita Clement MD Electronically signed By Nikita Clement MD Dictated Date: 12/28/2024 1:38:42 AM Prelim Date: 12/28/2024 1:43:31 AM Sign Date: 12/28/2024 1:43:31 AM Ordering Provider: GET SMITH RP [facility] MAIN CT SPINE CERVICAL W/O CONTRA STon 12-28-2024 CT SPINE CERVICAL W/O CONTRAST ORIGINAL EXAMINATION: CT OF THE CERVICAL SPINE WITHOUT CONTRAST 12/28/2024 1:33 am TECHNIQUE: CT of the cervical spine was performed without the administration of intravenous contrast. Multiplanar reformatted images are provided for review. Automated exposure control, iterative reconstruction, and/or weight based adjustment of the mA/kV was utilized to reduce the radiation dose to as low as reasonably achievable. COMPARISON: None. HISTORY: ORDERING SYSTEM PROVIDED HISTORY: Reason for Exam: Pt was found laying prone inside his apartment. Pt was last seen doing coke with neighbors a few days ago. Pt son had not heard from him in about a week. Pt is confused and has R mouth droop fall; altered mental status FINDINGS: BONES/ALIGNMENT: There is no acute fracture or traumatic malalignment. DEGENERATIVE CHANGES: There is moderately severe degenerative disc disease at C5-C6 with mild degenerative changes at other levels. There is moderate to marked degree of spinal stenosis at C5-C6 due mainly to degenerative spur formation. SOFT TISSUES: There is no prevertebral soft tissue swelling. IMPRESSION: 1. No acute abnormality of the cervical spine. 2. Degenerative disc disease with spinal stenosis at C5-C6. If there are neurologic symptoms, MRI could be performed for further evaluation. Interpreted by: Nikita Clement MD Preliminary Report By: Nikita Clement MD Electronically signed By Nikita Clement MD Dictated Date: 12/28/2024 1:43:47 AM Prelim Date: 12/28/2024 1:45:53 AM Sign Date: 12/28/2024 1:45:53 AM Ordering Provider: GET SMITH RP [facility] MAIN DRUGUon 12-28-2024 Amphetamine (u) Negative Normal Negative [facility] MAIN Comment on above: Performed By: #### A MADDIE, CMP, CBC, ADIFF, GFR, MG, CK #### [place] [address] Barbiturate (u) Negative Normal Negative [facility] MAIN Comment on above: Performed By: #### A MADDIE, CMP, CBC, ADIFF, GFR, MG, CK #### [address] [address] Benzodiazepine (u) Negative Normal Negative [facility] MAIN Comment on above: Performed By: #### A MADDIE, CMP, CBC, ADIFF, GFR, MG, CK #### [address] [address] Cannabinoid (u) Negative Normal Negative [facility] MAIN Comment on above: Performed By: #### A MADDIE, CMP, CBC, ADIFF, GFR, MG, CK #### [address] [address] Cocaine Ql (U) Positive Abnormal Negative [facility] MAIN Comment on above: Performed By: #### A MADDIE, CMP, CBC, ADIFF, GFR, MG, CK #### [place] [address] Fentanyl (u) Negative Normal Negative [facility] MAIN Comment on above: Result Comment: Test ing has been performed FOR MEDICAL PURPOSES ONLY. Performed By: #### A MADDIE, CMP, CBC, ADIFF, GFR, MG, CK #### [place] [address] Methadone Ql (U) Negative Normal Negative [facility] MAIN Comment on above: Performed By: #### A MADDIE, CMP, CBC, ADIFF, GFR, MG, CK #### [place] [address] Opiate (u) Negative Normal Negative [facility] MAIN Comment on above: Performed By: #### A MADDIE, CMP, CBC, ADIFF, GFR, MG, CK #### [place] [address] Oxycodone (u) Negative Normal [facility] MAIN Comment on above: Result Comment: Test ing has been performed FOR MEDICAL PURPOSES ONLY. Performed By: #### A MADDIE, CMP, CBC, ADIFF, GFR, MG, CK #### [place] [address] PCP (u) Negative Normal [facility] MAIN Comment on above: Performed By: #### A MADDIE, CMP, CBC, ADIFF, GFR, MG, CK #### [place] [address] Propoxyphene (u) Negative Normal Negative [facility] MAIN Comment on above: Performed By: #### A MADDIE, CMP, CBC, ADIFF, GFR, MG, CK #### [place] [address] U pH Drug Scrn 8.5 High 5.0-8.0 [facility] MAIN Comment on above: Performed By: #### A MADDIE, CMP, CBC, ADIFF, GFR, MG, CK #### [place] [address] Urine Drugs screened: See Below Normal [facility] MAIN Comment on above: Result Comment: This drug screen is a presumptive screening only. No confirmation will be performed unless requested. Drugs screened include: Threshold Amphetamines/Methamphetamines 1,000 ng/mL Barbiturates 200 ng/mL Benzodiazepine metabolites 200 ng/mL Cannabinoids (THC metabolites) 50 ng/mL Benzoylecognine (Cocaine metab) 300 ng/mL Opiates 300 ng/mL Phencyclidine (PCP) 25 ng/mL Methadone 300 ng/mL Propoxyphene 300 ng/mL Fentanyl 1.0 ng/mL Oxycodone 100 ng/mL Testing has been performed FOR MEDICAL PURPOSES ONLY. Performed By: #### A MADDIE, CMP, CBC, ADIFF, GFR, MG, CK #### [address] [address] HFPon 12-28-2024 Bili Indirect 0.5 mg/dL Normal 0.1-10.0 [facility] MAIN Comment on above: Performed By: #### A MADDIE, CMP, CBC, ADIFF, GFR, MG, CK #### [address] [address] Albumin Level 3.0 G/dL Low 3.2-4.8 [facility] MAIN Comment on above: Performed By: #### A MADDIE, CMP, CBC, ADIFF, GFR, MG, CK #### [address] [address] Albumin/Globulin [Mass ratio] 1.0 {ratio} Normal 0.9-1.6 [facility] MAIN Comment on above: Performed By: #### A MADDIE, CMP, CBC, ADIFF, GFR, MG, CK #### [address] [address] ALP [Catalytic activity/Vol] 100 U/L Normal 38-126 [facility] MAIN Comment on above: Performed By: #### A MADDIE, CMP, CBC, ADIFF, GFR, MG, CK #### [address] [address] ALT [Catalytic activity/Vol] 44 U/L Normal 12-55 [facility] MAIN Comment on above: Performed By: #### A MADDIE, CMP, CBC, ADIFF, GFR, MG, CK #### [place] [address] AST [Catalytic activity/Vol] 93 U/L High 8-34 [facility] MAIN Comment on above: Performed By: #### A MADDIE, CMP, CBC, ADIFF, GFR, MG, CK #### [place] [address] Bili Direct 0.4 mg/dL Normal 0.0-0.4 [facility] MAIN Comment on above: Result Comment: Use of this assay is not recommended for patients undergoing treatment with eltrombopag due to the potential for falsely elevated results. Performed By: #### A MADDIE, CMP, CBC, ADIFF, GFR, MG, CK #### [place] [address] Bili Total 0.90 mg/dL Normal 0.20-1.20 [facility] MAIN Comment on above: Result Comment: Use of this assay is not recommended for patients undergoing treatment with eltrombopag due to the potential for falsely elevated results. Performed By: #### A MADDIE, CMP, CBC, ADIFF, GFR, MG, CK #### [place] [address] Globulin 3.1 G/dL Normal 2.5-4.2 [facility] MAIN Comment on above: Performed By: #### A MADDIE, CMP, CBC, ADIFF, GFR, MG, CK #### [place] [address] Total Protein 6.1 G/dL Normal 5.7-8.2 [facility] MAIN Comment on above: Performed By: #### A MADDIE, CMP, CBC, ADIFF, GFR, MG, CK #### [place] [address] LABORATORYOrdered By: SYSTEM SYSTEM on 12-28-2024 Ammonia (P) [Moles/Vol] 19 umol/L Normal 11 - 32 mcmol/L AH ADM SS Bili Indirect 0.5 mg/dL Normal 0.1 - 10.0 mg/dL Chemistry S Bilirubin.conjugated [Mass/Vol] 0.4 mg/dL Normal 0.0 - 0.4 mg/dL AH ADM SS Comment on above: Interpretive Data: U se of this assay is not recommended for patients undergoing treatment with eltrombopag due to the potential for falsely elevated results. Lactate [Moles/Vol] 1.1 mmol/L Normal 0.5 - 2. 2 mmol/L [facility] LABORATORYOrdered By: Krupa Leone on 12-28-2024 Cholesterol [Mass/Vol] 102 mg/dL Normal 50 - 199 mg/dL [facility] Comment on above: Interpretive Data: C holesterol Reference Interval: Less than 200 Desirable 200-239 Borderline high risk 240 and above High risk Cholesterol in HDL [Mass/Vol] 38 mg/dL Low 40 - 59 mg/dL [facility] SS Cholesterol in LDL [Mass/Vol] 44 mg/dL Normal 0 - 129 mg/dL [facility] Triglyceride [Mass/Vol] 99 mg/dL Normal 3 - 149 mg/dL [facility] LACon 12-28-2024 Lactic Acid Lvl 1.1 mmol/L Normal 0.5-2.2 [facility] MAIN Comment on above: Performed By: #### A MADDIE, CMP, CBC, ADIFF, GFR, MG, CK #### [address] [address] LIPon 12-28-2024 Lipase Level 18 U/L Normal 12-53 [facility] MAIN Comment on above: Performed By: #### G FR, MG, CMP #### [address] [address] LIPIDon 12-28-2024 Cholesterol [Mass/Vol] 102 mg/dL Normal 50-199 [facility] MAIN Comment on above: Result Comment: Chol esterol Reference Interval: Less than 200 Desirable 200-239 Borderline high risk 240 and above High risk Performed By: #### A MADDIE, CMP, CBC, ADIFF, GFR, MG, CK #### [address] [address] Cholesterol in HDL [Mass/Vol] 38 mg/dL Low 40-59 [facility] MAIN Comment on above: Performed By: #### A MADDIE, CMP, CBC, ADIFF, GFR, MG, CK #### [address] [address] Cholesterol in LDL [Mass/Vol] 44 mg/dL Normal 0-129 [facility] MAIN Comment on above: Performed By: #### A MADDIE, CMP, CBC, ADIFF, GFR, MG, CK #### [address] [address] Triglyceride [Mass/Vol] 99 mg/dL Normal 3-149 [facility] MAIN Comment on above: Performed By: #### A MADDIE, CMP, CBC, ADIFF, GFR, MG, CK #### [address] [address] MGon 12-28-2024 Magnesium [Mass/Vol] 2.3 mg/dL Normal 1.6-2.4 [facility] MAIN Comment on above: Performed By: #### A MADDIE, CMP, CBC, ADIFF, GFR, MG, CK #### [address] [address] Magnesium [Mass/Vol] 2.4 mg/dL Normal 1.6-2.4 [facility] MAIN Comment on above: Performed By: #### A MADDIE, CMP, CBC, ADIFF, GFR, MG, CK #### [address] [address] No Panel Informationon 12-28 Microscopic examination of blood, culture Blood Culture: No Growth at 5 days. [facility] Microscopic examination of blood, culture Blood Culture: No Growth at 5 days. [facility] TROPHSon 12-28-2024 High Sensitivity Troponin I 33 ng/L Normal 0-54 [facility] MAIN Comment on above: Result Comment: High Sensitive Troponin I Reference Ranges: Female: 0-34 ng/L Male: 0-54 ng/L Testing performed on [employer] analyzer using direct chemiluminescent technology. Performed By: #### A MADDIE, CMP, CBC, ADIFF, GFR, MG, CK #### [address] [address] XR CHEST 1 VIEWon 12-28-2024 XR CHEST 1 VIEW ORIGINAL EXAMINATION: ONE XRAY VIEW OF THE CHEST 12/28/2024 1:11 am COMPARISON: None. HISTORY: ORDERING SYSTEM PROVIDED HISTORY: Reason for Exam: Altered mental status FINDINGS: The heart size and mediastinal contours are normal. There is no lung infiltrate or edema. No pneumothorax or pleural fluid is present. There is no acute skeletal abnormality. IMPRESSION: No acute cardiopulmonary process. Interpreted by: Nikita Clement MD Preliminary Report By: Nikita Clement MD Electronically signed By Nikita Clement MD Dictated Date: 12/28/2024 1:14:43 AM Prelim Date: 12/28/2024 1:15:40 AM Sign Date: 12/28/2024 1:15:40 AM Ordering Provider: GET SMITH RP Normal [facility] MAIN .Auto Diffon 12-27-2024 Basophil, Absolute 0.0 10 3/mcL Normal 0.0-0.3 [facility] MAIN Comment on above: Performed By: #### G FR, MG, CMP #### [address] [address] Basophils/100 WBC (Bld) 0.2 % Normal 0.0-2.5 [facility] MAIN Comment on above: Performed By: #### G FR, MG, CMP #### [address] [address] Eosinophil, Absolute 0.0 10 3/mcL Normal 0.0-0.7 [facility] MAIN Comment on above: Performed By: #### G FR, MG, CMP #### [address] [address] Eosinophils/100 WBC (Bld) 0.0 % Normal 0.0-6.0 [facility] MAIN Comment on above: Performed By: #### G FR, MG, CMP #### [address] [address] Lymphocyte, Absolute 0.6 10 3/mcL Low 0.9-4.3 [facility] MAIN Comment on above: Performed By: #### G FR, MG, CMP #### [address] [address] Lymphocytes/100 WBC (Bld) 3.3 % Low 20.0-40.0 [facility] MAIN Comment on above: Performed By: #### G FR, MG, CMP #### [place] [address] Monocyte, Absolute 1.3 10 3/mcL Normal 0.1-1.4 [facility] MAIN Comment on above: Performed By: #### G FR, MG, CMP #### [place] [address] Monocytes/100 WBC (Bld) 7.5 % Normal 2.0-13.0 [facility] MAIN Comment on above: Performed By: #### G FR, MG, CMP #### [place] [address] Neutrophils/100 WBC (Bld) 89.0 % High 50.0-75.0 [facility] MAIN Comment on above: Performed By: #### G FR, MG, CMP #### [place] [address] .MDWon 12-27-2024 Monocyte Distribution Width 16.93 Normal 0.00-20.00 [facility] MAIN Comment on above: Result Comment: For ED adult patients suspected of sepsis, MDW<=20.0 does not rule out sepsis or risk of sepsis Performed By: #### G FR, MG, CMP #### [place] [address] .NEUABSon 12-27-2024 Neutrophil, Absolute 15.5 10 3/mcL High 2.3-8.1 [facility] MAIN Comment on above: Performed By: #### G FR, MG, CMP #### [place] [address] CBCon 12-27-2024 Erythrocyte distribution width (RBC) [Ratio] 15.7 % High 11.5-15.5 [facility] MAIN Comment on above: Performed By: #### G FR, MG, CMP #### [place] [address] Hematocrit (Bld) [Volume fraction] 49.3 % Normal 40.0-52.0 [facility] MAIN Comment on above: Performed By: #### G FR, MG, CMP #### [place] [address] Hgb 16.5 G/dL Normal 13.0-17.5 [facility] MAIN Comment on above: Performed By: #### G FR, MG, CMP #### [place] [address] MCH (RBC) [Entitic mass] 29.7 pg Normal 27.0-33.0 [facility] MAIN Comment on above: Performed By: #### G FR, MG, CMP #### [place] [address] MCHC 33.4 G/dL Normal 32.0-36.0 [facility] MAIN Comment on above: Performed By: #### G FR, MG, CMP #### [place] [address] MCV (RBC) [Entitic vol] 88.8 fL Normal 81.0-100.0 [facility] MAIN Comment on above: Performed By: #### G FR, MG, CMP #### [place] [address] Platelet 224 10 3/mcL Normal 150-450 [facility] MAIN Comment on above: Performed By: #### G FR, MG, CMP #### [place] [address] Platelet mean volume (Bld) [Entitic vol] 9.3 fL Normal 6.4-10.5 [facility] MAIN Comment on above: Performed By: #### G FR, MG, CMP #### [place] [address] RBC 5.55 10 6/mcL Normal 4.50-6.00 [facility] MAIN Comment on above: Performed By: #### G FR, MG, CMP #### [place] [address] WBC 17.5 10 3/mcL High 4.5-10.8 [facility] MAIN Comment on above: Performed By: #### G FR, MG, CMP #### [place] [address] DRUGSon 12-27-2024 Acetaminophen [Mass/Vol] ug/mL Low 10.0-20.0 [facility] MAIN Comment on above: Performed By: #### G FR, MG, CMP #### [place] [address] Ethanol Level <10.0 Normal [facility] MAIN Comment on above: Performed By: #### G FR, MG, CMP #### [place] [address] Salicylate Lvl (ds) <3.0 Low 10.0-25.0 [facility] MAIN Comment on above: Performed By: #### G FR, MG, CMP #### [place] [address] Serum Drugs screened: See Below Normal [facility] MAIN Comment on above: Result Comment: This drug screen is a presumptive screening only. No confirmation will be performed unless requested. Drugs included in the serum drug screen are: Threshold Ethanol 10.0 mg/dL Salicylate 2.0 mg/dl Acetaminophen 2.0 mcg/mL Testing has been performed FOR MEDICAL PURPOSES ONLY. Performed By: #### G FR, MG, CMP #### [place] [address] LABORATORYOrdered By: SYSTEM SYSTEM on 12-27-2024 Troponin I.cardiac DL <= 0.01 ng/mL [Mass/Vol] 33 ng/L Normal 0 - 54 ng/L ADM Comment on above: Interpretive Data: High Sensitive Troponin I Reference Ranges: Female: 0-34 ng/L Male: 0-54 ng/L Testing performed on [employer] IM analyzer using direct chemiluminescent technology. Lipase [Catalytic activity/Vol] 18 U/L Normal 12 - 53 U/L ADM SS Monocyte distribution width Auto (Bld) [Entitic vol] 16.93 1 Normal 0.00 - 20.00 [facility] SS Comment on above: Result Comment: For ED adult patients suspected of sepsis, MDW<=20.0 does not rule out sepsis or risk of sepsis Troponin I.cardiac DL <= 0.01 ng/mL [Mass/Vol] 34 ng/L Normal 0 - 54 ng/L ADM Comment on above: Interpretive Data: High Sensitive Troponin I Reference Ranges: Female: 0-34 ng/L Male: 0-54 ng/L Testing performed on [employer] IM analyzer using direct chemiluminescent technology. LABORATORYOrdered By: Kira Arvizu on 12-27-2024 Acetaminophen [Mass/Vol] mcg/mL Low 10.0 - 20.0 mcg/mL AH ADM SS Amphetamines Screen Ql (U) Negative *NA* (12/27/24 11:03 PM) Invalid Interpretation Code Negative AH ADM SS Barbiturates Screen Ql (U) Negative *NA* (12/27/24 11:03 PM) Invalid Interpretation Code Negative AH ADM SS Benzodiazepines Ql (U) Negative *NA* (12/27/24 11:03 PM) Invalid Interpretation Code Negative AH ADM SS Benzoylecgonine Screen Ql (U) Positive *ABN* (12/27/24 11:03 PM) Invalid Interpretation Code Negative AH ADM SS Cannabinoids Screen Ql (U) Negative *NA* (12/27/24 11:03 PM) Invalid Interpretation Code Negative AH ADM SS Ethanol [Mass/Vol] mg/dL Invalid Interpretation Code AH ADM SS fentaNYL Screen Ql (U) Negative 2 *NA* (12/27/24 11:03 PM) Invalid Interpretation Code Negative AH ADM SS Comment on above: Interpretive Data: T esting has been performed FOR MEDICAL PURPOSES ONLY. Methadone Screen Ql (U) Negative *NA* (12/27/24 11:03 PM) Invalid Interpretation Code Negative AH ADM SS Opiates Screen Ql (U) Negative *NA* (12/27/24 11:03 PM) Invalid Interpretation Code Negative AH ADM SS oxyCODONE Ql (U) Negative 3 *NA* (12/27/24 11:03 PM) Invalid Interpretation Code Negative AH ADM SS Comment on above: Interpretive Data: T esting has been performed FOR MEDICAL PURPOSES ONLY. pH (U) 8.5 [pH] High 5.0 - 8.0 Chemistry S Phencyclidine Ql (U) Negative *NA* (12/27/24 11:03 PM) Invalid Interpretation Code Negative AH ADM SS Propoxyphene Screen Ql (U) Negative *NA* (12/27/24 11:03 PM) Invalid Interpretation Code Negative AH ADM SS Salicylates [Mass/Vol] mg/dL Low 10.0 - 25.0 mg/dL AH ADM SS Serum Drugs screened: See Below 14 (12/27/24 11:03 PM) Normal Chemistry S Comment on above: Interpretive Data: T his drug screen is a presumptive screening only. No confirmation will be performed unless requested. Drugs included in the serum drug screen are: Threshold Ethanol 10.0 mg/dL Salicylate 2.0 mg/dl Acetaminophen 2.0 mcg/mL Testing has been performed FOR MEDICAL PURPOSES ONLY. Urine Drugs screened: See Below 15 (12/27/24 11:03 PM) Normal AH Chemistry S Comment on above: Interpretive Data: T his drug screen is a presumptive screening only. No confirmation will be performed unless requested. Drugs screened include: Threshold Amphetamines/Methamphetamines 1,000 ng/mL Barbiturates 200 ng/mL Benzodiazepine metabolites 200 ng/mL Cannabinoids (THC metabolites) 50 ng/mL Benzoylecognine (Cocaine metab) 300 ng/mL Opiates 300 ng/mL Phencyclidine (PCP) 25 ng/mL Methadone 300 ng/mL Propoxyphene 300 ng/mL Fentanyl 1.0 ng/mL Oxycodone 100 ng/mL Testing has been performed FOR MEDICAL PURPOSES ONLY. LABORATORYOrdered By: Marck Belle on 12-27-2024 Appearance (U) Turbid *ABN* (12/27/24 11:03 PM) Invalid Interpretation Code Clear AH Auto Urine SS Bacteria LM.HPF (Urine sed) [#/Area] 4 /[HPF] Invalid Interpretation Code Negative AH Auto Urine SS Bilirubin Ql (U) Negative (12/27/24 11:03 PM) Normal Neg-Trace AH Auto Urine SS Color (U) Dodge *ABN* (12/27/24 11:03 PM) Invalid Interpretation Code AH Auto Urine SS Glucose Test strip (U) [Mass/Vol] Negative Normal Negative AH Auto Urine SS Hemoglobin Auto test strip (U) [Mass/Vol] Large *ABN* (12/27/24 11:03 PM) Invalid Interpretation Code Neg-Trace AH Auto Urine SS Ketones Ql (U) Negative Normal Neg-Trace AH Auto Ur ine SS UA Leuk Est Moderate *ABN* (12/27/24 11:03 PM) Invalid Interpretation Code Negative AH Auto Urine SS UA Mucous 2+ /HPF Normal AH Auto Urine SS UA Nitrite Negative (12/27/24 11:03 PM) Normal Negative AH Auto Urine SS UA pH 8.5 *ABN* (12/27/24 11:03 PM) Invalid Interpretation Code 5.0 - 8.0 AH Auto Urine SS UA Protein 300 mg/dL Invalid Interpretation Code Negative AH Auto Urine SS UA RBC 10-20 /HPF Invalid Interpretation Code 0-2 AH Auto Urine SS UA Spec Grav 1.020 (12/27/24 11:03 PM) Normal 1.006-1.029 AH Auto Urine SS UA Specimen Type Clean Catch (12/27/24 11:03 PM) Normal AH Auto Urine SS UA Squam Epithelial 0-2 /HPF Normal 0-20 AH Au to Urine SS UA Transitional Epithelial 0-2 /HPF Normal AH Auto Urine SS UA Trip [place] Crystals 1+ /HPF Normal AH A uto Urine SS UA Urobilinogen 1.0 E.U./dL Normal 0.2-1.0 AH Auto Urine SS WBC LM.HPF (Urine sed) [#/Area] 25-50 /HPF Invalid Interpretation Code 0-5 AH Auto Urine SS No Panel Informationon 12-27 Culture Urine >100,000 cfu/ml Multiple bacterial morphotypes present. Probable Contamination. Suggest recollection if clinically indicated. [facility] High Sensitivity Troponin I 34 ng/L Normal 0-54 [facility] Comment on above: Result Comment: High Sensitive Troponin I Reference Ranges: Female: 0-34 ng/L Male: 0-54 ng/L Testing performed on Wallix IM analyzer using direct chemiluminescent technology. Performed By: #### G FR, MG, CMP #### [address] [address] UAon 12-27-2024 Color (U) Dodge Abnormal [facility] Comment on above: Performed By: #### A MADDIE, CMP, CBC, ADIFF, GFR, MG, CK #### [address] [address] Glucose (U) [Mass/Vol] Negative Normal Negative [facility] Comment on above: Performed By: #### A MADDIE, CMP, CBC, ADIFF, GFR, MG, CK #### [address] [address] Ketones Ql (U) Negative Normal Neg-Trace [facility] Comment on above: Performed By: #### A MADDIE, CMP, CBC, ADIFF, GFR, MG, CK #### [address] [address] UA Appear Turbid Abnormal Clear [facility] Comment on above: Performed By: #### A MADDIE, CMP, CBC, ADIFF, GFR, MG, CK #### [address] [address] UA Blood Large Abnormal Neg-Trace [facility] Comment on above: Performed By: #### A MADDIE, CMP, CBC, ADIFF, GFR, MG, CK #### [address] [address] UA Leuk Est Moderate Abnormal Negative [facility] Comment on above: Performed By: #### A MADDIE, CMP, CBC, ADIFF, GFR, MG, CK #### [address] [address] UA Nitrite Negative Normal Negative [facility] Comment on above: Performed By: #### A MADDIE, CMP, CBC, ADIFF, GFR, MG, CK #### [address] [address] UA pH 8.5 Abnormal 5.0 - 8.0 [facility] Comment on above: Performed By: #### A MADDIE, CMP, CBC, ADIFF, GFR, MG, CK #### [address] [address] UA Protein 300 mg/dL Abnormal Negative [facility] Comment on above: Performed By: #### A MADDIE, CMP, CBC, ADIFF, GFR, MG, CK #### [address] [address] UA Spec Grav 1.020 Normal 1.006-1.029 [facility] Comment on above: Performed By: #### A MADDIE, CMP, CBC, ADIFF, GFR, MG, CK #### [address] [address] UA Specimen Type Clean Catch Normal [facility] Comment on above: Performed By: #### A MADDIE, CMP, CBC, ADIFF, GFR, MG, CK #### [address] [address] UA Urobilinogen 1.0 E.U./dL Normal 0.2-1.0 [facility] Comment on above: Performed By: #### A MADDIE, CMP, CBC, ADIFF, GFR, MG, CK #### [address] [address] Urobilinogen (U) [Mass/Vol] Negative Normal Neg-Trace [facility] Comment on above: Performed By: #### A MADDIE, CMP, CBC, ADIFF, GFR, MG, CK #### [address] [address] UAMICon 12-27-2024 UA Bacteria 4+ /hpf Abnormal Negative [facility] Comment on above: Performed By: #### A MADDIE, CMP, CBC, ADIFF, GFR, MG, CK #### [address] [address] UA Mucous 2+ /hpf Normal [facility] Comment on above: Performed By: #### A MADDIE, CMP, CBC, ADIFF, GFR, MG, CK #### [address] [address] UA RBC 10-20 Abnormal 0-2 [facility] Comment on above: Performed By: #### A MADDIE, CMP, CBC, ADIFF, GFR, MG, CK #### [address] [address] UA Squam Epithelial 0-2 Normal 0-20 [facility] Comment on above: Performed By: #### A MADDIE, CMP, CBC, ADIFF, GFR, MG, CK #### [address] [address] UA Transitional Epithelial 0-2 [facility] Comment on above: Performed By: #### A MADDIE, CMP, CBC, ADIFF, GFR, MG, CK #### [address] [address] UA Trip [place] Crystals 1+ /hpf Normal [facility] Comment on above: Performed By: #### A MADDIE, CMP, CBC, ADIFF, GFR, MG, CK #### [address] [address] UA WBC 25-50 Abnormal 0-5 [facility] Comment on above: Performed By: #### A MADDIE, CMP, CBC, ADIFF, GFR, MG, CK #### [facility] [address] [place] [address] ALBUMIN, RANDOM URINE W/CREA TININEon 04-04-2024 ALBUMIN, URINE Normal [facility] Comment on above: Performed By: #### 1 4852, 496, 5363, 6517, 6399, 30915 #### [facility] of [address], [address] [place] [address] Autocad Technician: Micah Mckeon MD ALBUMIN/CREATININE RATIO, RANDOM URINE Normal [facility] Comment on above: Performed By: #### 1 4852, 496, 5363, 6517, 6399, 33053 #### [facility] of [place] [address] Autocad Technician: Micah Mckeon MD CREATININE, RANDOM URINE Normal [facility] Comment on above: Performed By: #### 1 4852, 496, 5363, 6517, 6399, 68702 #### [facility] of [place] [address] Autocad Technician: Micah Mckeon MD CBC (INCLUDES DIFF/PLT)on Basophils (Bld) [#/Vol] 0.05 10*3/uL Normal 0-200 [facility] Comment on above: Performed By: #### 1 4852, 496, 5363, 6517, 6399, 72532 #### [facility] of [place] [address] Autocad Technician: Micah Mckeon MD Basophils/100 WBC (Bld) 0.6 % Normal [facility] Comment on above: Performed By: #### 1 4852, 496, 5363, 6517, 6399, 46228 #### [facility] of [place] [address] Autocad Technician: Micah Mckeon MD Eosinophils (Bld) [#/Vol] 0.141 10*3/uL Normal 15-500 [facility] Comment on above: Performed By: #### 1 4852, 496, 5363, 6517, 6399, 29867 #### [facility] of [address], [address] [place] [address] Autocad Technician: Micah Mckeon MD Eosinophils/100 WBC (Bld) 1.7 % Normal [facility] Comment on above: Performed By: #### 1 4852, 496, 5363, 6517, 6399, 46585 #### [facility] of [place] [address] Autocad Technician: Micah Mckeon MD Erythrocyte distribution width (RBC) [Ratio] 13.1 % Normal 11.0-15.0 [facility] Comment on above: Performed By: #### 1 4852, 496, 5363, 6517, 6399, 09498 #### [facility] of [place] [address] Autocad Technician: Micah Mckeon MD Hematocrit (Bld) [Volume fraction] 47.4 % Normal 38.5-50.0 [facility] Comment on above: Performed By: #### 1 4852, 496, 5363, 6517, 6399, 19831 #### [facility] of [place] [address] Autocad Technician: Micah Mckeon MD Hemoglobin (Bld) [Mass/Vol] 15.1 g/dL Normal 13.2-17.1 [facility] Comment on above: Performed By: #### 1 4852, 496, 5363, 6517, 6399, 16364 #### [facility] of [place] [address] Autocad Technician: Micah Mckeon MD Lymphocytes (Bld) [#/Vol] 1.66 10*3/uL Normal 850-3900 [facility] Comment on above: Performed By: #### 1 4852, 496, 5363, 6517, 6399, 83379 #### [facility] of [place] [address] Autocad Technician: Micah Mckeon MD Lymphocytes/100 WBC (Bld) 20.0 % Normal [facility] Comment on above: Performed By: #### 1 4852, 496, 5363, 6517, 6399, 68325 #### [facility] [place] [address] Autocad Technician: Micah Mckeon MD MCH (RBC) [Entitic mass] 30.0 pg Normal 27.0-33.0 [facility] Comment on above: Performed By: #### 1 4852, 496, 5363, 6517, 6399, 44828 #### [facility] [place] [address] Autocad Technician: Micah Mckeon MD MCHC (RBC) [Mass/Vol] 31.9 g/dL Low 32.0-36.[address] [facility] Comment on above: Result Comment: For adults, a slight decrease in the calculated MCHC value (in the range of 30 to 32 g/dL) is most likely not clinically significant; however, it should be interpreted with caution in correlation with other red cell parameters and the patient's clinical condition. Performed By: #### 1 4852, 496, 5363, 6517, 6399, 01724 #### [facility] [place] [address] Autocad Technician: Micah Mckeon MD MCV (RBC) [Entitic vol] 94.2 fL Normal 80.0-100.0 [facility] Comment on above: Performed By: #### 1 4852, 496, 5363, 6517, 6399, 14385 #### [facility] [place] [address] Autocad Technician: Micah Mckeon MD Monocytes (Bld) [#/Vol] 0.739 10*3/uL Normal 200-950 [facility] Comment on above: Performed By: #### 1 4852, 496, 5363, 6517, 6399, 34783 #### [facility] [place] [address] Autocad Technician: Micah Mckeon MD Monocytes/100 WBC (Bld) 8.9 % Normal [facility] Comment on above: Performed By: #### 1 4852, 496, 5363, 6517, 6399, 13472 #### [facility] of [address], [address] [place] [address] Autocad Technician: Micah Mckeon MD Neutrophils (Bld) [#/Vol] 5.71 10*3/uL Normal 2074-9715 [facility] Comment on above: Performed By: #### 1 4852, 496, 5363, 6517, 6399, 85282 #### [facility] of [address], [address] [place] [address] Autocad Technician: Micah Mckeon MD Neutrophils/100 WBC (Bld) 68.8 % Normal [facility] Comment on above: Performed By: #### 1 4852, 496, 5363, 6517, 6399, 96844 #### [facility] of [address], [address] [place] [address] Autocad Technician: Micah Mckeon MD Platelet mean volume (Bld) [Entitic vol] 11.5 fL Normal 7.5-12.5 [facility] Comment on above: Performed By: #### 1 4852, 496, 5363, 6517, 6399, 85961 #### [facility] of [place] [address] Autocad Technician: Micah Mckeon MD Platelets (Bld) [#/Vol] 186 10*3/uL Normal 140-400 [facility] Comment on above: Performed By: #### 1 4852, 496, 5363, 6517, 6399, 62670 #### [facility] of [place] [address] Autocad Technician: Micah Mckeon MD RBC (Bld) [#/Vol] 5.03 10*6/uL Normal 4.20-5.80 [facility] Comment on above: Performed By: #### 1 4852, 496, 5363, 6517, 6399, 51911 #### [facility] of [place] [address] Autocad Technician: Micah Mckeon MD WBC (Bld) [#/Vol] 8.3 10*3/uL Normal 3.8-10.8 [facility] Comment on above: Performed By: #### 1 4852, 496, 5363, 6517, 6399, 50886 #### [facility] of [place] [address] Autocad Technician: Micah Mckeon MD COMPREHENSIVE METABOLIC PANE [facility] 04-04-2024 Albumin [Mass/Vol] 4.4 g/dL Normal 3.6-5.1 [facility] Comment on above: Performed By: #### 1 4852, 496, 5363, 6517, 6399, 82295 #### [facility] [place] [address] Autocad Technician: Micah Mckeon MD Albumin/Globulin [Mass ratio] 1.7 {ratio} Normal 1.0-2.5 [facility] Comment on above: Performed By: #### 1 4852, 496, 5363, 6517, 6399, 63054 #### [facility] of [place] [address] Autocad Technician: Micah Mckeon MD ALP [Catalytic activity/Vol] 110 U/L Normal 35-144 [facility] Comment on above: Performed By: #### 1 4852, 496, 5363, 6517, 6399, 53481 #### [facility] of [place] [address] Autocad Technician: Micah Mckeon MD ALT [Catalytic activity/Vol] 17 U/L Normal 9-46 [facility] Comment on above: Performed By: #### 1 4852, 496, 5363, 6517, 6399, 87648 #### [facility] of [place] [address] Autocad Technician: Micah Mckeon MD AST [Catalytic activity/Vol] 11 U/L Normal 10-35 [facility] Comment on above: Performed By: #### 1 4852, 496, 5363, 6517, 6399, 73958 #### [facility] of [place] [address] Autocad Technician: Micah Mckeon MD Bilirubin [Mass/Vol] 0.4 mg/dL Normal 0.2-1.2 [facility] Comment on above: Performed By: #### 1 4852, 496, 5363, 6517, 6399, 54572 #### [facility] of [address], [address] [place] [address] Autocad Technician: Micah Mckeon MD Calcium [Mass/Vol] 9.8 mg/dL Normal 8.6-10.3 [facility] Comment on above: Performed By: #### 1 4852, 496, 5363, 6517, 6399, 90499 #### [facility] of [place] [address] Autocad Technician: Micah Mckeon MD Chloride [Moles/Vol] 101 mmol/L Normal 98-110 [facility] Comment on above: Performed By: #### 1 4852, 496, 5363, 6517, 6399, 66724 #### [facility] of [place] [address] Autocad Technician: Micah Mckeon MD CO2 [Moles/Vol] 32 mmol/L Normal 20-32 [facility] Comment on above: Performed By: #### 1 4852, 496, 5363, 6517, 6399, 98024 #### [facility] of [place] [address] Autocad Technician: Micah Mckeon MD Creatinine [Mass/Vol] 0.53 mg/dL Low 0.70-1.[address] [facility] Comment on above: Performed By: #### 1 4852, 496, 5363, 6517, 6399, 71728 #### [facility] of [place] [address] Autocad Technician: Micah Mckeon MD GFR/1.73 sq M.predicted among non-blacks MDRD (S/P/Bld) [Vol rate/Area] 108 mL/min/{1.73_m2} Normal > OR = 60 [facility] Comment on above: Performed By: #### 1 4852, 496, 5363, 6517, 6399, 86758 #### [facility] [address], [address] [place] [address] Autocad Technician: Micah Mckeon MD Globulin (S) [Mass/Vol] 2.6 g/dL Normal 1.9-3.7 [facility] Comment on above: Performed By: #### 1 4852, 496, 5363, 6517, 6399, 26457 #### [facility] [place] [address] Autocad Technician: Micah Mckeon MD Glucose [Mass/Vol] 168 mg/dL High 65-99 [facility] Comment on above: Result Comment: Fasting reference interval For someone without known diabetes, a glucose value >125 mg/dL indicates that they may have diabetes and this should be confirmed with a follow-up test. Performed By: #### 1 4852, 496, 5363, 6517, 6399, 59211 #### [facility] [place] [address] Autocad Technician: Micah Mckeon MD Potassium [Moles/Vol] 4.7 mmol/L Normal 3.5-5.3 [facility] Comment on above: Performed By: #### 1 4852, 496, 5363, 6517, 6399, 76621 #### [facility] [place] [address] Autocad Technician: Micah Mckeon MD Protein [Mass/Vol] 7.0 g/dL Normal 6.1-8.1 [facility] Comment on above: Performed By: #### 1 4852, 496, 5363, 6517, 6399, 13158 #### [facility] [place] [address] Autocad Technician: Micah Mckeon MD Sodium [Moles/Vol] 141 mmol/L Normal 135-146 [facility] Comment on above: Performed By: #### 1 4852, 496, 5363, 6517, 6399, 69519 #### [facility] [place] [address] Autocad Technician: Micah Mckeon MD Urea nitrogen [Mass/Vol] 13 mg/dL Normal 7-25 [facility] Comment on above: Performed By: #### 1 4852, 496, 5363, 6517, 6399, 50321 #### [facility] [place] [address] Autocad Technician: Micah Mckeon MD Urea nitrogen/Creatinine [Mass ratio] 25 mg/mg High 6-22 [facility] Comment on above: Performed By: #### 1 4852, 496, 5363, 6517, 6399, 30430 #### [facility] [place] [address] Autocad Technician: Micah Mckeon MD HEMOGLOBIN A1con 04-04-2024 HEMOGLOBIN A1c Normal [facility] Comment on above: Performed By: #### 1 4852, 496, 5363, 6517, 6399, 80531 #### [facility] [place] [address] Autocad Technician: Micah Mckeon MD LIPID PANEL WITH REFLEX TO D IRECT LDLon 04-04-2024 Cholesterol [Mass/Vol] 125 mg/dL Normal <200 [facility] Comment on above: Order Comment: 0; 0; 0; 0; 0; 0; 0 FASTING:UNKNOWN FASTING: UNKNOWN Performed By: #### 1 4852, 496, 5363, 6517, 6399, 86811 #### [facility] [place] [address] Autocad Technician: Micah Mckeon MD Cholesterol in HDL [Mass/Vol] 52 mg/dL Normal > OR = 40 [facility] Comment on above: Order Comment: 0; 0; 0; 0; 0; 0; 0 FASTING:UNKNOWN FASTING: UNKNOWN Performed By: #### 1 4852, 496, 5363, 6517, 6399, 11477 #### [facility] [place] [address] Autocad Technician: Micah Mckeon MD Cholesterol in LDL [Mass/Vol] 58 mg/dL Normal [facility] Comment on above: Order Comment: 0; 0; 0; 0; 0; 0; 0 FASTING:UNKNOWN FASTING: UNKNOWN Result Comment: Refe rence range: <100 Desirable range <100 mg/dL for primary prevention; <70 mg/dL for patients with CHD or diabetic patients with > or = 2 CHD risk factors. LDL-C is now calculated using the Josiah calculation, which is a validated novel method providing better accuracy than the Friedewald equation in the estimation of LDL-C. Abdi LOMBARDO et al. AFSANEH. 2013;310(19): 2834-7377 (http://education.Thryve.Oppex/faq/XMZ101) Performed By: #### 1 4852, 496, 5363, 6517, 6399, 90937 #### [facility] [address], [address] [place] [address] Autocad Technician: Micah Mckeon MD Cholesterol.total/Cho lesterol in HDL [Mass ratio] 2.4 {ratio} Normal <5.0 [facility] Comment on above: Order Comment: 0; 0; 0; 0; 0; 0; 0 FASTING:UNKNOWN FASTING: UNKNOWN Performed By: #### 1 4852, 496, 5363, 6517, 6399, 23548 #### [facility] [address], [address] [place] [address] Autocad Technician: Micah Mckeon MD NON HDL CHOLESTEROL 73 mg/dL (calc) Normal <130 [facility] Comment on above: Order Comment: 0; 0; 0; 0; 0; 0; 0 FASTING:UNKNOWN FASTING: UNKNOWN Result Comment: For patients with diabetes plus 1 major ASCVD risk factor, treating to a non-HDL-C goal of <100 mg/dL (LDL-C of <70 mg/dL) is considered a therapeutic option. Performed By: #### 1 4852, 496, 5363, 6517, 6399, 04073 #### [facility] of [place] [address] Autocad Technician: Micah Mckeon MD Triglyceride [Mass/Vol] 70 mg/dL Normal <150 [facility] Comment on above: Order Comment: 0; 0; 0; 0; 0; 0; 0 FASTING:UNKNOWN FASTING: UNKNOWN Performed By: #### 1 4852, 496, 5363, 6517, 6399, 02471 #### [facility] of [address], [address] [place] [address] Autocad Technician: Micah Mckeon MD PSA, TOTALon 04-04-2024 PSA, TOTAL Normal [facility] Comment on above: Performed By: #### 1 4852, 496, 5363, 6517, 6399, 11952 #### [facility] of [place] [address] Autocad Technician: Micah Mckeon MD TSHon 04-04-2024 TSH Normal [facility] Comment on above: Performed By: #### 1 4852, 496, 5363, 6517, 6399, 70832 #### [facility] of [place] [address] Autocad Technician: Micah Mckeon MD .GFRon 02-06-2020 GFR Non- >60 Normal [facility] ([place]) Comment on above: Result Comment: GFR Population mean for , Non- Americans Ages 20-29 = 116 mL/min/1.73 sq.m. Ages 30-39 = 107 mL/min/1.73 sq.m. Ages 40-49 = 99 mL/min/1.73 sq.m. Ages 50-59 = 93 mL/min/1.73 sq.m. Ages 60-69 = 85 mL/min/1.73 sq.m. Ages 70+ = 75 mL/min/1.73 sq.m. Chronic Kidney Disease: Less than 60 mL/min/1.73 square meters End Stage Renal Disease: Less than 15 mL/min/1.73 square meters Performed By: #### A 1C, PSA, TSH, GFR, CMP, LIPID #### [address] [address] GFR >60 Normal [facility] ([place]) Comment on above: Result Comment: GFR Population mean for , Non- Americans Ages 20-29 = 116 mL/min/1.73 sq.m. Ages 30-39 = 107 mL/min/1.73 sq.m. Ages 40-49 = 99 mL/min/1.73 sq.m. Ages 50-59 = 93 mL/min/1.73 sq.m. Ages 60-69 = 85 mL/min/1.73 sq.m. Ages 70+ = 75 mL/min/1.73 sq.m. Chronic Kidney Disease: Less than 60 mL/min/1.73 square meters End Stage Renal Disease: Less than 15 mL/min/1.73 square meters Performed By: #### A 1C, PSA, TSH, GFR, CMP, LIPID #### [place] [id number] A1Con 02-06-2020 HbA1c (Bld) [Mass fraction] 8.0 % High 4.0-6.0 [facility] ([place]) Comment on above: Performed By: #### A 1C, PSA, TSH, GFR, CMP, LIPID #### [place] [id number] CMP 02-06-2020 Albumin [Mass/Vol] 3.9 G/dL Normal 3.2-4.8 [facility] ([place]) Comment on above: Performed By: #### A 1C, PSA, TSH, GFR, CMP, LIPID #### [address] [address] Albumin/Globulin [Mass ratio] 1.6 {ratio} Normal 0.9-1.6 [facility] ([place]) Comment on above: Performed By: #### A 1C, PSA, TSH, GFR, CMP, LIPID #### [address] [address] ALP [Catalytic activity/Vol] 92 U/L Normal 38-126 [facility] ([place]) Comment on above: Performed By: #### A 1C, PSA, TSH, GFR, CMP, LIPID #### [address] [address] ALT [Catalytic activity/Vol] 23 U/L Normal 12-55 [facility] ([place]) Comment on above: Performed By: #### A 1C, PSA, TSH, GFR, CMP, LIPID #### [address] [address] AST [Catalytic activity/Vol] 14 U/L Normal 8-34 [facility] ([place]) Comment on above: Performed By: #### A 1C, PSA, TSH, GFR, CMP, LIPID #### [address] [address] Bili Total 0.60 mg/dL Normal 0.20-1.20 [facility] ([place]) Comment on above: Result Comment: Use of this assay is not recommended for patients undergoing treatment with eltrombopag due to the potential for falsely elevated results. Performed By: #### A 1C, PSA, TSH, GFR, CMP, LIPID #### [address] [address] Calcium [Mass/Vol] 9.3 mg/dL Normal 8.7-10.4 [facility] ([place]) Comment on above: Result Comment: No te - New Reference Range in effect 19 Performed By: #### A 1C, PSA, TSH, GFR, CMP, LIPID #### [address] [address] Chloride [Moles/Vol] 110 mmol/L Normal 98-110 [facility] ([place]) Comment on above: Performed By: #### A 1C, PSA, TSH, GFR, CMP, LIPID #### [address] [address] CO2 [Moles/Vol] 25 mmol/L Normal 22-32 [facility] ([place]) Comment on above: Performed By: #### A 1C, PSA, TSH, GFR, CMP, LIPID #### [address] [address] Creatinine [Mass/Vol] 0.59 mg/dL Low 0.60-1.40 [facility] ([place]) Comment on above: Performed By: #### A 1C, PSA, TSH, GFR, CMP, LIPID #### [address] [address] Electrolyte Balance 5.0 mEq/L Normal 4.0-15.0 [facility] ([place]) Comment on above: Performed By: #### A 1C, PSA, TSH, GFR, CMP, LIPID #### [address] [address] Globulin (S) [Mass/Vol] 2.5 G/dL Normal 1.5-3.8 [facility] [facility] ([place]) Comment on above: Performed By: #### A 1C, PSA, TSH, GFR, CMP, LIPID #### [address] [address] Glucose [Mass/Vol] 129 mg/dL High 82-115 [facility] ([place]) Comment on above: Performed By: #### A 1C, PSA, TSH, GFR, CMP, LIPID #### [address] [address] Potassium [Moles/Vol] 4.3 mmol/L Normal 3.5-5.0 [facility] ([place]) Comment on above: Result Comment: Spec imen slightly hemolyzed. Performed By: #### A 1C, PSA, TSH, GFR, CMP, LIPID #### [address] [address] Protein [Mass/Vol] 6.4 G/dL Normal 5.7-8.2 [facility] ([place]) Comment on above: Result Comment: No te - New Reference Range in effect 19 Performed By: #### A 1C, PSA, TSH, GFR, CMP, LIPID #### [address] [address] Sodium [Moles/Vol] 140 mmol/L Normal 136-145 [facility] ([place]) Comment on above: Performed By: #### A 1C, PSA, TSH, GFR, CMP, LIPID #### [address] [address] Urea nitrogen [Mass/Vol] 17.0 mg/dL Normal 8.0-22.0 [facility] [place] ([place]) Comment on above: Performed By: #### A 1C, PSA, TSH, GFR, CMP, LIPID #### [address] [address] Urea nitrogen/Creatinine [Mass ratio] 28.8 ratio High 10.0-22.0 [facility] [place] ([place]) Comment on above: Performed By: #### A 1C, PSA, TSH, GFR, CMP, LIPID #### [address] [address] LIPIDon 02-06-2020 Cholesterol [Mass/Vol] 121 mg/dL Normal 50-199 [facility] [place] ([place]) Comment on above: Result Comment: Chol esterol Reference Interval: Less than 200 Desirable 200-239 Borderline high risk 240 and above High risk Performed By: #### A 1C, PSA, TSH, GFR, CMP, LIPID #### [address] [address] Cholesterol in HDL [Mass/Vol] 34 mg/dL Low 40-59 [facility] ([place]) Comment on above: Performed By: #### A 1C, PSA, TSH, GFR, CMP, LIPID #### [address] [address] Cholesterol in LDL [Mass/Vol] 72 mg/dL Normal 0-129 [facility] ([place]) Comment on above: Performed By: #### A 1C, PSA, TSH, GFR, CMP, LIPID #### [address] [address] Triglyceride [Mass/Vol] 75 mg/dL Normal 3-149 [facility] ([place]) Comment on above: Performed By: #### A 1C, PSA, TSH, GFR, CMP, LIPID #### [address] [address] PSAon 02-06-2020 Prostate Specific Antigen 0.70 mg/dL Normal 0.02-4.00 [facility] ([place]) Comment on above: Performed By: #### A 1C, PSA, TSH, GFR, CMP, LIPID #### [address] [address] TSHon 02-06-2020 TSH Qn 0.558 mIU/mL Normal 0.550-4.780 [facility] ([place]) Comment on above: Result Comment: No te - New Reference Range in effect 19 Performed By: #### A 1C, PSA, TSH, GFR, CMP, LIPID #### [address] [address] Vital Signs Date Time Vital Sign Value Performing Clinician Faci lity 01-05-2025 16:29-0400 Blood Pressure Cuff Size ATIYA MACK MD [address] 01-05-2025 16:29-0400 Blood Pressure Location ATIYA MACK MD [address] [place] [address] 01-05-2025 16:29-0400 Blood Pressure Method ATIYA MACK MD [address] [place] [address] 01-05-2025 16:29-0400 Body temperature 96.26 [degF] ATIYA MACK MD [address] 01-05-2025 16:29-0400 Diastolic Blood Pressure Non-Invasive 67 mm[Hg] ATIYA MACK MD [address] 01-05-2025 16:29-0400 Heart rate 74 /min ATIYA MACK MD [address] [place] [address] 01-05-2025 16:29-0400 Reason For Taking VItal Signs ATIYA MACK MD [address] [place] [address] 01-05-2025 16:29-0400 Respiratory rate 16 /min ATIYA MACK MD [address] [place] [address] 01-05-2025 16:29-0400 Systolic Blood Pressure Non-Invasive 107 mm[Hg] ATIYA MACK MD [address] [place] [address] 01-05-2025 07:01-0400 Body temperature 97.88 [degF] ATIYA MACK MD [address] [place] [address] 01-05-2025 07:01-0400 Diastolic Blood Pressure Non-Invasive 72 mm[Hg] ATIYA MACK MD [address] [place] [address] 01-05-2025 07:01-0400 Heart rate 86 /min ATIYA MACK MD [address] [place] [address] 01-05-2025 07:01-0400 Reason For Taking VItal Signs ATIYA MACK MD [address] [place] [address] 01-05-2025 07:01-0400 Respiratory rate 20 /min ATIYA MACK MD [address] [place] [address] 01-05-2025 07:01-0400 Systolic Blood Pressure Non-Invasive 126 mm[Hg] ATIYA MACK MD [address] [place] [address] 01-05-2025 01:42-0400 Body temperature 97.7 [degF] ATIYA MACK MD [address] [place] [address] 01-05-2025 01:42-0400 Diastolic Blood Pressure Non-Invasive 66 mm[Hg] ATIYA MACK MD [address] [place] [address] 01-05-2025 01:42-0400 Heart rate 94 /min ATIYA MACK MD [address] [place] [address] 01-05-2025 01:42-0400 Reason For Taking VItal Signs ATIYA MACK MD [address] [place] [address] 01-05-2025 01:42-0400 Respiratory rate 18 /min ATIYA MACK MD [address] [place] [address] 01-05-2025 01:42-0400 Systolic Blood Pressure Non-Invasive 115 mm[Hg] ATIYA MACK MD [address] [place] [address] 01-04-2025 15:33-0400 Blood Pressure Cuff Size ATIYA MACK MD [address] [place] [address] 01-04-2025 15:33-0400 Blood Pressure Location ATIYA MACK MD [address] [place] [address] 01-04-2025 15:33-0400 Blood Pressure Method ATIYA MACK MD [address] [place] [address] 01-04-2025 12:08-0400 Blood Pressure Location ATIYA MACK MD [address] [place] [address] 01-04-2025 12:08-0400 Blood Pressure Method ATIYA MACK MD [address] [place] [address] 01-04-2025 04:45-0400 Blood Pressure Cuff Size ATIYA MACK MD [address] [place] [address] 12-30-2024 13:41-0400 Heart rate 84 /min ATIYA MACK MD [address] [place] [address] 12-30-2024 05:25-0400 Heart rate 75 /min ATIYA MACK MD [address] [place] [address] 12-29-2024 11:38-0400 Heart rate 80 /min ATIYA MACK MD [address] [place] [address] 12-29-2024 04:54-0400 Body temperature 98.06 [degF] ATIYA MACK MD [address] [place] [address] 12-28-2024 22:45-0400 Body temperature 98.24 [degF] ATIYA MACK MD [address] [place] [address] 12-28-2024 21:39-0400 Body temperature 97.7 [degF] ATIYA MACK MD [address] [place] [address] 12-28-2024 06:43-0400 Body height 180.3 cm ATIYA MACK MD [address] [place] [address] 12-28-2024 06:43-0400 Body weight 82.5 kg ATIYA MACK MD [address] [place] [address] 12-28-2024 06:43-0400 Body weight 25.38 kg/m2 ATIYA MACK MD [address] [place] [address] 12-28-2024 04:24-0400 Mean blood pressure 54 mm[Hg] ATIYA MACK MD [address] [place] [address] 12-28-2024 03:15-0400 Mean blood pressure 51 mm[Hg] ATIYA MACK MD [facility] 12-28-2024 03:01-0400 Mean blood pressure 39 mm[Hg] ATIYA MACK MD [facility] 12-27-2024 22:30-0400 Body temperature 98.06 [degF] ATIYA MACK MD [facility] Encounters Encounter Date Encounter Type Care Provider Facility Start: 01-21-2025 ambulatory Daniella Mannie MCCORD [facility] Start: 01-05-2025 End: 01-19-2025 Evaluation and management of inpatient NAYANA BETANCOURT Facility:[id number] Start: 12-27-2024 End: 01-05-2025 Evaluation and management of inpatient ATIYA MACK MD [facility] Payers Date Payer Category Payer Self-pay 2024 Private Health Insurance [id number] 2024 Medicare [id number] 2024 Medicare [id number] 2020 Private Health Insurance [id number] 1955 Unknown [id number] Social History Date Type Detail Facility Social / personal hi story observable (observable entity) Often true [facility] Start: 12-28-2024 [facility] Tobacco smoking status [facility] Start: 06-21-2008 Sex Male (finding) [facility] Start: 12-28-2024 End: 12-28-2024 Not applicable (qualifier value) [facility] Functional Status Date Assessment Result Facility 01-05-2025 Functional Status Room check performed [facility] 01-05-2025 Functional Status Nurse Nikkie sands q2hrs Performed 7am-3pm [facility] 01-05-2025 Functional Status [facility] 01-05-2025 Functional Status [facility] 01-05-2025 [facility] Status [facility] 01-05-2025 [facility] 01-05-2025 Functional Status [facility] 01-04-2025 Functional Status Done [facility] 01-04-2025 [facility] 01-04-2025 Functional Status Up to Chair Sitting on edge of bed [facility] 01-04-2025 Functional Status 75 [facility] 01-04-2025 Functional Status [facility] 01-04-2025 Functional Status Mod A [facility] 01-04-2025 Functional Status [facility] 01-03-2025 Functional Status Done [facility] 01-03-2025 Functional Status 0 [facility] 01-03-2025 [facility] 01-03-2025 Functional Status [facility] 01-02-2025 Functional Status [facility] 01-02-2025 Functional Status Supervised [facility] 01-02-2025 Functional Status [facility] 01-01-2025 Functional Status [facility] 01-01-2025 Functional Status [facility] 01-01-2025 Functional Status [facility] 12-30-2024 [facility] Functional Status bilateral knee high rem mason/off [facility] 12-29-2024 Functional Status [facility] 12-29-2024 Functional Status [facility] 12-29-2024 Functional Status [facility] 12-28-2024 Functional Status NPO Status Maintained [facility] 12-28-2024 Functional Status Apartment [facility] 12-28-2024 Functional Status [facility] 12-28-2024 Functional Status Sensory Deficits None [facility] Mental Status Date Assessment Result Facility 01-05-2025 Mental Status Oriented x [facility] 01-05-2025 [facility] 01-04-2025 Mental Status [facility] 12-31-2024 Mental Status [facility] 12-30-2024 Mental Status [facility] 12-29-2024 Mental Status [facility] 12-29-2024 [facility] 12-28-2024 Mental Status [facility] 12-28-2024 [facility] 12-28-2024 Mental Status [facility] 12-28-2024 [facility] Clinical Notes 12-27-2024 to 01-17-2025 Note Date & Type Note Facility 01-17-2025 Note HNO ID: [id number] Author: NAYANA BETANCOURT MD Service: General Internal Medicine Author Type: Physician Type: Progress Notes Filed: 01/17/2025 09:31 Note Text: PROGRESS NOTE INPATIENT REHABILITATION FACILITY SERVICE DATE: 01/17/2025 SERVICE TIME: 9:30 AM Subjective Patient seen and examined bedside this morning. Patient continues to complain of intermittent constipation. Discussed with bedside RN. Current Facility-Administered Medications Medication Dose Route Frequency terbinafine HCl 250 mg tab(s) (LamISIL) 250 mg ORAL DAILY aspirin 81 mg chewable tab(s) 81 mg ORAL DAILY atorvastatin 40 mg tab(s) (LIPITOR) 40 mg ORAL AT BEDTIME dextrose 40 % 15 g 15 g ORAL PRN Or glucagon 1 mg injection 1 mg INTRAMUSCULAR PRN Or dextrose 10% iv bolus 12.5 g INTRAVENOUS PRN insulin lispro injection (rapid acting) (ADMElog) SUBCUTANEOUS w MEALS insulin lispro injection (rapid acting) (ADMElog) SUBCUTANEOUS AT BEDTIME insulin glargine 15 Units pen (long acting) 15 Units SUBCUTANEOUS AT BEDTIME metFORMIN ER 1,000 mg tab(s) (GLUCOPHAGE XR) 1,000 mg ORAL BID w MEALS polyethylene glycol 3350 17 g packet 17 g ORAL DAILY miconazole 2 % 1 application topical powder 1 application TOPICAL BID polymyxin B-trimethoprim 1 drop ophthalmic drops (POLYTRIM) 1 drop BOTH EYES 3 times per day aquaphor - stomahesive topical ointment (E.T. MIXTURE) TOPICAL PRN mirtazapine 15 mg (REMERON) 15 mg ORAL AT BEDTIME lidocaine 4 % 1 patch (SALONPAS) 1 patch TRANSDERMAL DAILY And lidocaine patch - REMOVE OTHER AT BEDTIME And lidocaine - VERIFY PATCH OTHER q 8 H OLANZapine 2.5 mg tab(s) (ZYPREXA) 2.5 mg ORAL AT BEDTIME nicotine 21 mg/24 hr 1 patch (NICODERM) 1 patch TRANSDERMAL DAILY And nicotine -- REMOVE patch OTHER DAILY And nicotine - verify patch OTHER q 8 H acetaminophen 650 mg tab(s) (TYLENOL) 650 mg ORAL q 6 H PRN multivitamin-ferrous fumarate-folic acid 1 tablet (CENTRUM) 1 tablet ORAL DAILY midodrine 5 mg tab(s) (PROAMITINE) 5 mg ORAL q 8 H lactulose 20 g oral liquid 20 g ORAL BID senna-docusate 8.6-50 mg 2 tablet (SENNA-S) 2 tablet ORAL BID bisacodyl 10 mg suppository (DULCOLAX) 10 mg RECTAL ONCE Objective PHYSICAL EXAM: BP 122/78 Pulse 80 Temp (Src) 97.7 (Oral) Resp 17 Ht 5' 11" (1.80m) Wt 173 lb 4.5 oz (78.6kg) SpO2 93% BMI 24.18 kg/(m2). O2 Therapy: Room Air Physical Exam Performed General awake and alert oriented x 4 HEENT atraumatic normocephalic Lungs clear to auscultation bilateral no wheeze or rhonchi Cardiovascular normal S1-S2 regular rate rhythm next abdomen soft nontender nondistended positive bowel sounds Extremities no cyanosis clubbing edema TOBACCO SHAKER no focal deficit DATA: Diagnostic tests reviewed for today's visit: Most recent labs Most recent imaging Assessment/Plan Principal Problem: Metabolic encephalopathy (POA: Yes) Active Problems: Open wound of penis (POA: Yes) Open knee wound, right, initial encounter (POA: Yes) Open knee wound, left, initial encounter (POA: Yes) Open wound of right great toe (POA: Yes) Open wound of second toe of right foot (POA: Yes) Open wound of left great toe (POA: Yes) Open wound of second toe of left foot (POA: Yes) Agitation (POA: Unknown) Resolved Problems: * No resolved hospital problems. * Agitation delirium sundowning Zyprexa 2.5 mg p.o. q. evening - Has virtual complaining ongoing. Depression Remeron 50 mg p.o. daily to help with depression as well as appetite Constipation Will increase bowel regimen to Senokot twice daily scheduled, MiraLAX daily, lactulose twice daily 20 mg. Will provide today suppository Dulcolax. Will provide enema if above measures does not work. Intermittent hypotensive episodes Will increase midodrine to 5 mg 3 times daily. Blood pressure stable today. Malnutrition encourage p.o. 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 Giselle based Wound care to follow Ingrown toenail Seen by podiatry status post nail debridement bilaterally Suspected dementia Check B12, TSH, LFT Occupational Therapy Goals Functional Area Current Status Care Score Discharge Goal Eating 6 Oral Hygiene 4 Supervision or touching assistance [4] Toileting Hygiene 3 Supervision or touching assistance [4] Shower/Bathe Self 3 Supervision or touching assistance [4] Upper Body Dressing 3 Set-up/clean-up [5] Lower Body Dressing 3 Supervision or touching assistance [4] Putting On/Taking Off Footwear 3 Set-up/clean-up [5] Care Score Definitions: 1 - Dependent; 2 - Substantial/maximal assistance; 3 - Partial/moderate assistance; 4 - Sup (more content not included)... [facility] 01-15-2025 Note HNO ID: [id number] Author: NAYANA BETANCOURT MD Service: General Internal Medicine Author Type: Physician Type: Progress Notes Filed: 01/15/2025 12:45 Note Text: PROGRESS NOTE INPATIENT REHABILITATION FACILITY SERVICE DATE: 01/15/2025 SERVICE TIME: 12:45 PM Subjective Patient seen and examined bedside this morning. Patient seems more calmer today. Has ongoing virtual patient complaining. Current Facility-Administered Medications Medication Dose Route Frequency terbinafine HCl 250 mg tab(s) (LamISIL) 250 mg ORAL DAILY aspirin 81 mg chewable tab(s) 81 mg ORAL DAILY atorvastatin 40 mg tab(s) (LIPITOR) 40 mg ORAL AT BEDTIME dextrose 40 % 15 g 15 g ORAL PRN Or glucagon 1 mg injection 1 mg INTRAMUSCULAR PRN Or dextrose 10% iv bolus 12.5 g INTRAVENOUS PRN insulin lispro injection (rapid acting) (ADMElog) SUBCUTANEOUS w MEALS insulin lispro injection (rapid acting) (ADMElog) SUBCUTANEOUS AT BEDTIME insulin glargine 15 Units pen (long acting) 15 Units SUBCUTANEOUS AT BEDTIME metFORMIN ER 1,000 mg tab(s) (GLUCOPHAGE XR) 1,000 mg ORAL BID w MEALS polyethylene glycol 3350 17 g packet 17 g ORAL DAILY senna-docusate 8.6-50 mg 2 tablet (SENNA-S) 2 tablet ORAL DAILY miconazole 2 % 1 application topical powder 1 application TOPICAL BID polymyxin B-trimethoprim 1 drop ophthalmic drops (POLYTRIM) 1 drop BOTH EYES 3 times per day aquaphor - stomahesive topical ointment (E.T. MIXTURE) TOPICAL PRN mirtazapine 15 mg (REMERON) 15 mg ORAL AT BEDTIME lidocaine 4 % 1 patch (SALONPAS) 1 patch TRANSDERMAL DAILY And lidocaine patch - REMOVE OTHER AT BEDTIME And lidocaine - VERIFY PATCH OTHER q 8 H OLANZapine 2.5 mg tab(s) (ZYPREXA) 2.5 mg ORAL AT BEDTIME lactulose 20 g oral liquid 20 g ORAL DAILY PRN nicotine 21 mg/24 hr 1 patch (NICODERM) 1 patch TRANSDERMAL DAILY And nicotine -- REMOVE patch OTHER DAILY And nicotine - verify patch OTHER q 8 H acetaminophen 650 mg tab(s) (TYLENOL) 650 mg ORAL q 6 H PRN midodrine 2.5 mg tab(s) (PROAMITINE) 2.5 mg ORAL TID PRN multivitamin-ferrous fumarate-folic acid 1 tablet (CENTRUM) 1 tablet ORAL DAILY Objective PHYSICAL EXAM: BP 122/103 Pulse 87 Temp (Src) 97.6 (Oral) Resp 16 Ht 5' 11" (1.80m) Wt 173 lb 4.5 oz (78.6kg) SpO2 89% BMI 24.18 kg/(m2). O2 Therapy: Room Air Physical Exam Performed General awake and alert oriented x 4 HEENT atraumatic normocephalic Lungs clear to auscultation bilateral no wheeze or rhonchi Cardiovascular normal S1-S2 regular rate rhythm next abdomen soft nontender nondistended positive bowel sounds Extremities no cyanosis clubbing edema TOBACCO SHAKER no focal deficit DATA: Diagnostic tests reviewed for today's visit: Most recent labs Most recent imaging Assessment/Plan Principal Problem: Metabolic encephalopathy (POA: Yes) Active Problems: Open wound of penis (POA: Yes) Open knee wound, right, initial encounter (POA: Yes) Open knee wound, left, initial encounter (POA: Yes) Open wound of right great toe (POA: Yes) Open wound of second toe of right foot (POA: Yes) Open wound of left great toe (POA: Yes) Open wound of second toe of left foot (POA: Yes) Agitation (POA: Unknown) Resolved Problems: * No resolved hospital problems. * Agitation delirium sundowning Zyprexa 2.5 mg p.o. q. evening - Has virtual complaining ongoing. Depression Remeron 50 mg p.o. daily to help with depression as well as appetite Malnutrition encourage p.o. 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 Giselle based Wound care to follow Ingrown toenail Seen by podiatry status post nail debridement bilaterally Suspected dementia Check B12, TSH, LFT Occupational Therapy Goals Functional Area Current Status Care Score Discharge Goal Eating 6 Oral Hygiene 4 Supervision or touching assistance [4] Toileting Hygiene 3 Supervision or touching assistance [4] Shower/Bathe Self 3 Supervision or touching assistance [4] Upper Body Dressing 3 Set-up/clean-up [5] Lower Body Dressing 3 Supervision or touching assistance [4] Putting On/Taking Off Footwear 2 Set-up/clean-up [5] Care Score Definitions: 1 - Dependent; 2 - Substantial/maximal assistance; 3 - Partial/moderate assistance; 4 - Supervision or touching assistance; 5 - Set-up/clean-up; 6 - Independent; 7 - Patient refused; 9 - Not applicable; 10 - Not attempted due to environmental limitations; 88 - Not attempted due to medical/safety concerns Primary Team Goal/Status: Team Goal: Pt to be supervision with grooming, UB/LB dressing, bathing, toileting, toilet transfers, and tub/shower transfers. Able to perfo (more content not included)... [facility] 01-13-2025 Note HNO ID: [id number] Author: NAYANA BETANCOURT MD Service: General Internal Medicine Author Type: Physician Type: Progress Notes Filed: 01/13/2025 12:36 Note Text: PROGRESS NOTE INPATIENT REHABILITATION FACILITY SERVICE DATE: 01/13/2025 SERVICE TIME: 12:35 PM Subjective Patient seen and examined bedside this morning. Patient seems more calmer today. Has ongoing virtual patient complaining. Current Facility-Administered Medications Medication Dose Route Frequency terbinafine HCl 250 mg tab(s) (LamISIL) 250 mg ORAL DAILY aspirin 81 mg chewable tab(s) 81 mg ORAL DAILY atorvastatin 40 mg tab(s) (LIPITOR) 40 mg ORAL AT BEDTIME lisinopril 10 mg tab(s) (ZESTRIL) 10 mg ORAL DAILY dextrose 40 % 15 g 15 g ORAL PRN Or glucagon 1 mg injection 1 mg INTRAMUSCULAR PRN Or dextrose 10% iv bolus 12.5 g INTRAVENOUS PRN insulin lispro injection (rapid acting) (ADMElog) SUBCUTANEOUS w MEALS insulin lispro injection (rapid acting) (ADMElog) SUBCUTANEOUS AT BEDTIME insulin glargine 15 Units pen (long acting) 15 Units SUBCUTANEOUS AT BEDTIME metFORMIN ER 1,000 mg tab(s) (GLUCOPHAGE XR) 1,000 mg ORAL BID w MEALS polyethylene glycol 3350 17 g packet 17 g ORAL DAILY senna-docusate 8.6-50 mg 2 tablet (SENNA-S) 2 tablet ORAL DAILY miconazole 2 % 1 application topical powder 1 application TOPICAL BID polymyxin B-trimethoprim 1 drop ophthalmic drops (POLYTRIM) 1 drop BOTH EYES 3 times per day aquaphor - stomahesive topical ointment (E.T. MIXTURE) TOPICAL PRN mirtazapine 15 mg (REMERON) 15 mg ORAL AT BEDTIME lidocaine 4 % 1 patch (SALONPAS) 1 patch TRANSDERMAL DAILY And lidocaine patch - REMOVE OTHER AT BEDTIME And lidocaine - VERIFY PATCH OTHER q 8 H OLANZapine 2.5 mg tab(s) (ZYPREXA) 2.5 mg ORAL AT BEDTIME lactulose 20 g oral liquid 20 g ORAL DAILY PRN nicotine 21 mg/24 hr 1 patch (NICODERM) 1 patch TRANSDERMAL DAILY And nicotine -- REMOVE patch OTHER DAILY And nicotine - verify patch OTHER q 8 H Objective PHYSICAL EXAM: BP 145/67 Pulse 78 Temp (Src) 98 (Oral) Resp 18 Ht 5' 11" (1.80m) Wt 173 lb 4.5 oz (78.6kg) SpO2 93% BMI 24.18 kg/(m2). O2 Therapy: Room Air Physical Exam Performed General awake and alert oriented x 4 HEENT atraumatic normocephalic Lungs clear to auscultation bilateral no wheeze or rhonchi Cardiovascular normal S1-S2 regular rate rhythm next abdomen soft nontender nondistended positive bowel sounds Extremities no cyanosis clubbing edema TOBACCO SHAKER no focal deficit DATA: Diagnostic tests reviewed for today's visit: Most recent labs Most recent imaging Assessment/Plan Principal Problem: Metabolic encephalopathy (POA: Yes) Active Problems: Open wound of penis (POA: Yes) Open knee wound, right, initial encounter (POA: Yes) Open knee wound, left, initial encounter (POA: Yes) Open wound of right great toe (POA: Yes) Open wound of second toe of right foot (POA: Yes) Open wound of left great toe (POA: Yes) Open wound of second toe of left foot (POA: Yes) Agitation (POA: Unknown) Resolved Problems: * No resolved hospital problems. * Agitation delirium sundowning Zyprexa 2.5 mg p.o. q. evening - Has virtual complaining ongoing. Depression Remeron 50 mg p.o. daily to help with depression as well as appetite Malnutrition encourage p.o. 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 Giselle based Wound care to follow Ingrown toenail Seen by podiatry status post nail debridement bilaterally Suspected dementia Check B12, TSH, LFT Occupational Therapy Goals Functional Area Current Status Care Score Discharge Goal Eating 6 Oral Hygiene 4 Supervision or touching assistance [4] Toileting Hygiene 3 Supervision or touching assistance [4] Shower/Bathe Self 3 Supervision or touching assistance [4] Upper Body Dressing 3 Set-up/clean-up [5] Lower Body Dressing 3 Supervision or touching assistance [4] Putting On/Taking Off Footwear 2 Set-up/clean-up [5] Care Score Definitions: 1 - Dependent; 2 - Substantial/maximal assistance; 3 - Partial/moderate assistance; 4 - Supervision or touching assistance; 5 - Set-up/clean-up; 6 - Independent; 7 - Patient refused; 9 - Not applicable; 10 - Not attempted due to environmental limitations; 88 - Not attempted due to medical/safety concerns Primary Team Goal/Status: Team Goal: Pt to be supervision with grooming, UB/LB dressing, bathing, toileting, toilet transfers, and tub/shower transfers. Able to perform HEP with: Supervision Grooming with: Supervision Upper Body Bathing with: Supervision Upper Body Dressing with: Supervision Lower Body Bathing w (more content not included)... [facility] 01-11-2025 Note HNO ID: [id number] Author: BRISA SMALLS MD Service: Hospital Medicine Author Type: Physician Type: Progress Notes Filed: 01/11/2025 15:54 Note Text: PROGRESS NOTE INPATIENT REHABILITATION FACILITY SERVICE DATE: 01/11/2025 SERVICE TIME: Subjective CHIEF COMPLAINT: pt seen and examined. Discussed with son at the bedside. All questions answered. Oral intake slowly improving not adequate. Had an episode of agitation particularly in the evening. Started on Zyprexa. Slept well last night. Son was concerned about underlying dementia. Current Facility-Administered Medications Medication Dose Route Frequency terbinafine HCl 250 mg tab(s) (LamISIL) 250 mg ORAL DAILY aspirin 81 mg chewable tab(s) 81 mg ORAL DAILY atorvastatin 40 mg tab(s) (LIPITOR) 40 mg ORAL AT BEDTIME lisinopril 10 mg tab(s) (ZESTRIL) 10 mg ORAL DAILY dextrose 40 % 15 g 15 g ORAL PRN Or glucagon 1 mg injection 1 mg INTRAMUSCULAR PRN Or dextrose 10% iv bolus 12.5 g INTRAVENOUS PRN insulin lispro injection (rapid acting) (ADMElog) SUBCUTANEOUS w MEALS insulin lispro injection (rapid acting) (ADMElog) SUBCUTANEOUS AT BEDTIME insulin glargine 15 Units pen (long acting) 15 Units SUBCUTANEOUS AT BEDTIME metFORMIN ER 1,000 mg tab(s) (GLUCOPHAGE XR) 1,000 mg ORAL BID w MEALS polyethylene glycol 3350 17 g packet 17 g ORAL DAILY senna-docusate 8.6-50 mg 2 tablet (SENNA-S) 2 tablet ORAL DAILY miconazole 2 % 1 application topical powder 1 application TOPICAL BID polymyxin B-trimethoprim 1 drop ophthalmic drops (POLYTRIM) 1 drop BOTH EYES 3 times per day aquaphor - stomahesive topical ointment (E.T. MIXTURE) TOPICAL PRN mirtazapine 15 mg (REMERON) 15 mg ORAL AT BEDTIME lidocaine 4 % 1 patch (SALONPAS) 1 patch TRANSDERMAL DAILY And lidocaine patch - REMOVE OTHER AT BEDTIME And lidocaine - VERIFY PATCH OTHER q 8 H OLANZapine 2.5 mg tab(s) (ZYPREXA) 2.5 mg ORAL AT BEDTIME Objective PHYSICAL EXAM: BP 102/59 Pulse 74 Temp (Src) 98.1 (Oral) Resp 20 Ht 5' 11" (1.80m) Wt 177 lb 7.5 oz (80.5kg) SpO2 93% BMI 24.76 kg/(m2). O2 Therapy: Room Air Physical Exam Performed General awake and alert oriented x 4 HEENT atraumatic normocephalic Lungs clear to auscultation bilateral no wheeze or rhonchi Cardiovascular normal S1-S2 regular rate rhythm next abdomen soft nontender nondistended positive bowel sounds Extremities no cyanosis clubbing edema TOBACCO SHAKER no focal deficit DATA: Diagnostic tests reviewed for today's visit: Most recent labs and imaging results. Assessment/Plan Agitation delirium sundowning Zyprexa 2.5 mg p.o. q. evening Depression Remeron 50 mg p.o. daily to help with depression as well as appetite Malnutrition encourage p.o. 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 Giselle based Wound care to follow Ingrown toenail Seen by podiatry status post nail debridement bilaterally Suspected dementia Check B12, TSH, LFT Principal Problem: Metabolic encephalopathy (POA: Yes) Active Problems: Open wound of penis (POA: Yes) Open knee wound, right, initial encounter (POA: Yes) Open knee wound, left, initial encounter (POA: Yes) Open wound of right great toe (POA: Yes) Open wound of second toe of right foot (POA: Yes) Open wound of left great toe (POA: Yes) Open wound of second toe of left foot (POA: Yes) Agitation (POA: Unknown) Resolved Problems: * No resolved hospital problems. * Occupational Therapy Goals Functional Area Current Status Care Score Discharge Goal Eating 6 Oral Hygiene 4 Supervision or touching assistance [4] Toileting Hygiene 3 Supervision or touching assistance [4] Shower/Bathe Self 3 Supervision or touching assistance [4] Upper Body Dressing 3 Set-up/clean-up [5] Lower Body Dressing 3 Supervision or touching assistance [4] Putting On/Taking Off Footwear 2 Set-up/clean-up [5] Care Score Definitions: 1 - Dependent; 2 - Substantial/maximal assistance; 3 - Partial/moderate assistance; 4 - Supervision or touching assistance; 5 - Set-up/clean-up; 6 - Independent; 7 - Patient refused; 9 - Not applicable; 10 - Not attempted due to environmental limitations; 88 - Not attempted due to medical/safety concerns Primary Team Goal/Status: Team Goal: Pt to be supervision with grooming, UB/LB dressing, bathing, toileting, toilet transfers, and tub/shower transfers. Able to perform HEP with: Supervision Grooming with: Supervision Upper Body Bathing with: Supervision Upper Body Dressing with: Supervision Lower Body Bathing with: Minimal Assistance Lower Body Dressing with: Minimal Assistance Toilet Hygie (more content not included)... [facility] 01-09-2025 Note HNO ID: [id number] Author: UTE JOY, SHARON Service: Nursing Author Type: Registered Nurse Type: Nursing Progress Note Filed: 01/09/2025 18:04 Note Text: Patient currently attempting to leave room with IV pole. Dr. Amaral notified per charge nurse. [facility] 01-08-2025 Note HNO ID: [id number] Author: BRISA SMALLS MD Service: Hospital Medicine Author Type: Physician Type: Progress Notes Filed: 01/11/2025 15:52 Note Text: PROGRESS NOTE INPATIENT REHABILITATION FACILITY SERVICE DATE: 01/08/2025 SERVICE TIME: Subjective CHIEF COMPLAINT: pt seen and examined. Per report states intake is still not adequate. Patient did report that he ate lunch today. Slept well last night. On IV fluids. Current Facility-Administered Medications Medication Dose Route Frequency terbinafine HCl 250 mg tab(s) (LamISIL) 250 mg ORAL DAILY aspirin 81 mg chewable tab(s) 81 mg ORAL DAILY atorvastatin 40 mg tab(s) (LIPITOR) 40 mg ORAL AT BEDTIME lisinopril 10 mg tab(s) (ZESTRIL) 10 mg ORAL DAILY dextrose 40 % 15 g 15 g ORAL PRN Or glucagon 1 mg injection 1 mg INTRAMUSCULAR PRN Or dextrose 10% iv bolus 12.5 g INTRAVENOUS PRN insulin lispro injection (rapid acting) (ADMElog) SUBCUTANEOUS w MEALS insulin lispro injection (rapid acting) (ADMElog) SUBCUTANEOUS AT BEDTIME insulin glargine 15 Units pen (long acting) 15 Units SUBCUTANEOUS AT BEDTIME metFORMIN ER 1,000 mg tab(s) (GLUCOPHAGE XR) 1,000 mg ORAL BID w MEALS polyethylene glycol 3350 17 g packet 17 g ORAL DAILY senna-docusate 8.6-50 mg 2 tablet (SENNA-S) 2 tablet ORAL DAILY miconazole 2 % 1 application topical powder 1 application TOPICAL BID polymyxin B-trimethoprim 1 drop ophthalmic drops (POLYTRIM) 1 drop BOTH EYES 3 times per day aquaphor - stomahesive topical ointment (E.T. MIXTURE) TOPICAL PRN NaCl 0.9% iv infusion 75 mL/hr INTRAVENOUS CONTINUOUS mirtazapine 15 mg (REMERON) 15 mg ORAL AT BEDTIME Objective PHYSICAL EXAM: BP 121/64 Pulse 78 Temp (Src) 98.2 (Oral) Resp 20 Ht 5' 11" (1.80m) Wt 177 lb 7.5 oz (80.5kg) SpO2 93% BMI 24.76 kg/(m2). O2 Therapy: Room Air Physical Exam Performed General awake and alert oriented x 4 HEENT atraumatic normocephalic Lungs clear to auscultation bilateral no wheeze or rhonchi Cardiovascular normal S1-S2 regular rate rhythm next abdomen soft nontender nondistended positive bowel sounds Extremities no cyanosis clubbing edema TOBACCO SHAKER no focal deficit DATA: Diagnostic tests reviewed for today's visit: Most recent labs and imaging results. Assessment/Plan Depression Depression Remeron 50 mg p.o. daily to help with depression as well as appetite Sodium chloride 0.9% and 75 cc an hour until intake improves Malnutrition encourage p.o. Continue Remeron Metabolic encephalopathy (POA: Yes) Chronic CVA small lacunar infarct in the left coronary radiata Aspirin, Lipitor stroke prevention Neuropsych evaluation Diabetes type 2 Glargine, metformin Hypertension lisinopril UTI completed course of antibiotic next Acute rhabdomyolysis Hypernatremia Drug use cocaine Stage II coccyx and stage III sacral ulcer Giselle based Wound care to follow Ingrown toenail Podiatry consult Principal Problem: Metabolic encephalopathy (POA: Yes) Active Problems: Open wound of penis (POA: Yes) Open knee wound, right, initial encounter (POA: Yes) Open knee wound, left, initial encounter (POA: Yes) Open wound of right great toe (POA: Yes) Open wound of second toe of right foot (POA: Yes) Open wound of left great toe (POA: Yes) Open wound of second toe of left foot (POA: Yes) Resolved Problems: * No resolved hospital problems. * Occupational Therapy Goals Functional Area Current Status Care Score Discharge Goal Eating 6 Oral Hygiene 3 Supervision or touching assistance [4] Toileting Hygiene 1 Supervision or touching assistance [4] Shower/Bathe Self 2 Supervision or touching assistance [4] Upper Body Dressing 3 Supervision or touching assistance [4] Lower Body Dressing 2 Supervision or touching assistance [4] Putting On/Taking Off Footwear 2 Set-up/clean-up [5] Care Score Definitions: 1 - Dependent; 2 - Substantial/maximal assistance; 3 - Partial/moderate assistance; 4 - Supervision or touching assistance; 5 - Set-up/clean-up; 6 - Independent; 7 - Patient refused; 9 - Not applicable; 10 - Not attempted due to environmental limitations; 88 - Not attempted due to medical/safety concerns Primary Team Goal/Status: Team Goal: Pt to be supervision with grooming, UB/LB dressing, bathing, toileting, toilet transfers, and tub/shower transfers. Able to perform HEP with: Supervision Grooming with: Supervision Upper Body Bathing with: Supervision Upper Body Dressing with: Supervision Lower Body Bathing with: Minimal Assistance Lower Body Dressing with: Minimal Assistance Toilet Hygiene with: Minimal Assistance Toilet Transfer with: Supervision Tub Transfer with: Supervision Tolerate (minutes of functional activity): 75 Functional Activity with: Supervision Home Management Skills with: Supervision Kitchen Mobility Tasks with: Supervision Demonstrate Positive Coping Strategies with: Supervision Additional Goal 1: Pt to parti (more content not included)... [facility] 01-07-2025 Note HNO ID: [id number] Author: BRISA SMALLS MD Service: Hospital Medicine Author Type: Physician Type: Progress Notes Filed: 01/11/2025 15:52 Note Text: PROGRESS NOTE INPATIENT REHABILITATION FACILITY SERVICE DATE: 01/07/2025 SERVICE TIME: Subjective CHIEF COMPLAINT: pt seen and examined.per report intake not adequate.feeling depressed , no suicidal ideation. Discussed about at starting antidepressant he is willing to try that. Current Facility-Administered Medications Medication Dose Route Frequency terbinafine HCl 250 mg tab(s) (LamISIL) 250 mg ORAL DAILY aspirin 81 mg chewable tab(s) 81 mg ORAL DAILY atorvastatin 40 mg tab(s) (LIPITOR) 40 mg ORAL AT BEDTIME lisinopril 10 mg tab(s) (ZESTRIL) 10 mg ORAL DAILY dextrose 40 % 15 g 15 g ORAL PRN Or glucagon 1 mg injection 1 mg INTRAMUSCULAR PRN Or dextrose 10% iv bolus 12.5 g INTRAVENOUS PRN insulin lispro injection (rapid acting) (ADMElog) SUBCUTANEOUS w MEALS insulin lispro injection (rapid acting) (ADMElog) SUBCUTANEOUS AT BEDTIME insulin glargine 15 Units pen (long acting) 15 Units SUBCUTANEOUS AT BEDTIME metFORMIN ER 1,000 mg tab(s) (GLUCOPHAGE XR) 1,000 mg ORAL BID w MEALS polyethylene glycol 3350 17 g packet 17 g ORAL DAILY senna-docusate 8.6-50 mg 2 tablet (SENNA-S) 2 tablet ORAL DAILY miconazole 2 % 1 application topical powder 1 application TOPICAL BID polymyxin B-trimethoprim 1 drop ophthalmic drops (POLYTRIM) 1 drop BOTH EYES 3 times per day aquaphor - stomahesive topical ointment (E.T. MIXTURE) TOPICAL PRN Objective PHYSICAL EXAM: BP 102/60 Pulse 82 Temp (Src) 97.5 (Oral) Resp 20 Ht 5' 11" (1.80m) Wt 177 lb 7.5 oz (80.5kg) SpO2 93% BMI 24.76 kg/(m2). O2 Therapy: Room Air Physical Exam Performed General awake and alert oriented x 4 HEENT atraumatic normocephalic Lungs clear to auscultation bilateral no wheeze or rhonchi Cardiovascular normal S1-S2 regular rate rhythm next abdomen soft nontender nondistended positive bowel sounds Extremities no cyanosis clubbing edema TOBACCO SHAKER no focal deficit DATA: Diagnostic tests reviewed for today's visit: Most recent labs and imaging results. Assessment/Plan Depression Start on Remeron 50 mg p.o. daily to help with depression as well as appetite Sodium chloride 0.9% and 75 cc an hour until intake improves Metabolic encephalopathy (POA: Yes) Chronic CVA small lacunar infarct in the left coronary radiata Aspirin, Lipitor for stroke prevention Neuropsych evaluation Diabetes type 2 Glargine, metformin Hypertension lisinopril UTI completed course of antibiotic next Acute rhabdomyolysis Hypernatremia Drug use cocaine Stage II coccyx and stage III sacral ulcer Giselle based Wound care to follow Principal Problem: Metabolic encephalopathy (POA: Yes) Active Problems: Open wound of penis (POA: Yes) Open knee wound, right, initial encounter (POA: Yes) Open knee wound, left, initial encounter (POA: Yes) Open wound of right great toe (POA: Yes) Open wound of second toe of right foot (POA: Yes) Open wound of left great toe (POA: Yes) Open wound of second toe of left foot (POA: Yes) Resolved Problems: * No resolved hospital problems. * Occupational Therapy Goals Functional Area Current Status Care Score Discharge Goal Eating 6 Oral Hygiene 3 Supervision or touching assistance [4] Toileting Hygiene 1 Supervision or touching assistance [4] Shower/Bathe Self 2 Supervision or touching assistance [4] Upper Body Dressing 2 Supervision or touching assistance [4] Lower Body Dressing 1 Supervision or touching assistance [4] Putting On/Taking Off Footwear 1 Set-up/clean-up [5] Care Score Definitions: 1 - Dependent; 2 - Substantial/maximal assistance; 3 - Partial/moderate assistance; 4 - Supervision or touching assistance; 5 - Set-up/clean-up; 6 - Independent; 7 - Patient refused; 9 - Not applicable; 10 - Not attempted due to environmental limitations; 88 - Not attempted due to medical/safety concerns Primary Team Goal/Status: Team Goal: Pt to be supervision with grooming, UB/LB dressing, bathing, toileting, toilet transfers, and tub/shower transfers. Able to perform HEP with: Supervision Grooming with: Supervision Upper Body Bathing with: Supervision Upper Body Dressing with: Supervision Lower Body Bathing with: Minimal Assistance Lower Body Dressing with: Minimal Assistance Toilet Hygiene with: Minimal Assistance Toilet Transfer with: Supervision Tub Transfer with: Supervision Tolerate (minutes of functional activity): 75 Functional Activity with: Supervision Home Management Skills with: Supervision Kitchen Mobility Tasks with: Supervision Demonstrate Positive Coping Strategies with: Supervision Additional Goal 1: Pt to particpiate in MVPT To assess predriving skills and goals to follow as needed. Additional Goal 2: Pt to attend to R side by 50-75% of the time during ADLS/transfers. Additional (more content not included)... [facility] 01-05-2025 Hospital Discharge instructions Patient Education 01/05/2025 16:38:24 Rhabdomyolysis Rhabdomyolysis Rhabdomyolysis is a condition that happens when muscle cells break down and release substances into the blood that can damage the kidneys. This condition happens because of damage to the muscles that move bones (skeletal muscle). When the skeletal muscles are damaged, substances inside the muscle cells go into the blood. One of these substances is a protein called myoglobin. Large amounts of myoglobin can cause kidney damage or kidney failure. Other substances that are released by muscle cells may upset the balance of the minerals (electrolytes) in your blood. This imbalance causes your blood to have too much acid (acidosis). What are the causes? This condition is caused by muscle damage. Muscle damage often happens because of: Using your muscles too much. An injury that crushes or squeezes a muscle too tightly. Using illegal drugs, mainly cocaine. Alcohol abuse. Other possible causes include: Prescription medicines, such as those that: ?Lower cholesterol (statins). ?Treat ADHD (attention deficit hyperactivity disorder) or help with weight loss (amphetamines). ?Treat pain (opiates). Infections. Muscle diseases that are passed down from parent to child (inherited). High fever. Heatstroke. Not having enough fluids in your body (dehydration). Seizures. Surgery. What increases the risk? This condition is more likely to develop in people who: Have a family history of muscle disease. Take part in extreme sports, such as running in marathons. Have diabetes. Are older. Abuse drugs or alcohol. What are the signs or symptoms? Symptoms of this condition vary. Some people have very few symptoms, and other people have many symptoms. The most common symptoms include: Muscle pain and swelling. Weak muscles. Dark urine. Feeling weak and tired. Other symptoms include: Nausea and vomiting. Fever. Pain in the abdomen. Pain in the joints. Symptoms of complications from this condition include: Heart rhythm that is not normal (arrhythmia). Seizures. Not urinating enough because of kidney failure. Very low blood pressure (shock). Signs of shock include dizziness, blurry vision, and clammy skin. Bleeding that is hard to stop or control. How is this diagnosed? This condition is diagnosed based on your medical history, your symptoms, and a physical exam. Tests may also be done, including: Blood tests. Urine tests to check for myoglobin. You may also have other tests to check for causes of muscle damage and to check for complications. How is this treated? Treatment for this condition helps to: Make sure you have enough fluids in your body. Lower the acid levels in your blood to reverse acidosis. Protect your kidneys. Treatment may include: Fluids and medicines given through an IV tube that is inserted into one of your veins. Medicines to lower acidosis or to bring back the balance of the minerals in your body. Hemodialysis. This treatment uses an artificial kidney machine to filter your blood while you recover. You may have this if other treatments are not helping. Follow these instructions at home: Take [id number] and prescription medicines only as told by your health care provider. Rest at home until your health care provider says that you can return to your normal activities. Drink enough fluid to keep your urine clear or pale yellow. Do not do activities that take a lot of effort (are strenuous). Ask your health care provider what level of exercise is safe for you. Do not abuse drugs or alcohol. If you are having problems with drug or alcohol use, ask your health care provider for help. Keep all follow-up visits as told by your health care provider. This is important. Contact a health care provider if: You start having symptoms of this condition after treatment. Get help right away if: You have a seizure. You bleed easily or cannot control bleeding. You cannot urinate. You have chest pain. You have trouble breathing. This information is not intended to replace advice given to you by your health care provider. Make sure you discuss any questions you have with your health care provider. Document Released: 02/14/2005 Document Revised: 02/14/2018 Document Reviewed: 12/14/2016 [employer] Patient Education 2020 [employer]. Follow Up Care 12/27/2024 22:26:28 With:[facility] Address: [address] [place] [address]- When: Unknown Comments:4-6 weeks With:FAYE JORDAN DO Address: [address] [place] [address]- When:1-2 days Comments:Please call the office to schedule your hospital follow up appointment . [facility] 01-05-2025 Note Discharge Instructions Thank you for allowing [facility] to assist you with your healthcare needs. The following is important discharge information regarding your hospital visit. Your Care Team FAYE JORDAN DO What to do next Follow Up Appointments Follow Up with [facility] Where:[address] [place] [address]- Additional Information: 4-6 weeks Follow Up with FAYE JORDAN DO When:Within 1-2 days Where:[address] [place] [id number]- Additional Information: Please call the office to schedule your hospital follow up appointment . The Following Activity and Diet Have Been Ordered for You Transfer of Care Activity - Ordered -- As instructed by therapy, 01/05/25 16:30:00 EDT Transfer of Care Diet - Ordered -- Type of Diet: Regular Diet, Calories Permitted: 1800 kcal, Glucerna shake twice daily, 01/05/25 16:30:00 EDT The Following Equipment Has Been Ordered for You No qualifying data available. The Following Treatments Have Been Ordered for You Discharge Labs Transfer of Care Labwork - Ordered -- CBC, CMP, Magnesium, hypokalemia, follow-up within: 1 week, Results Notify to: FAYE JORDAN DO, 01/05/25 16:30:00 EDT Discharge Radiology No qualifying data available. Other Therapies Transfer of Care OT - Ordered -- Reason for therapy: weakness, 01/05/25 16:30:00 EDT Transfer of Care PT - Ordered -- Reason for therapy: weakness, 01/05/25 16:30:00 EDT Post Acute Orders Transfer of Care Code Status - Ordered -- DNRCC-Arrest Do Not Intubate, Constant Order Transfer of Care Labwork - Ordered -- CBC, CMP, Magnesium, hypokalemia, follow-up within: 1 week, Results Notify to: FAYE JORDAN DO, 01/05/25 16:30:00 EDT Transfer of Care Orders Electronically Signed By - Ordered -- 01/05/25 16:30:00 EDT, SOHAIL MORALES DO Transfer of Care Prognosis - Ordered -- Fair, Patient Aware: Yes Transfer of Care Rehab Potential - Ordered -- Rehab potential fair, 01/05/25 16:30:08 EDT Someone Will Contact You Regarding These Home Health Referrals No home referrals have been ordered for you. No one will call you. Allergies Fish RESP DIFF; THROAT SWELLS Functional/Cognitive Assessment Assessment OutcomeOrientation Assessment Identifies self Medications Please ask your primary doctor or pharmacist before taking any other medication not listed, including over the counter drugs, herbal medications, vitamins and or supplements as they may interact with your home medications. What How Much When Instructions Last Dose New atorvastatin (atorvastatin 40 mg oral tablet) 1 tab(s) by mouth Daily at bedtime New docusate-senna (docusate-senna 50 mg-8.6 mg oral tablet) 2 tab(s) by mouth Daily at bedtime New insulin glargine (Lantus 100 units/ mL10 ml vial solution) 15 unit(s) Subcutaneous (INT) Daily at bedtime New insulin lispro (HumaLOG) (HumaLOG 100 units/ mL subcutaneous solution) Give 0-10 units/dose Subcutaneous Three (3) times a day before meals New miconazole topical (miconazole 2% topical powder) 1 application Topical Two (2) times a day New polyethylene glycol 3350 (Miralax Powder Packet) by mouth Once a day New polymyxin B-trimethoprim ophthalmic (polymyxin B-trimethoprim 10,000 units-1 mg/ mL ophthalmic solution) 1 Drops Right eye Every 3 hours New silver sulfADIAZINE topical (Silvadene) 1 application Topical Two (2) times a day Unchanged aspirin 81 Milligram by mouth Every day Unchanged lisinopril 10 Milligram by mouth Every day Unchanged metformin 1000 Milligram by mouth Two (2) times a day Unchanged terbinafine (terbinafine 250 mg oral tablet) 1 tab(s) by mouth Every day What How Much When Comments Stop Taking acetaminophen-codeine (Tylenol with Codeine #3) 1-2 tabs by mouth Every 4 to 6 hours as needed for as needed for pain Stop Taking cephalexin (Keflex) 250 Milligram by mouth Four (4) times a day Please take this list to your next doctor s visit. Bring all medications you take, including over the counter medications, herbals and other supplements with you to your doctor s visit. Patients and families are reminded to discard old lists and to update any records with all medication providers or retail pharmacies. Education Materials Rhabdomyolysis Rhabdomyolysis is a condition that happens when muscle cells break down and release substances into the blood that can damage the kidneys. This condition happens because of damage to the muscles that move bones (skeletal muscle). When the skeletal muscles are damaged, substances inside the muscle cells go into the blood. One of these substances is a protein called myoglobin. Large amounts of myoglobin can cause kidney damage or kidney failure. Other substances that are released by muscle cells may upset the balance of the minerals (electrolytes) in your blood. This imbalance causes your blood to have too much acid (acidosis). What are the causes? This condition is caused by muscle damage. Muscle damage often happens because of: Using your muscles too much. An injury that crushes or squeezes a muscle too tightly. Using illegal drugs, mainly cocaine. Alcohol abuse. Other possible causes include: Prescription medicines, such as those that: ? Lower cholesterol (statins). ? Treat ADHD (attention deficit hyperactivity disorder) or help with weight loss (amphetamines). ? Treat pain (opiates). Infections. Muscle diseases that are passed down from parent to child (inherited). High fever. Heatstroke. Not having enough fluids in your body (dehydration). Seizures. Surgery. What increases the risk? This condition is more likely to develop in people who: Have a family history of muscle disease. Take part in extreme sports, such as running in marathons. Have diabetes. Are older. Abuse drugs or alcohol. What are the signs or symptoms? Symptoms of this condition vary. Some people have very few symptoms, and other people have many symptoms. The most common symptoms include: Muscle pain and swelling. Weak muscles. Dark urine. Feeling weak and tired. Other symptoms include: Nausea and vomiting. Fever. Pain in the abdomen. Pain in the joints. Symptoms of complications from this condition include: Heart rhythm that is not normal (arrhythmia). Seizures. Not urinating enough because of kidney failure. Very low blood pressure (shock). Signs of shock include dizziness, blurry vision, and clammy skin. Bleeding that is hard to stop or control. How is this diagnosed? This condition is diagnosed based on your medical history, your symptoms, and a physical exam. Tests may also be done, including: Blood tests. Urine tests to check for myoglobin. You may also have other tests to check for causes of muscle damage and to check for complications. How is this treated? Treatment for this condition helps to: Make sure you have enough fluids in your body. Lower the acid levels in your blood to reverse acidosis. Protect your kidneys. Treatment may include: Fluids and medicines given through an IV tube that is inserted into one of your veins. Medicines to lower acidosis or to bring back the balance of the minerals in your body. Hemodialysis. This treatment uses an artificial kidney machine to filter your blood while you recover. You may have this if other treatments are not helping. Follow these instructions at home: Take wuea-cih-qpcujwj and prescription medicines only as told by your health care provider. Rest at home until your health care provider says that you can return to your normal activities. Drink enough fluid to keep your urine clear or pale yellow. Do not do activities that take a lot of effort (are strenuous). Ask your health care provider what level of exercise is safe for you. Do not abuse drugs or alcohol. If you are having problems with drug or alcohol use, ask your health care provider for help. Keep all follow-up visits as told by your health care provider. This is important. Contact a health care provider if: You start having symptoms of this condition after treatment. Get help right away if: You have a seizure. You bleed easily or cannot control bleeding. You cannot urinate. You have chest pain. You have trouble breathing. This information is not intended to replace advice given to you by your health care provider. Make sure you discuss any questions you have with your health care provider. Document Released: 02/14/2005 Document Revised: 02/14/2018 Document Reviewed: 12/14/2016 Elsevier Patient Education 2020 [employer] Additional Information VACCINATE! IT SAVES LIVES! Members of the community who have not yet received the COVID-19 vaccine and would like to receive it can visit one of [facility] vaccine clinics. There are many vaccine clinic locations within the [facility]. For locations and available times, please visit [email or web address].go [email or web address] It is important to note that some COVID mobile vaccine clinics are held outdoors and may be canceled in rainy or stormy conditions. To learn more about pediatric vaccinations (ages 5-11), we invite you to visit the [employer] webpage. https://www.[employer]Cir[employer].org/pag es/1334-Mlfpp-Dactsqafxls-Frequent mq-Qpwew-Uzcqhyewq.html To learn more about the COVID-19 vaccine, we invite you to visit the CDC website for a list of frequently asked questions. https://www.cdc.gov/coronavirus/ 19-ncov/vaccines/faq.html [facility] Patient Portal Access Instructions: Stay connected with your healthcare team and access your personal medical information anytime with the [facility] [facility] [employer] Patient Portal.If you would like a full copy of your medical records, please contact the [facility] Medical Records Department, Saturday through Saturday between 8a.m. and 4:30p.m. Please follow the directions below to access the portal: 1.Access the email account you provided upon registration to the hospital.2.Look for an invitation email from [facility].3.Open the email and access the invitation link: Accept Invitation to [facility]4.Fill in the required doherty to create your account. To access your account, visit [employer] or scan the QR code above. Click the blue button labeled "Access Patient Portal" and then log in with the username and password that you created in the steps above. You can then view a summary of results, a summary of your visits, and the ability to download your summaries to your computer or send the information securely to a physician. Remember that your healthcare information is confidential, so carefully consider who you will allow to register on the [facility] Patient Portal for access to your information. You can also access the [employer] Patient Portal on the [employer] liv. Simply click on "Health Records" under "Health Data" and then click on the Zodio logo. HOW TO SAFELY DISPOSE OF PRESCRIPTION MEDICATIONS Please use one of the following methods to safely dispose of your unused medications. 1.Use a drug disposal kit: the drug disposal pouch allows you to safely discard your old and unused drugs. Ask your nurse to give you one when you are discharged.2.Visit a local take-back location: Many local pharmacies and police departments have programs that collect old and unwanted prescription drugs. Call your local pharmacy or go to http://[employer]/0X8Jw8k to find one close to you.3.Make use of household items: Use cat litter or old coffee grounds to dispose medications if other options are not available. Mix your drugs with these household products, seal them in an airtight container and throw it into the garbage. Call [facility]: [phone] to be sure your drugs can be disposed of in this way. Some medicines may require a different approach.4.Never flush your medications down the toilet. IF YOU HAVE BEEN PRESCRIBED AN OPIOID FOR PAIN If you have been prescribed an opioid (such as hydrocodone, oxycodone or morphine), it is critical to understand the possible side effects and risks of opioid pain medications. Even when taken as directed, opioids can have several side effects including: Tolerance, meaning you might need to take more of a medication for the same pain relief. Nausea, vomiting and/or constipation. Sleepiness, dizziness, dry mouth, confusion, depression or itching. Physical dependence, meaning you have withdrawal symptoms when a medication is stopped, can develop within a few days. KNOW YOUR RESPONSIBILITIES It is important to know exactly how much and how often to take the opioid pain medications you are prescribed. Never take opioids in higher amounts or more often than prescribed. Do not combine opioids with alcohol or other drugs that cause drowsiness, such as benzodiazepines, also known as benzos, including diazepam and alprazolam, muscle relaxants or sleep aids. Never sell or share prescription opioids. This is illegal. Store opioids in a secure place and out of reach of others (including children, family, friends and visitors). The last page of this document has been signed and retained as a CHART COPY. Signatures Patient Education Materials Rhabdomyolysis Medication Leaflets My discharge plan and instructions have been reviewed and explained to me and I,STEVEN BARLOW understand my current condition and have read and understand these discharge instructions. I have received a written copy of the plan/instructions. If I have questions, I am aware that I should contact my doctor. 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 The following is important discharge information regarding your hospital visit. Your Care Team FAYE JORDAN DO What to do next Follow Up Appointments Follow Up with [facility] Where:[address] [place] [address]- Additional Information: 4-6 weeks Follow Up with FAYE JORDAN DO When:Within 1-2 days Where:[address] [place] [address]- Additional Information: Please call the office to schedule your hospital follow up appointment . The Following Activity and Diet Have Been Ordered for You Transfer of Care Activity - Ordered -- As instructed by therapy, 01/05/25 16:30:00 EDT Transfer of Care Diet - Ordered -- Type of Diet: Regular Diet, Calories Permitted: 1800 kcal, Glucerna shake twice daily, 01/05/25 16:30:00 EDT The Following Equipment Has Been Ordered for You No qualifying data available. The Following Treatments Have Been Ordered for You Discharge Labs Transfer of Care Labwork - Ordered -- CBC, CMP, Magnesium, hypokalemia, follow-up within: 1 week, Results Notify to: FAYE JORDAN DO, 01/05/25 16:30:00 EDT Discharge Radiology No qualifying data available. Other Therapies Transfer of Care OT - Ordered -- Reason for therapy: weakness, 01/05/25 16:30:00 EDT Transfer of Care PT - Ordered -- Reason for therapy: weakness, 01/05/25 16:30:00 EDT Post Acute Orders Transfer of Care Code Status - Ordered -- DNRCC-Arrest Do Not Intubate, Constant Order Transfer of Care Labwork - Ordered -- CBC, CMP, Magnesium, hypokalemia, follow-up within: 1 week, Results Notify to: FAYE JORDAN DO, 01/05/25 16:30:00 EDT Transfer of Care Orders Electronically Signed By - Ordered -- 01/05/25 16:30:00 EDT, SOHAIL MORALES DO Transfer of Care Prognosis - Ordered -- Fair, Patient Aware: Yes Transfer of Care Rehab Potential - Ordered -- Rehab potential mg, 01/05/25 16:30:08 EDT Someone Will Contact You Regarding These Home Health Referrals No home referrals have been ordered for you. No one will call you. Allergies Fish RESP DIFF; THROAT SWELLS Medications Please ask your primary doctor or pharmacist before taking any other medication not listed, including over the counter drugs, herbal medications, vitamins and or supplements as they may interact with your home medications. What How Much When Instructions Last Dose New atorvastatin (atorvastatin 40 mg oral tablet) 1 tab(s) by mouth Daily at bedtime New docusate-senna (docusate-senna 50 mg-8.6 mg oral tablet) 2 tab(s) by mouth Daily at bedtime New insulin glargine (Lantus 100 units/ mL10 ml vial solution) 15 unit(s) Subcutaneous (INT) Daily at bedtime New insulin lispro (HumaLOG) (HumaLOG 100 units/ mL subcutaneous solution) Give 0-10 units/dose Subcutaneous Three (3) times a day before meals New miconazole topical (miconazole 2% topical powder) 1 application Topical Two (2) times a day New polyethylene glycol 3350 (Miralax Powder Packet) by mouth Once a day New polymyxin B-trimethoprim ophthalmic (polymyxin B-trimethoprim 10,000 units-1 mg/ mL ophthalmic solution) 1 Drops Right eye Every 3 hours New silver sulfADIAZINE topical (Silvadene) 1 application Topical Two (2) times a day Unchanged aspirin 81 Milligram by mouth Every day Unchanged lisinopril 10 Milligram by mouth Every day Unchanged metformin 1000 Milligram by mouth Two (2) times a day Unchanged terbinafine (terbinafine 250 mg oral tablet) 1 tab(s) by mouth Every day What How Much When Comments Stop Taking acetaminophen-codeine (Tylenol with Codeine #3) 1-2 tabs by mouth Every 4 to 6 hours as needed for as needed for pain Stop Taking cephalexin (Keflex) 250 Milligram by mouth Four (4) times a day Please take this list to your next doctor s visit. Bring all medications you take, including over the counter medications, herbals and other supplements with you to your doctor s visit. Patients and families are reminded to discard old lists and to update any records with all medication providers or retail pharmacies. Additional Information VACCINATE! IT SAVES LIVES! Members of the community who have not yet received the COVID-19 vaccine and would like to receive it can visit one of [facility] vaccine clinics. There are many vaccine clinic locations within the [facility]. For locations and available times, please visit [email or web address].[email or web address] It is important to note that some COVID mobile vaccine clinics are held outdoors and may be canceled in rainy or stormy conditions. To learn more about pediatric vaccinations (ages 5-11), we invite you to visit the [facility] webpage. https://www.[facility].org/pag es/6185-Kaaop-Ebhniyjigvn-Frequent ci-Xsxzg-Qpicyjrwp.html To learn more about the COVID-19 vaccine, we invite you to visit the CDC website for a list of frequently asked questions.https://www.cdc.gov/steve navirus/2019-ncov/vaccines/faq.htm [employer] Patient Portal Access Instructions: Stay connected with your healthcare team and access your personal medical information anytime with the [employer] Patient Portal. Please follow the directions below to create your [employer] account: 1.Access the email account you provided upon registration to the hospital/physician office.2.Look for an invitation email from [facility].3.Open the email and access the invitation link: Accept Invitation to [facility].4.Fill in the required doherty to create your account. To access your account, visit [email or web address] or scan the RenéSim code above. Click the blue button labeled "Access Patient Portal" and then log in with the username and password that you created in the steps above. You will be able to view your test results, lab results, a summary of your visits, upcoming appointments and more. There is also a convenient messaging option where you can send secure messages to your provider. In addition, you will have the ability to download any documents or summaries to your computer and/or send the information securely to a physician. Remember that your healthcare information is confidential, so carefully consider who you will allow to register on the [facility] Patient Portal for access to your information. You can also access the [facility] [facility] Patient Portal on the [employer] liv. Simply click on "Patient Portal" and then log into your account. If you would like to receive a full copy of your medical records, please contact the [facility] Medical Records Department by calling [phone], Saturday through Saturday between 8 a.m. and 4:30 p.m. HOW TO SAFELY DISPOSE OF PRESCRIPTION MEDICATIONS Please use one of the following methods to safely dispose of your unused medications. 1.Use a drug disposal kit: the drug disposal pouch allows you to safely discard your old and unused drugs. Ask your nurse to give you one when you are discharged.2.Visit a local take-back location: Many local pharmacies and police departments have programs that collect old and unwanted prescription drugs. Call your local pharmacy or go to http://[employer]/1Y0Pd6c to find one close to you.3.Make use of household items: Use cat litter or old coffee grounds to dispose medications if other options are not available. Mix your drugs with these household products, seal them in an airtight container and throw it into the garbage. Call [facility]: [phone] to be sure your drugs can be disposed of in this way. Some medicines may require a different approach.4.Never flush your medications down the toilet. IF YOU HAVE BEEN PRESCRIBED AN OPIOID FOR PAIN If you have been prescribed an opioid (such as hydrocodone, oxycodone or morphine), it is critical to understand the possible side effects and risks of opioid pain medications. Even when taken as directed, opioids can have several side effects including: Tolerance, meaning you might need to take more of a medication for the same pain relief. Nausea, vomiting and/or constipation. Sleepiness, dizziness, dry mouth, confusion, depression or itching. Physical dependence, meaning you have withdrawal symptoms when a medication is stopped, can develop within a few days. KNOW YOUR RESPONSIBILITIES It is important to know exactly how much and how often to take the opioid pain medications you are prescribed. Never take opioids in higher amounts or more often than prescribed. Do not combine opioids with alcohol or other drugs that cause drowsiness, such as benzodiazepines, also known as benzos, including diazepam and alprazolam, muscle relaxants or sleep aids. Never sell or share prescription opioids. This is illegal. Store opioids in a secure place and out of reach of others (including children, family, friends and visitors). The last page of this document has been signed and retained as a CHART COPY. Signatures Patient Education Materials Medication Leaflets My discharge plan and instructions have been reviewed and explained to me and I,STEVEN BARLOW understand my current condition and have read and understand these discharge instructions. I have received a written copy of the plan/instructions. If I have questions, I am aware that I should contact my doctor. Patient/Environmental Control Administrator Signature: Date/Time: Relationship to Patient: ___ Witness Name/Signature: Date/Time: [facility] 01-05-2025 Discharge summary Date of Service 01/05/2025 Discharge Diagnosis Metabolic encephalopathy UTI Sepsis Hypernatremia, improved Rhabdomyolysis, resolved Stroke, Ruled out DM2 with hyperglycemia- HbA1c, 6.8 Dehydration Acute hypoxic respiratory failure Hypertension Hypokalemia Hyperlipidemia Degenerative disc disease with spinal stenosis at C5-C6 Cocaine abuse Coccyx - Pressure Ulcer Stage: Stage 2, POA Sacrum Left - Pressure Ulcer Stage: Stage 3, POA History of stroke based off CT head Hospital Course 69-year-old male PMH HTN, DM 2, HLD, bedbugs, stroke cocaine abuse that presented with with altered mental status after being found prone in his apartment, incontinent, confused, and with right facial droop. EMS brought him to the ED after his son had not heard from him in several days. Initial workup revealed leukocytosis, elevated CPK, positive urine drug screen for cocaine, and urinalysis consistent with UTI. Imaging/CT head showed no acute intracranial abnormality but noted a small chronic lacunar infarct in the left adamson radiata and moderate chronic microvascular changes. MRI brain and MRA head/neck confirmed small vessel ischemic disease, no large infarct, without large vessel occlusion. EEG showed mild generalized slowing, no seizures. Patient was treated empirically for sepsis with IV fluids, vancomycin, and Zosyn, later transitioned to ceftriaxone for UTI which she completed a full course. Rhabdomyolysis and dehydration were managed with IV hydration. Aspirin was initiated for secondary stroke prevention. Statin therapy added after CPK normalized. Skin team managing stage 2 and 3 pressure ulcers. PT/OT evaluated and recommended inpatient rehabilitation. Patient is in isolation for bedbug infestation. Mentation continued to improve and he is AAO at time of discharge. Patient currently denies chest pain, dyspnea, nausea, vomiting, diarrhea, headache and dizziness. Patient is being transferred to [facility] rehab today as he is hemodynamically stable for discharge. Allergies Fish RESP DIFF; THROAT SWELLS Consults Consult to Physician - Ordered -- 12/28/24 4:41:00 EDT, BLANCA HOGUE MD, Routine, cva Imaging Results and Diagnostics XR Chest 1 View Result Date: January 01, 2025 Verified By: ZOFIA LAWRENCE MD CLINICAL STATEMENT: IMPRESSION: Clear lungs. MRA Head w/o Contrast Result Date: December 29, 2024 Verified By: BATSHEVA MANNING DO CLINICAL STATEMENT: IMPRESSION: No large vessel occlusion or hemodynamically significant stenosis within thehead or neck. MRI Brain w/o Contrast Result Date: December 29, 2024 Verified By: ZOFIA LAWRENCE MD CLINICAL STATEMENT: IMPRESSION: Volume loss and small vessel ischemic disease. Small vessel ischemic diseaseis more advanced than expected in a patient of this age. MRA Neck w/o Contrast Result Date: December 29, 2024 Verified By: BATSHEVA MANNING DO CLINICAL STATEMENT: IMPRESSION: No large vessel occlusion or hemodynamically significant stenosis within thehead or neck. CT Spine Cervical w/o Contrast Result Date: December 27, 2024 Verified By: NIKITA CLEMENT MD CLINICAL STATEMENT: IMPRESSION: 1. No acute abnormality of the cervical spine.2. Degenerative disc disease with spinal stenosis at C5-C6. If there areneurologic symptoms, MRI could be performed for further evaluation. CT Head or Brain w/o Contrast Result Date: December 27, 2024 Verified By: NIKITA CLEMENT MD CLINICAL STATEMENT: IMPRESSION: 1. No acute intracranial abnormality.2. Small lacunar infarct left adamson radiata.3. Moderate chronic microvascular angiopathy and mild parenchymal volume loss.4. No facial fracture. CT Maxillofacial w/o Contrast Result Date: December 27, 2024 Verified By: NIKITA CLEMENT MD CLINICAL STATEMENT: IMPRESSION: 1. No acute intracranial abnormality.2. Small lacunar infarct left adamson radiata.3. Moderate chronic microvascular angiopathy and mild parenchymal volume loss.4. No facial fracture. XR Chest 1 View Result Date: December 27, 2024 Verified By: NIKITA CLEMENT MD CLINICAL STATEMENT: IMPRESSION: No acute cardiopulmonary process. WBC: 7 10^3/mcL (01/02/25 04:19:00) RBC: 4.9 10^6/mcL (01/02/25 04:19:00) Hgb: 14.3 G/dL (01/02/25 04:19:00) Hct: 43.5 % (01/02/25 04:19:00) MCV: 88.8 fL (01/02/25 04:19:00) MCH: 29.1 pg (01/02/25 04:19:00) MCHC: 32.8 G/dL (01/02/25 04:19:00) RDW: 15 % (01/02/25 04:19:00) Platelet: 212 10^3/mcL (01/02/25 04:19:00) MPV: 8.3 fL (01/02/25 04:19:00) Monocyte Distribution Width: 16.93 (12/27/24 23:03:00) Neutrophil %: 68.5 % (01/02/25 04:19:00) Lymphocyte %: 14.4 % Low (01/02/25 04:19:00) Monocyte %: 12.7 % (01/02/25 04:19:00) Eosinophil %: 3.9 % (01/02/25 04:19:00) Basophil %: 0.5 % (01/02/25 04:19:00) Neutrophil, Absolute: 4.8 10^3/mcL (01/02/25 04:19:00) Lymphocyte, Absolute: 1 10^3/mcL (01/02/25 04:19:00) Monocyte, Absolute: 0.9 10^3/mcL (01/02/25 04:19:00) Eosinophil, Absolute: 0.3 10^3/mcL (01/02/25 04:19:00) Basophil, Absolute: 0 10^3/mcL (01/02/25 04:19:00) UA Specimen Type: Clean Catch (12/27/24 23:03:00) UA Color: [place] Abnormal (12/27/24 23:03:00) UA Appear: Turbid Abnormal (12/27/24 23:03:00) UA Spec Grav: 1.020 (12/27/24 23:03:00) UA Glucose: Negative. (12/27/24 23:03:00) UA Bili: Negative. (12/27/24 23:03:00) UA Ketones: Negative.1 (12/27/24 23:03:00) UA Blood: Large Abnormal (12/27/24 23:03:00) UA pH: 8.5 Abnormal (12/27/24 23:03:00) UA Protein: 300 Abnormal (12/27/24 23:03:00) UA Urobilinogen: 1.0 (12/27/24 23:03:00) UA Nitrite: Negative. (12/27/24 23:03:00) UA Leuk Est: Moderate Abnormal (12/27/24 23:03:00) UA RBC: 10-20 Abnormal (12/27/24 23:03:00) UA WBC: 25-50 Abnormal (12/27/24 23:03:00) UA Squam Epithelial: 0-2 (12/27/24 23:03:00) UA Transitional Epithelial: 0-2 (12/27/24 23:03:00) UA Mucous: 2+ (12/27/24 23:03:00) UA Bacteria: 4+ Abnormal (12/27/24 23:03:00) UA Trip [place] Crystals: 1+ (12/27/24 23:03:00) Glucose Level: 228 mg/dL High (01/04/25 07:34:00) Sodium Level: 138 mEq/L (01/04/25 07:34:00) Potassium Level: 3.8 mEq/L (01/04/25 07:34:00) Chloride: 99 mEq/L (01/04/25 07:34:00) CO2: 31 mEq/L (01/04/25:34:00) Electrolyte Balance: 8 mEq/L (01/04/25 07:34:00) BUN: 10 mg/dL (01/04/25 07:34:00) Creatinine Lvl (s): 0.43 mg/dL Low (01/04/25 07:34:00) Estimated Glomerular Filtration Rate: 116 ml/min/1.73sqm (01/04/25 07:34:00) BUN/Creatinine Ratio: 23.3 ratio High (01/04/25 07:34:00) Calcium Lvl: 9 mg/dL (01/04/25 07:34:00) Magnesium Lvl: 1.9 mg/dL (01/04/25 07:34:00) Total Protein: 6.3 G/dL (01/04/25 07:34:00) Albumin Level: 2.7 G/dL Low (01/04/25 07:34:00) Globulin: 3.6 G/dL (01/04/25 07:34:00) A/G Ratio: 0.8 ratio Low (01/04/25 07:34:00) Bili Total: 0.5 mg/dL (01/04/25 07:34:00) Bili Direct: 0.4 mg/dL (12/28/24 06:43:00) Bili Indirect: 0.5 mg/dL (12/28/24 06:43:00) Alk Phos: 98 U/L (01/04/25 07:34:00) AST/SGOT: 31 U/L (01/04/25 07:34:00) ALT/SGPT: 50 U/L (01/04/25 07:34:00) CPK: 127 U/L (01/01/25 12:52:00) Hgb A1c: 6.8 % High (12/29/24 09:39:00) Est Avg Glucose: 148 mg/dL (12/29/24 09:39:00) Lipase Level: 18 U/L (12/27/24 23:03:00) Ammonia: 19 mcmol/L (12/28/24 10:15:00) Lactic Acid Lvl: 1.1 mmol/L (12/28/24 01:04:00) Cholesterol: 102 mg/dL (12/28/24 06:43:00) Triglycerides: 99 mg/dL (12/28/24 06:43:00) HDL Cholesterol: 38 mg/dL Low (12/28/24 06:43:00) LDL Cholesterol: 44 mg/dL (12/28/24 06:43:00) High Sensitivity Troponin I: 33 ng/L (12/27/24 23:44:00) Ethanol Level: <10.0 (12/27/24 23:03:00) Salicylate Lvl (ds): <3.0 Low (12/27/24 23:03:00) Acetaminophen (ds): <2.0 Low (12/27/24 23:03:00) Serum Drugs screened: See Below (12/27/24 23:03:00) U pH Drug Scrn: 8.5 High (12/27/24 23:03:00) Amphetamine (u): Negative-DSX (12/27/24 23:03:00) Barbiturate (u): Negative-DSX (12/27/24 23:03:00) Cannabinoid (u): Negative-DSX (12/27/24 23:03:00) Cocaine (u): Positive-DSX Abnormal (12/27/24 23:03:00) Fentanyl (u): Negative-DSX (12/27/24 23:03:00) Benzodiazepine (u): Negative-DSX (12/27/24 23:03:00) Methadone (u): Negative-DSX (12/27/24 23:03:00) Opiate (u): Negative-DSX (12/27/24 23:03:00) Oxycodone (u): Negative-DSX (12/27/24 23:03:00) PCP (u): Negative-DSX (12/27/24 23:03:00) Propoxyphene (u): Negative-DSX (12/27/24 23:03:00) Urine Drugs screened: See Below (12/27/24 23:03:00) Culture Blood: Auth (Verified) See Result (12/28/24 00:51:00) Culture Urine: Auth (Verified) POS Critical (12/27/24 23:03:00) Blood Glucose, Capillary: 266 mg/dL High (01/05/25 11:17:00) Blood Glucose Testing Reason: Routine (01/05/25 11:17:00) Objective Vitals and Measurements T: 36.6 C (Oral) TMIN: 36.5 C (Oral) TMAX: 36.6 C (Oral) HR: 86 RR: 20 BP: 126/72 SpO2: 94% Weight Dosing Weight: 82.5 kg (12/28/24) General: Alert, no acute distress Heart: RRR, S1/S2. No murmurs. Lungs: CTA B/L, unlabored Abdomen: Soft, nontender, nondistended, + bowel sounds Extremities: No edema, +2 dorsalis pedis pulses bilaterally. Code Status Code Status - Ordered -- 12/28/24 3:06:00 EDT, DNRCC-Arrest Do Not Intubate, Constant Order Admission Date 12/27/2024 Discharge Date 01/05/2025 Medications New Prescription atorvastatin (atorvastatin 40 mg oral tablet)1 tab(s) by mouth daily at bedtime. docusate-senna (docusate-senna 50 mg-8.6 mg oral tablet)2 tab(s) by mouth daily at bedtime. insulin glargine (Lantus 100 units/mL10 ml vial solution)15 unit(s) Subcutaneous (INT) daily at bedtime. insulin lispro (HumaLOG) (HumaLOG 100 units/mL subcutaneous solution)Give 0-10 units/dose Subcutaneous three (3) times a day before meals. miconazole topical (miconazole 2% topical powder)1 application Topical two (2) times a day. polyethylene glycol 3350 (Miralax Powder Packet)by mouth once a day. polymyxin B-trimethoprim ophthalmic (polymyxin B-trimethoprim 10,000 units-1 mg/mL ophthalmic solution)1 Drops Right eye every 3 hours. silver sulfADIAZINE topical (Silvadene)1 application Topical two (2) times a day. Unchanged [id number] Milligram by mouth every day. Milligram by mouth every day. [id number] Milligram by mouth two (2) times a day. terbinafine (terbinafine 250 mg oral tablet)1 tab(s) by mouth every day. Discontinued acetaminophen-codeine (Tylenol with Codeine #3)1-2 tabs by mouth every 4 to 6 hours as needed as needed for pain. cephalexin (Keflex)250 Milligram by mouth four (4) times a day. Follow Up Follow Up with [facility] Where:[address] [address]- Additional Information: 4-6 weeks Follow Up with FAYE JORDAN DO When:Within 1-2 days Where:[address] [place] [address]- Additional Information: Please call the office to schedule your hospital follow up appointment . Follow Up Appointments Transfer of Care OT - Ordered -- Reason for therapy: weakness, 01/05/25 16:30:00 EDT Transfer of Care PT - Ordered -- Reason for therapy: weakness, 01/05/25 16:30:00 EDT Follow Up Labs/Studies Discharge Labs Transfer of Care Labwork - Ordered -- CBC, CMP, Magnesium, hypokalemia, follow-up within: 1 week, Results Notify to: FAYE JORDAN DO, 01/05/25 16:30:00 EDT Discharge Studies No Follow-up Studies Discharge Diet Transfer of Care Diet - Ordered -- Type of Diet: Regular Diet, Calories Permitted: 1800 kcal, Glucerna shake twice daily, 01/05/25 16:30:00 EDT Discharge Activity Transfer of Care Activity - Ordered -- As instructed by therapy, 01/05/25 16:30:00 EDT Condition on Discharge Stable Readmission Risk/Palliative Score No qualifying data available. Discharge Disposition [facility] rehab Time Spent 35 minutes Digitally Signed by SOHAIL MORALES DO on 01/05/2025 04:31 PM [facility] 01-05-2025 Note Reason for Consultation Admission From: Home Follow up visit. Skin Team Findings Vitals and Measurements T: 36.5 C (Oral) TMIN: 36.5 C (Oral) TMAX: 36.7 C (Oral) HR: 94 RR: 18 BP: 115/66 SpO2: 96% Pressure Area Details ------Pressure Area------ Coccyx - Pressure Area Depth: 0.1 cm Coccyx - Pressure Area Description: [place], Epithelialization Coccyx - Pressure Area Drainage: Scant, Serous Coccyx - Pressure Area Dressing Activity: Assessed Coccyx - Pressure Area Dressing Description: Open to Air Coccyx - Pressure Area Epithelialization %: 10 % Coccyx - Pressure Area Length: 3 cm Coccyx - Pressure Area Surrounding Tissue: Erythema, skin color changes from moisture Coccyx - Pressure Area Topical Agent: Hydrophilic wound dressing paste Coccyx - Pressure Area Width: 0.4 cm Coccyx - Pressure Area Wound Edges: Attached Coccyx - Pressure Ulcer Present On Admission: Yes Coccyx - Pressure Ulcer Stage: Stage 2 Coccyx - Status: Improving ------Pressure Area Measurements------ Coccyx - Pressure Area Depth: 0.1 cm Coccyx - Pressure Area Length: 3 cm Coccyx - Pressure Area Width: 0.4 cm ------Incision/Wound------ Chest Right Anterior - Incision, Wound Dressing: Open to Air Chest Right Anterior - Incision, Wound Surrounding Tissue: Normal skin tone Chest Right Anterior - Non-Pressure Ulcer Type: Undiagnosed ulcer (black ulcers are healed) Chest Right Anterior - Skin Abnormality Color: Brown Chest Right Anterior - Skin Abnormality Pattern: Scabbed Chest Right Anterior - Skin Abnormality Type: Bite(s) (resolved) Chest Right Anterior - Wound Bed Description: Scab (from scratching) Chest Right Anterior - Wound Exudate Amount: None Chest Right Anterior - Wound Status: No complications Elbow Left - Incision, Wound Dressing: Open to Air Elbow Left - Non-Pressure Ulcer Type: Other: friction Elbow Left - Skin Abnormality Color: Brown Elbow Left - Skin Abnormality Pattern: Scabbed Elbow Left - Skin Abnormality Type: Non-pressure ulcer Elbow Left - Wound Bed Description: Scab Elbow Left - Wound Exudate Amount: None Elbow Left - Wound Status: No complications Elbow Right - Incision, Wound Dressing: Open to Air Elbow Right - Incision, Wound Surrounding Tissue: Erythema Elbow Right - Non-Pressure Ulcer Type: Other: friction injury Elbow Right - Skin Abnormality Color: Brown Elbow Right - Skin Abnormality Type: Non-pressure ulcer Elbow Right - Wound Bed Description: Scab Elbow Right - Wound Exudate Amount: None Elbow Right - Wound Status: No complications Groin - Incision, Wound Distribution: Generalized Groin - Incision, Wound Dressing: Open to Air Groin - Rash Appearance: Reddened Groin - Skin Abnormality Color: [place] Groin - Skin Abnormality Type: Irritant dermatitis Groin - Wound Associated Pain: None Groin - Wound Status: No complications Knee Bilateral - Incision, Wound Dressing: Open to Air Knee Bilateral - Incision, Wound Surrounding Tissue: Erythema Knee Bilateral - Skin Abnormality Color: Black, Brown Knee Bilateral - Skin Abnormality Pattern: Scabbed Knee Bilateral - Skin Abnormality Type: Abrasion Knee Bilateral - Wound Bed Description: Scab Knee Bilateral - Wound Exudate Amount: None Knee Bilateral - Wound Status: No complications Toe, great Left - Incision, Wound Dressing: Open to Air Toe, great Left - Incision, Wound Surrounding Tissue: Dry Toe, great Left - Non-Pressure Ulcer Type: Other: trauma Toe, great Left - Skin Abnormality Color: Black, Brown Toe, great Left - Skin Abnormality Type: Non-pressure ulcer Toe, great Left - Wound Bed Description: Scab Toe, great Left - Wound Edge: Attached to wound bed Toe, great Left - Wound Exudate Amount: None Toe, great Left - Wound Exudate Type: Serosanguineous Toe, great Left - Wound Status: No complications Toe, second Left - Incision, Wound Cleansing: Betadine Toe, second Left - Incision, Wound Dressing: Open to Air Toe, second Left - Incision, Wound Surrounding Tissue: Dry Toe, second Left - Non-Pressure Ulcer Type: Other: trauma Toe, second Left - Skin Abnormality Color: Black, Brown Toe, second Left - Skin Abnormality Type: Non-pressure ulcer Toe, second Left - Wound Bed Description: Scab Toe, second Left - Wound Edge: Attached to wound bed Toe, second Left - Wound Exudate Amount: None Toe, second Left - Wound Status: No complications Toe, second Right - Incision, Wound Cleansing: Betadine Toe, second Right - Incision, Wound Dressing: Open to Air Toe, second Right - Incision, Wound Surrounding Tissue: Dry Toe, second Right - Incision, Wound Topical Agent: Hydrophilic wound dressing paste Toe, second Right - Non-Pressure Ulcer Type: Other: trauma Toe, second Right - Skin Abnormality Color: Black, Brown Toe, second Right - Skin Abnormality Type: Non-pressure ulcer Toe, second Right - Wound Bed Description: Scab Toe, second Right - Wound Edge: Attached to wound bed Toe, second Right - Wound Exudate Amount: None Toe, second Right - Wound Status: No complications ------Incision/Wound Measurements------ Toe, great Left - Incision, Wound Depth: 0.1 cm Toe, great Left - Incision, Wound Length: 3.5 cm Toe, great Left - Incision, Wound Width: 1.4 cm Toe, second Left - Incision, Wound Depth: 0.1 cm Toe, second Left - Incision, Wound Length: 3 cm Toe, second Left - Incision, Wound Width: 1.2 cm Toe, second Right - Incision, Wound Depth: 0.1 cm Toe, second Right - Incision, Wound Length: 3.5 cm Toe, second Right - Incision, Wound Width: 1.4 cm Assessments and Recommendations ------Assessments------ Current Skin/Wound Interventions: Low air loss mattress, Seat cushion, Turn and position system, Barrier cream, Turn and reposition every 2 hours, up in chair TID meals order; External catheter, Other: See orders for more details. Triad cream; Bilateral chest open areas, great and 2nd toes: Betadine daily; Hydrocortisone cream to rash; Bilateral groin and scrotum Miconazole powder; Penis Silvadene cream ------Recommendations------ Recommended Skin/Wound Interventions: continue with current orders Additional Skin Team Comments: Fall at home. Digitally Signed by Junie Rivero RN, Skin Team on 01/05/2025 10:41 AM [facility] 01-04-2025 Note Date of Service 01/04/2025 Chief Complaint Follow up on encephalopathy, UTI, Sepsis, DM2 Subjective 69-year-old male with history of hypertension and diabetes Mellitus who presented with altered mental status after being found prone in his apartment, incontinent, confused, and with right facial droop. EMS brought him to the ED after his son had not heard from him in several days. Initial workup revealed leukocytosis, elevated CPK, positive urine drug screen for cocaine, and urinalysis consistent with UTI. Imaging/CT head showed no acute intracranial abnormality but noted a small chronic lacunar infarct in the left adamson radiata and moderate chronic microvascular changes. MRI brain and MRA head/neck confirmed small vessel ischemic disease, no large infarct, without large vessel occlusion. EEG showed mild generalized slowing, no seizures. Patient was treated empirically for sepsis with IV fluids, vancomycin, and Zosyn, later transitioned to ceftriaxone for UTI. Rhabdomyolysis and dehydration were managed with IV hydration. Aspirin was initiated for secondary stroke prevention. Statin therapy added after CPK normalized. Skin team managing stage 2 and 3 pressure ulcers. PT/OT evaluated and recommended inpatient rehabilitation. Patient is in isolation for bedbug infestation. Mentation continued to improve. Patient currently awaiting placement. Patient seen today at bedside. Feeling better overall. Denies any dysuria. Complains of constipation. Tolerating diet without nausea/vomiting. Now down to 1L NC oxygen. Objective Vitals and Measurements T: 36.7 C (Oral) TMIN: 36.6 C (Oral) TMAX: 36.9 C (Oral) HR: 78 RR: 20 BP: 117/70 SpO2: 93% Intake and Output Last 24 hours Intake Oral Intake 930.00 Supplement Intake 0.00 Output Urine Voided 950.00 Stool Count 0.00 Urine Count 1.00 Total Summary Total Intake 930.00 Total Output 950.00 Fluid Balance -20.00 Physical Exam General: not in acute distress Neck: Supple, No JVD HEENT: Right sided facial abrasions Cardiac: Regular rate and rhythm, S1 and S2 present, Lungs: Bilateral air entry present, diminished at the base, no crackles, no wheezing Abdomen: Bowel sounds audible, abdomen is soft, nontender, Extremities: No clubbing or cyanosis, pitting edema Skin: Warm, Neurological: Alert, Grossly nonfocal Weight Dosing Weight: 82.5 kg (12/28/24) Medications Medications (20) Active Scheduled: (10) aspirin 81 mg Chewable 81 mg 1 tab(s), Oral, Daily atorvastatin 40 mg tablet 40 mg 1 tab(s), Oral, qHS enoxaparin 40 mg/ 0.4mL syringe 40 mg 0.4 mL, Subcutaneous, qDay insulin glargine 15 unit(s) 0.15 mL, Subcutaneous (INT), qHS insulin lispro 100 units/mL Soln (3 mL) Give 0-10 units/dose, Subcutaneous, TIDAC insulin lispro 100 units/mL Soln (3 mL) 15 unit(s) 0.15 mL, Subcutaneous, now lisinopril 10 mg tablet 10 mg 1 tab(s), Oral, Daily miconazole topical 2% Powder 1 liv, Topical, BID polymyxin B-trimethoprim (Polytrim) ophth Solution 10 mL 1 drop(s), Eye, right, q3h silver sulfADIAZINE topical 1% Cream 50 Gram(s) 1 liv, Topical, BID Continuous: (0) PRN: (10) acetaminophen 325 mg Tablet 650 mg 2 tab(s), Oral, q4h acetaminophen 325 mg Tablet 650 mg 2 tab(s), Oral, q4h acetaminophen 650 mg Suppository 650 mg 1 supp, Rectal, q4h dextrose 50% Solution Disp syringe 50 mL 25 gram(s) 50 mL, IV Push, AsDirected dextrose 50% Solution Disp syringe 50 mL 25 gram(s) 50 mL, IV Push, AsDirected melatonin 3 mg tablet 3 mg 1 tab(s), Oral, qHS melatonin 3 mg tablet 3 mg 1 tab(s), Oral, qHS miconazole topical 2% Powder 1 liv, Topical, AsDirected ondansetron 2 mg/ 1 mL 2 mL INJ 4 mg 2 mL, IV Push, q4h polyethylene glycol 3350 - UD packet 17 gram(s) 15 mL, Oral, qDay Lab Results 01/04 07:34 Glucose Level: 228 H Sodium Level: 138 Potassium Level: 3.8 BUN: 10.0 Creatinine Lvl (s): 0.43 L 01/03 04:59 Glucose Level: 228 H Sodium Level: 139 Potassium Level: 3.7 BUN: 10.0 Creatinine Lvl (s): 0.41 L EKG No qualifying data available. Assessment/Plan Acute toxic/metabolic encephalopathy UTI Sepsis Hypernatremia, improved Rhabdomyolysis, resolved Stroke, Ruled out DM2 with hyperglycemia- HbA1c, 6.8 Dehydration Acute hypoxic respiratory failure Hypertension Hypokalemia Hyperlipidemia Degenerative disc disease with spinal stenosis at C5-C6 Cocaine abuse Coccyx - Pressure Ulcer Stage: Stage 2, POA Sacrum Left - Pressure Ulcer Stage: Stage 3, POA Plan: --Patient presented with confusion. Neuro evaluated and underwent stroke workup. MRI brain and MRA head/neck were completed. Evidence of volume loss and small vessel ischemic disease. TTE with preserved LVEF. No shunt. -- Continue Aspirin for stroke prevention. Added statin after CPK improved. -- EEG - No seizure. -- Sx likely in the setting of toxic/metabolic encephalopathy. Delirium precautions. Mental status continued to improve. -- ON IV ceftriaxone for UTI. Cultures showing multiple bacterial morphotypes. completed 1 week course-Ceftriaxone. DM2 --BG in higher range>300. Increase Lantus to 15 units Qhs. SSI change to medium range scale. ADA diet. 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 -- Bowel regimen for constipation. -- Appreciate skin team input for pressure ulcer management. -- Wean O2. provide incentive spirometer. Chest x-ray with no acute process -- PT/OT recommending inpatient rehab on discharge. Awaiting placement Note was dictated using voice recognition software so, please excuse for any typographical errors. Level of Care Indication: _Regular Floor DVT Prophylaxis: _Enoxaparin SQ Maintenance IVF Indication: _NA / No maintenance IVF Indwelling Urinary Catheter Indication: _NA - No indwelling catheter Anticipated Timeline of Discharge: __Awaiting placement Anticipated DC Disposition: __Inpatient Rehab Facility Digitally Signed by ZEENAT ROBERTS MD on 01/04/2025 04:44 PM [facility] 01-03-2025 Note Date of Service 01/04/2024 Subjective Patient seen today at bedside. Comfortably in bed. No acute events reported overnight. On 2 L nasal oxygen. Objective Vitals and Measurements T: 36.7 C (Oral) TMIN: 36.2 C (Oral) TMAX: 36.8 C (Oral) HR: 82 RR: 18 BP: 145/72 SpO2: 93% Intake and Output Last 24 hours Intake Medication 10.00 Oral Intake 290.00 Output Urine Voided 1525.00 Stool Count 0.00 Urine Count 8.00 Total Summary Total Intake 300.00 Total Output 1525.00 Fluid Balance -1225.00 Physical Exam General: not in acute distress Neck: Supple, No JVD HEENT: Right sided facial abrasions Cardiac: Regular rate and rhythm, S1 and S2 present, Lungs: Bilateral air entry present, diminished at the base, no crackles Abdomen: Bowel sounds audible, abdomen is soft, nontender, Extremities: No clubbing or cyanosis, pitting edema Skin: Warm, Neurological: Alert. Oriented x 2, grossly nonfocal Weight Dosing Weight: 82.5 kg (12/28/24) Medications Medications (19) Active Scheduled: (9) aspirin 81 mg Chewable 81 mg 1 tab(s), Oral, Daily atorvastatin 40 mg tablet 40 mg 1 tab(s), Oral, qHS enoxaparin 40 mg/ 0.4mL syringe 40 mg 0.4 mL, Subcutaneous, qDay hydrocortisone topical 1% Cream 30 gram(s) 1 liv, Topical, BID insulin glargine 10 unit(s) 0.1 mL, Subcutaneous (INT), qHS insulin lispro 100 units/mL Soln (3 mL) Give 0-5 units/dose, Subcutaneous, TIDAC lisinopril 10 mg tablet 10 mg 1 tab(s), Oral, Daily miconazole topical 2% Powder 1 liv, Topical, BID polymyxin B-trimethoprim (Polytrim) ophth Solution 10 mL 1 drop(s), Eye, right, q3h Continuous: (0) PRN: (10) acetaminophen 325 mg Tablet 650 mg 2 tab(s), Oral, q4h acetaminophen 325 mg Tablet 650 mg 2 tab(s), Oral, q4h acetaminophen 650 mg Suppository 650 mg 1 supp, Rectal, q4h dextrose 50% Solution Disp syringe 50 mL 25 gram(s) 50 mL, IV Push, AsDirected dextrose 50% Solution Disp syringe 50 mL 25 gram(s) 50 mL, IV Push, AsDirected melatonin 3 mg tablet 3 mg 1 tab(s), Oral, qHS melatonin 3 mg tablet 3 mg 1 tab(s), Oral, qHS miconazole topical 2% Powder 1 liv, Topical, AsDirected ondansetron 2 mg/ 1 mL 2 mL INJ 4 mg 2 mL, IV Push, q4h polyethylene glycol 3350 - UD packet 17 gram(s) 15 mL, Oral, qDay Lab Results 01/03 04:59 Glucose Level: 228 H Sodium Level: 139 Potassium Level: 3.7 BUN: 10.0 Creatinine Lvl (s): 0.41 L 01/02 04:19 WBC: 7.0 Hgb: 14.3 Hct: 43.5 Platelet: 212 Neutrophil %: 68.5 Glucose Level: 291 H Sodium Level: 141 Potassium Level: 3.3 L BUN: 12.0 Creatinine Lvl (s): 0.38 L EKG No qualifying data available. Assessment/Plan Acute toxic/metabolic encephalopathy UTI Sepsis Hypernatremia, improved Rhabdomyolysis, resolved Stroke, Ruled out DM2 with hyperglycemia- HbA1c, 6.8 Dehydration Acute hypoxic respiratory failure Hypertension Hypokalemia Hyperlipidemia Degenerative disc disease with spinal stenosis at C5-C6 Cocaine abuse Coccyx - Pressure Ulcer Stage: Stage 2, POA Sacrum Left - Pressure Ulcer Stage: Stage 3, POA Plan: --Patient presented with confusion. Neuro evaluated and underwent stroke workup. MRI brain and MRA head/neck were completed. Evidence of volume loss and small vessel ischemic disease. TTE with preserved LVEF. No shunt. -- Continue Aspirin for stroke prevention. Add statin since CPK is improved. -- EEG results reviewed. No seizure. Encourage oral fluid. IVF have been discontinued. -- Sx likely in the setting of toxic/metabolic encephalopathy. Delirium precautions. -- ON IV ceftriaxone for UTI. Cultures showing multiple bacterial morphotypes. complete 1 week course. Last dose of antibiotics today. --Glycemic control. Continue SSI. Blood glucose readings in high range. Increase insulin Lantus to 10 units nightly. HbA1c 6.8. 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 -- Appreciate skin team input for ulcer management. -- Wean O2. provide incentive spirometer. Chest x-ray with no acute process -- PT/OT recommending inpatient rehab on discharge. Awaiting placement Plan was discussed with patient's son yesterday. Questions addressed. Level of Care Indication: _Regular Floor DVT Prophylaxis: _Enoxaparin SQ Maintenance IVF Indication: _NA / No maintenance IVF Indwelling Urinary Catheter Indication: _NA - No indwelling catheter Anticipated Timeline of Discharge: __Awaiting placement Anticipated DC Disposition: __Inpatient Rehab Facility Digitally Signed by ZEENAT ROBERTS MD on 01/03/2025 11:46 AM [facility] 01-03-2025 Note Did not assess patient at this time. Changed frequency of Silvadene from once to BID. Digitally Signed by SHARON Durham on 01/03/2025 08:00 AM [facility] 01-03-2025 Note Did not assess patient at this time. Changed frequency of Silvadene from once to BID. Digitally Signed by SHARON Durham on 01/03/2025 08:00 AM [facility] 01-02-2025 Note Date of Service 01/02/2025 Chief Complaint Encephalopathy, UTI, Subjective Patient seen and examined today at bedside. Sitting up to chair. Seems more alert today. No acute events reported overnight. Glucose readings above 300. Denies dysuria or urinary frequency or urgency. Feels overall weak. Objective Vitals and Measurements T: 36.2 C (Oral) TMIN: 36.2 C (Oral) TMAX: 37.0 C (Oral) HR: 99 RR: 18 BP: 97/69 SpO2: 96% Intake and Output Last 24 hours Intake Medication 10.00 Oral Intake 720.00 Supplement Intake 0.00 Output Urine Voided 640.00 Urinary Catheter Output: 0.00 Stool Count 0.00 Urine Count 3.00 Diaper Count 1.00 Total Summary Total Intake 730.00 Total Output 640.00 Fluid Balance 90.00 Physical Exam General: not in acute distress Neck: Supple, No JVD HEENT: Right sided facial abrasions Cardiac: Regular rate and rhythm, S1 and S2 present, Lungs: Bilateral air entry present, diminished at the base, no crackles Abdomen: Bowel sounds audible, abdomen is soft, nontender, Extremities: No clubbing or cyanosis, pitting edema Skin: Warm, Neurological: Alert. Grossly nonfocal Weight Dosing Weight: 82.5 kg (12/28/24) Medications Medications (21) Active Scheduled: (11) aspirin 81 mg Chewable 81 mg 1 tab(s), Oral, Daily atorvastatin 40 mg tablet 40 mg 1 tab(s), Oral, qHS cefTRIAXone IVP syringe 1 gram(s) 10 mL, IV Push (INT), qDay enoxaparin 40 mg/ 0.4mL syringe 40 mg 0.4 mL, Subcutaneous, qDay hydrocortisone topical 1% Cream 30 gram(s) 1 liv, Topical, BID insulin glargine 6 unit(s) 0.06 mL, Subcutaneous (INT), qHS insulin lispro 100 units/mL Soln (3 mL) Give 0-5 units/dose, Subcutaneous, TIDAC lisinopril 10 mg tablet 10 mg 1 tab(s), Oral, Daily miconazole topical 2% Powder 1 liv, Topical, BID polymyxin B-trimethoprim (Polytrim) ophth Solution 10 mL 1 drop(s), Eye, right, q3h potassium chloride 20 mEq ER tablet 40 mEq 2 tab(s), Oral, Once Continuous: (0) PRN: (10) acetaminophen 325 mg Tablet 650 mg 2 tab(s), Oral, q4h acetaminophen 325 mg Tablet 650 mg 2 tab(s), Oral, q4h acetaminophen 650 mg Suppository 650 mg 1 supp, Rectal, q4h dextrose 50% Solution Disp syringe 50 mL 25 gram(s) 50 mL, IV Push, AsDirected dextrose 50% Solution Disp syringe 50 mL 25 gram(s) 50 mL, IV Push, AsDirected melatonin 3 mg tablet 3 mg 1 tab(s), Oral, qHS melatonin 3 mg tablet 3 mg 1 tab(s), Oral, qHS miconazole topical 2% Powder 1 liv, Topical, AsDirected ondansetron 2 mg/ 1 mL 2 mL INJ 4 mg 2 mL, IV Push, q4h polyethylene glycol 3350 - UD packet 17 gram(s) 15 mL, Oral, qDay Lab Results 01/02 04:19 WBC: 7.0 Hgb: 14.3 Hct: 43.5 Platelet: 212 Neutrophil %: 68.5 Glucose Level: 291 H Sodium Level: 141 Potassium Level: 3.3 L BUN: 12.0 Creatinine Lvl (s): 0.38 L 01/01 12:52 WBC: 7.3 Hgb: 15.0 Hct: 44.5 Platelet: 192 Neutrophil %: 74.4 Glucose Level: 217 H Sodium Level: 142 Potassium Level: 3.4 L BUN: 9.0 Creatinine Lvl (s): 0.43 L EKG No qualifying data available. Assessment/Plan Acute toxic/metabolic encephalopathy UTI Sepsis Hypernatremia, improved Rhabdomyolysis, resolved Stroke, Ruled out DM2 with hyperglycemia- HbA1c, 6.8 Dehydration Acute hypoxic respiratory failure Hypertension Hypokalemia Hyperlipidemia Degenerative disc disease with spinal stenosis at C5-C6 Cocaine abuse Coccyx - Pressure Ulcer Stage: Stage 2, POA Sacrum Left - Pressure Ulcer Stage: Stage 3, POA Plan: --Patient presented with confusion. Neuro evaluated and underwent stroke workup. MRI brain and MRA head/neck were completed. Evidence of volume loss and small vessel ischemic disease. TTE with preserved LVEF. No shunt. -- Continue Aspirin for stroke prevention. Add statin since CPK is improved. -- EEG results reviewed. No seizure. Encourage oral fluid. IVF have been discontinued. -- Sx likely in the setting of toxic/metabolic encephalopathy. Delirium precautions. -- ON IV ceftriaxone for UTI. Cultures showing multiple bacterial morphotypes. complete 1 week course. Today is day #6. --Glycemic control. Continue SSI. Blood glucose readings in high range. 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 -- Appreciate skin team input for ulcer management. -- Wean O2. provide incentive spirometer. Chest x-ray with no acute process -- PT/OT recommending inpatient rehab on discharge. Awaiting placement Plan was discussed with patient's son yesterday. Questions addressed. Level of Care Indication: _Regular Floor DVT Prophylaxis: _Enoxaparin SQ Maintenance IVF Indication: _NA / No maintenance IVF Indwelling Urinary Catheter Indication: _NA - No indwelling catheter Anticipated Timeline of Discharge: __Awaiting placement Anticipated DC Disposition: __Inpatient Rehab Facility Digitally Signed by ZEENAT ROBERTS MD on 01/02/2025 02:27 PM [facility] 01-02-2025 Note . MICRO - Microbiology PROCEDURE: Blood Culture (bacterial) [*1] SOURCE: Blood BODY SITE: COLLECTED DATE/TIME: 12/28/2024 00:47 EDT RECEIVED DATE/TIME: 12/28/2024 01:00 EDT START DATE/TIME: 12/28/2024 01:00 EDT FREE TEXT SOURCE: FINAL REPORTS Final Report [] Verified Date/Time/Personnel: 01/02/2025 01:59 EDT Blood Culture: No Growth at 5 days. PRELIMINARY REPORTS Preliminary Report [] Verified Date/Time/Personnel: 12/28/2024 01:59 EDT Culture has been received in lab and is no growth to date. Routine cultures are held for 5 days. Performing Locations *1: This test was performed at: [facility], [address] [place] [address], [id number] , [facility] 01-02-2025 Note . MICRO - Microbiology PROCEDURE: Blood Culture (bacterial) [*1] SOURCE: Blood BODY SITE: COLLECTED DATE/TIME: 12/28/2024 00:51 EDT RECEIVED DATE/TIME: 12/28/2024 01:00 EDT START DATE/TIME: 12/28/2024 01:00 EDT FREE TEXT SOURCE: FINAL REPORTS Final Report [] Verified Date/Time/Personnel: 01/02/2025 01:59 EDT Blood Culture: No Growth at 5 days. PRELIMINARY REPORTS Preliminary Report [] Verified Date/Time/Personnel: 12/28/2024 01:59 EDT Culture has been received in lab and is no growth to date. Routine cultures are held for 5 days. Performing Locations *1: This test was performed at: [facility], [address] [place] [address], [facility] , [facility] 01-01-2025 Note Exam Date Time Procedure Performing Provider Status 01/01/25 9:33 AM XR Chest 1 View ZOFIA LAWRENCE MD; [facility] (Verified) [id number] ORIGINAL HISTORY: Hypoxia COMPARISON: 28 December 2024 FINDINGS: The lungs are clear. The pulmonary vasculature is unremarkable in appearance. IMPRESSION: Clear lungs. Interpreted by: Zofia Lawrence MD Preliminary Report By: Zofia Lawrence MD Electronically signed By Zofia Lawrence MD Dictated Date: 01/01/2025 9:36:36 AM Prelim Date: 01/01/2025 9:37:04 AM Sign Date: 01/01/2025 9:37:04 AM Ordering Provider: ZEENAT ROBERTS [id number] Neurology Progress note Date of Service 12/30/2024 MRA Head w/o Contrast Result Date: December 29, 2024 Verified By: BATSHEVA MANNING DO CLINICAL STATEMENT: IMPRESSION: No large vessel occlusion or hemodynamically significant stenosis within thehead or neck. MRI Brain w/o Contrast Result Date: December 29, 2024 Verified By: ZOFIA LAWRENCE MD CLINICAL STATEMENT: IMPRESSION: Volume loss and small vessel ischemic disease. Small vessel ischemic diseaseis more advanced than expected in a patient of this age. MRA Neck w/o Contrast Result Date: December 29, 2024 Verified By: BATSHEVA MANNING DO CLINICAL STATEMENT: IMPRESSION: No large vessel occlusion or hemodynamically significant stenosis within thehead or neck. CT Spine Cervical w/o Contrast Result Date: December 27, 2024 Verified By: NIKITA CLEMENT MD CLINICAL STATEMENT: IMPRESSION: 1. No acute abnormality of the cervical spine.2. Degenerative disc disease with spinal stenosis at C5-C6. If there areneurologic symptoms, MRI could be performed for further evaluation. CT Head or Brain w/o Contrast Result Date: December 27, 2024 Verified By: NIKITA CLEMENT MD CLINICAL STATEMENT: IMPRESSION: 1. No acute intracranial abnormality.2. Small lacunar infarct left adamson radiata.3. Moderate chronic microvascular angiopathy and mild parenchymal volume loss.4. No facial fracture. CT Maxillofacial w/o Contrast Result Date: December 27, 2024 Verified By: NIKITA CLEMENT MD CLINICAL STATEMENT: IMPRESSION: 1. No acute intracranial abnormality.2. Small lacunar infarct left adamson radiata.3. Moderate chronic microvascular angiopathy and mild parenchymal volume loss.4. No facial fracture. XR Chest 1 View Result Date: December 27, 2024 Verified By: NIKITA CLEMENT MD CLINICAL STATEMENT: IMPRESSION: No acute cardiopulmonary process. Impression Likely Toxic/metabolic encephalopathy UTI Rhabdo Dehydration Cocaine abuse PLAN: -MRI of the brain without contrast reported nothing acute -MRA head/neck reported no LVO, right vert hypoplastic -CT head in ER showed no acute findings, noted small lacunar infarct left adamson radiata moderate chronic microvascular angiopathy and mild parenchymal volume loss -EEG mild slowing no seizures -At present patient's symptoms are likely secondary to underlying toxic/metabolic etiology, UTI -Will defer infectious/metabolic workup and management to primary team. -Aspirin 81 mg daily for secondary stroke prevention as CT head reported to show small left adamson radiata chronic stroke. Bleeding risk discussed. -Lipitor 40 mg nightly when medically safe currently CPK is high will defer to primary team when safe to start. -Hba1c -6.8, LDL 44. urine drug screen positive for cocaine, urinalysis showing moderate leuk est +4 bacteria. -TTE-EF 55-60%, LA normal in size, no PFO General guidelines for long-term vascular risk factor modification in the setting of a stroke: SBP goal: < 130 as tolerated Goal Total cholesterol: < LDL: 70 HbA1c: < 7 -GI/DVT prophylaxis -PT/OT/ST per recommendation -Fall precautions -Further medical management per medical team -Follow up with Neurology in 4-6 weeks as outpatient -Will sign off at present. Please call back if MRI imaging is abnormal. Please call with questions if any in the interim. . Digitally Signed by BLANCA HOGUE MD on 12/30/2024 09:51 AM [id number] Consult note Physical Medicine and Rehabilitation consult Date of Service: 12/30/2024 Date of Admission: 12/27/2024 Assessment/Plan Assessment: Left adamson radiata stroke with mild right hemiparesis. Medical massage UTI rhabdomyolysis multiple skin abrasions hypertension diabetes mellitus plan neuropathy gait disturbance recommendation: Recommend acute inpatient rehab facility with physical occupational and speech therapy services. Gait mobility ADLs self-care and strengthening. Rehab nursing social retired attritionand medical management of comorbidities patient family training adaptive equipment ordered. Speech l anguage and dysphagia evaluate and treat. Will need wound center consult for complex wounds on upper lower extremities. Plan neuropsychology for substance abuse history of supportive counseling adjustment to disability.Daily physician visits need for monitoring of complex medical issues including vital sign monitoring with his hypertension with diabetic management with medications as well as dietitian consult and blood sugar checks. Monitor labs and vital signs. Pain management posture training gait training therapeutic exercises and modalities. Bowel bladder program. Patient family education secondary prevention of heart disease and stroke prophylaxis. DVT prophylaxis and edema control. Aerobic and strength exercises respiratory therapy and incentive spirometer. Baseline functional status independent. Current functional status is substantial assist. Goals for discharge home independently with home care services. History of Present Illness 69-year-old male who presented to the emergency department after not being heard from for approximately 1 week, neighbor reports had not seen him for a few days, last seen him doing cocaine. Patient was found prone inside his apartment in his own feces and urine with right side of mouth droop and confusion so he was brought to the emergency department. CT of head completed showing no acute intracranial abnormality, small lacunar infarct left coronary radiata, moderate chronic microvascular angiopathy and mild proximal volume loss. CT of cervical spine completed showing no acute abnormality, degenerative disc disease with spinal stenosis at C5-C6. Chest x-ray obtained showing no acute process. CPK elevated at 2122. He was given IV fluids, vancomycin and Zosyn for concerns for sepsis in theER. MRI brain obtained showing nothing acute. MRI of head/neck obtained showing no LVO, no right vert hypoplastic. EEG showing mild slowing, no seizures. Patient's symptoms are likely secondary to underlying toxic/metabolic encephalopathy, UTI, deferred to primary team to infectious/metabolic workup. Past medical history includes hypertension, diabetes. At baseline he lives alone in a single level set up with a first-floor bedroom, bathroom. Independent for ADLs and self-care. Medications (18) Active Scheduled: (7) aspirin 81 mg Chewable 81 mg 1 tab(s), Oral, Daily cefTRIAXone IVP syringe 1 gram(s) 10 mL, IV Push (INT), qDay enoxaparin 40 mg/ 0.4mL syringe 40 mg 0.4 mL, Subcutaneous, qDay hydrocortisone topical 1% Cream 30 gram(s) 1 liv, Topical, BID insulin lispro 100 units/mL Soln (3 mL) Give 0-5 units/dose, Subcutaneous, TIDAC miconazole topical 2% Powder 1 liv, Topical, BID polymyxin B-trimethoprim (Polytrim) ophth Solution 10 mL 1 drop(s), Eye, right, q3h Continuous: (1) Sodium Chloride 0.45% 1,000 mL 1,000 mL, Intravenous, 100 mL/hr PRN: (10) acetaminophen 325 mg Tablet 650 mg 2 tab(s), Oral, q4h acetaminophen 325 mg Tablet 650 mg 2 tab(s), Oral, q4h acetaminophen 650 mg Suppository 650 mg 1 supp, Rectal, q4h dextrose 50% Solution Disp syringe 50 mL 25 gram(s) 50 mL, IV Push, AsDirected dextrose 50% Solution Disp syringe 50 mL 25 gram(s) 50 mL, IV Push, AsDirected melatonin 3 mg tablet 3 mg 1 tab(s), Oral, qHS melatonin 3 mg tablet 3 mg 1 tab(s), Oral, qHS miconazole topical 2% Powder 1 liv, Topical, AsDirected ondansetron 2 mg/ 1 mL 2 mL INJ 4 mg 2 mL, IV Push, q4h polyethylene glycol 3350 - UD packet 17 gram(s) 15 mL, Oral, qDay Review of Systems Constitutional: Denies weight changes. Denies fever or chills. Denies headache HEENT: Denies nystagmus and dizziness. Respiratory: Denies cough or congestion Cardiovascular: Denies chest pain, palpitations, or chest pressure Gastrointestinal: Denies nausea with emesis. Genitourinary: Denies dysuria or urinary retention Neurological: Denies any cognitive deficits Musculoskeletal: Denies any joint or musculoskeletal pain Skin: Denies rashes or erythema. Endocrine: Denies hot or cold intolerance. No hypoglycemia. Psychiatric: Denies changes in mental status. Allergic/immunologic: Denies environmental allergies or immune dysfunction Past Medical History: Hypertension Diabetes Procedure/Surgical History: Subcutaneous cyst removal Social History: Alcohol Details: Denies Home/Environment Details: Lives alone single level set up. First-floor bedroom, bathroom. Nutrition/Health Details: Appetite adequate regular diet Sexual Details: Sexually active: Yes Substance Abuse Details: Cocaine Tobacco Details: Nicotine Use: Denies any tobacco abuse Family History: Noncontributory to current presentation Allergies: Fish Code Status: DNR CC arrest DO NOT INTUBATE Physical Exam General appearance: Alert and oriented x 4. No acute distress. Appears comfortable and does not appear in acute pain. Pleasant and cooperative. Good eye contact with bright affect. Interactive. Head: Normocephalic no evidence of trauma HEENT: Pupils equal and reactive to light and accommodation, no erythema. Ears with no external lesions or discharge. Nose clear, nares patent, no discharge. Throat normal healthy definition, no redness or erythema. Neck: Trachea midline. No lymphatic adenopathy Cardiac: Regular rate and rhythm, no rubs or murmurs Lungs: Clear to auscultation. No respiratory distress on NC via nasal cannula Abdomen: Soft, nontender, no organomegaly or rebound tenderness. Positive bowel sounds Musculoskeletal: Intact range of motion, no erythema, no polyarthric changes Extremities: No edema or calf tenderness Neurological: Cranial nerves intact. No nystagmus. Decreased shoulders bilaterally. Right sided facial droop. 2+/5 right upper extremity strength. 4 - /5 left upper extremity strength. 2+/5 right lower extremity strength. 4/5 left lower extremity strength. Decreased hand grasp bilaterally. Skin: Thin. Dry. Abrasion to forehead. Abrasion to nose. Abrasion to chin. Abrasion to elbows. Psychiatric: Mood good. No anxiety or depression Vitals Signs(Last 24 hrs)__Last Charted Minimum Maximum Temp37.0(DEC 30 00:35)36.5(DEC 29 20:15)37(DEC 29 09:06) Heart Rate80(DEC 29 11:38)75(DEC 29 09:06)80(DEC 29 11:38) SBPH 157(DEC 30 00:35)126(DEC 29 09:06)H 158(DEC 29 20:15) DBP66(DEC 30 00:35)64(DEC 29 15:29)76(DEC 29 20:15) Medications reviewed and are up to date ICharlie LPN, am scribing for, and in the presence of Dr. Ashley COHEN. I, Dr. Ashley COHEN , personally performed the services described in this documentation, as described by Charlie Henderson LPN in my presence and it is both accurate and complete. Digitally Signed by HAYDEN LARSON DO on 01/01/2025 07:05 AM [facility] [id number] Note* Exam Date Time Procedure Performing Provider Status 12/29/24 6:24 PM Echocardiogram, Adul t with Bubble Study- JOSE D URRUTIA MD; Auth (Verified) [facility] [id number] Note* Exam Date Time Procedure Performing Provider Status 12/29/24 2:44 PM MRA Neck w/o Contrast BATSHEVA MANNING DO; Auth (Verified) [id number] ORIGINAL EXAMINATION: MRA OF THE HEAD WITHOUT CONTRAST; MRA OF THE NECK WITHOUT CONTRAST 12/29/2024 3:25 pm; 12/29/2024 3:27 pm: TECHNIQUE: MRA of the head was performed utilizing [id number] imaging with MIP images. No intravenous contrast was administered.; Multiplanar multisequence MRA of the neck was performed without the administration of intravenous contrast. Stenosis of the internal carotid arteries measured using NASCET criteria. COMPARISON: Concurrent MRI brain without contrast. HISTORY: ORDERING SYSTEM PROVIDED HISTORY: Reason for Exam: AMS FINDINGS: MRA NECK: AORTIC ARCH/ARCH VESSELS: No dissection or arterial injury. No significant stenosis of the brachiocephalic or subclavian arteries. CAROTID ARTERIES: No dissection, arterial injury, or hemodynamically significant stenosis by NASCET criteria. VERTEBRAL ARTERIES: Left dominant. No dissection, arterial injury, or significant stenosis. MRA HEAD: ANTERIOR CIRCULATION: No significant stenosis of the intracranial internal carotid, anterior cerebral, or middle cerebral arteries. POSTERIOR CIRCULATION: No significant stenosis of the vertebral, basilar, or posterior cerebral arteries. IMPRESSION: No large vessel occlusion or hemodynamically significant stenosis within the head or neck. Interpreted by: Batsheva Manning Preliminary Report By: Batsheva Manning Electronically signed By Batsheva Manning Dictated Date: 12/29/2024 3:40:04 PM Prelim Date: 12/29/2024 3:49:46 PM Sign Date: 12/29/2024 3:49:46 PM Ordering Provider: BLANCA HOGUE [facility] [id number] Note* Exam Date Time Procedure Performing Provider Status 12/29/24 2:36 PM MRI Brain w/o Contrast ZOFIA LAWRENCE MD; Auth (Verified) [id number] ORIGINAL HISTORY: Altered mental status COMPARISON: Head CT previous day TECHNIQUE: 1. Sagittal T1-weighted images. 2. Axial T2-weighted and T2*-weighted images. 3. Axial FLAIR images. 4. Axial diffusion-weighted images with ADC map. FINDINGS: The ventricles and sulci are mildly enlarged. There is moderate punctate and nodular T2 hyperintensity in the cerebral white matter, becoming more confluent in the periventricular regions. Loving-white matter differentiation is maintained. There is no abnormal restriction of diffusion. The orbital contents are normal in appearance. The paranasal sinuses are clear. IMPRESSION: Volume loss and small vessel ischemic disease. Small vessel ischemic disease is more advanced than expected in a patient of this age. Interpreted by: Zofia Lawrence MD Preliminary Report By: Zofia Lawrence MD Electronically signed By Zofia Lawrence MD Dictated Date: 12/29/2024 2:55:46 PM Prelim Date: 12/29/2024 2:58:13 PM Sign Date: 12/29/2024 2:58:13 PM Ordering Provider: BLANCA HOGUE [facility] [id number] Note* Exam Date Time Procedure Performing Provider Status 12/29/24 2:28 PM MRA Head w/o Contrast BATSHEVA MANNING DO; Auth (Verified) [id number] ORIGINAL EXAMINATION: MRA OF THE HEAD WITHOUT CONTRAST; MRA OF THE NECK WITHOUT CONTRAST 12/29/2024 3:25 pm; 12/29/2024 3:27 pm: TECHNIQUE: MRA of the head was performed utilizing [id number] imaging with MIP images. No intravenous contrast was administered.; Multiplanar multisequence MRA of the neck was performed without the administration of intravenous contrast. Stenosis of the internal carotid arteries measured using NASCET criteria. COMPARISON: Concurrent MRI brain without contrast. HISTORY: ORDERING SYSTEM PROVIDED HISTORY: Reason for Exam: AMS FINDINGS: MRA NECK: AORTIC ARCH/ARCH VESSELS: No dissection or arterial injury. No significant stenosis of the brachiocephalic or subclavian arteries. CAROTID ARTERIES: No dissection, arterial injury, or hemodynamically significant stenosis by NASCET criteria. VERTEBRAL ARTERIES: Left dominant. No dissection, arterial injury, or significant stenosis. MRA HEAD: ANTERIOR CIRCULATION: No significant stenosis of the intracranial internal carotid, anterior cerebral, or middle cerebral arteries. POSTERIOR CIRCULATION: No significant stenosis of the vertebral, basilar, or posterior cerebral arteries. IMPRESSION: No large vessel occlusion or hemodynamically significant stenosis within the head or neck. Interpreted by: Batsheva Manning Preliminary Report By: Batsheva Manning Electronically signed By Batsheva Manning Dictated Date: 12/29/2024 3:40:04 PM Prelim Date: 12/29/2024 3:49:46 PM Sign Date: 12/29/2024 3:49:46 PM Ordering Provider: BLANCA HOGUE RP [facility] [id number] Note Date of Service 12/29/2024 Date Read 12/29/2024 Indication Assess for epileptiform activity. EEG Description EEG with wide spaced lead placement due to patient positioning and bedbug isolation. Photic stimulation was performed. The posterior dominant rhythm was 7 Hz reactive. Photic stimulation produced no unexpected EEG changes. Sleep was identified. There is abnormal background slowing noted in the theta frequency range. No interictal epileptiform discharges or electrographic seizures noted during the record. Artefact noted during the entire record, study limited by the same. Impression This is an abnormal EEG due to presence of mild generalized background slowing. This may be seen with generalized cerebral dysfunction like metabolic/toxic encephalopathy. Clinical correlation is advised. No interictal epileptiform discharges or electrographic seizures noted during the record. The lack of epileptiform activity does not conclusively rule out a seizure disorder. If clinically indicated, a repeat study with prolonged sampling may have higher sensitivity for detecting interictal discharges. Digitally Signed by BLANCA HOGUE MD on 12/29/2024 01:14 PM [facility] [id number] Note. MICRO - Microbiology PROCEDURE: Urine Culture [O1 *1] SOURCE: Urine BODY SITE: COLLECTED DATE/TIME: 12/27/2024 23:03 EDT RECEIVED DATE/TIME: 12/28/2024 07:28 EDT START DATE/TIME: 12/28/2024 07:28 EDT FREE TEXT SOURCE: FINAL REPORTS Final Report [] Verified Date/Time/Personnel: 12/29/2024 10:12 EDT >100,000 cfu/ml Multiple bacterial morphotypes present. Probable Contamination. Suggest recollection if clinically indicated. PRELIMINARY REPORTS Preliminary Report [] Verified Date/Time/Personnel: 12/28/2024 07:59 EDT Specimen received in lab. Order Comments O1: Urine Culture Added by Discern Performing Locations *1: This test was performed at: [address], [facility] , [facility]10-13-2025 Note Reason for Consultation Admission From: Home Consult to Skin Team Nurse - Ordered -- 12/28/24 7:15:00 EDT, Physician Order, Multiple, consult didn't auto-trigger based on PI documentation Skin Team Findings Vitals and Measurements T: 37.0 C (Axillary) TMIN: 36.7 C (Oral) TMAX: 37.0 C (Axillary) HR: 77 (Monitored) RR: 18 BP: 95/63 SpO2: 99% HT: 180.3 cm WT: 82.5 kg BMI: 25.38 Pressure Area Details ------Pressure Area------ Coccyx - Pressure Area Cleansing: Soap and water Coccyx - Pressure Area Depth: 0.1 cm Coccyx - Pressure Area Description: Red Coccyx - Pressure Area Drainage: Scant, Serosanguineous Coccyx - Pressure Area Dressing Activity: Assessed Coccyx - Pressure Area Dressing Description: Open to Air Coccyx - Pressure Area Length: 3.5 cm Coccyx - Pressure Area Surrounding Tissue: Erythema, Maceration, Moist Coccyx - Pressure Area Topical Agent: Barrier cream Coccyx - Pressure Area Width: 0.3 cm Coccyx - Pressure Area Wound Edges: Attached, Macerated Coccyx - Pressure Ulcer Present On Admission: Yes Coccyx - Pressure Ulcer Stage: Stage 2 Coccyx - Status: No complications Sacrum Left - Pressure Area Cleansing: Soap and water Sacrum Left - Pressure Area Depth: 0.1 cm Sacrum Left - Pressure Area Description: Red, Loving, Yellow, Necrotic tissue, slough Sacrum Left - Pressure Area Drainage: Scant, Serosanguineous Sacrum Left - Pressure Area Dressing Description: Open to Air Sacrum Left - Pressure Area Length: 2.5 cm Sacrum Left - Pressure Area Necrotic Tissue Slough %: 10 % Sacrum Left - Pressure Area Surrounding Tissue: Erythema Sacrum Left - Pressure Area Topical Agent: Barrier cream Sacrum Left - Pressure Area Width: 1.5 cm Sacrum Left - Pressure Area Wound Edges: Attached Sacrum Left - Pressure Ulcer Present On Admission: Yes Sacrum Left - Pressure Ulcer Stage: Stage 3 ------Pressure Area Measurements------ Coccyx - Pressure Area Depth: 0.1 cm Coccyx - Pressure Area Length: 3.5 cm Coccyx - Pressure Area Width: 0.3 cm Sacrum Left - Pressure Area Depth: 0.1 cm Sacrum Left - Pressure Area Length: 2.5 cm Sacrum Left - Pressure Area Width: 1.5 cm ------Incision/Wound------ Chest Left - Incision, Wound Dressing: Open to Air Chest Left - Incision, Wound Surrounding Tissue: Erythema Chest Left - Skin Abnormality Color: Black, Red Chest Left - Skin Abnormality Pattern: Scattered Chest Left - Skin Abnormality Type: Bite(s) Chest Left - Wound Edge: Attached to wound bed Chest Left - Wound Exudate Amount: None Chest Right Anterior - Incision, Wound Dressing: Open to Air Chest Right Anterior - Incision, Wound Surrounding Tissue: Erythema, Rash Chest Right Anterior - Non-Pressure Ulcer Type: Undiagnosed ulcer Chest Right Anterior - Skin Abnormality Color: Black Chest Right Anterior - Skin Abnormality Pattern: Scattered Chest Right Anterior - Skin Abnormality Type: Bite(s) Chest Right Anterior - Wound Exudate Amount: None Chest Right Anterior - Wound Status: No complications Elbow Left - Incision, Wound Dressing: Open to Air Elbow Left - Incision, Wound Surrounding Tissue: Edematous, Erythema Elbow Left - Non-Pressure Ulcer Type: Other: friction injury Elbow Left - Skin Abnormality Color: Brown Elbow Left - Skin Abnormality Type: Non-pressure ulcer Elbow Left - Wound Bed Description: Scab Elbow Left - Wound Edge: Attached to wound bed Elbow Left - Wound Exudate Amount: None Elbow Right - Incision, Wound Dressing: Open to Air Elbow Right - Incision, Wound Surrounding Tissue: Edematous, Erythema Elbow Right - Non-Pressure Ulcer Type: Other: friction injury Elbow Right - Skin Abnormality Color: Brown Elbow Right - Skin Abnormality Type: Non-pressure ulcer Elbow Right - Wound Bed Description: Scab Elbow Right - Wound Edge: Attached to wound bed Elbow Right - Wound Exudate Amount: None Face Right Superior - Incision, Wound Cleansing: Soap and water Face Right Superior - Incision, Wound Dressing: Open to Air Face Right Superior - Incision, Wound Surrounding Tissue: Blistered Face Right Superior - Non-Pressure Ulcer Type: Other: possible friction injury Face Right Superior - Skin Abnormality Color: Red Face Right Superior - Skin Abnormality Type: Non-pressure ulcer Face Right Superior - Wound Status: No complications Face Right - Incision, Wound Dressing: Open to Air Face Right - Incision, Wound Surrounding Tissue: Erythema Face Right - Skin Abnormality Color: Brown Face Right - Skin Abnormality Pattern: Scattered Face Right - Skin Abnormality Type: Abrasion Face Right - Wound Exudate Amount: None Face Right - Wound Status: No complications Gluteal cleft - Skin Abnormality Color: [place], Red, Other: blanching Gluteal cleft - Skin Abnormality Type: Dermatitis Groin - Incision, Wound Cleansing: Soap and water Groin - Incision, Wound Distribution: Generalized Groin - Incision, Wound Dressing: Open to Air Groin - Incision, Wound Surrounding Tissue: Rash Groin - Incision, Wound Topical Agent: Barrier cream Groin - Rash Appearance: Reddened Groin - Skin Abnormality Color: Red Groin - Skin Abnormality Type: Irritant dermatitis Groin - Wound Associated Pain: None Groin - Wound Status: Compromised by moisture, extends to scrotum Knee Bilateral - Incision, Wound Cleansing: Soap and water Knee Bilateral - Incision, Wound Dressing: Open to Air Knee Bilateral - Incision, Wound Surrounding Tissue: Erythema Knee Bilateral - Skin Abnormality Color: Black, Brown Knee Bilateral - Skin Abnormality Type: Abrasion Knee Bilateral - Wound Bed Description: Scab Knee Bilateral - Wound Exudate Amount: None Knee Bilateral - Wound Status: No complications Leg Bilateral, Generalized - Skin Abnormality Color: Red Leg Bilateral, Generalized - Skin Abnormality Pattern: Scattered, Other: diffuse Leg Bilateral, Generalized - Skin Abnormality Type: Bite(s) Leg Bilateral, Generalized - Wound Exudate Amount: None Penile - Incision, Wound Cleansing: Soap and water Penile - Incision, Wound Dressing: Open to Air Penile - Incision, Wound Surrounding Tissue: Edematous, Erythema, Moist Penile - Rash Appearance: Crusted, Reddened Penile - Skin Abnormality Color: Red, Other: denuded Penile - Skin Abnormality Pattern: Scattered Penile - Skin Abnormality Type: Irritant dermatitis Penile - Wound Associated Pain: With Cleansing Penile - Wound Status: No complications Toe, great Left - Incision, Wound Cleansing: Soap and water Toe, great Left - Incision, Wound Dressing: Open to Air Toe, great Left - Incision, Wound Surrounding Tissue: Edematous, Erythema Toe, great Left - Non-Pressure Ulcer Type: Other: trauma Toe, great Left - Skin Abnormality Color: Red Toe, great Left - Skin Abnormality Type: Non-pressure ulcer Toe, great Left - Wound Edge: Attached to wound bed Toe, great Left - Wound Exudate Amount: Scant Toe, great Left - Wound Exudate Type: Serosanguineous Toe, great Left - Wound Status: No complications Toe, second Left - Incision, Wound Cleansing: Soap and water Toe, second Left - Incision, Wound Dressing: Open to Air Toe, second Left - Incision, Wound Surrounding Tissue: Edematous, Erythema Toe, second Left - Non-Pressure Ulcer Type: Other: trauma Toe, second Left - Skin Abnormality Color: Red, Other: flush blister Toe, second Left - Skin Abnormality Type: Non-pressure ulcer Toe, second Left - Wound Exudate Amount: None Toe, second Left - Wound Status: No complications Toe, second Right - Incision, Wound Cleansing: Soap and water Toe, second Right - Incision, Wound Dressing: Open to Air Toe, second Right - Incision, Wound Surrounding Tissue: Edematous, Erythema Toe, second Right - Non-Pressure Ulcer Type: Other: trauma Toe, second Right - Skin Abnormality Color: Red Toe, second Right - Skin Abnormality Type: Non-pressure ulcer Toe, second Right - Wound Bed Description: Desiccated Toe, second Right - Wound Exudate Amount: None Toe, second Right - Wound Status: No complications ------Incision/Wound Measurements------ Toe, great Left - Incision, Wound Depth: 0.1 cm Toe, great Left - Incision, Wound Length: 3.5 cm Toe, great Left - Incision, Wound Width: 1.4 cm Toe, second Left - Incision, Wound Depth: 0 cm Toe, second Left - Incision, Wound Length: 3 cm Toe, second Left - Incision, Wound Width: 1.2 cm Toe, second Right - Incision, Wound Depth: 0.1 cm Toe, second Right - Incision, Wound Length: 3.5 cm Toe, second Right - Incision, Wound Width: 1 cm Assessments and Recommendations ------Assessments------ Current Skin/Wound Interventions: Low air loss mattress, Turn and position system, Barrier cream, Turn and reposition every 2 hours, Other: up in chair TID meals order; External catheter Present For Wound Observation: Nurse ------Recommendations------ Recommended Skin/Wound Interventions: Low air loss mattress, Seat cushion, Turn and position system, Turn and reposition every 2 hours, Proposed orders sent to physician, Other: See orders for more details. Triad cream; Bilateral chest open areas, great and 2nd toes: Betadine daily; Hydrocortisone cream to rash; Bilateral groin and scrotum Miconazole powder; Penis Silvadene cream Additional Skin Team Comments: Fall at home. Unkempt Education Prevention, skin/wound care, reinforce education Digitally Signed by Junie Rivero RN, Skin Team on 12/28/2024 02:47 PM [id number] Evaluation + Plan noteExtracted from: Title:History and Physical Author:ATIYA MACK Date:12/28/24 Orders: Admit to Inpatient, 12/28/24 2:29:00 EDT, Level of Care: Stepdown with monitor, Reason for Admission: See History & Physical, Expected Length of Stay: More Than Two Midnights, Diagnosis: cva, rhabdomyolysis, uti, wounds, cocaine intoxication, Constant Order Telemetry Monitoring, 12/28/24 2:32:27 EDT, Constant order CVA potentially secondary using cocaine will hold off on getting MRI of the brain as his head CT is already positive, will ask neurology to weigh in whether or not he needs an echo with bubble study and/or carotid Doppler or if this is simply cocaine induced CVA. Rhabdomyolysis IV fluids, monitor renal function Altered mental status with hallucinations potentially secondary to cocaine can alternate IM Haldol with Ativan as needed Urinary tract infection IV ceftriaxone IV fluids Hypotension currently 90/37 will give an additional bolus I suspect second to dehydration and a urinary tract infection/sepsis Hypertension will hold home blood pressure pills given hypotensive Diabetes sliding scale insulin with meals Bedbugs contact precautions DVT prophylaxis Lovenox 40 daily DNR/DNI as per his son Patient was admitted for the above Order reconciliation not yet complete [facility] 10-13-2025 Neurology Consult note Date of Service 12/28/24 Reason for Consultation AMS/CVA Referring Physician Dr. Mack History of Present Illness Pt is a 69-year-old male who is a poor historian with PMH of HTN, DM, who presented to ER with AMS,found laying prone inside his apartment in his own urine and feces, per documentation neighbors reported a few days ago he was doing coke, son had not heard from him for about a week. Hx obtained from documentation and patient however he is confused no family present. CT head in ER showed no acute findings, noted small chronic lacunar infarct left adamson radiata moderate chronic microvascular angiopathy and mild parenchymal volume loss. WBC 17.5, CPK 2122, AST 112, ALT 93, urine drug screen positive for cocaine, urinalysis showing moderate leuk est +4 bacteria. Blood pressure in ER 74/42. No concerns for seizures reported by staff or seen clinically while here. Pt is alert, orientated to self and hospital but not to time or situation. Appears to be moving extremities equally. No involuntary movements seen on exam. He denies speech disturbance, vision disturbance, headache, sensory loss, weakness. Pt denies history of seizure or concerns for seizures at home, reported 1 week ago he hada stroke, did not seek medical care, cannot give any details regarding this, stated he was at home and got sweaty all of a sudden and knew he had a stroke. At baseline he is not on aspirin daily. Denied alcohol, drug or tobacco use. Reports bedbug infestation at home, that he has not had any treatment for this. Review of Systems See HPI for pertinent positives and negatives. All other review of systems have been reviewed and they are negative. Physical Exam Vitals and Measurements T: 36.7 C (Oral) HR: 87 (Monitored) RR: 16 BP: 100/79 SpO2: 100% HT: 180.3 cm WT: 82.5 kg BMI: 25.38 Weight Dosing Weight: 82.5 kg (12/28/24) Neurologic Exam Mental Status: Orientation: Oriented to person, [facility] only not time or situation Language: Normal fluency, normal simple comprehension Speech: Non-dysarthric Cranial Nerves: Pupils: 2mm bilaterally Visual Doherty: full to confrontation bilaterally CN III, IV, : EOMI. No nystagmus CN V: Intact sensation to light touch and temp CN VII: face asymmetric at rest questionable right mouth droop CN VIII: auditory acuity intact to bedside testing Sensation: Light touch: intact in all 4 extremities Motor: Involuntary movements: none Strength: LUE: 5/5 RUE: 5/5 LLE: 4/5 noted reduced effort RLE: 4/5 noted reduced effort Coordination: Ciqupl-yuiz-[id number] movements: No ataxia present Reflexes: R: L B 1 1 BR 1 1 P 1 1 Toes mute Lab Results 12/28 06:43 WBC: 15.0 H Hgb: 14.8 Hct: 45.9 Platelet: 206 Neutrophil %: 85.5 H Glucose Level: 133 H Sodium Level: 146 H Potassium Level: 3.9 BUN: 46.0 H Creatinine Lvl (s): 0.85 12/27 23:03 WBC: 17.5 H Hgb: 16.5 Hct: 49.3 Platelet: 224 Neutrophil %: 89.0 H Glucose Level: 114 Sodium Level: 142 Potassium Level: 4.9 BUN: 47.0 H Creatinine Lvl (s): 0.91 Imaging Results [address] CT Spine Cervical w/o Contrast Result Date: December 27, 2024 Verified By: NIKITA CLEMENT MD CLINICAL STATEMENT: IMPRESSION: 1. No acute abnormality of the cervical spine.2. Degenerative disc disease with spinal stenosis at C5-C6. If there areneurologic symptoms, MRI could be performed for further evaluation. CT Head or Brain w/o Contrast Result Date: December 27, 2024 Verified By: NIKITA CLEMENT MD CLINICAL STATEMENT: IMPRESSION: 1. No acute intracranial abnormality.2. Small lacunar infarct left adamson radiata.3. Moderate chronic microvascular angiopathy and mild parenchymal volume loss.4. No facial fracture. CT Maxillofacial w/o Contrast Result Date: December 27, 2024 Verified By: NIKITA CLEMENT MD CLINICAL STATEMENT: IMPRESSION: 1. No acute intracranial abnormality.2. Small lacunar infarct left adamson radiata.3. Moderate chronic microvascular angiopathy and mild parenchymal volume loss.4. No facial fracture. XR Chest 1 View Result Date: December 27, 2024 Verified By: NIKITA CLEMENT MD CLINICAL STATEMENT: IMPRESSION: No acute cardiopulmonary process. Assessment/Plan IMPRESSION Acute toxic/metabolic encephalopathy UTI Rhabdo Dehydration Cocaine abuse R/o stroke Pt is a 69-year-old male who is a poor historian with PMH of HTN, DM, who presented to ER with AMS,found laying prone inside his apartment in his own urine and feces, per documentation neighbors reported a few days ago he was doing coke, son had not heard from him and about a week, patient found and brought to ER by EMS is currently in isolation for bedbugs. Reports bedbug infestation at home, that he has not had any treatment for this. Reported he does not routinely see PCP, suspect noncompliant with home meds. Presentation likely secondary to toxic/metabolic encephalopathy in the setting of UTI/rhabdo/dehydration/cocaine abuse. However can check MRI brain to r/o stroke. Will add EEG as aprecaution to rule out seizures although felt to be less likely. PLAN: -MRI of the brain without contrast -MRA head/neck -EEG ordered. Continue to monitor closely for seizures. -CT head in ER showed no acute findings, noted small lacunar infarct left adamson radiata moderate chronic microvascular angiopathy and mild parenchymal volume loss. -Will obtain neuroimaging to r/o any central etiology for patient's symptoms. Consider further stroke work up if neuroimaging shows any acute stroke. -At present patient's symptoms are likely secondary to underlying toxic/metabolic etiology, UTI -Labs reviewed today. LDL 44. CPK 2122. AST 112, ALT 46. urine drug screen positive for cocaine, urinalysis showing moderate leuk est +4 bacteria. Hemoglobin A1c pending, Repeat CPK level ordered. General guidelines for long-term vascular risk factor modification in the setting of a stroke: SBP goal: < 130 as tolerated Goal Total cholesterol: < LDL: 70 HbA1c: < 7 -Aspirin 81 mg daily for secondary stroke prevention as CT head reported to show small left adamson radiata chronic stroke. Bleeding risk discussed. -Lipitor 40 mg nightly when medically safe currently CPK is high will defer to primary team when safe to start. -Discussed plan with patient, answered questions -Will defer infectious/metabolic workup and management to primary team. -GI/DVT prophylaxis -PT/OT/ST per recommendation -Fall precautions -Further medical management per medical team -Case discussed with hospitalist medical team -Patient counseled the risks and health hazards of smoking, excessive alcohol intake, marijuana/cocaine/drug abuse and patient counseled not to smoke cigarettes, drink excessive alcohol as well as not to smoke marijuana. Patient understands the same. -Follow up with Neurology in 4-6 weeks as outpatient Would recommend 30-day CardioNet on discharge if MRI of the brain is concerning for acute stroke Discussed plan with collaborator who agrees with plan Independently spent 35 minutes with patient -Will sign off at present. Please call back if MRI imaging is abnormal. Please call with questions if any in the interim. . Thank you for allowing us to participate in patients care and management. All questions were answered It is a split/shared visit with TYPESETTING MACHINE OPERATOR/TENDER. I have reviewed the progress note obtained and documented by NPand I personally participated in the borja components. I have personally seen and examined the patient at bedside. I have discussed the case and management of the patient's care with TYPESETTING MACHINE OPERATOR/TENDER. I agree with the above documentation. Impression AMS Toxic/Metabolic encephalopathy R/O Stroke UTI Cocaine abuse Plan: -MRI brain w/o contrast -MRA head/neck -CT head nothing acute, chronic left CR small stroke -EEG -Labs reviewed -ASA for secondary stroke prevention. Bleeding risks present -Statins once CK total normalizes -Ohj7d-[id number], LDL 44 -TTE-p -Defer management of UTI to hospitalist team -Will obtain neuroimaging to r/o any central etiology for patient's symptoms. Consider further stroke work up if neuroimaging shows any acute stroke. -At present patient's symptoms are likely secondary to underlying toxic/metabolic etiology, UTI -Hospitalist admission H&P documentation reviewed -ED attending note reviewed -GI/DVT prophylaxis -PT/OT/ST -Fall precautions -Further medical management per medical team -Case discussed with hospitalist medical team -Patient counseled the risks and health hazards of smoking, excessive alcohol intake, marijuana/cocaine/drug abuse and patient counseled not to smoke cigarettes, drink excessive alcohol as well as not to smoke marijuana. Patient understands the same. -Follow up with Neurology in 4-6 weeks as outpatient -Please call with questions if any. -Thank you for allowing us to participate in patients care and management. -All questions were answered -Will sign off at present. Please call back if MRI imaging is abnormal. Please call with questions if any in the interim. This note has been generated using [employer] dictation software. It may contain incorrect words, punctuation's and spellings that were not noted in the review of the note prior to signing. Blanca Hogue MD Neurology, Vascular Neurology Neurohospitalist [facility] Procedure/Surgical History No qualifying data available. Medications Inpatient aspirin, 81 mg= 1 tab(s), Oral, Daily Dextrose 50% IV Push, 25 gram(s)= 50 mL, IV Push, AsDirected, PRN Dextrose 50% IV Push, 25 gram(s)= 50 mL, IV Push, AsDirected, PRN HumaLOG 100 units/mL subcutaneous solution, Give 0-5 units/dose, Subcutaneous, TIDAC Lovenox, 40 mg= 0.4 mL, Subcutaneous, qDay melatonin, 3 mg= 1 tab(s), Oral, qHS, PRN melatonin, 3 mg= 1 tab(s), Oral, qHS, PRN Miralax Powder Packet, 17 gram(s)= 15 mL, Oral, qDay, PRN NS 1,000 mL, 1000 mL, Intravenous Rocephin, 1 gram(s)= 10 mL, IV Push (INT), qDay Tylenol, 650 mg= 2 tab(s), Oral, q4h, PRN Tylenol, 650 mg= 2 tab(s), Oral, q4h, PRN Tylenol, 650 mg= 1 supp, Rectal, q4h, PRN Zofran, 4 mg= 2 mL, IV Push, q4h, PRN Home aspirin, 81 mg, PO, Daily Keflex, 250 mg, PO, QID, Unable to obtain lisinopril, 10 mg, PO, Daily, Unable to obtain metformin, 1000 mg, PO, BID, Unable to obtain terbinafine 250 mg oral tablet, 250 mg= 1 tab(s), PO, Daily, Unable to obtain Tylenol with Codeine #3, 1-2 tabs, PO, q4-6hr, PRN, Unable to obtain Allergies Fish RESP DIFF; THROAT SWELLS Immunizations No qualifying data available. Digitally Signed by GILBERTO JUAREZ on 12/28/2024 01:09 PM Digitally Signed by BLANCA HOGUE MD on 12/28/2024 02:15 PM [id number] History and physical note Date of Service 12/28/2024 Chief Complaint Pt was found laying prone inside his apartment. Pt was last seen doing coke with neighbors a few days ago. Pt son had not heard from him in about a week. Pt is confused and has R mouth droop History of Present Illness 69-year-old male with history of hypertension, diabetes who was found laying down in his apartment in his own urine and feces with his right side of his mouth droop confused after his son had not heard from him in a few days so he was brought to the emergency department for evaluation In the emergency winding department supervisor CT 1. No acute intracranial abnormality. 2. Small lacunar infarct left adamson radiata. 3. Moderate chronic microvascular angiopathy and mild parenchymal volume loss. 4. No facial fracture. CT C-spine 1. No acute abnormality of the cervical spine. 2. Degenerative disc disease with spinal stenosis at C5-C6. If there are neurologic symptoms, MRI could be performed for further evaluation. CT maxillofacial without contrast no fracture Chest x-ray no acute process CBC leukocytosis of 17 H&H 16/49 platelets 224 BMP glucose 114 sodium 142 potassium 4.9 chloride 104 CO2 22 creatinine 0.9 BUN 47 UA no nitrates positive leuk esterase positive blood CPK elevated 2122 LFTs AST 112 otherwise unremarkable lipase 18 lactic acid 1.1 high-sensitivity troponin 34 repeat 33 EKG which I personally reviewed interpreted showed normal sinus rhythm urine tox screen positive for cocaine patient was given 2.5 L of IV fluids vancomycin and Zosyn for concern of sepsis by the ED physician I personally spoke to the ED physician Dr. Smith regarding the patient's presentation Patient was seen and examined at the bedside though he cannot provide much history as he is pleasantly confused and seems to be referring to a child that he thinks is in the room but is not actually present Review of Systems Unable to perform as patient is confused Physical Exam Vitals and Measurements T: 36.7 C (Rectal) HR: 92 (Monitored) RR: 15 BP: 123/51 SpO2: 95% No qualifying data available. GENERAL:Well nourished ; no acute distress. ASSISTIVE DEVICES: None PSYCHIATRIC: appropriate HEENT injection over the right sclera, right facial droop edema over the right side of his face CARDIOVASCULAR: Regular rate, regular rhythm, no murmurs noted. Notrace lower extremity pitting edema. No lymphedema. Dorsalis Pedis pulses+2/4 blaterally . Posterior Tibialis pulses+2/4 bilaterally . RESPIRATORY: Regular rate and depth; no distress, RIGHT lungclear ; LEFT lungclear . Breath soundsnormal . ABDOMEN soft, no guarding, nontender, nondistended, positive bowel sounds, NEURO: Right facial droop alert and oriented x 1 to person, hallucinating in the room saying that there are other children in the room that are not present DERM: Abrasions over the face and feet Lab Results 12/27 23:03 WBC: 17.5 H Hgb: 16.5 Hct: 49.3 Platelet: 224 Neutrophil %: 89.0 H Glucose Level: 114 Sodium Level: 142 Potassium Level: 4.9 BUN: 47.0 H Creatinine Lvl (s): 0.91 Assessment/Plan Orders: Admit to Inpatient, 12/28/24 2:29:00 EDT, Level of Care: Stepdown with monitor, Reason for Admission: See History & Physical, Expected Length of Stay: More Than Two Midnights, Diagnosis: cva, rhabdomyolysis, uti, wounds, cocaine intoxication, Constant Order Telemetry Monitoring, 12/28/24 2:32:27 EDT, Constant order CVA potentially secondary using cocaine will hold off on getting MRI of the brain as his head CT isalready positive, will ask neurology to weigh in whether or not he needs an echo with bubble study and/or carotid Doppler or if this is simply cocaine induced CVA. Rhabdomyolysis IV fluids, monitor renal function Altered mental status with hallucinations potentially secondary to cocaine can alternate IM Haldol with Ativan as needed Urinary tract infection IV ceftriaxone IV fluids Hypotension currently 90/37 will give an additional bolus I suspect second to dehydration and a urinary tract infection/sepsis Hypertension will hold home blood pressure pills given hypotensive Diabetes sliding scale insulin with meals Bedbugs contact precautions DVT prophylaxis Lovenox 40 daily DNR/DNI as per his son Patient was admitted for the above Order reconciliation not yet complete Problem List/Past Medical History hypertension diabetes Procedure/Surgical History No qualifying data available.sebaceous cyst removal Medications Home Medications (6) Active aspirin 81 mg, PO, Daily Keflex 250 mg, PO, QID lisinopril 10 mg, PO, Daily metformin 1000 mg, PO, BID terbinafine 250 mg oral tablet 250 mg = 1 tab(s), PO, Daily Tylenol with Codeine #3 1-2 tabs, PRN, PO, q4-6hr Allergies Fish RESP DIFF; THROAT SWELLS Social History cocaine use Family History noncontributory to current presentation Immunizations No qualifying data available. Code Status No qualifying data available. Digitally Signed by ATIYA MACK MD on 12/28/2024 03:54 AM Digitally Signed by ATIYA MACK MD on 12/28/2024 05:13 AM [id number]* Exam Date Time Procedure Performing Provider Status 12/28/24 1:[address] Maxillofacial w/o Contrast NIKITA CLEMENT MD; Auth (Verified) [id number] ORIGINAL EXAMINATION: CT OF THE HEAD WITHOUT CONTRAST; CT OF THE FACE WITHOUT CONTRAST 12/28/2024 1:32 am; 12/28/2024 1:34 am TECHNIQUE: CT of the head was performed without the administration of intravenous contrast. Automated exposure control, iterative reconstruction, and/or weight based adjustment of the mA/kV was utilized to reduce the radiation dose to as low as reasonably achievable.; CT of the face was performed without the administration of intravenous contrast. Multiplanar reformatted images are provided for review. Automated exposure control, iterative reconstruction, and/or weight based adjustment of the mA/kV was utilized to reduce the radiation dose to as low as reasonably achievable. COMPARISON: None. HISTORY: ORDERING SYSTEM PROVIDED HISTORY: Reason for Exam: Pt was found laying prone inside his apartment. Pt was last seen doing coke with neighbors a few days ago. Pt son had not heard from him in about a week. Pt is confused and has R mouth droop Altered mental status; ORDERING SYSTEM PROVIDED HISTORY: Reason for Exam: Pt was found laying prone inside his apartment. Pt was last seen doing coke with neighbors a few days ago. Pt son had not heard from him in about a week. Pt is confused and has R mouth droop on face for 2 days, nose tender FINDINGS: BRAIN/VENTRICLES: There is no acute intracranial hemorrhage, mass effect or midline shift. No abnormal extra-axial fluid collection. The loving-white differentiation is maintained without evidence of an acute infarct. Small lacunar infarct is present in the left adamson radiata. There is no evidence of hydrocephalus. Scattered parenchymal hypodensities in the cerebral white matter are nonspecific but statistically most consistent with moderate chronic microvascular angiopathy. There is proportionate enlargement of the ventricular system and cortical sulci compatible with mild parenchymal volume loss. Facial bones: There is no facial fracture. ORBITS: The visualized portion of the orbits demonstrate no acute abnormality. SINUSES: The visualized paranasal sinuses and mastoid air cells demonstrate no acute abnormality. SOFT TISSUES/SKULL: No acute abnormality of the visualized skull or soft tissues. IMPRESSION: 1. No acute intracranial abnormality. 2. Small lacunar infarct left adamson radiata. 3. Moderate chronic microvascular angiopathy and mild parenchymal volume loss. 4. No facial fracture. Interpreted by: Nikita Clement MD Preliminary Report By: Nikita Clement MD Electronically signed By Nikita Clement MD Dictated Date: 12/28/2024 1:38:42 AM Prelim Date: 12/28/2024 1:43:31 AM Sign Date: 12/28/2024 1:43:31 AM Ordering Provider: GET SMITH [id number] Note* Exam Date Time Procedure Performing Provider Status 12/28/24 1:[address] Spine Cervical w/o Contrast NIKITA RAMOS MD; Auth (Verified) [id number] ORIGINAL EXAMINATION: CT OF THE CERVICAL SPINE WITHOUT CONTRAST 12/28/2024 1:33 am TECHNIQUE: CT of the cervical spine was performed without the administration of intravenous contrast. Multiplanar reformatted images are provided for review. Automated exposure control, iterative reconstruction, and/or weight based adjustment of the mA/kV was utilized to reduce the radiation dose to as low as reasonably achievable. COMPARISON: None. HISTORY: ORDERING SYSTEM PROVIDED HISTORY: Reason for Exam: Pt was found laying prone inside his apartment. Pt was last seen doing coke with neighbors a few days ago. Pt son had not heard from him in about a week. Pt is confused and has R mouth droop fall; altered mental status FINDINGS: BONES/ALIGNMENT: There is no acute fracture or traumatic malalignment. DEGENERATIVE CHANGES: There is moderately severe degenerative disc disease at C5-C6 with mild degenerative changes at other levels. There is moderate to marked degree of spinal stenosis at C5-C6 due mainly to degenerative spur formation. SOFT TISSUES: There is no prevertebral soft tissue swelling. IMPRESSION: 1. No acute abnormality of the cervical spine. 2. Degenerative disc disease with spinal stenosis at C5-C6. If there are neurologic symptoms, MRI could be performed for further evaluation. Interpreted by: Nikita Clement MD Preliminary Report By: Nikita Clement MD Electronically signed By Nikita Clement MD Dictated Date: 12/28/2024 1:43:47 AM Prelim Date: 12/28/2024 1:45:53 AM Sign Date: 12/28/2024 1:45:53 AM Ordering Provider: GET SMITH [facility] [id number] Note* Exam Date Time Procedure Performing Provider Status 12/28/24 1:[address] Head or Brain w/o Contrast NIKITA CLEMENT MD; Auth (Verified) [id number] ORIGINAL EXAMINATION: CT OF THE HEAD WITHOUT CONTRAST; CT OF THE FACE WITHOUT CONTRAST 12/28/2024 1:32 am; 12/28/2024 1:34 am TECHNIQUE: CT of the head was performed without the administration of intravenous contrast. Automated exposure control, iterative reconstruction, and/or weight based adjustment of the mA/kV was utilized to reduce the radiation dose to as low as reasonably achievable.; CT of the face was performed without the administration of intravenous contrast. Multiplanar reformatted images are provided for review. Automated exposure control, iterative reconstruction, and/or weight based adjustment of the mA/kV was utilized to reduce the radiation dose to as low as reasonably achievable. COMPARISON: None. HISTORY: ORDERING SYSTEM PROVIDED HISTORY: Reason for Exam: Pt was found laying prone inside his apartment. Pt was last seen doing coke with neighbors a few days ago. Pt son had not heard from him in about a week. Pt is confused and has R mouth droop Altered mental status; ORDERING SYSTEM PROVIDED HISTORY: Reason for Exam: Pt was found laying prone inside his apartment. Pt was last seen doing coke with neighbors a few days ago. Pt son had not heard from him in about a week. Pt is confused and has R mouth droop on face for 2 days, nose tender FINDINGS: BRAIN/VENTRICLES: There is no acute intracranial hemorrhage, mass effect or midline shift. No abnormal extra-axial fluid collection. The loving-white differentiation is maintained without evidence of an acute infarct. Small lacunar infarct is present in the left adamson radiata. There is no evidence of hydrocephalus. Scattered parenchymal hypodensities in the cerebral white matter are nonspecific but statistically most consistent with moderate chronic microvascular angiopathy. There is proportionate enlargement of the ventricular system and cortical sulci compatible with mild parenchymal volume loss. Facial bones: There is no facial fracture. ORBITS: The visualized portion of the orbits demonstrate no acute abnormality. SINUSES: The visualized paranasal sinuses and mastoid air cells demonstrate no acute abnormality. SOFT TISSUES/SKULL: No acute abnormality of the visualized skull or soft tissues. IMPRESSION: 1. No acute intracranial abnormality. 2. Small lacunar infarct left adamson radiata. 3. Moderate chronic microvascular angiopathy and mild parenchymal volume loss. 4. No facial fracture. Interpreted by: Nikita Clement MD Preliminary Report By: Nikita Clement MD Electronically signed By Nikita Clement MD Dictated Date: 12/28/2024 1:38:42 AM Prelim Date: 12/28/2024 1:43:31 AM Sign Date: 12/28/2024 1:43:31 AM Ordering Provider: GET SMITH [facility] [id number] Note* Exam Date Time Procedure Performing Provider Status 12/28/24 1:11 AM XR Chest 1 View NIKITA CLEMENT MD; Auth (Verified) [id number] ORIGINAL EXAMINATION: ONE XRAY VIEW OF THE CHEST 12/28/2024 1:11 am COMPARISON: None. HISTORY: ORDERING SYSTEM PROVIDED HISTORY: Reason for Exam: Altered mental status FINDINGS: The heart size and mediastinal contours are normal. There is no lung infiltrate or edema. No pneumothorax or pleural fluid is present. There is no acute skeletal abnormality. IMPRESSION: No acute cardiopulmonary process. Interpreted by: Nikita Clement MD Preliminary Report By: Nikita Clement MD Electronically signed By Nikita Clement MD Dictated Date: 12/28/2024 1:14:43 AM Prelim Date: 12/28/2024 1:15:40 AM Sign Date: 12/28/2024 1:15:40 AM Ordering Provider: GET SMITH [facility] [id number] Note* Exam Date Time Procedure Performing Provider Status 12/27/24 11:12 PM EKG (ED) - CV USHA BURKETT DO; A uth (Verified) ECG Final Report SINUS RHYTHM Electronic Signature: USHA BURKETT DO 12/27/2024 23:56:55 [facility] course Narrative No data available for this section [facility] Summary Purpose Family History No Family History Records FoundNo Family History Records Found No data available for this section No Family History Records FoundNo Family History Records FoundNo Family History Records Found Advance Directives No Advanced Directives Records FoundNo Advanced Directives Records FoundNo Advanced Directives Records FoundNo Advanced Directives Records FoundNo Advanced Directives Records Found Additional Source Comments (unrecognized sect ion and content) No Status Records FoundNo Status Records FoundNo Status Records FoundNo Status Records FoundNo Status Records Found INFORMATION SOURCE (unrecogn ized section and content) DATE CREATED AUTHOR 02/22/2020 [facility] ([place]) DATE CREATED AUTHOR AUTHOR'S ORGANIZ ATION 04/06/2024 [facility] DATE CREATED AUTHOR AUTHOR'S ORGANIZ ATION 01/22/2025 [facility] DATE CREATED AUTHOR AUTHOR'S ORGANIZ ATION 01/22/2025 [facility] DATE CREATED AUTHOR AUTHOR'S ORGANIZ ATION 01/27/2025 [facility] Patient Care team informatio n (unrecognized section and content) Care Team Personnel Name: FAYE JORDAN DO Position: No Access Member Role: Primary Care Physician Address: [address] [place] [address] Telecom: Name: Jonathan Estrada Nurse Position: Bed Management Member Role: Other Care Team Related Persons Name: DAMIEN BARLOW Name: DARIO RAMYUNDO FOR RECORDS PERTAINING TO PATIENTS WHO ARE OR HAVE BEEN ENROLLED IN A CHEMICAL DEPENDENCY/SUBSTANCEABUSE PROGRAM, SOME INFORMATION MAY BE OMITTED. This clinical summary was aggregated from multiple sources. Caution should be exercised in using it in the provision of clinical care. This summary normalizes information from multiple sources, and as a consequence, information in this document may materially change the coding, format and clinical context of patient data. In addition, data may be omitted in some cases. CLINICAL DECISIONS SHOULD BE BASED ON THE PRIMARY CLINICAL RECORDS. [facility], [facility]. provides no warranty or guarantee of the accuracy or completeness of information in this document.
[2025-01-28 09:19] LABS: CPK Total, Creatine Kinase 33 U/L (24-195); Cholesterol 90 mg/dL (<=200); Low Density Lipoprotein Calc. 41 mg/dL; Triglycerides 89 mg/dL; Very Low Density Lipoprotein 18 mg/dL (5-40); cholesterol:hdl ratio screen 2.88
== END ==
LOC: OLS.SW 05:00
PROVIDERS: Visit Provider Internal Medicine
DX: G93.41 Metabolic encephalopathy (principal)
CPT/HCPCS: 36415; 80061; 82550; 83036; 86695; 86696